=== PATIENT | female | born 1995 | race Caucasian/White ===

== ENCOUNTER → 2016-04-22 | Emergency (ER) | payer OTHER, MEDICAID ==
[~2016-04-22] MED LIST: Acetaminophen TAB* 325 MG PO ONE
[2016-04-22 07:10] LABS: Hematocrit 40 % (35-47); Hemoglobin 13.3 g/dl (12.0-16.0); Mean Corpuscular HGB Conc 34 g/dl (31-36); Mean Corpuscular Hemoglobin 28 pg (27-31); Mean Corpuscular Volume 83 fL (80-97); Mean Platelet Volume 9 um3 (7.4-10.4); Red Blood Count 4.74 10^6/ul (4.0-5.4); Red Cell Distribution Width 14 % (10.5-15); White Blood Count 13.5 10^3/ul (3.5-10.8)
[2016-04-22 07:26] LABS: Albumin 3.7 g/dL (3.2-5.2); BUN/Creatinine Ratio 11.3 (8-20); Calcium 9.1 mg/dL (8.6-10.3); EGFR African American 159.5 (>60); Globulin 3.8 g/dL (2-4); Total Bilirubin 0.2 mg/dL (0.2-1.0); Total Protein 7.5 g/dL (6.4-8.9)
[2016-04-22 08:27] VITALS: BP 126/94
--- NOTE | 2016-05-04 23:41 | ED ---
Ramya Chávez SooYoung, scribed for Mike Whitlock MD on 04/22/16 at 0546 . Complex/Multi-Sys Presentation - HPI Summary HPI Summary: A 20 y/o F presents to ED with c/o L-sided rib pain under L breast onset two days ago. Associated sx: HARDEN, SOB. Denies: cough. Pt is currently at 20 weeks. Additionally, she slipped and fell three days ago onto her L knee. She is sure she didn't fall onto her belly, says the baby is kicking a lot. She notes having previous L rib and knee injuries. Pt is a prev smoker. - History Of Current Complaint Chief Complaint: EDExtremityLower Time Seen by Provider: 04/22/16 05:34 Hx Obtained From: Patient Onset/Duration: Lasting Days, Still Present Location: Pain At: - L rib, below L breast Associated Signs And Symptoms: Positive: SOB - and HARDEN. Negative: Cough - Allergies/Home Medications Allergies/Adverse Reactions: Allergies Allergy/AdvReac Type Severity Reaction Status Date / Time Wheat Bran Allergy Rash Verified 12/21/15 19:51 DAIRY Allergy Severe Diarrhea Uncoded 12/21/15 19:51 alcohol prep Allergy Hives Uncoded 12/21/15 19:51 vieira and pollen Allergy Congestion Uncoded 12/21/15 19:51 PMH/Surg Hx/FS Hx/Imm Hx Previously Healthy: No Endocrine/Hematology History: Denies: Hx Blood Disorders, Hx Diabetes, Hx Sickle Cell Disease Cardiovascular History: Denies: Hx Congestive Heart Failure, Hx Hypercholesterolemia, Hx Hypertension , Hx Pacemaker/ICD, Other Cardiovascular Problems/Disorders Respiratory History: Reports: Hx Asthma GI History: Denies: Other GI Disorders History: Denies: Hx Dialysis, Hx Renal Disease, Other Problems/Disorders Musculoskeletal History: Reports: Hx Back Problems Denies: Hx Arthritis, Hx Rheumatoid Arthritis, Hx Osteoporosis Sensory History: Reports: Hx Contacts or Glasses - GLASSES Opthamlomology History: Reports: Hx Contacts or Glasses - GLASSES Psychiatric History: Reports: Hx Anxiety - ON MEDICATION, Hx Attention Deficit Hyperactivity Disorder - SINCE @ AGE 6, Hx Depression - ON MEDICATION, Hx Suicide Attempt Denies: Hx Panic Disorder - Cancer History Hx Chemotherapy: No - Surgical History Surgery Procedure, Year, and Place: Tonsillectomy, 2013, wisdom teeth, Tongue Laceration Repair, 2000 Hx Anesthesia Reactions: No Infectious Disease History: No Infectious Disease History: Denies: Hx of Known/Suspected MRSA, History Other Infectious Disease, Traveled Outside the [place] in Last 30 Days - Family History Known Family History: Positive: Unknown - pt adopted, Hypertension, Diabetes, Other - hypotension, BLOOD CLOTS - Social History Occupation: Unemployed Lives: With Family Alcohol Use: Occasionally Hx Substance Use: No Substance Use Type: Reports: None Substance Use Comment - Amount & Last Used: 4 mos ago Hx Tobacco Use: Yes Smoking Status (MU): Current Some Day Smoker Type: Cigarettes Amount Used/How Often: 1-3 cig./day Have You Smoked in the Last Year: Yes Review of Systems Negative: Fever, Chills Negative: Erythema Negative: Sore Throat Negative: Chest Pain Negative: Shortness Of Breath, Cough Negative: Abdominal Pain, Vomiting, Nausea Negative: dysuria, hematuria Positive: Other - L rib and knee pain. Negative: Myalgia, Edema Negative: Rash Neurological: Other - neg: dizziness All Other Systems Reviewed And Are Negative: Yes Physical Exam - Summary Physical Exam Summary: Constitutional: Well-developed, Well-nourished, Alert. (-) Distressed Skin: Warm, Dry HENT: Normocephalic; Atraumatic Eyes: Conjunctiva normal Neck: Musculoskeletal ROM normal neck. (-) JVD, (-) Stridor, (-) Tracheal deviation Cardio: Rhythm regular, rate normal, Heart sounds normal; Intact distal pulses; The pedal pulses are 2+ and symmetric. Radial pulses are 2+ and symmetric. (-) Murmur Pulmonary/Chest wall: Effort normal. (-) Respiratory distress, (-) Wheezes, (-) Rales Abd: Soft, (-) Tenderness, (-) Distension, (-) Guarding, (-) Rebound Musculoskeletal: (-) Edema; KNEE NON-TENDER FROM NO EVIDENT SWELLING, SCARS FROM PICKING BEHAVIOR; L LATERAL 10TH RIB IS TENDER TO PALPATION, LUQ MILDLY TENDER TO PALPATION. Lymph: (-) Cervical adenopathy Neuro: Alert, Oriented x3 Psych: Mood and affect Normal Triage Information Reviewed: Yes Vital Signs On Initial Exam: Initial Vitals Temp Pulse Resp BP Pulse Ox 98.0 F 86 17 137/103 100 04/22/16 01:47 04/22/16 01:47 04/22/16 01:47 04/22/16 01:47 04/22/16 01:47 Vital Signs Reviewed: Yes Diagnostics - Vital Signs Vital Signs Temp Pulse Resp BP Pulse Ox 04/22/16 01:47 98.0 F 86 17 137/103 100 - Laboratory Result Diagrams: 04/22/16 07:00 04/22/16 07:00 Lab Statement: Any lab studies that have been ordered have been reviewed, and results considered in the medical decision making process. Complex Multi-Symp Course/Dx Course Of Treatment: DO NOT SUSPECT ANY COMPLICATIONS, IF D-DIMER POSITIVE DISCUSS IMAGING TO RULE OU PE. IF NEGATIVE DISCHARGE FOR MUSCULOSKELETAL CHEST PAIN - Diagnoses Provider Diagnoses: Leg pain Discharge - Discharge Plan Condition: Good Disposition: HOME Patient Education Materials: Chest Wall Pain (ED) Referrals: Suzy Goncalves MD [Medical Doctor] - Donnie Moser DO [Primary Care Provider] - Additional Instructions: Follow up with Dr. Goncalves (SEGMENT ASSEMBLER). The documentation as recorded by the Ramya rizzo SooYoung accurately reflects the service I personally performed and the decisions made by me, Mike Whitlock MD.
== END ==
LOC: ED 01:36
DX: R07.89 Other chest pain (principal); R06.02 Shortness of breath; Z72.0 Tobacco use; M79.606 Pain in leg, unspecified; M25.569 Pain in unspecified knee
CPT/HCPCS: 36415; 80053; 83690; 85027; 85379; 99282; A9270-GY

== ENCOUNTER 2016-05-06 23:28 | Emergency (ER) | payer OTHER, MEDICAID ==
--- NOTE | 2016-05-07 00:07 | ED ---
Abdominal Pain/Female - HPI Summary HPI Summary: 21 week pt here w/ RLQ pain x 2 hours. Feels like a "period cramp". Pain has improved some since arriving. No provoking factors. Reports she did have a similar pain up higher on the Rt side of ab last night after having intercourse - thought this was dyspareunia pain as she gets this with certain positions. Denies vaginal bleeding, vaginal d/c and pain was self-limiting - no vaginal bleeding/discharge today as well. Has some mild nausea - no vomiting, no diarrhea. Reports BM's have been like "khadijah". Lt hip has "issues" and feels like her Lt thigh has been cramping w/ "tank horses" - Lt foot w/ paresthesias. H/o multiple pregnancies lasting only 1 month. This has been confirmed w/ blood test and U/S and she is followed by OBGYN. - History of Current Complaint Chief Complaint: EDAbdPain Stated Complaint: LOWER ABD PAIN/21 WKS PREG Time Seen by Provider: 05/06/16 23:33 Hx Obtained From: Patient Hx Last Menstrual Period: 03/2015 Pain Intensity: 7 Allergies/Adverse Reactions: Allergies Allergy/AdvReac Type Severity Reaction Status Date / Time Wheat Bran Allergy Rash Verified 12/21/15 19:51 DAIRY Allergy Severe Diarrhea Uncoded 12/21/15 19:51 alcohol prep Allergy Hives Uncoded 12/21/15 19:51 vieira and pollen Allergy Congestion Uncoded 12/21/15 19:51 PMH/Surg Hx/FS Hx/Imm Hx Previously Healthy: Yes - 21 weeks Endocrine/Hematology History: Denies: Hx Anticoagulant Therapy, Hx Blood Disorders, Hx Diabetes, Hx Sickle Cell Disease, Hx Unexplained Bleeding Cardiovascular History: Denies: Hx Congestive Heart Failure, Hx Hypercholesterolemia, Hx Hypertension , Hx Pacemaker/ICD, Other Cardiovascular Problems/Disorders Respiratory History: Reports: Hx Asthma GI History: Denies: Hx Cirrhosis, Hx Crohn's Disease, Hx Diverticulosis, Hx Gall Bladder Disease, Hx Gastroesophageal Reflux Disease, Hx Gastrointestinal Bleed, Hx Hiatal Hernia, Hx Irritable Bowel, Other GI Disorders History: Denies: Hx Dialysis, Hx Renal Disease, Other Problems/Disorders Musculoskeletal History: Reports: Hx Back Problems - "floating piece of bone near spine"; Lt hip "issue" Denies: Hx Arthritis, Hx Rheumatoid Arthritis, Hx Osteoporosis Sensory History: Reports: Hx Contacts or Glasses - GLASSES Opthamlomology History: Reports: Hx Contacts or Glasses - GLASSES Psychiatric History: Reports: Hx Anxiety - ON MEDICATION, Hx Attention Deficit Hyperactivity Disorder - SINCE @ AGE 6, Hx Depression - ON MEDICATION, Hx Suicide Attempt Denies: Hx Panic Disorder - Cancer History Hx Chemotherapy: No - Surgical History Surgery Procedure, Year, and Place: Tonsillectomy, 2013, wisdom teeth, Tongue Laceration Repair, 2001 Hx Anesthesia Reactions: No Infectious Disease History: No Infectious Disease History: Denies: Hx of Known/Suspected MRSA, History Other Infectious Disease, Traveled Outside the [place] in Last 30 Days - Family History Known Family History: Positive: Unknown - pt adopted, Hypertension, Diabetes, Other - hypotension, BLOOD CLOTS - Social History Lives: With Family Alcohol Use: Occasionally Hx Substance Use: No Substance Use Type: Reports: None Substance Use Comment - Amount & Last Used: 4 mos ago Hx Tobacco Use: Yes Smoking Status (MU): Current Some Day Smoker Type: Cigarettes Amount Used/How Often: 1-3 cig./day Have You Smoked in the Last Year: Yes Review of Systems Negative: Fever, Chills Cardiovascular: Negative Respiratory: Negative Gastrointestinal: Other - see HPI Negative: burning, dysuria, discharge, frequency, flank pain, hematuria, incontinence Musculoskeletal: Other - see HPI Negative: Rash, Bruising Neurological: Other - see HPI Positive: Anxious All Other Systems Reviewed And Are Negative: Yes Physical Exam Triage Information Reviewed: Yes Vital Signs On Initial Exam: Initial Vitals Temp Pulse Resp BP Pulse Ox 97.3 F 85 15 117/71 98 05/06/16 23:37 05/06/16 23:37 05/06/16 23:37 05/06/16 23:37 05/06/16 23:37 Vital Signs Reviewed: Yes Appearance: Positive: Well-Appearing, No Pain Distress, Well-Nourished Skin: Positive: Warm, Dry - no skin abnormalities overlying affected area on abdomen Head/Face: Positive: Normal Head/Face Inspection Eyes: Positive: Normal, EOMI, Conjunctiva Clear - anicteric sclera ENT: Positive: Hearing grossly normal, Pharynx normal - mucosa moist Neck: Positive: Supple Respiratory/Lung Sounds: Positive: Clear to Auscultation, Breath Sounds Present. Negative: Rales, Rhonchi, Wheezes Cardiovascular: Positive: Normal, RRR, Pulses are Symmetrical in both Upper and Lower Extremities Abdomen Description: Positive: Soft, Other: - diffuse mild TTP over ab - no rebounding Bowel Sounds: Positive: Present Musculoskeletal: Positive: Normal, Strength/ROM Intact - pt transitions from sitting to standing w/o diffculty; ambulating and bearing weight well Neurological: Positive: Normal, Alert, Oriented to Person Place, Time, CN Intact II-III Psychiatric: Positive: Normal - concerned, somewhat anxious Diagnostics - Vital Signs Vital Signs Temp Pulse Resp BP Pulse Ox 05/06/16 23:37 97.3 F 85 15 117/71 98 - Laboratory Result Diagrams: 05/06/16 23:55 05/06/16 23:55 Lab Statement: Any lab studies that have been ordered have been reviewed, and results considered in the medical decision making process. Abdominal Pain Fem Course/Dx - Course Course Of Treatment: Viably 21 weeks - confirmed by FHR 150 heard on U/ S as well as beta HCG serum count. Pt's U/S is normal but cannot r/o appendicitis. Although she has an elevated WBC which is common in , her labs are unremarkable for acute inflammatory response to infection. She also reports improvement of pain since arriving and is asking to eat something. Her lower Rt pelvic pain is anatoically in the region of her round ligament - discussed this could be the cause of her pain as things shift during this point in . Her sx support this as well. Reviewed danger s/sx of appendicitis w/ pt who agrees to return to ED immediately if she develops return /worsening of ab pain, acute or peristent back pain, nasuea, vomiting, diarrhea , fever, chills, vaginal bleeding/discharge. Pt and male partner voice understanding and agree w/ plan. WIll f/u w/ OBGYN as directed. - Diagnoses Provider Diagnoses: Abdominal pain during in second trimester - Provider Notifications Discussed Care Of Patient With: Dr. Felix. Dr. Kennedy - explained round ligament pain is typically triggered around this time of . HR reported at 150bpm and no vaginal bleeding. Okay to w/u for other ab pain issues and f/u w/ OBGYN as routinely recommended unless danger s/sx present. No pelvic exam necessary at this time. Discharge - Discharge Plan Condition: Stable Disposition: HOME Patient Education Materials: Abdominal Pain in (ED) Referrals: Donnie Moser DO [Primary Care Provider] - Additional Instructions: Follow-up with your OBGYN this week You may take tylenol for pain. If you develop worsening of abdominal pain and/or fever, chills, vomiting, vaginal bleeding, back pain, return to ED
[2016-05-07 00:28] LABS: Hematocrit 42 % (35-47); Hemoglobin 13.8 g/dl (12.0-16.0); Mean Corpuscular HGB Conc 33 g/dl (31-36); Mean Corpuscular Hemoglobin 27 pg (27-31); Mean Corpuscular Volume 84 fL (80-97); Mean Platelet Volume 9 um3 (7.4-10.4); Red Blood Count 5.06 10^6/ul (4.0-5.4); Red Cell Distribution Width 14 % (10.5-15); White Blood Count 14.6 10^3/ul (3.5-10.8)
[2016-05-07 00:37] LABS: Urine Bacteria 1+ (Absent); Urine Bilirubin Negative (Negative); Urine Glucose Negative (Negative); Urine Nitrite Negative (Negative)
[2016-05-07 00:39] LABS: Albumin 3.4 g/dL (3.2-5.2); BUN/Creatinine Ratio 6.8 (8-20); C Reactive Protein 29.99 mg/L (< 5.00); EGFR African American 168.9 (>60); EGFR Non-African American 131.3 (>60); Globulin 3.8 g/dL (2-4); Potassium 3.9 mmol/L (3.5-5.0); Total Bilirubin 0.2 mg/dL (0.2-1.0); Total Protein 7.2 g/dL (6.4-8.9)
[2016-05-07] MEDS ORDERED: Acetaminophen TAB* 325 MG PO ONE (01:31)
[2016-05-07 02:02] VITALS: BP 120/70
--- NOTE | 2016-05-07 10:20 | RAD ---
Indication: RIGHT lower quadrant pain. / 21 weeks gestation. Comparison: None. Technique: Ultrasound of the right lower quadrant. Report: Nondiagnostic exam due to nonvisualization of the appendix. No secondary findings such as ascites or conspicuous lymphadenopathy to support acute inflammation in the RIGHT lower quadrant. Large body habitus limits acoustic window.
--- NOTE | 2016-05-07 11:18 | RAD ---
Indication: Abdominal pain and nausea. Comparison: October 10, 2015 RIGHT upper quadrant ultrasound. Technique: Complete abdominal ultrasound. Report: Appropriate direction flow documented in the portal and hepatic veins. 16 cm cephalocaudal liver is normal in echotexture and without evidence for focal lesions or biliary dilatation. 3 mm common bile duct. Normally distended gallbladder with 2.1 mm wall is without pathologic finding. Negative for sonographic Grimm's sign. The pancreas is poorly visualized without gross abnormality of the limited visualized segment of the pancreatic head and body. Unremarkable 11.8 cm spleen. Negative for ascites. 12.6 x 5.7 x 5.6 cm RIGHT kidney and 12.1 x 5.4 x 5.8 cm LEFT kidney. Normal bilateral renal cortical echogenicity. No focal renal lesions, conspicuous stones, or hydronephrosis. IMPRESSION: Negative abdominal ultrasound.
== END 2016-05-07 02:01 | disposition home or self-care (01) ==
LOC: ED 23:28
DX: R10.31 Right lower quadrant pain (principal); Z72.0 Tobacco use; Z3A.21 21 weeks gestation of pregnancy
CPT/HCPCS: 36415; 76700; 76705; 80053; 81003; 81015; 83605; 83690; 84702; 85025; 86140; 87086; 99284; A9270-GY

== ENCOUNTER → 2016-05-17 | Emergency (ER) | payer OTHER, MEDICAID ==
[2016-05-17 12:51] VITALS: BP 144/59
== END | disposition left against medical advice (07) ==
LOC: ED 12:40
DX: R05 Cough (principal); Z53.21 Procedure and treatment not carried out due to patient leaving prior to being seen by health care provider

== ENCOUNTER 2016-08-25 21:34 | Emergency (ER) | payer OTHER, MEDICAID ==
[2016-08-25] MEDS ORDERED: NS 0.9% 1000 ML* 1,000 ML IV SCH (21:45)
[2016-08-25 22:22] LABS: Hematocrit 38 % (35-47); Hemoglobin 12.6 g/dl (12.0-16.0); Mean Corpuscular HGB Conc 33 g/dl (31-36); Mean Corpuscular Hemoglobin 27 pg (27-31); Mean Corpuscular Volume 81 fL (80-97); Mean Platelet Volume 9 um3 (7.4-10.4); Red Blood Count 4.75 10^6/ul (4.0-5.4); Red Cell Distribution Width 14 % (10.5-15); White Blood Count 14.3 10^3/ul (3.5-10.8)
[2016-08-25 22:36] LABS: Albumin 2.9 g/dL (3.2-5.2); BUN/Creatinine Ratio 16.9 (8-20); Calcium 9.1 mg/dL (8.6-10.3); EGFR African American 167.1 (>60); EGFR Non-African American 129.9 (>60); Globulin 3.5 g/dL (2-4); Potassium 4.1 mmol/L (3.5-5.0); Total Bilirubin 0.2 mg/dL (0.2-1.0); Total Protein 6.4 g/dL (6.4-8.9)
--- NOTE | 2016-08-26 01:22 | ED ---
Rajat Chávez Benjamin, scribed for Juanpablo Murcia MD on 08/25/16 at 2207 . Lower Extremity - HPI Summary HPI Summary: 37 weeks 21yo female came in ED by EMS after slipping off the stairs at home. Pt fell forward 4-5 steps. Pt presents with a laceration on her left 4 th toe along with throbbing pain in the area. Pt also reports diffuse abdominal cramping, which started a few minutes after her fall. Pt admits a mild head injury as well but denies any LORENZO or pain. - History of Current Complaint Chief Complaint: EDExtremityLower Stated Complaint: FELL DOWN STAIRS/37WKS PREG AND FOOT LAC Time Seen by Provider: 08/25/16 21:42 Hx Obtained From: Patient, Family/Senior Copywriter - Hx Last Menstrual Period: 03/2015 Mechanism Of Injury: Fall From Height Of: - 4-5 steps above ground Onset of Pain: Post Accident Onset/Duration: Still Present Severity Initially: Mild Severity Currently: None Pain Intensity: 0 Pain Scale Used: 0-10 Numeric Timing: Constant Location: Is Discrete @ - left 4th toe, and abdomen Character Of Pain: Throbbing Associated Signs And Symptoms: Positive: Negative Aggravating Factor(s): Standing, Ambulation, Movement, Weight Bearing Alleviating Factor(s): Rest, Ice Able to Bear Weight: No - Allergies/Home Medications Allergies/Adverse Reactions: Allergies Allergy/AdvReac Type Severity Reaction Status Date / Time Wheat Bran Allergy GI Upset Verified 05/30/16 20:55 DAIRY Allergy Severe Diarrhea Uncoded 05/30/16 20:55 vieira and pollen Allergy Congestion Uncoded 05/30/16 20:55 PMH/Surg Hx/FS Hx/Imm Hx Endocrine/Hematology History: Denies: Hx Anticoagulant Therapy, Hx Blood Disorders, Hx Diabetes, Hx Sickle Cell Disease, Hx Unexplained Bleeding Cardiovascular History: Denies: Hx Congestive Heart Failure, Hx Hypercholesterolemia, Hx Hypertension , Hx Pacemaker/ICD, Other Cardiovascular Problems/Disorders Respiratory History: Reports: Hx Asthma GI History: Denies: Hx Cirrhosis, Hx Crohn's Disease, Hx Diverticulosis, Hx Gall Bladder Disease, Hx Gastroesophageal Reflux Disease, Hx Gastrointestinal Bleed, Hx Hiatal Hernia, Hx Irritable Bowel, Other GI Disorders History: Denies: Hx Dialysis, Hx Renal Disease, Other Problems/Disorders Musculoskeletal History: Reports: Hx Back Problems - "floating piece of bone near spine"; Lt hip "issue" Denies: Hx Arthritis, Hx Rheumatoid Arthritis, Hx Osteoporosis Sensory History: Reports: Hx Contacts or Glasses - GLASSES Opthamlomology History: Reports: Hx Contacts or Glasses - GLASSES Psychiatric History: Reports: Hx Anxiety, Hx Attention Deficit Hyperactivity Disorder - SINCE @ AGE 6, Hx Depression, Hx Suicide Attempt, Other Psychiatric Issues/Disorders - bipolar Denies: Hx Panic Disorder - Cancer History Hx Chemotherapy: No - Surgical History Surgery Procedure, Year, and Place: Tonsillectomy, 2013, wisdom teeth, Tongue Laceration Repair, 2000 Hx Anesthesia Reactions: No Infectious Disease History: No Infectious Disease History: Denies: Hx of Known/Suspected MRSA, History Other Infectious Disease, Traveled Outside the [place] in Last 30 Days - Family History Known Family History: Positive: None, Unknown - pt adopted, Hypertension, Diabetes, Other - hypotension, BLOOD CLOTS - Social History Occupation: Unemployed Lives: With Family Alcohol Use: None Alcohol Amount: pt states none this Hx Substance Use: No Substance Use Type: Reports: None Substance Use Comment - Amount & Last Used: pt states clean since 2014 Hx Tobacco Use: Yes Smoking Status (MU): Former Smoker Type: Cigarettes Amount Used/How Often: 1-3 cig./day Have You Smoked in the Last Year: Yes Review of Systems Constitutional: Negative Eyes: Negative ENT: Negative Cardiovascular: Negative Respiratory: Negative Positive: Abdominal Pain - cramping Genitourinary: Negative Positive: Arthralgia - left 4th toe Positive: Other - lac @ left 4th toe Neurological: Negative Psychological: Normal All Other Systems Reviewed And Are Negative: Yes Physical Exam Triage Information Reviewed: Yes Vital Signs On Initial Exam: Initial Vitals Temp Pulse Resp BP Pulse Ox 98.6 F 104 18 133/72 98 08/25/16 21:43 08/25/16 21:43 08/25/16 21:43 08/25/16 21:43 08/25/16 21:43 Vital Signs Reviewed: Yes Appearance: Positive: Well-Appearing, No Pain Distress, Obese Skin: Positive: Warm, Skin Color Reflects Adequate Perfusion, Dry, Other - laceration between 4th and 5th toe of the left foot Head/Face: Positive: Normal Head/Face Inspection Eyes: Positive: EOMI, CASEY ENT: Positive: Normal ENT inspection Neck: Positive: Supple, Nontender Respiratory/Lung Sounds: Positive: Clear to Auscultation, Breath Sounds Present Cardiovascular: Positive: RRR Abdomen Description: Positive: Nontender, No Organomegaly, Other: - gravid abdomen; mild tenderness at umbilicus Bowel Sounds: Positive: Present Musculoskeletal: Positive: Normal, Pain @ - tenderness at Left ankle and left dorsum of the foot Neurological: Positive: Sensory/Motor Intact, Alert, Oriented to Person Place, Time Psychiatric: Positive: Affect/Mood Appropriate Diagnostics - Vital Signs Vital Signs Temp Pulse Resp BP Pulse Ox 08/25/16 21:45 98.6 F 104 18 133/72 98 08/25/16 21:43 98.6 F 104 18 133/72 98 - Laboratory Lab Results: Lab Results 08/25/16 08/25/16 08/25/16 Range/Units 22:15 22:15 22:15 WBC 14.3 H (3.5-10.8) 10^3/ul RBC 4.75 (4.0-5.4) 10^6/ul Hgb 12.6 (12.0-16.0) g/dl Hct 38 (35-47) % MCV 81 (80-97) fL MCH 27 (27-31) pg MCHC 33 (31-36) g/dl RDW 14 (10.5-15) % Plt Count 253 (150-450) 10^3/ul MPV 9 (7.4-10.4) um3 Neut % (Auto) 68.8 (38-83) % Lymph % (Auto) 17.8 L (25-47) % Hemphill % (Auto) 8.0 (1-9) % Eos % (Auto) 4.9 (0-6) % Baso % (Auto) 0.5 (0-2) % Absolute Neuts (auto) 9.8 H (1.5-7.7) 10^3/ul Absolute Lymphs (auto) 2.5 (1.0-4.8) 10^3/ul Absolute Monos (auto) 1.1 H (0-0.8) 10^3/ul Absolute Eos (auto) 0.7 H (0-0.6) 10^3/ul Absolute Basos (auto) 0.1 (0-0.2) 10^3/ul Absolute Nucleated RBC 0.01 10^3/ul Nucleated RBC % 0.1 INR (Anticoag Therapy) 0.87 L (0.89-1.11) APTT 27.5 (26.0-36.3) seconds Sodium 134 (133-145) mmol/L Potassium 4.1 (3.5-5.0) mmol/L Chloride 107 (101-111) mmol/L Carbon Dioxide 21 L (22-32) mmol/L Anion Gap 6 (2-11) mmol/L BUN 10 (6-24) mg/dL Creatinine 0.59 (0.51-0.95) mg/dL Est GFR ( Amer) 167.1 (>60) Est GFR (Non-Af Amer) 129.9 (>60) BUN/Creatinine Ratio 16.9 (8-20) Glucose 95 (70-100) mg/dL Calcium 9.1 (8.6-10.3) mg/dL Total Bilirubin 0.20 (0.2-1.0) mg/dL AST 11 L (13-39) U/L ALT 10 (7-52) U/L Alkaline Phosphatase 110 H (34-104) U/L Total Protein 6.4 (6.4-8.9) g/dL Albumin 2.9 L (3.2-5.2) g/dL Globulin 3.5 (2-4) g/dL Albumin/Globulin Ratio 0.8 L (1-3) KB Hemoglobin 05/25/17 Range/Units 22:15 WBC (3.5-10.8) 10^3/ul RBC (4.0-5.4) 10^6/ul Hgb (12.0-16.0) g/dl Hct (35-47) % MCV (80-97) fL MCH (27-31) pg MCHC (31-36) g/dl RDW (10.5-15) % Plt Count (150-450) 10^3/ul MPV (7.4-10.4) um3 Neut % (Auto) (38-83) % Lymph % (Auto) (25-47) % Hemphill % (Auto) (1-9) % Eos % (Auto) (0-6) % Baso % (Auto) (0-2) % Absolute Neuts (auto) (1.5-7.7) 10^3/ul Absolute Lymphs (auto) (1.0-4.8) 10^3/ul Absolute Monos (auto) (0-0.8) 10^3/ul Absolute Eos (auto) (0-0.6) 10^3/ul Absolute Basos (auto) (0-0.2) 10^3/ul Absolute Nucleated RBC 10^3/ul Nucleated RBC % INR (Anticoag Therapy) (0.89-1.11) APTT (26.0-36.3) seconds Sodium (133-145) mmol/L Potassium (3.5-5.0) mmol/L Chloride (101-111) mmol/L Carbon Dioxide (22-32) mmol/L Anion Gap (2-11) mmol/L BUN (6-24) mg/dL Creatinine (0.51-0.95) mg/dL Est GFR ( Amer) (>60) Est GFR (Non-Af Amer) (>60) BUN/Creatinine Ratio (8-20) Glucose (70-100) mg/dL Calcium (8.6-10.3) mg/dL Total Bilirubin (0.2-1.0) mg/dL AST (13-39) U/L ALT (7-52) U/L Alkaline Phosphatase (34-104) U/L Total Protein (6.4-8.9) g/dL Albumin (3.2-5.2) g/dL Globulin (2-4) g/dL Albumin/Globulin Ratio (1-3) KB Hemoglobin 0.0 Result Diagrams: 08/25/16 22:15 08/25/16 22:15 Lab Statement: Any lab studies that have been ordered have been reviewed, and results considered in the medical decision making process. - Radiology Ankle XR, left Xray Interpretation: No Acute Changes Radiology Interpretation Completed By: ED Physician Foot XR, left Xray Interpretation: No Acute Changes Radiology Interpretation Completed By: ED Physician - Additional Comments Diagnostic Additional Comments: US: single intrauterine gestation at 37 weeks. Re-Evaluation - Re-Evaluation First Eval Re-Evaluation Time: 00:10 Comment: Discussed lab and imaging results with the pt, as well as pt's disposition. Second Eval Re-Evaluation Time: 01:08 Comment: 8mm partial thinkness laceration on the dorsum of the left foot, betwewen 4th and 5th toes. Lac is not bleeding. Laceration was cleaned with sterile saline solution and dermabond was applied. Lower Extremity Course/Dx - Course Course Of Treatment: NO CRITICAL CARE TIME Assessment/Plan: WELL IN ED. LEFT 4TH TOE LACERATION GLUED. DISCUSSED WITH DR KENNEDY. AT ED DISCHARGE, PATIENT TO GO TO L & D FOR MONITORING. DISCHARGE HOME STABLE. - Diagnoses Provider Diagnoses: Traumatic injury during , Ankle sprain, Foot sprain, Toe laceration - Physician Notifications Discussed Care of Patient With: Dr. Kennedy ([facility] [employer]) @0113. Discharge - Discharge Plan Condition: Stable Disposition: HOME Patient Education Materials: Trauma During (ED), Ankle Sprain (ED), Foot Sprain (ED), Skin Adhesive Care (ED), Laceration (ED) Referrals: [facility] [Provider Group] Donnie Moser DO [Primary Care Provider] - Additional Instructions: FOLLOW UP WITH YOUR DOCTOR. RETURN TO THE EMERGENCY DEPARTMENT FOR ANY WORSENING OF YOUR CONDITION; PAIN, CONTRACTIONS, SIGNS OF INFECTION OR QUESTIONS OR CONCERNS. The documentation as recorded by the Rajat rizzo Benjamin accurately reflects the service I personally performed and the decisions made by me, Juanpablo Murcia MD.
[2016-08-26 01:38] VITALS: BP 104/56
--- NOTE | 2016-08-26 07:27 | RAD ---
INDICATION: Left foot injury COMPARISON: Left ankle same date TECHNIQUE: AP and lateral views were obtained. FINDINGS: The bony structures, joint spaces, and soft tissues are normal for age. IMPRESSION: NEGATIVE EXAMINATION.
--- NOTE | 2016-08-26 07:27 | RAD ---
INDICATION: Left injury COMPARISON: Left foot same date TECHNIQUE: Ap, and oblique views were obtained. FINDINGS: The bony structures, joint spaces, and soft tissues are normal for age. IMPRESSION: AP AND OBLIQUE VIEWS SHOW NO ACUTE FRACTURE.
--- NOTE | 2016-08-26 07:38 | RAD ---
INDICATION: Patient reports trauma. Ankle injury. COMPARISON: None TECHNIQUE: Real-time sector scans were performed for the purposes of evaluation. Examination is limited by late gestational age and body habitus FINDINGS: There is a single intrauterine gestation in cephalic presentation. The placenta is posterior in location. There is no evidence of placenta previa or abruption. cardiac activity is documented at 150 beats per minute. There is movement. The amniotic fluid index is normal. The cervix is closed measuring 5.5 cm. A anatomic survey reveals normal intracranial anatomy. The cervical, thoracic, and lumbosacral spine are normal. There is limited evaluation of the 4 chambered heart. There is no cine loop sequence. The diaphragm, stomach, kidneys, cord insertion, bladder, a 3 vessel cord, and face/nose/lips are visualized and appear normal. The estimated gestational age based on biparietal diameter, head circumference, abdominal circumference, and femur length corresponds to 37 weeks 3 days, 37 weeks 6 days, 37 weeks 0 days, and 36 weeks 6 days. The composite age is 37 weeks 2 days. The weight is 6 lbs. 13 oz. IMPRESSION: LIMITED EXAMINATION. 37 WEEK . NO SONOGRAPHIC ABNORMALITIES ARE DETECTED.
== END 2016-08-26 01:36 | disposition home or self-care (01) ==
LOC: ED 21:34
DX: O9A.213 Injury, poisoning and certain other consequences of external causes complicating pregnancy, third trimester (principal); S93.402A Sprain of unspecified ligament of left ankle, initial encounter; S91.119A Laceration without foreign body of unspecified toe without damage to nail, initial encounter; S93.602A Unspecified sprain of left foot, initial encounter; W10.9XXA Fall (on) (from) unspecified stairs and steps, initial encounter; Y93.9 Activity, unspecified; Y92.9 Unspecified place or not applicable; Y99.9 Unspecified external cause status; Z3A.37 37 weeks gestation of pregnancy
CPT/HCPCS: 36415; 76805; 80053; 83030; 85025; 85610; 85730; 99284

== ENCOUNTER 2016-09-13 16:42 | Inpatient (IN) | payer OTHER, MEDICAID ==
[2016-09-13 17:11] LABS: Hematocrit 40 % (35-47); Hemoglobin 13.1 g/dl (12.0-16.0); Mean Corpuscular HGB Conc 32 g/dl (31-36); Mean Corpuscular Hemoglobin 26 pg (27-31); Mean Corpuscular Volume 81 fL (80-97); Mean Platelet Volume 10 um3 (7.4-10.4); Red Blood Count 4.97 10^6/ul (4.0-5.4); Red Cell Distribution Width 15 % (10.5-15); White Blood Count 17.9 10^3/ul (3.5-10.8)
[2016-09-13] MEDS ORDERED: Sodium Citrate/Citric Acid* 15 ML UDC PO PRN (17:34)
[2016-09-13] MEDS ORDERED: Phenylephrine IV* 40 MCG/ML 10 ML SYRINGE IV PUSH PRN ×2 (17:34)
[2016-09-13] MEDS ORDERED: Famotidine TAB* 20 MG PO PRN (17:34)
[2016-09-13] MEDS ORDERED: OBEPIDURAL* 250 ML EPIDURAL SCH (18:00)
[2016-09-13 18:53] LABS: Benzodiazepine Urine Screen None Detected (None Detect)
[2016-09-13] MEDS ORDERED: Calcium Carbonate CHEW TAB* 500 MG (TUMS) PO PRN (19:48)
[2016-09-13] MEDS ORDERED: Calcium Carbonate CHEW TAB* 500 MG (TUMS) ONE (19:49)
[2016-09-13] MEDS ORDERED: Oxytocin in LR* 20 UNITS/1,000 ML BAG IVPB ONE (23:31)
[2016-09-14] MEDS ORDERED: Glycerin ADULT SUPP PR PRN (00:54)
[2016-09-14] MEDS ORDERED: Acetaminophen TAB* 325 MG PO PRN (00:54)
[2016-09-14] MEDS: Witch Hazel PAD* JAR TOPICAL PRN (02:09)
[2016-09-14] MEDS: Ibuprofen TAB* 600 MG PO PRN ×3 (02:10→20:52)
[2016-09-14] MEDS: Dibucaine 1% 28.35 GM TUBE PR PRN (02:10)
[2016-09-14] MEDS: Docusate CAP* 100 MG PO SCH ×3 (08:27→20:52)
[2016-09-14] MEDS ORDERED: Simethicone CHEW TAB* 80 MG PO SCH (08:30)
[2016-09-15] MEDS: Ibuprofen TAB* 600 MG PO PRN ×3 (04:03→20:38)
[2016-09-15 06:28] LABS: Hematocrit 33 % (35-47); Hemoglobin 10.6 g/dl (12.0-16.0); Mean Corpuscular HGB Conc 32 g/dl (31-36); Mean Corpuscular Hemoglobin 26 pg (27-31); Mean Corpuscular Volume 82 fL (80-97); Mean Platelet Volume 9 um3 (7.4-10.4); Red Blood Count 4.03 10^6/ul (4.0-5.4); Red Cell Distribution Width 15 % (10.5-15); White Blood Count 15.7 10^3/ul (3.5-10.8)
[2016-09-15] MEDS: Docusate CAP* 100 MG PO SCH ×3 (08:26→20:38)
[2016-09-15] MEDS ORDERED: Ferrous Gluconate TAB* 324 MG TAB PO SCH (09:00)
[2016-09-15] MEDS: Dibucaine 1% 28.35 GM TUBE PR PRN (20:38)
[2016-09-15] MEDS: Witch Hazel PAD* JAR TOPICAL PRN (20:38)
[2016-09-16] MEDS: Ibuprofen TAB* 600 MG PO PRN (04:56)
[2016-09-16 08:07] VITALS: BP 122/65
[2016-09-16] MEDS: Docusate CAP* 100 MG PO SCH (10:11)
== END 2016-09-16 12:16 | disposition home or self-care (01) | DRG 775 ==
LOC: MCHOBOUT 16:42 → MCHOB 16:52
PROVIDERS: ADMIT Obstetrics & Gynecology; ATTEND Obstetrics & Gynecology
PROC: 10D07Z6 Extraction of Products of Conception, Vacuum, Via Natural or Artificial Opening (ICD-10-PCS; principal; 2016-09-14)
PROC: 0HQ9XZZ Repair Perineum Skin, External Approach (ICD-10-PCS; 2016-09-14)
DX: O99.344 Other mental disorders complicating childbirth (principal); Z68.42 Body mass index [BMI] 45.0-49.9, adult; F31.89 Other bipolar disorder; O99.214 Obesity complicating childbirth; E66.01 Morbid (severe) obesity due to excess calories; O71.82 Other specified trauma to perineum and vulva; O77.0 Labor and delivery complicated by meconium in amniotic fluid; F19.21 Other psychoactive substance dependence, in remission; Z3A.39 39 weeks gestation of pregnancy; Z37.0 Single live birth
CPT/HCPCS: 36415; 80307; 85025; 86850; 86900; 86901; 99213; A9270-GY; G0463

== ENCOUNTER 2016-10-22 21:16 | Emergency (ER) | payer OTHER, MEDICAID ==
--- NOTE | 2016-10-22 22:47 | RAD ---
INDICATION: Right elbow pain. TECHNIQUE: 4 views of the right elbow were obtained. FINDINGS: The bones are in normal alignment. No joint effusion or fracture is seen. Joint spaces appear maintained. IMPRESSION: NEGATIVE EXAM.
--- NOTE | 2016-10-22 22:48 | RAD ---
INDICATION: Right shoulder pain. TECHNIQUE: 4 views of the right shoulder were obtained. FINDINGS: The bones are in normal alignment. No fracture is seen. Joint spaces appear maintained. IMPRESSION: NEGATIVE EXAM.
[2016-10-22] MEDS ORDERED: Cyclobenzaprine TAB* 10 MG PO ONE (23:23)
--- NOTE | 2016-10-22 23:28 | ED ---
Upper Extremity Pain - HPI Summary HPI Summary: 21F presents with right shoulder pain for a couple days. The pain radiates down to her elbow. She denies any injury. She states the pain is worst when she lifts her arm overhead or behind her. She denies any numbness or tingling. She denies any weakness. She states she feels like it is a tightness of the area and starts at her neck and radiates down arm. She has not been using anything for pain as she states nothing touches her pain as she was an IV drug user in the past. 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 - History of Current Complaint Chief Complaint: Cassy Stated Complaint: RT SHOULDER AND ELBOW PAIN Time Seen by Provider: 10/22/16 22:44 Hx Last Menstrual Period: 03/2015 - Allergies/Home Medications Allergies/Adverse Reactions: Allergies Allergy/AdvReac Type Severity Reaction Status Date / Time Alcohol Allergy Intermediate Hives Verified 09/14/16 01:46 Oxycodone Allergy Mild GI Upset Verified 09/14/16 01:46 Wheat Bran Allergy GI Upset Verified 09/01/16 21:19 DAIRY Allergy Severe Diarrhea Uncoded 09/01/16 21:19 vieira and pollen Allergy Mild Congestion Uncoded 09/14/16 01:47 PMH/Surg Hx/FS Hx/Imm Hx Endocrine/Hematology History: Denies: Hx Anticoagulant Therapy, Hx Blood Disorders, Hx Diabetes, Hx Sickle Cell Disease, Hx Unexplained Bleeding Cardiovascular History: Denies: Hx Congestive Heart Failure, Hx Hypercholesterolemia, Hx Hypertension , Hx Pacemaker/ICD, Other Cardiovascular Problems/Disorders Respiratory History: Reports: Hx Asthma - uses inhaler GI History: Denies: Hx Cirrhosis, Hx Crohn's Disease, Hx Diverticulosis, Hx Gall Bladder Disease, Hx Gastroesophageal Reflux Disease, Hx Gastrointestinal Bleed, Hx Hiatal Hernia, Hx Irritable Bowel, Other GI Disorders History: Denies: Hx Dialysis, Hx Renal Disease, Other Problems/Disorders Musculoskeletal History: Reports: Hx Back Problems - "floating piece of bone near spine"; Lt hip "issue" Denies: Hx Arthritis, Hx Rheumatoid Arthritis, Hx Osteoporosis Sensory History: Reports: Hx Contacts or Glasses - GLASSES Opthamlomology History: Reports: Hx Contacts or Glasses - GLASSES Psychiatric History: Reports: Hx Anxiety, Hx Attention Deficit Hyperactivity Disorder - SINCE @ AGE 6, Hx Depression, Hx Bipolar Disorder - Not taking meds due to and breast feeding f/u w/ MD Olivia, Hx Suicide Attempt, Other Psychiatric Issues/Disorders - bipolar Denies: Hx Panic Disorder - Cancer History Hx Chemotherapy: No - Surgical History Surgery Procedure, Year, and Place: Tonsillectomy, 2013, wisdom teeth, Tongue Laceration Repair, 2001 Hx Anesthesia Reactions: No Infectious Disease History: No Infectious Disease History: Denies: Hx of Known/Suspected MRSA, History Other Infectious Disease, Traveled Outside the [place] in Last 30 Days - Family History Known Family History: Positive: None, Unknown - pt adopted, Hypertension, Diabetes, Other - hypotension, BLOOD CLOTS - Social History Alcohol Use: None Alcohol Amount: pt states none this Hx Substance Use: No Substance Use Type: Reports: None Substance Use Comment - Amount & Last Used: Hx of opiate, etoh, and marijuana use. Has participated with [employer]. Hx Tobacco Use: Yes Smoking Status (MU): Former Smoker Type: Cigarettes Amount Used/How Often: 1-3 cig./day Have You Smoked in the Last Year: Yes Review of Systems Negative: Fever Negative: Chest Pain Negative: Shortness Of Breath Positive: Myalgia - right shoulder pain All Other Systems Reviewed And Are Negative: Yes Physical Exam Triage Information Reviewed: Yes Vital Signs On Initial Exam: Initial Vitals Temp Pulse Resp BP Pulse Ox 97.5 F 82 18 123/67 99 10/22/16 21:20 10/22/16 21:20 10/22/16 21:20 10/22/16 21:20 10/22/16 21:20 Vital Signs Reviewed: Yes Appearance: Positive: Well-Appearing Skin: Positive: Warm, Dry Head/Face: Positive: Normal Head/Face Inspection Eyes: Positive: Normal, Conjunctiva Clear Respiratory/Lung Sounds: Positive: Clear to Auscultation, Breath Sounds Present Cardiovascular: Positive: Normal, RRR Musculoskeletal: Positive: Limited @ - overhead and behind back due to pain, Other - pos lubin test, neg drop arm and yearson, good pulses, capillary refill<2 secs, Diagnostics - Vital Signs Vital Signs Temp Pulse Resp BP Pulse Ox 10/22/16 21:58 97.5 F 82 18 123/67 99 10/22/16 21:20 97.5 F 82 18 123/67 99 - Laboratory Lab Statement: Any lab studies that have been ordered have been reviewed, and results considered in the medical decision making process. - Radiology shoulder, elbow Xray Interpretation: No Acute Changes Radiology Interpretation Completed By: Radiologist Course/Dx - Course Course Of Treatment: 21F presents with right shoulder pain for a couple days. The pain radiates down to her elbow. She denies any injury. She states the pain is worst when she lifts her arm overhead or behind her. She denies any numbness or tingling. She denies any weakness. She states she feels like it is a tightness of the area and starts at her neck and radiates down arm. neurovascular intact, positive lubin, neg yearsons and drop arm. xray normal. discussed options and patient wants to try flexeril and will follow up with primary. - Diagnoses Differential Diagnosis/HQI/PQRI: Positive: Fracture (Closed), Strain, Sprain Provider Diagnoses: Right shoulder pain Discharge - Discharge Plan Condition: Good Disposition: HOME Prescriptions: Cyclobenzaprine TAB* [Flexeril 10 MG TAB*] 10 mg PO TID PRN #9 tab PRN Reason: Pain Patient Education Materials: Shoulder Pain (ED) Referrals: Donnie Moser DO [Primary Care Provider] - [facility] [Outside] Additional Instructions: Take Tylenol and ibuprofen every 6 hours as needed for pain Take muscle relaxer three times a day for 3 days Ice/heat Do range of motion activities for shoulder Follow up with primary care physician if no improvement Return to ED if develop any new or worsening symptoms
[2016-10-22 23:47] VITALS: BP 137/53
== END 2016-10-22 23:59 | disposition home or self-care (01) ==
LOC: ED 21:16
DX: M25.511 Pain in right shoulder (principal); Z87.891 Personal history of nicotine dependence
CPT/HCPCS: 99282; A9270-GY

== ENCOUNTER 2017-03-30 18:33 | Emergency (ER) | payer OTHER, MEDICAID ==
[2017-03-30 18:43] VITALS: BP 135/56
--- OUTSIDE RECORDS SUMMARY | 2017-03-30 19:20 | XMS REPORT ---
:1995 External Reference #:[id number] Author Organization [facility] Address [address] [place] [address] Phone [phone] Care Team Providers Name Role Phone Bishnu Ordoñez M.D. Care Team Information Puncher Unavailable Bishnu Ordoñez M.D. Primary Care Physician Unavailable Payers Type Date Identification Numbers Payment Provider Subscriber Commercial Effective: Policy Number: [facility] [id number] Group Number: [id number] [address] Group Name: [place] [address] PayID: [id number] Medicaid Policy Number: [id number] Medicaid-Adult Ailin Orr PayID: [id number] [address] [place] [address] Problems Date Description Provider Status Onset: 02/01/2017 Allergic rhinitis Ginette Alvarenga M.D. Active Onset: 02/01/2017 Allergic rhinitis due to animals Ginette Alvarenga M.D. Active Onset: 02/01/2017 Ingestion dermatitis due to food Ginette Alvarenga M.D. Active Onset: 02/01/2017 Uncomplicated moderate persistent asthma Ginette Alvarenga M.D. 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 Home Environment Mattress is 1 year old Home Environment Mattress is not encased in an allergy proof case Home Environment No Mattress Cover Home Environment Regular Mattress Home Environment Pillows are not encased in an allergy proof case Home Environment Pillows are polyester Home Environment Does not use a dehumidifier Home Environment Pillows contain feathers Home Environment There are draperies in the home Home Environment The home is not christie Home Environment The floors are tile Home Environment Uses baseboard heating Home Environment Lives in an older 1st floor apartment in the [facility] Home Environment Water Source: [facility] Smoke-Free Home is not smoke-free Pets 1 cat present many years Pets Animals sleep in bedroom Occupation unemployed ETOH Use Occasionally consumed alcohol currently in treatment in the past Smoking Patient is a current smoker, smokes every day Recreational Drug Use Denies Drug Use Smoking Light tobacco smoker (10 or has tried to quit, too much fewer cigarettes/day) stress now Allergies, Adverse Reactions, Alerts Date Description Reaction Status Severity Comments 03/16/2017 Tizanidine Dizzy active Medications Medication Date Status Form Strength Qnty SIG Indications Ordering Provider Epipen 2-Miguel A / Active Solution 0.3mg/0.3M use as Unknown 0000 Auto-Inject L directed Ventolin HFA / Active Aerosol 108(90Base 2 every 4 Unknown 0000 ) mcg/Act hours as needed Albuterol / Active Nebulizer 1.25mg/3ML Inhale The Unknown Sulfate 0000 Contents Of One Vial Via Nebulizer Four Times A Day as Need Advair Diskus / Active Aerosol 250-50mcg/ Inhale One Unknown 0000 Dose puff By Mouth Twice A Day Ibuprofen 200 00/ Active Tablets 600mg Unknown 0000 Nicotine 00/00/ Active Patches 21mg/24HR Unknown Transdermal 0000 24HR System Nicotine / Active Lozenges 4mg Unknown Polacrilex 0000 Vital Signs Date Vital Result Comment 03/16/2017 Height 65.25 inches 5'5.25" Weight 327.00 lb Weight in kg's 148.327 Respiratory Rate 18 /min Heart Rate 104 /min O2 % BldC Oximetry 97 % BP Systolic 103 mmHg BP Diastolic 69 mmHg Asthma Control Test 7 BMI (Body Mass Index) 54.0 kg/m2 02/01/2017 Height 65.25 inches 5'5.25" Weight 320.00 lb Weight in kg's 145.152 Respiratory Rate 20 /min Heart Rate 90 /min O2 % BldC Oximetry 98 % BP Systolic 104 mmHg BP Diastolic 66 mmHg BMI (Body Mass Index) 52.8 kg/m2 Results Test Date Test Result H/L Range Note Rast AAA Foods 12 Panel 03/02/2017 [place] Allergen IgE <0.35 kU/L 1 Egg White Allergen IgE <0.35 kU/L 2 Rast Cow's Milk <0.35 kU/L 3 Peanut, IgE w/ Reflex < 0.10 kU/L 4 Soybean Allergen IgE <0.35 kU/L 5 Rast Wheat <0.35 kU/L 6 Beef Allergen IgE <0.35 kU/L 7 Chicken Meat Allergen IgE <0.35 kU/L 8 Chocolate Allergen IgE <0.35 kU/L 9 Mccone Allergen IgE <0.35 kU/L 10 Rice Allergen IgE <0.35 kU/L 11 Tomato Allergen IgE <0.35 kU/L 12 Rast AAA S&E 12 Panel 03/02/2017 Aspergillus Fumigatus IgE <0.35 kU/ L 13 Alternaria tenuis IgE Allergen <0.35 kU/L 14 Cat Epithelium Allergen IgE <0.35 kU/L 15 Dog Dander Allergen IgE <0.35 kU/L 16 Dermatophagoides pteronyssinus <0.35 kU/L 17 Rast House Dust Gamino <0.35 kU/L 18 [place] Beech Tree IgE <0.35 kU/L 19 Cladosporium herbarum IgE <0.35 kU/L 20 [place] Blue (September) Grass IgE <0.35 kU/L 21 [place] Maple IgE <0.35 kU/L 22 Common Ragweed (Short) Allerge <0.35 kU/L 23 Laboratory test finding 03/02/2017 Dermatophagoides farinae IgE <0.35 kU/ L 24 Immunoglobulin E (Ige) 54.4 kU/L <=214 25 1 Class 0 (Negative <0.35) Test Performed by: [facility] [address] [place] [address] 2 Class 0 (Negative <0.35) Test Performed by: [place] [address] 3 Class 0 (Negative <0.35) Test Performed by: [place] [address] 4 Class 0 (Negative <0.10) Reflex testing to peanut components not performed due to undetectable total peanut IgE. Test Performed by: [place] [address] 5 Class 0 (Negative <0.35) Test Performed by: [place] [address] 6 Class 0 (Negative <0.35) Test Performed by: [place] [address] 7 Class 0 (Negative <0.35) Test Performed by: [place] [address] 8 Class 0 (Negative <0.35) Test Performed by: [place] [address] 9 Class 0 (Negative <0.35) Test Performed by: [place] [address] 10 Class 0 (Negative <0.35) Test Performed by: [place] [address] 11 Class 0 (Negative <0.35) Test Performed by: [place] [address] 12 Class 0 (Negative <0.35) Test Performed by: [place] [address] 13 Class 0 (Negative <0.35) Test Performed by: [place] [address] 14 Class 0 (Negative <0.35) Test Performed by: [place] [address] 15 Class 0 (Negative <0.35) Test Performed by: [place] [address] 16 Class 0 (Negative <0.35) Test Performed by: [place] [address] 17 Class 0 (Negative <0.35) Test Performed by: [place] [address] 18 Class 0 (Negative <0.35) Test Performed by: [place] [address] 19 Class 0 (Negative <0.35) Test Performed by: [place] [address] 20 Class 0 (Negative <0.35) Test Performed by: [place] [address] 21 Class 0 (Negative <0.35) Test Performed by: [place] [address] 22 Class 0 (Negative <0.35) Test Performed by: [place] [address] 23 Class 0 (Negative <0.35) Test Performed by: [place] [address] 24 Class 0 (Negative <0.35) Test Performed by: [place] [address] 25 Test Performed by: [place] [address] Procedures Date CPT Code Description Status 03/16/2017 59546 Ippb Completed 03/16/2017 86656 Pre PFT Completed Encounters Type Date Location Provider CPT E/M Dx Office Visit 02/01/2017 2:00p [place] Ginette Alvarenga M.D. 04253 J45.40 L27.2 J30.81 J30.89 Z23 Plan of Care Future Appointment(s):09/13/2017 2:20 pm - [facility] at [id number] - CARMEN Plunkett-CJ45.40 Moderate persistent asthma, [id number] Dermatitis due to ingested foodJ30.81 Allergic rhinitis due to animal (cat) (dog) hair and wzqpkjQ27.89 Other allergic rhinitisFollow up:1 month with pre PFT pleaseRecommendations:Continue all medications as prescribed.Refrain from wearing perfumes/scented colognes while visitingour office. Your testing shows no allergy to trees, weeds, molds,grasses, dustmites or cat and dog. Start the Symbicort 2 puffs twice a day Stop the Advair Continue the ventolin 2 puffs every 4 hours as needed for cough, shortness of breath, wheezing and chest tightness. Monitor Albuterol use. If using more than 2x/week, please call the office as your asthma medications may need to be adjusted. FULL UP WITH PCP APR 05, 2016
--- OUTSIDE RECORDS SUMMARY | 2017-03-30 19:21 | XMS REPORT ---
:1995 External Reference #:[id number] Author Organization [facility] Address [address] [address] Phone [phone] Care Team Providers Name Role Phone Andreas Maya MD Primary Care Physician Unavailable Payers Type Date Identification Numbers Payment Provider Subscriber Commercial Policy Number: [id number] [employer] Ailin Orr PayID: [id number] [address] [place] [address] [facility] Policy Number: [id number] Medicaid Ailin Orr Group Name: 1 1 [address] PayID: [id number] [place] [address] Advance Directives Type Date Description Status Comment Other Directive 11/25/2016 Health Care Proxy Current and Verified Problems Date Description Provider Status Onset: 12/18/2015 Disturbance in sleep behavior Ambar Mao MD Active Onset: 12/18/2015 Obesity Ambar Mao MD Active Onset: 12/18/2015 Ex-smoker Ambar Mao MD Active Onset: 01/26/2016 Obstructive sleep apnea syndrome Margo Aguilar DNP, RN, Active [employer]NER- Onset: 12/21/2016 Shoulder joint pain Bishnu Ordoñez M.D. Active Onset: 01/19/2017 Sleep apnea Bishnu Ordoñez M.D. Active Onset: 01/19/2017 Hearing loss Bishnu Ordoñez M.D. Active Onset: 01/19/2017 Angioneurotic edema, sequela Bishnu Ordoñez M.D. Active Onset: 02/15/2017 Brachial plexus disorder Michoacano Schreiber M.D. 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 Smoking Previously 3PPD x 4 months Exercise Type/Frequency Does not exercise Allergies, Adverse Reactions, Alerts Date Description Reaction Status Severity Comments 12/18/2015 Alcohol Prep active Rash 01/26/2016 Wheat active 02/10/2017 Keflex active Mild to Moderate vertigo Medications Medication Date Status Form Strength Qnty SIG Indications Ordering Provider Gabapentin 02/15/ Active Capsules 300mg 30cap 1 by mouth G54.0 Michoacano 2016 s every night Abdoul, at bedtime M.DNivia Naproxen 12/21/ Active Tablets 375mg 60tab twice a day M25.511 Bishnu 2016 s with food Arturo Ordoñez Advair Diskus 11/25/ Active Aerosol 250-50mcg 60uni 1 puff by J45.909 Bishnu 2016 /Dose ts mouth twice Pachikara a day , MRobin Epipen 2-Miguel A 01/24/ Active Solution 0.3mg/0.3 use as Unknown 2015 Auto-Injec ML directed t Proair HFA 12/16/ Active Aerosol 108(90Bas 8.500 2 puffs by Bishnu 2015 e) gm mouth every Pachikara mcg/Act 4 hours as , M.D. needed Albuterol 12/16/ Active Nebulizer 1.25mg/3M 75ml four times a Bishnu Sulfate 2015 L day as Smita needed , Harjeet. Ibuprofen / Active Tablets 600mg three times Unknown 0000 a day Keflex 01/19/ Hx Capsules 500mg 30cap 1 by mouth S21.002A Bishnu 2016 - s three times Pachikara 02/10/ a day , M.DNivia 2017 Proair HFA 11/25/ Hx Aerosol 108(90Bas 8.5un 2 puffs ih J45.909 Bishnu 2016 - e) its every 4 Pachikara 11/27/ mcg/Act hours as , M.D. 2017 needed Montelukast 01/24/ Hx Tablets 10mg 30tab 1 by mouth Bishnu Alexander 2016 - s every day Pachikara 02/15/ , M.D. 2017 Ibuprofen 01/24/ Hx Tablets 800mg by mouth Unknown 2016 - three times 11/25/ a day as 2017 needed Famotidine 01/24/ Hx Tablets 40mg 30tab 1 by mouth Bishnu 2016 - s every day Smita 02/15/ Arturo 2017 Vandazole 12/16/ Hx 5mg once a night Unknown 2016 - 2016 Chlorhexidine 12/16/ Hx Solution 0.12% rinse/spit Unknown Gluconate Oral 2015 Rinse 11/25/ milliliters 2017 twice a day Advair Diskus 12/16/ Hx Aerosol 250-50mcg 1 puff by Unknown 2016 - /Dose mouth twice 11/25/ a day 2017 Control / Hx as directed Unknown Pill 0000 - 2016 Immunizations CPT Code Status Date Vaccine Lot # [id number] Given 02/10/2017 Influenza Virus Vaccine, Quadrivalent, Split, [id number] Preservative Free Vital Signs Date Vital Result Comment 03/01/2017 Height 65 inches 5'5" Weight 325.00 lb BP Systolic 124 mmHg BP Diastolic 84 mmHg Respiratory Rate 20 /min Pain Level 7 BMI (Body Mass Index) 54.1 kg/m2 02/15/2017 Weight 327.00 lb Heart Rate 68 /min BP Systolic Sitting 120 mmHg BP Diastolic Sitting 76 mmHg O2 % BldC Oximetry 98 % 02/15/2017 Height 65 inches 5'5" Weight 325.00 lb Heart Rate 59 /min Respiratory Rate 16 /min Body Temperature 97.6 F Pain Level 7 BMI (Body Mass Index) 54.1 kg/m2 02/10/2017 Weight 327.00 lb Heart Rate 80 /min BP Systolic Sitting 128 mmHg BP Diastolic Sitting 80 mmHg Body Temperature 97.6 F O2 % BldC Oximetry 97 % 01/19/2017 Height 65 inches 5'5" Weight 323.50 lb Heart Rate 103 /min BP Systolic 126 mmHg BP Diastolic 66 mmHg Body Temperature 97.9 F O2 % BldC Oximetry 95 % BMI (Body Mass Index) 53.8 kg/m2 12/21/2016 Height 65 inches 5'5" Weight 316.25 lb Heart Rate 97 /min BP Systolic 120 mmHg BP Diastolic 70 mmHg Body Temperature 98.3 F O2 % BldC Oximetry 98 % BMI (Body Mass Index) 52.6 kg/m2 11/25/2016 Height 65 inches 5'5" Weight 314.00 lb Heart Rate 71 /min BP Systolic Sitting 120 mmHg BP Diastolic Sitting 84 mmHg Body Temperature 96.9 F O2 % BldC Oximetry 98 % BMI (Body Mass Index) 52.2 kg/m2 01/26/2016 Height 65 inches 5'5" Weight 278.00 lb per pt Heart Rate 82 /min BP Systolic Sitting 126 mmHg BP Diastolic Sitting 66 mmHg Respiratory Rate 14 /min O2 % BldC Oximetry 96 % BMI (Body Mass Index) 46.3 kg/m2 12/18/2015 Height 65 inches 5'5" Weight 282.00 lb Heart Rate 73 /min BP Systolic Sitting 124 mmHg BP Diastolic Sitting 77 mmHg Respiratory Rate 14 /min O2 % BldC Oximetry 98 % BMI (Body Mass Index) 46.9 kg/m2 Neck Circumference in inches 17.5 Results Test Date Test Result H/L Range Note CBC Auto Diff 11/30/2016 White Blood Count 8.4 10^3/uL 3.5-10.8 Red Blood Count 5.09 10^6/uL 4.0-5.4 Hemoglobin 13.0 g/dL 12.0-16.0 Hematocrit 41 % 35-47 Mean Corpuscular Volume 80 fL 80-97 Mean Corpuscular Hemoglobin 26 pg Low 27-31 Mean Corpuscular HGB Conc 32 g/dL 31-36 Red Cell Distribution Width 17 % High 10.5-15 Platelet Count 271 10^3/uL 150-450 Mean Platelet Volume 9 um3 7.4-10.4 Abs Neutrophils 5.1 10^3/uL 1.5-7.7 Abs Lymphocytes 2.3 10^3/uL 1.0-4.8 Abs Monocytes 0.8 10^3/uL 0-0.8 Abs Eosinophils 0.1 10^3/uL 0-0.6 Abs Basophils 0.1 10^3/uL 0-0.2 Abs Nucleated RBC 0.01 10^3/uL Granulocyte % 60.6 % 38-83 Lymphocyte % 27.9 % 25-47 Monocyte % 9.3 % High 1-9 Eosinophil % 1.6 % 0-6 Basophil % 0.6 % 0-2 Nucleated Red Blood Cells % 0.1 Comp Metabolic Panel 11/30/2016 Sodium 137 mmol/L 133-145 Potassium 4.3 mmol/L 3.5-5.0 Chloride 104 mmol/L 101-111 Co2 Carbon Dioxide 29 mmol/L 22-32 Anion Gap 4 mmol/L 2-11 Glucose 85 mg/dL 70-100 Blood Urea Nitrogen 12 mg/dL 6-24 Creatinine 0.67 mg/dL 0.51-0.95 BUN/Creatinine Ratio 17.9 8-20 Calcium 9.3 mg/dL 8.6-10.3 Total Protein 7.3 g/dL 6.4-8.9 Albumin 3.7 g/dL 3.2-5.2 Globulin 3.6 g/dL 2-4 Albumin/Globulin Ratio 1.0 1-3 Total Bilirubin 0.30 mg/dL 0.2-1.0 Alkaline Phosphatase 97 U/L 34-104 Alt 14 U/L 7-52 Ast 17 U/L 13-39 Egfr Non- 112.2 >60 Egfr 144.3 >60 1 Connective Tissue Panel 11/30/2016 Anti-Nuclear Antibody 0.2 U 2 Cyclic Citrullinated Peptide <15.6 U 3 Interpretation See Comment 4 Laboratory test finding 11/30/2016 Erythrocyte Sed Rate 39 mm/Hr High 0- 14 Lyme Disease Serology Negative Negative 5 1 Because ethnic data is not always readily available, this report includes an eGFR for both -Americans and non- Americans. The National Kidney Disease Education Program (NKDEP) does not endorse the use of the MDRD equation for patients that are not between the ages of 18 and 70, are , have extremes of body size, muscle mass, or nutritional status, or are non- or non-. According to the National Kidney Foundation, irrespective of diagnosis, the stage of the disease is based on the level of kidney function: Stage Description GFR(mL/min/1.73 m(2)) 1 Kidney damage with normal or decreased GFR 90 2 Kidney damage with mild decrease in GFR 60-89 3 Moderate decrease in GFR 30-59 4 Severe decrease in GFR 15-29 5 Kidney failure <15 (or dialysis) 2 REFERENCE VALUE <=1.0 (Negative) 3 REFERENCE VALUE <20.0 (Negative) 4 Tests for antibodies to dsDNA and MATTHEW antigens are not performed automatically unless the SIENNA result is > or= 3.0 U. Studies performed at [facility] indicate that positive SIENNA results <3.0 U are rarely accompanied by positive second order tests. Test Performed by: [address] [address] 5 Serologic response to B. burgdorferi infection is not detected, but cannot rule out early infection during which low or undetectable antibody levels to B. burgdorferi may be present. If clinically indicated, a new serum specimen should be submitted in 7-14 days. Test Performed by: [address] [address] Procedures Date CPT Code Description Status 11/30/2016 22062 Plethysmography Determination Lung Volumes & Per Completed Airway Resist 11/30/2016 63807 Pulmonary Function><Bronchodil Completed 01/06/2016 78877 Polysomnography Sleep Staging 4+ Parameters Completed Encounters Type Date Location Provider CPT E/M Dx Office Visit 02/15/2017 [facility] [place] [address] R73.01 2:40p - Brenda Office Visit 02/10/2017 [facility] Medicine Bishnu Ordoñez [address]6096 R73.09 11:40a - Katarina Frost M.D. Z23 Office Visit 01/19/2017 8:00a [facility] Internal Bishnu Ordoñez 79010 S21.002A Medicine - Tbmorenita Frost M.D. M25.511 G47.30 H91.93 T78.3xxS Office Visit 12/21/2016 3:00p [facility] Internal Bishnu Ordoñez 12443 M25.511 Ayesha Gutierrez M.D. Office Visit 11/25/2016 2:00p [facility] Internal Bishnu Ordoñez, [address]698 J45.909 Ayesha Rogers Tbmorenita Frost M.D. M25.511 E66.9 M25.569 Office Visit 01/26/2016 3:00p [facility] Margo Aguilar, [address] G47.33 [facility] DNP, RN, SHOE PLANNER- G47.14 F17.210 Office Visit 12/18/2015 8:00a [facility] [address] G47.9 [facility] R06.83 G47.8 E66.09 J45.909 F17.210 Plan of Care Future Appointment(s):04/05/2017 1:40 pm - Andreas Maya M.D.,FACP at [facility] - [address]04/27/2017 3:00 pm - Bishnu Ordoñez M.D. at [facility] - [address]03/01/2017 - [place]oacano Schreiber M.D.G54.0 Brachial plexus disordersReferral:Ghassan Campo MD, Interventional Pain MedicFollow up :Follow up: As needed - Referral to [facility]
--- OUTSIDE RECORDS SUMMARY | 2017-03-30 19:21 | XMS REPORT ---
:1995 External Reference #:[id number] Author Organization proposal director [facility] Address [address] [place] [address] Phone [phone] Care Team Providers Name Role Phone Donnie Moser MD Primary Care Physician Unavailable Payers Type Date Identification Numbers Payment Provider Subscriber Commercial Policy Number: [id number] [employer] [facility] [place] PayID: [id number] [address] [place] [address] [employer] Policy Number: [id number] [place] Harsh Orr PayID: [id number] [address] [place] [address] Problems Date Description Provider Status Onset: 05/12/2016 H/O: drug dependency Gema Gilliam NP Active Onset: 05/12/2016 Obesity Gema Gilliam NP Active Onset: 05/12/2016 Primigravida Gema Gilliam NP Resolved Resolved: 12/26/2016 Social History Type Date Description Comments Education Highest Level Completed Is High School Diploma Marital Status Single Lives With Boyfriend Son lives with foster parents Pets 1 cat Occupation Unemployed Work Status Unemployed Cigarette Use Current Cigarette Smoker 1-2 qd ETOH Use Alcohol Use Prior To Occasionally ETOH Use Denies alcohol use Recreational Drug Use 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 Smoking Patient is a current smoker, 1-2 qd smokes every day Recreational Drug Use Formerly used Marijuana regularly Daily Caffeine Consumes on average 1 soda per day Daily Caffeine Consumes on average 1 cup of coffee per day Exercise Type/Frequency Does not exercise Seat Belt/Car Seat Always uses seat belt Currently Active Patient is currently sexually active Contraceptive Methods None STD's Chlamydia Hx in past STD's Gonorrhea hx in past Allergies, Adverse Reactions, Alerts Date Description Reaction Status Severity Comments 05/12/2016 Oxycodone Past Addiction active Medications Medication Date Status Form Strength Qnty SIG Indications Ordering Provider Ibuprofen 01/12/ Active Tablets 600mg 30tabs take one tab Abhishek Irwin 2017 by mouth Gelber, every 6 M.D. hours as needed pain Albuterol / Active Unknown Sulfate 0000 Nuvaring 01/11/ Hx Ring 0.12-0.015 2units insert as N92.1 Abhishek Irwin 2017 - mg/24HR directed Ebony, 03/08/ M.DNivia 2017 Plan B One-Step 11/08/ Hx Tablets 1.5mg 1tabs take one Valencia 2017 - tablet by Linnea 01/11/ mouth within LM 2017 72 hours of unprotected intercourse. Abdominal 07/08/ Hx Misc 2X/3X LG 1units Use as Suzy Support 2X/3X 2016 - directed for Sacha 01/11/ abdominal 2017 support 05/12/ Hx Tablets 28-0.8mg 90tabs 1 by mouth Abhishek Irwin Vitamins 2017 - every day. Gelkirby, 01/11/ please M.D. 2017 substitute any vitamin with 100-300 mcg dha covered by insurance Flexeril 11/20/ Hx Tablets 10mg 15tabs Three Times Unknown 2015 - Daily prn 05/12/ For back 2017 spasms Ultram 11/20/ Hx Tablets 50mg 15tabs Every 6 Unknown 2016 - Hours prn 05/12/ For Back 2017 Pain Zantac 150 11/18/ Hx Tablets 150mg 30tabs Twice Daily Unknown Maximum 2016 - Strength 2016 Percocet 10/18/ Hx Tablets 5-325mg 10tabs Q4H prn For Unknown 2016 - Pain 2016 Ibuprofen 09/19/ Hx Tablets 800mg 60tabs Q8H prn For Unknown 2015 - Pain 2016 Ventolin HFA 11/18/ Hx Aerosol 108(90Base prn For Unknown 2014 - ) mcg/Act Asthma 2016 / Hx Tablets take 1 daily Unknown Vitamin 0000 - by mouth 2016 Levothyroxine / Hx Unknown Sodium 0000 - 2016 Immunizations CPT Code Status Date Vaccine Lot # [id number] Given 06/08/2016 Tetnus, Diptheria Toxoids And Acellular Pertussis, [id number] PT > 7Yrs Old [id number] Given 10/29/2015 Tetnus, Diptheria Toxoids And Acellular Pertussis, PT > 7Yrs Old Vital Signs Date Vital Result Comment 03/08/2017 BP Systolic 122 mmHg BP Diastolic 72 mmHg Height 65 inches 5'5" Weight 323.00 lb BMI (Body Mass Index) 53.7 kg/m2 1 Parity 1 01/30/2017 BP Systolic 124 mmHg BP Diastolic 82 mmHg Height 65 inches 5'5" Weight 316.00 lb BMI (Body Mass Index) 52.6 kg/m2 Last Menstrual Period [id number] 1 Parity 1 01/11/2017 BP Systolic 144 mmHg BP Diastolic 84 mmHg Height 65 inches 5'5" Weight 324.00 lb BMI (Body Mass Index) 53.9 kg/m2 Last Menstrual Period [id number] 1 Parity 1 11/08/2016 BP Systolic 120 mmHg BP Diastolic 70 mmHg Height 65 inches 5'5" Weight 316.00 lb BMI (Body Mass Index) 52.6 kg/m2 Last Menstrual Period [id number] 1 Parity 1 05/12/2016 BP Systolic 130 mmHg BP Diastolic 70 mmHg Height 65 inches 5'5" Weight 281.00 lb BMI (Body Mass Index) 46.8 kg/m2 Last Menstrual Period [id number] 12/09/2015 BP Systolic 130 mmHg BP Diastolic 65 mmHg Body Temperature 97.9 F Heart Rate 92 /min Respiratory Rate 16 /min Height 65 inches Weight 282.00 lb Results Test Date Test Result H/L Range Note Laboratory test 01/30/2017 Surgical Pathology SEE RESULT BELOW 1 finding CBC Auto Diff 01/30/2017 White Blood Count 9.8 10^3/uL 3.5-10.8 Red Blood Count 5.20 10^6/uL 4.0-5.4 Hemoglobin 12.7 g/dL 12.0-16.0 Hematocrit 40 % 35-47 Mean Corpuscular Volume 78 fL Low 80-97 Mean Corpuscular Hemoglobin 24 pg Low 27-31 Mean Corpuscular HGB Conc 31 g/dL 31-36 Red Cell Distribution Width 17 % High 10.5-15 Platelet Count 309 10^3/uL 150-450 Mean Platelet Volume 9 um3 7.4-10.4 Abs Neutrophils 6.5 10^3/uL 1.5-7.7 Abs Lymphocytes 2.4 10^3/uL 1.0-4.8 Abs Monocytes 0.6 10^3/uL 0-0.8 Abs Eosinophils 0.2 10^3/uL 0-0.6 Abs Basophils 0 10^3/uL 0-0.2 Abs Nucleated RBC 0.01 10^3/uL Granulocyte % 66.3 % 38-83 Lymphocyte % 25.0 % 25-47 Monocyte % 5.8 % 1-9 Eosinophil % 2.4 % 0-6 Basophil % 0.5 % 0-2 Nucleated Red Blood Cells % 0.1 Laboratory test finding 01/30/2017 Lutenizing Hormone 9.3 mcIU/mL 2 Prolactin 9.1 ng/mL 1.0-25.0 3 Thyroid Function [place] 01/30/2017 Thyroid Stim Hormone 1.2 mIU/L 0.3- 4.2 4 Laboratory test finding 01/30/2017 Insulin Level 112 mcIU/mL 2.6 - 24.9 5 Glucose 128 mg/dL High 70-100 6 CBC With No Diff 11/08/2016 White Blood Count 8.5 10^3/uL 3.5-10.8 Red Blood Count 4.81 10^6/uL 4.0-5.4 Hemoglobin 12.6 g/dL 12.0-16.0 Hematocrit 39 % 35-47 Mean Corpuscular Volume 82 fL 80-97 Mean Corpuscular Hemoglobin 26 pg Low 27-31 Mean Corpuscular HGB Conc 32 g/dL 31-36 Red Cell Distribution Width 16 % High 10.5-15 Platelet Count 348 10^3/uL 150-450 Mean Platelet Volume 9 um3 7.4-10.4 Laboratory test 11/08/2016 Gardnerella/Yeast: Vaginal SEE RESULT 7 finding Dna BELOW Laboratory test 08/19/2016 Group B Strep Culture SEE RESULT 8, 9 finding Screen BELOW Laboratory test 06/08/2016 Glucose 1 HR Post Prandial 125 mg/dL 70-160 10 finding CBC With No Diff 06/08/2016 White Blood Count 13.1 10^3/uL High 3.5-10. 8 Red Blood Count 4.51 10^6/uL 4.0-5.4 Hemoglobin 12.4 g/dL 12.0-16.0 Hematocrit 39 % 35-47 Mean Corpuscular Volume 86 fL 80-97 Mean Corpuscular Hemoglobin 27 pg 27-31 Mean Corpuscular HGB Conc 32 g/dL 31-36 Red Cell Distribution Width 15 % 10.5-15 Platelet Count 263 10^3/uL 150-450 Mean Platelet Volume 9 um3 7.4-10.4 Laboratory test finding 06/08/2016 Rubella Screen Equivocal IU/mL Immune 11 Urine Drug Comp 20 Test 06/08/2016 Urine Amphetamine Negative ng/mL 12 Urine Barbiturates Negative ng/mL 13 Urine Benzodiazepines Negative ng/mL 14 Urine Cocaine Negative ng/mL 15 Urine Phencyclidine Negative ng/mL Cutoff: 25 Urine Tetrahydrocannabinol Negative ng/mL Cutoff: 50 16 Creatinine 185.0 mg/dL Specific [place] 1.008 pH 7.5 Oxidants Negative 17 Adulterants Comment Normal Codeine, Ur Not Detected ng/mL Cutoff: 25 18 Dgiigii-9-hqjq-glucuronide, Ur Not Detected ng/mL 19 Morphine, Ur Not Detected ng/mL Cutoff: 25 20 Fzqdpjyx-7-xtda-glucuronide, U Not Detected ng/mL 21 6-monoacetylmorphine, Ur Not Detected ng/mL Cutoff: 25 22 Hydrocodone, Ur Not Detected ng/mL Cutoff: 25 23 Norhydrocodone, Ur Not Detected ng/mL Cutoff: 25 24 Dihydrocodeine, Ur Not Detected ng/mL Cutoff: 25 25 Hydromorphone, Ur Not Detected ng/mL Cutoff: 25 26 Xzcrpxfmllonk2fdypelehyfotpqt Not Detected ng/mL 27 Oxycodone, Ur Not Detected ng/mL Cutoff: 25 28 Noroxycodone, Ur Not Detected ng/mL Cutoff: 25 29 Oxymorphone, Ur Not Detected ng/mL Cutoff: 25 30 Lwiddbmloqh-1-vvfe-glucuronide Not Detected ng/mL 31 Noroxymorphone, Ur Not Detected ng/mL Cutoff: 25 32 Fentanyl, Ur Not Detected ng/mL Cutoff: 2 33 Norfentanyl, Ur Not Detected ng/mL Cutoff: 2 34 Meperidine, Ur Not Detected ng/mL Cutoff: 25 35 Normeperidine, Ur Not Detected ng/mL Cutoff: 25 36 Naloxone, Ur Not Detected ng/mL Cutoff: 25 37 Qwrifvto-6-smbn-glucuronide, U Not Detected ng/mL 38 Methadone, Ur Not Detected ng/mL Cutoff: 25 39 Eddp, Ur Not Detected ng/mL Cutoff: 25 40 Propoxyphene, Ur Not Detected ng/mL Cutoff: 25 41 Norpropoxyphene, Ur Not Detected ng/mL Cutoff: 25 42 Tramadol, Ur Not Detected ng/mL Cutoff: 25 43 O-desmethyltramadol, Ur Not Detected ng/mL Cutoff: 25 44 Tapentadol, Ur Not Detected ng/mL Cutoff: 25 45 N-desmethyltapentadol, Ur Not Detected ng/mL Cutoff: 50 46 Bbldtelelf-atdb-hrjpjlwnkir, U Not Detected ng/mL 47 Buprenorphine, Ur Not Detected ng/mL Cutoff: 5 48 Norbuprenorphine, Ur Not Detected ng/mL Cutoff: 5 49 Norbuprenorphine glucuronide Not Detected ng/mL Cutoff: 20 50 Opioid Interpretation See Comment 51 Urine Culture And Sensitivities 05/30/2016 Urine Culture SEE RESULT BELOW 52 Urinalysis Profile 05/30/2016 Urine Color Yellow Urine Appearance Cloudy Urine Specific [place] 1.030 1.010-1.030 Urine pH 6.0 5-9 Urine Urobilinogen Negative Negative Urine Ketones Negative Negative Urine Protein Negative Negative Urine Leukocytes 2+ Negative Urine Blood Negative Negative Urine Nitrite Negative Negative Urine Bilirubin Negative Negative Urine Glucose Negative Negative Urine White Blood Cell 1+(6-10/hpf) Absent Urine Red Blood Cell 2+(6-10/hpf) Absent Urine Bacteria 1+ Absent Urine Squamous Epithelial Cell Present Absent Urine Yeast Present Absent GC/Chlamydia Dna Probe 05/12/2016 Chlamydia trachomatis Rna Negative Negative Neisseria gonorrhoeae (GC) Rna Negative Negative Cfvantage Cystic Fibrosis Expanded SCRN 05/12/2016 Ethnicity C CF Result SEE BELOW 53 Interpretation SEE BELOW 54 Additional Information SEE BELOW 55 Mutations Analyzed SEE BELOW 56 Quad Screen 05/12/2016 GLENIS Interpretation SEE NOTE 57 Risk For Down Based On Age 1:1182 Risk For Down Based On SCR 1:978 <1:270 Trisomy 18 Risk Based On SCR LESS THAN 1:5000 <1:100 58 Afp,Serum 48.1 NG/ML Adjusted Mom 0.95 59 HCG,Serum 19.470 IU/mL Mom 1.50 Estriol,Free 2.10 NG/ML Mom 1.07 Inhibin A 366 pg/mL Mom 2.05 Comment SEE NOTE 60 Date Of 1995 EMMIE 09/15/2016 EMMIE Determined By ULTRASOUND Gestational Age 22.0 WEEKS Weight 281 LBS Race =W Insulin Dependent Diabetic NO Repeat Sample NO Number Of Fetuses 1 History Of NTD NO Date Of Draw 05/12/2016 Airfreight Operations Agent SEE NOTE 61 PNL No Urine 05/12/2016 Rubella Screen Equivocal IU/mL Immune 62 Hemoglobin A1c 5.4 % Less than 6.0 63 Hepatitis B Surface Ag Nonreactive Nonreactive 64 Syphillis Igg W/Reflex RPR Nonreactive Nonreactive 65 CBC With No Diff 05/12/2016 White Blood Count 12.6 10^3/uL High 3.5-10.8 Red Blood Count 4.45 10^6/uL 4.0-5.4 Hemoglobin 12.4 g/dL 12.0-16.0 Hematocrit 38 % 35-47 Mean Corpuscular Volume 85 fL 80-97 Mean Corpuscular Hemoglobin 28 pg 27-31 Mean Corpuscular HGB Conc 33 g/dL 31-36 Red Cell Distribution Width 14 % 10.5-15 Platelet Count 245 10^3/uL 150-450 Mean Platelet Volume 10 um3 7.4-10.4 Type And Screen 05/12/2016 Patient Blood Type O Positive Antibody Screen NEGATIVE HIV 1/2 AB Evaluation 05/12/2016 HIV 1 2 Antibody Nonreactive Nonreactive 66 Lead 05/12/2016 Lead <1.0 g/dL 0.0-4.9 67 Urine Culture And 05/12/2016 Urine Culture SEE RESULT BELOW 68 Sensitivities Laboratory Studies 11/16/2015 25-Hydroxy 23.1 ng/mL Low 30-50 Vitamin D Total Absolute Basophils (auto) 0.1 10^3/ul 0-0.2 Absolute Eosinophils (auto) 0.1 10^3/ul 0-0.6 Absolute Lymphocytes (auto) 1.9 10^3/ul 1.0-4.8 Absolute Monocytes (auto) 0.9 10^3/ul High 0-0.8 Absolute Neutrophils (auto) 9.9 10^3/ul High 1.5-7.7 Alanine Aminotransferase (Alt/SGPT) 18 U/L 7-52 Albumin 4.1 g/dL 3.2-5.2 Albumin/Globulin Ratio 1.4 1-3 Alkaline Phosphatase 106 U/L High 34-104 Anion Gap 9 mmol/L 2-11 Aspartate Amino Transf (Ast/Sgot) 18 U/L 13-39 BUN/Creatinine Ratio 11.4 8-20 Basophils (%) (Auto) 0.5 % 0-2 Blood Urea Nitrogen 9 mg/dL 6-24 C-Reactive Protein 65.18 mg/L High 0-5.00 Calcium Level 9.1 mg/dL 8.6-10.3 Carbon Dioxide Level 24 mmol/L 22-32 Chloride Level 106 mmol/L 101-111 Creatinine 0.79 mg/dL 0.51-0.95 Eosinophils (%) (Auto) 0.6 % 0-6 Erythrocyte Sedimentation Rate 38 mm/Hr High 0-14 Estimated GFR () 120.6 Estimated GFR (Non- 93.8 Globulin 3.0 g/dL 2-4 Glucose Level 93 mg/dL 70-100 Hematocrit 41 % 35-47 Hemoglobin 13.1 g/dL 12.0-16.0 Immunoglobulin A 170 mg/dL Lymphocytes (%) (Auto) 14.6 % Low 25-47 Magnesium Level 2.1 mg/dL 1.9-2.7 Mean Corpuscular Hemoglobin 26 pg Low 27-31 Mean Corpuscular Hemoglobin Concent 32 g/dL 31-36 Mean Corpuscular Volume 82 fL 80-97 Mean Platelet Volume 10 um3 7.4-10.4 Monocytes (%) (Auto) 6.8 % 1-9 Neutrophils (%) (Auto) 77.5 % 38-83 Nucleated RBC Absolute Count (auto) 0 10^3/ul Nucleated Red Blood Cells % 0 Platelet Count 278 10^3/ul 150-450 Potassium Level 4.0 mmol/L 3.5-5.0 Red Blood Count 4.97 10^6/ul 4.0-5.4 Red Cell Distribution Width 15 % 10.5-15 Sodium Level 139 mmol/L 133-145 Thyroid Stimulating Hormone (TSH) 1.49 mcIU/mL 0.34-5.60 Total Bilirubin 0.50 mg/dL 0.2-1.0 Total Protein 7.1 g/dL 6.4-8.9 Vitamin B12 Level 237 pg/mL 180-914 White Blood Count 12.7 10^3/ul High 3.5-10.8 Zinc Level 0.64 g/mL Low 1 SEE RESULT BELOW Name: HARSH ORR : [address]: Abhishek Beck MD Acct: [id number] Unit: [id number] AGE: 21 Location: [facility] Re01/30/17 SEX: F Status: REG REF SPEC: [id number] KISHORE: 01/30/[address] [place] [address]: Abhishek Beck MD REQ: [id number] RECD: 01/30/17 STATUS: SOUT _ ORDERED: LEVEL 4 COMMENTS: [id number] FINAL DIAGNOSIS Uterus, endometrium, biopsy: -- Fragments of a benign endometrial polyp. -- Early secretory endometrium. -- No evidence of hyperplasia or malignancy. PRE-OPERATIVE DIAGNOSIS Dysfunctional uterine bleeding GROSS DESCRIPTION The specimen is received in formalin labeled, Endo Biopsy, and consists of a 2.0 x 1.5 by up to 0.4 cm aggregate of translucent acosta mucus admixed with acosta irregular soft tissue fragments and scant red-brown blood clot. The specimen is filtered and submitted entirely in one cassette. Signed (signature on file) Estrella Millard MD 04/19 1110 END OF REPORT * ML=Testing performed at Main Lab DEPARTMENT OF PATHOLOGY, [address] [place] [address] Tom Hernández M.D. Director [facility] # [id number] 2 Normally menstruating females - Follicular Phase 1 - 18 - Mid-Cycle Peak 24 - 105 - Luteal Phase 0.6 - 20 Postmenopausal females 15 - 62 3 [id number] 4 Test Performed by: [facility] [address] [place] [address] 5 Test Performed by: [facility] [address] [place] [address] 6 [id number] SEE RESULT BELOW Name: HARSH ORR : [address]: Valencia Yarbrough CM Acct: [id number] Unit: [id number] AGE: 21 Location: [facility] Re11/08/16 SEX: F Status: REG REF SPEC: [id number] KISHORE: 11/08/16-[address]: Valencia Yarbrough CM REQ: [id number] RECD: 11/08/160695 STATUS: COMP _ SOURCE: VAGINAL SPDESC: ORDERED: Juanjo,Yeast DNA, Trich DNA COMMENTS: [id number] Procedure Result Reported Site Gardnerella/Yeast: Vaginal DNA Final 11/09/16- 1133 ML Organism 1 Negative Gardnerella Organism 2 Negative Jeannie The presence of G. vaginalis, although suggestive, is not diagnostic for bacterial vaginosis. Results should be interpreted in conjuction with other clinical and laboratory data available. Women with vaginal discharge should be evaluated for risk factors of cervicitis and pelvic inflammatory disease, toxic shock syndrome (S.aureus), and if present, evaluated for organisms not included in this assay such as N. gonorrhoeae, C. trachomatis, Mobiluncus, Mycoplasma and/or Prevotella. Mixed infections may occur. The performance of this test on patient specimens collected during or immediately after antimicrobial therapy is unknown. The presence or absence of Jeannie species, or G. vaginalis cannot be used as a test for therapeutic success or failure. Trichomonas: Vaginal DNA Probe Final 11/09/16- 4 ML Organism 1 Negative Trichomonas CONTINUED ON NEXT PAGE * ML=Testing performed at Main Lab DEPARTMENT OF PATHOLOGY, [address] [place] [address] Tom Hernández M.D. Director [facility] # [id number] Patient: HARSH ORR [id number] (Continued) Specimen: [id number] Collected: 11/08/16 Received: 11/08/16 (Continued) Procedure Result Reported Site Trichomonas: Vaginal DNA Probe Final (continued) 11/09/16 113 The presence or absence of T. vaginalis cannot be used as a test for therapeutic success or failure. * ML - MAIN LAB ([facility]) . END OF REPORT * ML=Testing performed at Main Lab DEPARTMENT OF PATHOLOGY, [address] [place] [address] Tom Hernández M.D. Director [facility] # [id number] 8 [id number] SEE RESULT BELOW Name: MAGDALENEHARSH : [address]: Suzy Goncalves MD Acct: [id number] Unit: [id number] AGE: 21 Location: [facility] Re08/19/16 SEX: F Status: REG REF SPEC: [id number] KISHORE: 08/19/16-[address] [place] [address]: Suzy Goncalves MD REQ: [id number] RECD: 08/22/16-1203 STATUS: COMP _ SOURCE: CER/VAG/RE SPDESC: ORDERED: Grp B Strp Scrn COMMENTS: [id number] QUERIES: Is patient penicillin allergic and/or sensitivities needed? N Provider Requisition # C77#[id number]_ Procedure Result Reported Site Group B Strep Culture Screen Final 08/25/16- 1533 ML Group B Strep Screen Negative * ML - MAIN LAB ([facility]) . END OF REPORT * ML=Testing performed at Main Lab DEPARTMENT OF PATHOLOGY, [address] [place] [address] Tom Hernández M.D. Director [facility] # [id number] REFERENCE VALUE Cutoff: 500 13 REFERENCE VALUE Cutoff: 200 14 REFERENCE VALUE Cutoff: 100 15 REFERENCE VALUE Cutoff: 150 16 ADDITIONAL INFORMATION This report is intended for use in clinical monitoring or management of patients. It is not intended for use in employment-related testing. 17 REFERENCE VALUE Cutoff: 200 mg/L 18 Tylenol 3 19 Metabolite of codeine REFERENCE VALUE Cutoff: 100 20 Navya Sheppard, MS Contin; Also a minor metabolite (10%) of codeine and can be seen in low concentrations (<2,000 ng/mL) with poppy seed ingestion. 21 Metabolite of morphine REFERENCE VALUE Cutoff: 100 22 Metabolite of heroin 23 Lortab, [place], Vicodin; Also a very minor metabolite of codeine and impurity (<1%) of oxycodone. 24 Metabolite of hydrocodone 25 Metabolite of hydrocodone 26 Dilaudid, Exalgo; Also a metabolite of hydrocodone and a minor (<5%) metabolite of morphine. 27 Metabolite of hydromorphone REFERENCE VALUE Cutoff: 100 28 Endocet, Percocet, Oxycontin 29 Metabolite of oxycodone 30 Numorphan, Opana; Also a metabolite of oxycodone. 31 Metabolite of oxymorphone REFERENCE VALUE Cutoff: 100 32 Metabolite of oxymorphone 33 Actiq, Duragesic, [place] 34 Metabolite of fentanyl 35 Demerol 36 Metabolite of meperidine 37 Narcan 38 Metabolite of naloxone REFERENCE VALUE Cutoff: 100 39 Dolophine 40 Metabolite of methadone 41 Darvon, Darvocet 42 Metabolite of propoxyphene 43 Tradol, Ultram, Ultracet 44 Metabolite of tramadol 45 Nucynta 46 Metabolite of tapentadol 47 Metabolite of tapentadol REFERENCE VALUE Cutoff: 100 48 Buprenex, Suboxone 49 Metabolite of buprenorphine 50 Metabolite of buprenorphine 51 No opioids were detected. The absence of expected drug(s) and/or drug metabolite(s) may indicate non-compliance, altered pharmacokinetics, inappropriate timing of specimen collection relative to drug administration, diluted/adulterated urine, or limitations of testing. ADDITIONAL INFORMATION This test was developed and its performance characteristics determined by [facility] in a manner consistent with CLIA requirements. This test has not been cleared or approved by the U.S. Food and Drug Administration. Test Performed by: [facility] [employer] [facility] [address] [place] [id number] 52 SEE RESULT BELOW Name: HARSH ORR : [address]: Dannie Kirkpatrick MD Acct: [id number] Unit: [id number] AGE: 20 Location: [facility] Re05/30/16 SEX: F Status: DEP REF SPEC: [id number] KISHORE: 05/30/[address]: Dannie Kirkpatrick MD REQ: [id number] RECD: 05/30/16 STATUS: KITTY ZAMAN DR: Donnie Moser DO _ SOURCE: URINE SPDESC: ORDERED: Urine Culture Procedure Result Reported Site Urine Culture Final 06/01/16- 902 ML No growth of clinically significant organisms * ML - MAIN LAB ([facility]) . END OF REPORT * ML=Testing performed at Main Lab DEPARTMENT OF PATHOLOGY, [address] [place] [address] Tom Hernández M.D. Director [facility] # [id number] 53 NEGATIVE; NONE OF THE MUTATIONS LISTED BELOW WERE DETECTED 54 This result does not rule out the presence of a mutation or a diagnosis of cystic fibrosis disease (CF). The risk for mutations that cause CF other than the ones tested depends greatly on family history, clinical presentation, and ethnicity. Detection rates and residual risk estimates are based on a subset of 78 mutations from the panel, which includes the 23 ACMG/ACOG-recommended mutations. Exact figures are currently unavailable for all 155 mutations on the [employer]reet[employer]() Cystic Fibrosis Expanded Screen. Detection rates may be slightly higher and residual risk rates may be slightly lower than the figures in this table since the estimates are based on a subset of mutations. Racial/Ethnic Detection Carrier Carrier Group Rate, % Rate Risk Before After Testing Negative Test Result [employer] 95 04/26461 Non- 90 04/27 1241 [place] 88 1376 78 1292 [place] 53 199 Laboratory results and submitted clinical information reviewed by João Morrell, Ph.D, [facility]. 55 This assay detects 155 CF mutations, including the twenty-three core mutations recommended by the [place] [employer] (ACMG) and the [place] [employer]st[employer] and Gynecologists (ACOG) for population-based CF carrier screening. While the additional mutations detected in this assay are rare in the general [place] population, the scientific and medical literature indicates that these mutations are associated with CF (Alesha Alda, 2013, 45:1160-7) and may have increased prevalence in some ethnic groups (Clin Chem, 57:841-8). The status of the intron 8 polyT tract is reported only when the R117H mutation is detected. The mutations are detected by multiplex-polymerase chain reaction (PCR) amplification of specific CF gene regions, followed by nucleotide sequence analysis on a massively parallel sequencing platform. Although rare, false positive or false negative results may occur. All results should be interpreted in the context of clinical findings, relevant history, and other laboratory data. Health care providers, please contact your local [place]' genetic counselor or call [employer]) ([phone]) for assistance with interpretation of these results. 56 M1V (c.1A>G), CFTRdele2,3, Q39X (c.115C>T), 296+2T>A (c.164+2T>A), E60X (c.178G>T), P67L (c.200C>T), R75X (c.223C>T), G85E (c.254G>A), 394delTT (c.262delTT), G91R (c.271G>A), 405+1G>A (c.273+1G>A), 406-1G>A (c.274-1G>A), E92K (c.274G>A), E92X (c.274G>T), Q98X (c.292C>T), 444delA (c.313delA), 457TAT>G (c.325delTATinsG), D110H (c.328G>C), R117C (c.349C>T), R117H (c.350G>A), Y122X (c.366T>A), 574delA (c.442delA), 621+1G>T (c.489+1G>T), 663delT (c.531delT), G178R (c.532G>A), 711+1G>T (c.579+1G>T), 712-1G>T (c.580-1G>T), L206W (c.617T>G), Q220X (c.658C>T), 133mrw63 (c.734vzq31), 935delA (c.803delA), 936delTA (c.805delAT), F920qnc (c.933delCTT), 1078delT (c.948delT), G330X (c.988G>T), R334W (c.1000C>T), I336K (c.1007T>A), T338I (c.1013C>T), S341P (c.1021T>C), 1154insTC (c.1022insTC), 1161delC (c.1029delC), R347P (c.1040G>C), R352Q (c.1055G>A), 1213delT (c.1081delT), S364P (c.1090T>C), 1248+1G>A (c.1116+1G>A), 1259insA (c.1127insA), 1288insTA (c.1153insAT), W401X (c.1202G>A or c.1203G>A), 1341+1G>A (c.1209+1G>A), 6803ddf1 (c.1329insAGAT), A455E (c.1364C>A), 1525-1G>A (c.1393-1G>A), S466X (c.1397C>A or c.1397C>G), L467P (c.1400T>C), 1548delG (c.1418delG), G480C (c.1438G>T), S489X (c.1466C>A), S492F (c.1475C>T), 1609delCA (c.1477delCA), Q493X (c.1477C>T), G059ffa (c.1519delATC), H396bln (c.1521delCTT), 1677delTA (c.1545delTA), V520F (c.1558G>T), C524X (c.1572C>A), Q525X (c.1573C>T), 1717-1G>A (c.1585-1G>A), 1717-8G>A (c.1585-8G>A), G542X (c.1624G>T), S549R (c.1645A>C or c.1647T>G), S549N (c.1646G>A), G551D (c.1652G>A), Q552X (c.1654C>T), R553X (c.1657C>T), A559T (c.1675G>A), R560K (c.1679G>A), R560T (c.1679G>C), 1811+1.6kbA>G (c.1679+1.6kbA>G), 1812-1G>A (c.1680-1G>A), P574H (c.1721C>A), D579G (c.1736A>G), E585X (c.1753G>T), 1898+1G>T (c.1766+1G>T), 1898+1G>A (c.1766+1G>A), 1898+5G>T (c.1766+5G>T), 2043delG (c.1911delG), 6861sgl0>A (c.1487hos3ayoD), 6744xsu81snd8 (c.5422dnf74wvuLRVSV), 2108delA (c.1975delA), 2143delT (c.2011delT), 2183AA>G (c.1delAAinsG), 2184insA (c.2052insA), 2184delA (c.2052delA), R709X (c.2125C>T), K710X (c.2128A>T), 2307insA (c.2175insA), L732X (c.2195T>G), 2347delG (c.2215delG), R764X (c.2290C>T), 2585delT (c.2453delT), E822X (c.2464G>T), 2622+1G>A (c.2490+1G>A), E831X (c.2491G>T), W846X (c.2537G>A), R851X (c.2551C>T), 2711delT (c.2583delT), 2789+5G>A (c.2657+5G>A), Q890X (c.2668C>T), 2869insG (c.2737insG), L927P (c.2780T>C), S945L (c.2834C>T), 3007delG (c.2875delG), G970R (c.2908G>C), 3120+1G>A (c.2988+1G>A), 3121-1G>A (c.2989-1G>A), 3171delC (c.3039delC), 3297bam6 (c.3067delATAGTG), 3272-26A>G (c.3140-26A>G), K7793A (c.3194T>C), Y8242F (c.3196C>T), Y1048M (c.3197G>A), T7442X (c.3230T>C), V6352O (c.3266G>A), I4814X (c.3276C>A or c.3276C>G), W1978N (c.3278T>C), W0376M (c.3302T>A), V3505J (c.3310G>T), V4067R (c.3382A>T), R3094B (c.3435G>A), U7044X (c.3472C>T), H4721W (c.3484C>T), 3659delC (c.3528delC), 7559nch7 (c.3535delACCA), Q7004U (c.3587C>G), M1986X (c.3611G>A or c.3612G>A), 3791delC (c.3659delC), 3821delT (c.3691delT), C2166R (c.3700A>G), L7084K (c.3712C>T), 3849+10kbC>T (c.3717+36797R>T), Z9433Z (c.3731G>A), 3876delA (c.3744delA), R9976M (c.3752G>A), Q7440J (c.3764C>A), 3905insT (c.3773insT), E2133X (c.3846G>A), Y3176Z (c.3848G>T), 4005+1G>A (c.3873+1G>A), 4016insT (c.3884insT), Z5277S (c.3909C>G), V7662H (c.3937C>T), RWTYrlji28,23, 4209TGTT>AA (c.4077delTGTTinsAA), 4382delA (c.4251delA) This test was developed and its analytical performance characteristics have been determined by [facility]. It has not been cleared or approved by FDA. This assay has been validated pursuant to the CLIA regulations and is used for clinical purposes. For additional information, please refer to http://education.Cahootify.Cegal/faq/FZC714 (This link is being provided for information/educational purposes only.) 57 SCREEN NEGATIVE FOR OPEN NTD, DS AND TRISOMY 18. 58 LESS THAN 1:5000 59 ADJUSTED AFP MOM INTERPRETIVE CUTOFFS: <2.50 ADJUSTED MOM <1.90 ADJUSTED MOM FOR INSULIN-DEPENDENT DIABETES <4.00 ADJUSTED MOM FOR TWINS <3.50 ADJUSTED MOM FOR TWINS INSULIN-DEPENDENT DIABETES <4.50 ADJUSTED MOM FOR TRIPLETS <4.00 ADJUSTED MOM FOR TRIPLETS INSULIN-DEPENDENT DIABETES 60 PERFORMANCE OF MATERNAL SERUM AFP, HCG, ESTRIOL, AND DIMERIC INHIBIN A PROVIDES A USEFUL SCREENING TEST FOR DETECTION OF OPEN NEURAL TUBE DEFECTS AND SOME CHROMOSOMAL ABNORMALITIES. IT SHOULD BE NOTED THAT NORMAL RESULTS CAN NEVER GUARANTEE THE OF A NORMAL BABY AND THAT 2 TO 3 PERCENT OF [place] HAVE SOME TYPE OF PHYSICAL OR MENTAL DEFECT, MANY OF WHICH ARE UNDETECTABLE THROUGH ANY KNOWN DIAGNOSTIC TECHNIQUE. THIS IS A SCREENING TEST, NOT A DIAGNOSTIC TEST. THIS RISK ASSESSMENT REPORT IS BASED IN PART ON DEMOGRAPHIC DATA PROVIDED BY THE ORDERING PHYSICIAN. PLEASE NOTIFY THE LAB PROMPTLY IF ANY DATA IS INCORRECT. FOR ASSISTANCE WITH RECALCULATIONS, PLEASE CALL YOUR LOCAL [facility] AT . FOR ASSISTANCE WITH INTERPRETATION OF THESE RESULTS, PLEASE CALL [phone]. 61 REVIEWED BY Yesica COPELAND M.D. 62 [phone] Therapeutic target for the treatment of diabetes Mellitus patients is <7% HBA1C, and in selective patients <6.0%.Please refer to [place] [employer] Diabetic care guidelines for further information. 64 [id number] 65 Warning: A positive result is not useful for establishing a diagnosis of syphilis. In most situations, such a result may reflect a prior treated infection; a negative result can exclude a diagnosis of syphilis except for incubating or early primary disease. 66 It is recognized that currently available assays for the detection of antibodies to HIV-1 and/or HIV-2 may not detect all infected individuals. HIV antibodies may be undetectable in some stages of the infection and in some clinical conditions. The performance of this assay has not been established for populations of infants or children. Assayed by Chemiluminescence Microparticle Immunoassay on the Siemens Advia Centaur CP. Values obtained with different methods or kits cannot be used interchangeably.The diagnostic specificity of the ADVIA Centaur 1/O/2 Enhanced assay in the low risk population was 99.90% (6052/6058) with a 95% confidence interval of 99.78 to 99.96%. 67 ADDITIONAL INFORMATION Testing performed by Inductively Coupled Plasma-Mass Spectrometry (ICP-MS). This test was developed and its performance characteristics determined by [facility] in a manner consistent with CLIA requirements. This test has not been cleared or approved by the U.S. Food and Drug Administration. 68 SEE RESULT BELOW Name: HARSH ORR : [address]: Gema Gilliam NP Acct: [id number] Unit: [id number] AGE: 20 Location: [facility] Re05/12/16 SEX: F Status: REG REF SPEC: [id number] KISHORE: 05/12/[address]: Gema Gilliam NP REQ: [id number] RECD: [id number]/12/16568 STATUS: COMP _ SOURCE: URINE SPDESC: ORDERED: Urine Culture COMMENTS: [id number] Urine Source: Random Procedure Result Reported Site Urine Culture Final 05/13/16- 1315 ML No growth of clinically significant organisms * ML - MAIN LAB (PSC1) . END OF REPORT * ML=Testing performed at Main Lab DEPARTMENT OF PATHOLOGY, [address] [place] [address] Tom Hernández M.D. Director [facility] # [id number] Procedures Date CPT Code Description Status 01/30/2017 00219 Hysteroscopy,D&C Completed 11/08/2016 74541 Echography Transvaginal Completed 09/14/2016 33490 Obstetric Care Routine Completed 09/02/2016 10152 Non-Stress Test Completed 08/26/2016 45533 Non-Stress Test Completed 08/19/2016 66788 Biophysical Profile Without Non Stress Test Completed 08/19/2016 67599 Echography Uterus Follow-Up Or Repeat Completed 05/30/2016 33797 Ultrasound,Transvaginal Completed 05/30/2016 11984 Echography Uterus Limited Completed 05/12/2016 96353 Echography Uterus Complete Completed Encounters Type Date Location Provider CPT E/M Dx Office Visit 01/11/2017 8:40a [facility] Office Abhishek Beck M.D. 57696 N92.1 E66.01 Office Visit 09/02/2016 10:43a [place] [address] O47.1 Office Visit 08/26/2016 6:27a [place] [address] O71.9 Office Visit 05/30/2016 11:06p Delivery Dannie Kirkpatrick M.D. 10644 Z3A.24 O47.02 Plan of Care No Information Available
[2017-03-30 20:48] LABS: ABS Basophils 0.1 10^3/ul (0-0.2); ABS Eosinophils 0.2 10^3/ul (0-0.6); ABS Lymphocytes 3.3 10^3/ul (1.0-4.8); ABS Monocytes 0.8 10^3/ul (0-0.8); ABS Neutrophils 6.8 10^3/ul (1.5-7.7); ABS Nucleated RBC 0 10^3/ul; Eosinophil % 1.7 % (0-6); Hematocrit 40 % (35-47); Lymphocyte % 29.7 % (25-47); Mean Corpuscular HGB Conc 32 g/dl (31-36); Mean Corpuscular Hemoglobin 26 pg (27-31); Mean Corpuscular Volume 79 fL (80-97); Mean Platelet Volume 9 um3 (7.4-10.4); Nucleated Red Blood Cells % 0; Platelet Count 312 10^3/ul (150-450); Red Blood Count 5.07 10^6/ul (4.0-5.4); Red Cell Distribution Width 18 % (10.5-15); White Blood Count 11.1 10^3/ul (3.5-10.8)
[2017-03-30 20:55] LABS: EGFR Non-African American 100.1 (>60)
--- NOTE | 2017-03-30 21:18 | RAD ---
INDICATION: Vaginal bleeding. COMPARISON: Correlation is made with a prior study from October 23, 2015. TECHNIQUE: Multiple real-time transvaginal images of the pelvis were obtained. FINDINGS: The uterus is normal in size, shape and echogenicity. The uterus measured 7.6 x 3.3 x 3.4 cm. The endometrial echo measured 0.7 cm in thickness. The right ovary measured 3.4 x 2.0 x 2.4 cm. The left ovary measured 2.9 x 1.9 x 2.0 cm. There is vascular flow within both ovaries. No free intraperitoneal fluid is seen. IMPRESSION: NEGATIVE EXAM.
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
== END 2017-03-30 22:45 | disposition home or self-care (01) ==
LOC: ED 18:33
DX: N93.9 Abnormal uterine and vaginal bleeding, unspecified (principal); Z32.02 Encounter for pregnancy test, result negative
CPT/HCPCS: 36415; 76830; 80048; 84702; 85025; 99282

== ENCOUNTER 2017-04-14 19:49 | Emergency (ER) | payer OTHER, MEDICAID ==
[2017-04-14 19:56] VITALS: BP 137/92
--- OUTSIDE RECORDS SUMMARY | 2017-04-14 20:17 | XMS REPORT ---
:1995 External Reference #:[id number] Author Organization [facility] Address [address] [address] Phone [phone] Care Team Providers Name Role Phone Andreas Maya MD Primary Care Physician Unavailable Payers Type Date Identification Numbers Payment Provider Subscriber Commercial Policy Number: [id number] [facility] [place] Group Number: [id number] [address] PayID: [id number] [place] [address] [facility] Policy Number: [id number] Medicaid Ailin Orr Group Name: 1 1 [address] PayID: [id number] [place] [address] Advance Directives Type Date Description Status Comment Other Directive 11/25/2016 Health Care Proxy Current and Verified Problems Date Description Provider Status Onset: 12/18/2015 Obesity Ambar Mao MD Active Onset: 12/18/2015 Ex-smoker Ambar Mao MD Active Onset: 01/26/2016 Obstructive sleep apnea Margo Aguilar DNP, RN, Active syndrome 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 Active Onset: 01/19/2017 Sleep apnea Bishnu Ordoñez M.D. Active Onset: 01/19/2017 Hearing loss Bishnu Ordoñez M.D. Active Onset: 02/15/2017 Brachial plexus disorder Michoacano Schreiber M.D. 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 Smoking Previously 3PPD x 4 months Exercise Type/Frequency Does not exercise General Hx Text 1 child, but in foster care Allergies, Adverse Reactions, Alerts Date Description Reaction Status Severity Comments 12/18/2015 Alcohol Prep active Rash 01/26/2016 Wheat active 02/10/2017 Keflex active Mild to Moderate vertigo Medications Medication Date Status Form Strength Qnty SIG Indications Ordering Provider Bactroban 04/05/ Active Cream 2% 15gm topical Andreas 2018 twice a day Pasquale Maya, for 5 days M.D.,FACP Advair Diskus 11/25/ Active Aerosol 250-50mcg 60uni 1 puff by J45.909 Bishnu 2016 /Dose ts mouth twice Pachika a day , MRobin Epipen 2-Miguel A 01/24/ Active Solution 0.3mg/0.3 use as Unknown 2015 Auto-Injec ML directed t Proair HFA 12/16/ Active Aerosol 108(90Bas 8.500 2 puffs by Andreas 2015 e) gm mouth every D. [place], mcg/Act 4 hours as M.D.,FACP needed Albuterol 12/16/ Active Nebulizer 1.25mg/3M 75ml four times a Bishnu Sulfate 2015 L day as Pachika needed , M.D. Gabapentin 02/15/ Hx Capsules 300mg 30cap 1 by mouth G54.0 [place] 2017 - s every night Abdoul, 04/05/ at bedtime M.DNivia 2018 Keflex 01/19/ Hx Capsules 500mg 30cap 1 by mouth S21.002A Bishnu 2017 - s three times Pachikara 02/10/ a day , M.Pasquale 2016 Naproxen 12/21/ Hx Tablets 375mg 60tab twice a day M25.511 Bishnu 2017 - s with food Pachikara 04/05/ Arturo 2018 Proair HFA 11/25/ Hx Aerosol 108(90Bas 8.5un 2 puffs ih J45.909 Bishnu 2016 - e) its every 4 Pachikara 11/27/ mcg/Act hours as , Pedro.Rebeca. 2017 needed Montelukast 01/24/ Hx Tablets 10mg 30tab 1 by mouth Bishnu Sodium 2015 - s every day Pachikara 02/15/ Arturo 2016 Ibuprofen 01/24/ Hx Tablets 800mg by mouth Unknown 2016 - three times 11/25/ a day as 2017 needed Famotidine 01/24/ Hx Tablets 40mg 30tab 1 by mouth Bishnu 2015 - every day Pachikara 02/15/ Arturo 2016 Vandazole 12/16/ Hx 5mg once a night Unknown 2015 - 2016 Chlorhexidine 12/16/ Hx Solution 0.12% rinse/spit Unknown Gluconate Oral 2015 Rinse 11/25/ milliliters 2017 twice a day Advair Diskus 12/16/ Hx Aerosol 250-50mcg 1 puff by Unknown 2015 - /Dose mouth twice 11/25/ a day 2017 Control / Hx as directed Unknown Pill - 2016 Ibuprofen / Hx Tablets 600mg three times Unknown - a day 2017 Immunizations CPT Code Status Date Vaccine Lot # [id number] Given 02/10/2017 Influenza Virus Vaccine, Quadrivalent, Split, [id number] Preservative Free Vital Signs Date Vital Result Comment 04/05/2017 Weight 330.00 lb Heart Rate 103 /min BP Systolic Sitting 138 mmHg BP Diastolic Sitting 76 mmHg Body Temperature 97.3 F O2 % BldC Oximetry 96 % 03/01/2017 Height 65 inches 5'5" Weight 325.00 [...] Test Date Test Result H/L Range Note Basic Metabolic Panel 03/30/2017 Sodium 137 mmol/L 133-145 Potassium 4.4 mmol/L 3.5-5.0 Chloride 102 mmol/L 101-111 Co2 Carbon Dioxide 29 mmol/L 22-32 Anion Gap 6 mmol/L 2-11 Glucose 101 mg/dL High 70-100 Blood Urea Nitrogen 10 mg/dL 6-24 Creatinine 0.74 mg/dL 0.51-0.95 BUN/Creatinine Ratio 13.5 8-20 Calcium 9.5 mg/dL 8.6-10.3 Egfr Non- 100.1 >60 Egfr 128.7 >60 1 Laboratory test finding 03/30/2017 HCG < 0.60 mIU/mL 2 CBC Auto Diff 03/30/2017 White Blood Count 11.1 10^3/uL High 3.5-10.8 Red Blood Count 5.07 10^6/uL 4.0-5.4 Hemoglobin 13.0 g/dL 12.0-16.0 Hematocrit 40 % 35-47 Mean Corpuscular Volume 79 fL Low 80-97 Mean Corpuscular Hemoglobin 26 pg Low 27-31 Mean Corpuscular HGB Conc 32 g/dL 31-36 Red Cell Distribution Width 18 % High 10.5-15 Platelet Count 312 10^3/uL 150-450 Mean Platelet Volume 9 um3 7.4-10.4 Abs Neutrophils 6.8 10^3/uL 1.5-7.7 Abs Lymphocytes 3.3 10^3/uL 1.0-4.8 Abs Monocytes 0.8 10^3/uL 0-0.8 Abs Eosinophils 0.2 10^3/uL 0-0.6 Abs Basophils 0.1 10^3/uL 0-0.2 Abs Nucleated RBC 0 10^3/uL Granulocyte % 60.8 % 38-83 Lymphocyte % 29.7 % 25-47 Monocyte % 7.2 % 1-9 Eosinophil % 1.7 % 0-6 Basophil % 0.6 % 0-2 Nucleated Red Blood Cells % 0 Laboratory test finding 03/02/2017 Hemoglobin A1c (Glyco HGB) 5.9 % High 4.0-5.6 3 Laboratory test finding 11/30/2016 Erythrocyte Sed Rate 39 mm/Hr High 0- 14 Lyme Disease Serology Negative Negative 4 Connective Tissue Panel 11/30/2016 Anti-Nuclear Antibody 0.2 U 5 Cyclic Citrullinated Peptide <15.6 U 6 Interpretation See Comment 7 Comp Metabolic Panel 11/30/2016 Sodium 137 mmol/L [...] Egfr Non- 112.2 >60 Egfr 144.3 >60 8 CBC Auto Diff 11/30/2016 White Blood Count [...] 0-2 Nucleated Red Blood Cells % 0.1 1 Because ethnic data is not always [...] 5 Kidney failure <15 (or dialysis) 2 <5.0 Negative 5.0 - 25.0 Indeterminate (Repeat testing recommended after 72 hours) >25.0 Positive Perimenopausal women can display HCG levels of up to 20 mIU/mL 3 Therapeutic target for the treatment of diabetes mellitus patients is <7% HBA1C, and in selective patients <6.0%. Please refer to [place] [employer] diabetic care guidelines for further information. 4 Serologic response to B. burgdorferi infection is not detected, but cannot rule out early infection during which low or undetectable antibody levels to B. burgdorferi may be present. If clinically indicated, a new serum specimen should be submitted in 7-14 days. Test Performed by: [facility] [place] [id number] 5 REFERENCE VALUE <=1.0 (Negative) 6 REFERENCE VALUE <20.0 (Negative) 7 Tests for antibodies to dsDNA and MATTHEW antigens are not performed automatically unless the SIENNA result is > or= 3.0 U. Studies performed at [facility] indicate that positive SIENNA results <3.0 U are rarely accompanied by positive second order tests. Test Performed by: [place] [id number] 8 Because ethnic data is not always readily [...] 15-29 5 Kidney failure <15 (or dialysis) Procedures Date CPT Code Description Status 11/30/2016 63441 Plethysmography Determination Lung Volumes & Per Completed Airway Resist 11/30/2016 62062 Pulmonary Function><Bronchodil Completed 01/06/2016 71208 Polysomnography Sleep Staging 4+ Parameters Completed Encounters Type Date Location Provider CPT E/M Dx Office Visit 03/01/2017 [facility] [address] G54.0 10:30a C.M.ANivia M25.511 Office Visit 02/15/2017 2:40p [facility] [place] [address] R73.01 [place] Office Visit 02/15/2017 2:00p [facility] [place], [address]2036 G54.0 C.M.A. Arturo Office Visit 02/10/2017 11:40a [facility] Internal Medicine - Bishnu Ordoñez, [address]6789 R73.09 [place] Sant[place] Morris Z23 Office Visit 01/19/2017 8:00a [facility] Internal Bishnu Ordoñez [address] S21.002A Medicine - [place] Sant[place] Morris M25.511 G47.30 H91.93 T78.3xxS Office Visit 12/21/2016 3:00p [facility] Internal Bishnu Ordoñez 30842 M25.511 Ayesha Gutierrez M.D. Office Visit 11/25/2016 2:00p [facility] Internal Bishnu Ordoñez, [address]1168 J45.909 Medicine - [place] Sant[place] Morris M25.511 E66.9 M25.569 Office Visit 01/26/2016 3:00p [facility] Margo Aguilar, 58461 G47.33 [facility] DNP, RN, MAIL CARRIER TECHNICIAN- G47.14 F17.210 Office Visit 12/18/2015 8:00a [facility] [address] G47.9 [facility] R06.83 G47.8 E66.09 J45.909 F17.210 Plan of Care Future Appointment(s):04/19/2017 4:00 pm - Andreas Maya M.D.,FACP at [facility] Internal Medicine - [address]/27/2017 3:00 pm - Bishnu Ordoñez M.D. at [facility] Internal Medicine - [address]04/05/2017 - Andreas Maya M.D.,FACPM48.062 Spinal stenosis, lumbar region with neurogenic claudicationNew Xrays:MRI Lumbar Spine W/OComments:The pain is likely not due to limbus vertebra in T12 or varicose veins. Receive MRI of lumbar spine to isolate cause.L98.498 Non- pressure chronic ulcer of other sites with oth severityComments:For the wounds, I have prescribed a topical antibiotic, Bactroban. Cover the area with a bandaid to avoid picking at it.
--- OUTSIDE RECORDS SUMMARY | 2017-04-14 20:17 | XMS REPORT ---
:1996 External Reference #:[id number] Author Organization [facility] Address [address] [address] Phone [phone] Care Team Providers Name Role Phone Andreas Maya MD Primary Care Physician Unavailable Payers Type Date Identification Numbers Payment Provider Subscriber Commercial Policy Number: [id number] [facility] [place] Group Number: [id number] [address] PayID: [id number] [place] [address] [facility] Policy Number: [id number] Medicaid Ailin Orr Group Name: 1 1 [address] PayID: [id number] [place] [address] Advance Directives Type Date Description Status Comment Other Directive 11/25/2016 Health Care Proxy Current and Verified Problems Date Description Provider Status Onset: 12/18/2015 Obesity Ambar Mao MD Active Onset: 12/18/2015 Ex-smoker Ambar Mao MD Active Onset: 01/26/2016 Obstructive sleep apnea Margo Aguilar DNP, RN, Active syndrome 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 [place], mcg/Act 4 hours as M.D.,FACP needed Albuterol [...] CPT Code Status Date Vaccine Lot # [id number] Given 02/10/2017 Influenza Virus Vaccine, Quadrivalent, Split, [...] in selective patients <6.0%. Please refer to [place] [employer] diabetic care guidelines for further information. 4 Serologic response to B. burgdorferi infection is not detected, but cannot rule out early infection during which low or undetectable antibody levels to B. burgdorferi may be present. If clinically indicated, a new serum specimen should be submitted in 7-14 days. Test Performed by: [facility] [place] [id number] 5 REFERENCE VALUE <=1.0 (Negative) 6 REFERENCE VALUE <20.0 (Negative) 7 Tests for antibodies to dsDNA and MATTHEW antigens are not performed automatically unless the SIENNA result is > or= 3.0 U. Studies performed at [facility] indicate that positive SIENNA results <3.0 U are rarely accompanied by positive second order tests. Test Performed by: [place] [id number] 8 Because ethnic data is not always [...] Procedures Date CPT Code Description Status 11/30/2016 28258 Plethysmography Determination Lung Volumes & Per Completed Airway Resist 11/30/2016 65427 Pulmonary Function><Bronchodil Completed 01/06/2016 71408 Polysomnography Sleep Staging 4+ Parameters Completed Encounters Type Date Location Provider CPT E/M Dx Office Visit 03/01/2017 [facility] [address]32 G54.0 10:30a C.M.ANivia M25.511 Office Visit 02/15/2017 2:40p [facility] [place] [address] R73.01 [place] Office Visit 02/15/2017 2:00p [facility], [address]86 G54.0 C.M.A. Arturo Office Visit 02/10/2017 11:40a [facility] Internal Medicine - Bishnu Ordoñez, [address] R73.09 [place] Santosh Morris Z23 Office Visit 01/19/2017 8:00a [facility] Internal Bishnu Ordoñez [address] S21.002A Medicine - [place] Sant[place] Morris M25.511 G47.30 H91.93 T78.3xxS Office Visit 12/21/2016 3:00p [facility] Internal Bishnu Ordoñez 79005 M25.511 Ayesha Gutierrez M.D. Office Visit 11/25/2016 2:00p [facility] Internal Bishnu Ordoñez, [address]609 J45.909 Medicine - [place] Sant[place] Morris M25.511 E66.9 M25.569 Office Visit 01/26/2016 3:00p [facility] Margo Aguilar, [address] G47.33 [facility] DNP, RN, ASSURANCE OFFICER- G47.14 F17.210 Office Visit 12/18/2015 8:00a [facility] [place] [address] G47.9 [facility] R06.83 G47.8 E66.09 J45.909 F17.210 Plan of Care Future Appointment(s):04/19/2017 4:00 pm - Andreas Maya M.D.,FACP at [facility] Internal [facility] - [address]/05/2017 - Andreas [...]
--- NOTE | 2017-04-14 21:26 | RAD ---
INDICATION: Chest pain COMPARISON: December 21, 2015 TECHNIQUE: PA and lateral dual-energy views were obtained. FINDINGS: Bones/Soft Tissues: There are no acute bony findings. Cardiomediastinal: The cardiomediastinal silhouette is normal. Lungs: There are no infiltrates. Pleura: There are no pleural effusions. Other: None IMPRESSION: NORMAL CHEST.
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
== END 2017-04-14 21:40 | disposition home or self-care (01) ==
LOC: ED 19:49
DX: R07.89 Other chest pain (principal); Z87.891 Personal history of nicotine dependence; Z88.6 Allergy status to analgesic agent
CPT/HCPCS: 71046; 99281

== ENCOUNTER 2017-08-09 00:16 | Emergency (ER) | payer OTHER, MEDICAID ==
[2017-08-09 01:00] LABS: ABS Basophils 0.1 10^3/ul (0-0.2); ABS Eosinophils 0.1 10^3/ul (0-0.6); ABS Lymphocytes 2.8 10^3/ul (1.0-4.8); ABS Monocytes 0.8 10^3/ul (0-0.8); ABS Neutrophils 7.2 10^3/ul (1.5-7.7); ABS Nucleated RBC 0 10^3/ul; Hematocrit 39 % (35-47); Lymphocyte % 25.5 % (25-47); Mean Corpuscular HGB Conc 33 g/dl (31-36); Mean Corpuscular Hemoglobin 26 pg (27-31); Mean Corpuscular Volume 79 fL (80-97); Mean Platelet Volume 8.8 um3 (7.4-10.4); Nucleated Red Blood Cells % 0; Platelet Count 288 10^3/ul (150-450); Red Blood Count 4.94 10^6/ul (4.0-5.4); Red Cell Distribution Width 16 % (10.5-15); White Blood Count 10.9 10^3/ul (3.5-10.8)
[2017-08-09 01:05] LABS: Urine Appearance Cloudy; Urine Blood Negative (Negative); Urine Color Yellow; Urine Ketones Negative (Negative); Urine Protein 1+(30 mg/dL) (Negative); Urine Urobilinogen Negative (Negative)
[2017-08-09 01:19] LABS: EGFR Non-African American 84.1 (>60)
--- NOTE | 2017-08-09 02:38 | ED ---
Richard Chávez Angela, scribed for Jamshid Palacio MD on 08/09/17 at 0055 . Psychiatric Complaint - HPI Summary HPI Summary: This pt is a 21 y/o female presenting to [facility] via EMS for a 9.41. Pt reports she cut her left forearm last night, 08/08/17, at approximately 23:00. She states "I do it to calm down, I don't do it to kill. If I were to do it to kill I would cut my neck." She currently denies SI plan or thoughts, HI. Pt states she has not taken her medications because they are in [place] and she has not had the time to pick them up. She notes she will go in 1 day to brain picker her medications. Her medications include Valium and another one that starts with a "B", pt is unable to recall the name at this time. Pt lives with best friend and fiance. PMHx includes seizures (only when sleeping), bipolar disorder, depression. - History Of Current Complaint Chief Complaint: EDMentalHealth Time Seen by Provider: 08/09/17 00:25 Hx Obtained From: Patient Hx Last Menstrual Period: 03/2015 Onset/Duration: Sudden Onset, Still Present Timing: Hours Severity Currently: Moderate Character: Depressed Aggravating Factor(s): Medication Non-compliance Alleviating Factor(s): Nothing Related History: Positive For: Prior Psychiatric Issues Has Suicidal: Reports: Demonstrates Gesture. Denies: Thoughts, With A Plan Has Homicidal: Denies: Thoughts, With A Plan - Allergies/Home Medications Allergies/Adverse Reactions: Allergies Allergy/AdvReac Type Severity Reaction Status Date / Time MS Acetaminophen Allergy GI Upset Verified 04/14/17 14:34 [From Percocet] MS Oxycodone [From Percocet] Allergy GI Upset Verified 04/14/17 14:34 MS Wheat Bran [Wheat Bran] Allergy GI Upset Verified 04/14/17 14:34 DAIRY Allergy Severe Diarrhea Uncoded 04/14/17 14:34 vieira and pollen Allergy Mild Congestion Uncoded 04/14/17 14:34 ALCOHOL PREP Allergy Rash Uncoded 04/14/17 14:34 PMH/Surg Hx/FS Hx/Imm Hx Endocrine/Hematology History: Reports: Hx Diabetes - RECENTLY DX - HAS BEEN IN PROCESS OF DOING TESTS. Denies: Hx Anticoagulant Therapy, Hx Blood Disorders, Hx Sickle Cell Disease , Hx Unexplained Bleeding Cardiovascular History: Denies: Hx Congestive Heart Failure, Hx Hypercholesterolemia, Hx Hypertension , Hx Pacemaker/ICD, Other Cardiovascular Problems/Disorders Respiratory History: Reports: Hx Asthma - uses inhaler GI History: Denies: Hx Cirrhosis, Hx Crohn's Disease, Hx Diverticulosis, Hx Gall Bladder Disease, Hx Gastroesophageal Reflux Disease, Hx Gastrointestinal Bleed, Hx Hiatal Hernia, Hx Irritable Bowel, Other GI Disorders History: Denies: Hx Dialysis, Hx Renal Disease, Other Problems/Disorders Musculoskeletal History: Reports: Hx Back Problems - "floating piece of bone near spine"; Lt hip "issue" Denies: Hx Arthritis, Hx Rheumatoid Arthritis, Hx Osteoporosis Sensory History: Reports: Hx Contacts or Glasses - GLASSES Denies: Hx Hearing Aid Opthamlomology History: Reports: Hx Contacts or Glasses - GLASSES Psychiatric History: Reports: Hx Anxiety, Hx Attention Deficit Hyperactivity Disorder - SINCE @ AGE 6, Hx Depression, Hx Bipolar Disorder - Not taking meds due to and breast feeding f/u w/ MD Olivia, Hx Suicide Attempt, Other Psychiatric Issues/Disorders - bipolar Denies: Hx Panic Disorder - Cancer History Hx Chemotherapy: No - Surgical History Surgery Procedure, Year, and Place: Tonsillectomy, 2013,. wisdom teeth,. Tongue Laceration Repair, 2000, Hx Anesthesia Reactions: No Infectious Disease History: Yes Infectious Disease History: Denies: Hx of Known/Suspected MRSA, History Other Infectious Disease, Traveled Outside the [place] in Last 30 Days - Family History Known Family History: Positive: Unknown - pt adopted, Hypertension, Diabetes, Other - hypotension, BLOOD CLOTS - Social History Alcohol Use: None Alcohol Amount: pt states none this Hx Substance Use: No Substance Use Type: Reports: None Substance Use Comment - Amount & Last Used: Hx of opiate, etoh, and marijuana use. Has participated with [employer]. Hx Tobacco Use: Yes Smoking Status (MU): Former Smoker Type: Cigarettes Amount Used/How Often: 1-3 cig./day Have You Smoked in the Last Year: Yes Review of Systems Negative: Fever, Chills ENT: Negative Cardiovascular: Negative Respiratory: Negative Gastrointestinal: Negative Skin: Other - self-inflicted lacerations to forearm Positive: Depressed. Negative: Other - SI thoughts, plan, HI All Other Systems Reviewed And Are Negative: Yes Physical Exam - Summary Physical Exam Summary: VITAL SIGNS: Reviewed. GENERAL: Patient is a well-developed and nourished female who is lying comfortable in the stretcher. Patient is not in any acute respiratory distress. HEAD AND FACE: No signs of trauma. No ecchymosis, hematomas or skull depressions. No sinus tenderness. EYES: PERRLA, EOMI x 2, No injected conjunctiva, no nystagmus. EARS: Hearing grossly intact. Ear canals and tympanic membranes are within normal limits. MOUTH: Oropharynx within normal limits. NECK: Supple, trachea is midline, no adenopathy, no JVD, no carotid bruit, no c- spine tenderness, neck with full ROM. CHEST: Symmetric, no tenderness at palpation LUNGS: Clear to auscultation bilaterally. No wheezing or crackles. CVS: Regular rate and rhythm, S1 and S2 present, no murmurs or gallops appreciated. ABDOMEN: Soft, non-tender. No signs of distention. No rebound no guarding, and no masses palpated. Bowel sounds are normal. EXTREMITIES: FROM in all major joints, no edema, no cyanosis or clubbing. NEURO: Alert and oriented x 3. No acute neurological deficits. Speech is normal and follows commands. SKIN: Dry and warm. Superficial self-inflicted laceration in the left forearm, not currently bleeding and with mild dried blood. Triage Information Reviewed: Yes Vital Signs On Initial Exam: Initial Vitals Temp Pulse Resp BP Pulse Ox 98 F 96 18 125/83 97 08/09/17 00:21 08/09/17 00:21 08/09/17 00:21 08/09/17 00:21 08/09/17 00:21 Vital Signs Reviewed: Yes Diagnostics - Vital Signs Vital Signs Temp Pulse Resp BP Pulse Ox 08/09/17 00:21 98 F 96 18 125/83 97 - Laboratory Result Diagrams: 08/09/17 00:51 08/09/17 00:51 Lab Statement: Any lab studies that have been ordered have been reviewed, and results considered in the medical decision making process. Course/Dx - Course Assessment/Plan: Pt is a 21 y/o female who presents for a 9.41. Pt reports she cut her left forearm last night, 08/08/17, at approximately 23:00. She states "I do it to calm down, I don't do it to kill. If I were to do it to kill I would cut my neck." She currently denies SI plan or thoughts, HI. Pt states she has not taken her medications because they are in [place] and she has not had the time to pick them up. She notes she will go in 1 day to brain picker her medications. Pt is medically cleared at 01:10. She is awaiting MHE. Pt was evaulated by the mental health investigative writer and her case was reviewed by Dr. Bustillo. Dr. Bustillo recommends to discharge the pt home with outpatient follow up in [facility]. Pt will be discharged home, in stable condition, with a diagnosis of substance induced disorder and mood disorder. - Differential Dx/Clinical Impression Provider Diagnosis: Substance-induced disorder, Mood disorder Discharge - Sign-Out/Discharge Documenting (check all that apply): Discharge/Admit/Transfer - Discharge - Discharge Plan Condition: Stable Disposition: HOME Referrals: Andreas Maya MD [Primary Care Provider] - The documentation as recorded by the Richard rizzo Angela accurately reflects the service I personally performed and the decisions made by me, Jamshid Palacio MD.
[2017-08-09 02:56] VITALS: BP 140/78
== END 2017-08-09 02:51 | disposition home or self-care (01) ==
LOC: ED 00:16
DX: F19.10 Other psychoactive substance abuse, uncomplicated (principal); F39 Unspecified mood [affective] disorder; Z87.891 Personal history of nicotine dependence; Z88.5 Allergy status to narcotic agent
CPT/HCPCS: 36415; 80053; 80307; 80320; 80329; 81003; 81015; 84443; 84702; 85025; 87086; 99285; G0480

== ENCOUNTER 2017-09-01 10:42 | Emergency (ER) | payer OTHER, MEDICAID ==
[2017-09-01] MEDS ORDERED: Ketorolac INJ* 60 MG/2 ML VIAL IM ONE (11:37)
[2017-09-01 12:01] VITALS: BP 98/60
--- NOTE | 2017-09-01 18:34 | ED ---
Lower Extremity - HPI Summary HPI Summary: Patient is a 22-year-old female who presents emergency department for right hip and leg pain times several days. Patient does not recall any specific injuries or falls. She describes pain as starting to her right buttocks and going down to her leg. Denies numbness, tingling or weakness. Symptoms are mild in severity. Patient states she has taken mtorin with no relief for pain. Patient states having difficulty walking secondary to pain. Walking makes symptoms worse. Rest makes symptoms better. - History of Current Complaint Chief Complaint: EDExtremityLower Stated Complaint: RT HIP PAIN Time Seen by Provider: 09/01/17 11:05 Hx Obtained From: Patient Hx Last Menstrual Period: 03/2015 Pain Intensity: 6 Pain Scale Used: 0-10 Numeric - Allergies/Home Medications Allergies/Adverse Reactions: Allergies Allergy/AdvReac Type Severity Reaction Status Date / Time acetaminophen [From Percocet] Allergy See Comment Verified 09/01/17 10:54 oxycodone [From Percocet] Allergy See Comment Verified 09/01/17 10:54 ALCOHOL PREP Allergy Rash Uncoded 09/01/17 10:54 DAIRY AdvReac Severe Diarrhea Uncoded 09/01/17 10:54 vieira and pollen AdvReac Mild Congestion Uncoded 09/01/17 10:54 wheat bran AdvReac GI Upset Uncoded 09/01/17 10:54 Home Medications: Home Medications NK [No Home Medications Reported] 09/01/17 [History Confirmed 09/01/17] PMH/Surg Hx/FS Hx/Imm Hx Previously Healthy: Yes Endocrine/Hematology History: Reports: Hx Diabetes - RECENTLY DX - HAS BEEN IN PROCESS OF DOING TESTS. Denies: Hx Anticoagulant Therapy, Hx Blood Disorders, Hx Sickle Cell Disease , Hx Unexplained Bleeding Cardiovascular History: Denies: Hx Congestive Heart Failure, Hx Hypercholesterolemia, Hx Hypertension , Hx Pacemaker/ICD, Other Cardiovascular Problems/Disorders Respiratory History: Reports: Hx Asthma - uses inhaler GI History: Denies: Hx Cirrhosis, Hx Crohn's Disease, Hx Diverticulosis, Hx Gall Bladder Disease, Hx Gastroesophageal Reflux Disease, Hx Gastrointestinal Bleed, Hx Hiatal Hernia, Hx Irritable Bowel, Other GI Disorders History: Denies: Hx Dialysis, Hx Renal Disease, Other Problems/Disorders Musculoskeletal History: Reports: Hx Back Problems - "floating piece of bone near spine"; Lt hip "issue" Denies: Hx Arthritis, Hx Rheumatoid Arthritis, Hx Osteoporosis Sensory History: Reports: Hx Contacts or Glasses - GLASSES Denies: Hx Hearing Aid Opthamlomology History: Reports: Hx Contacts or Glasses - GLASSES Psychiatric History: Reports: Hx Anxiety, Hx Attention Deficit Hyperactivity Disorder - SINCE @ AGE 6, Hx Eating Disorder - Binge-Purge NOS, Hx Depression, Hx Bipolar Disorder - Not taking meds due to and breast feeding f/u w / MD Olivia, Hx Suicide Attempt, Other Psychiatric Issues/Disorders - bipolar Denies: Hx Panic Disorder - Cancer History Hx Chemotherapy: No - Surgical History Surgery Procedure, Year, and Place: Tonsillectomy, 2013,. wisdom teeth,. Tongue Laceration Repair, 2000, Hx Anesthesia Reactions: No Infectious Disease History: No Infectious Disease History: Denies: Hx of Known/Suspected MRSA, History Other Infectious Disease, Traveled Outside the in Last 30 Days - Family History Known Family History: Positive: None, Unknown - pt adopted, Hypertension, Diabetes, Other - hypotension, BLOOD CLOTS - Social History Occupation: Unemployed Lives: With Family Alcohol Use: None Alcohol Amount: pt states none this Hx Substance Use: No Substance Use Type: Reports: None Substance Use Comment - Amount & Last Used: Hx of opiate, etoh, and marijuana use. Has participated with [employer]. Hx Tobacco Use: Yes Smoking Status (MU): Former Smoker Type: Cigarettes Amount Used/How Often: 1-3 cig./day Have You Smoked in the Last Year: Yes Review of Systems Positive: Other - Right leg pain Negative: Weakness, Paresthesia, Numbness All Other Systems Reviewed And Are Negative: Yes Physical Exam Triage Information Reviewed: Yes Vital Signs On Initial Exam: Initial Vitals Temp Pulse Resp BP Pulse Ox 96.7 F 96 12 165/127 99 09/01/17 10:49 09/01/17 10:49 09/01/17 10:49 09/01/17 10:49 09/01/17 10:49 Vital Signs Reviewed: Yes Appearance: Positive: Well-Appearing - Patient lying in bed in no acute distress. Morbidly obese. Unkept. Skin: Positive: Warm, Dry Head/Face: Positive: Normal Head/Face Inspection Eyes: Positive: Normal Neck: Positive: Supple Musculoskeletal: Positive: Other - Pain in palpation over the right sciatic notch. 5 out of 5 strength in bilateral lower shrubberies. No neurosensory deficits. No midline lumbar tenderness. Neurological: Positive: Normal, CN Intact II-III Psychiatric: Positive: Affect/Mood Appropriate Diagnostics - Vital Signs Vital Signs Temp Pulse Resp BP Pulse Ox 09/01/17 12:00 98.7 F 76 19 98/60 97 09/01/17 10:49 96.7 F 96 12 165/127 99 - Laboratory Lab Statement: Any lab studies that have been ordered have been reviewed, and results considered in the medical decision making process. Lower Extremity Course/Dx - Course Course Of Treatment: Patient's exam was some sciatica. She was given dose of Toradol here for pain. Recommend anti-inflammatories and warm compresses. Will follow-up with family doctor. Patient understands and agrees plan. - Diagnoses Provider Diagnoses: Sciatica Discharge - Sign-Out/Discharge Documenting (check all that apply): Discharge/Admit/Transfer - Discharge Plan Condition: Good Disposition: HOME Patient Education Materials: Sciatica (ED) Referrals: Andreas Maya MD [Primary Care Provider] - Additional Instructions: Follow up with your PCP Naproxen for pain as directed Apply warm compresses Return to ER if symptoms change or worsen - Billing Disposition and Condition Condition: GOOD Disposition: HOME
== END 2017-09-01 12:00 | disposition home or self-care (01) ==
LOC: ED 10:42
DX: M54.30 Sciatica, unspecified side (principal); Z87.891 Personal history of nicotine dependence; Z88.5 Allergy status to narcotic agent; Z88.6 Allergy status to analgesic agent
CPT/HCPCS: 96372; 99282; J1885

== ENCOUNTER 2017-10-10 14:07 | Emergency (ER) | payer OTHER, MEDICAID ==
--- NOTE | 2017-10-10 14:17 | UC ---
Knee Pain HPI - HPI Summary HPI Summary: 22 yo female presents with chronic LEFT knee pain. She tells me that about 7 years ago she was snowboarding and fell - "nearly fractured" her left knee and was told that if she ever fell on it again that it was break. She saw sports medicine and orthopedics around that time and was in physical therapy with no relief. She got frustrated and never returned for follow up. Her left knee has been painful ever since. Over the last month left knee pain has increased and she feels much more unstable walking on it. Denies numbness or tingling or new injury. - History of Current Complaint Stated Complaint: KNEE PAIN Time Seen by Provider: 10/10/17 14:17 Hx Obtained From: Patient Hx Last Menstrual Period: 03/2015 Severity Initially: Moderate Severity Currently: Moderate Pain Intensity: 6 Pain Scale Used: 0-10 Numeric - Allergies/Home Medications Allergies/Adverse Reactions: Allergies Allergy/AdvReac Type Severity Reaction Status Date / Time acetaminophen [From Percocet] Allergy See Comment Verified 10/10/17 14:28 oxycodone [From Percocet] Allergy See Comment Verified 10/10/17 14:28 ALCOHOL PREP Allergy Rash Uncoded 10/10/17 14:28 DAIRY AdvReac Severe Diarrhea Uncoded 10/10/17 14:28 vieira and pollen AdvReac Mild Congestion Uncoded 10/10/17 14:28 wheat bran AdvReac GI Upset Uncoded 10/10/17 14:28 Home Medications: Home Medications Albuterol inh POWDER (NF) [Proair Respiclick] 2 puff INH Q2HR PRN 10/10/17 [ History Confirmed 10/10/17] buPROPion TAB* [Wellbutrin TAB*] 75 mg PO DAILY 10/10/17 [History Confirmed 01/18] diazePAM [Diazepam] 1 tab PO DAILY 10/10/17 [History Confirmed 10/10/17] PMH/Surg Hx/FS Hx/Imm Hx Previously Healthy: Yes Psychological History: Anxiety, Depression Other History Of: Negative For: Anticoagulant Therapy - Surgical History Surgical History: Yes Surgery Procedure, Year, and Place: Tonsillectomy, 2013,. wisdom teeth,. Tongue Laceration Repair, 2000, - Family History Known Family History: Positive: None, Unknown - pt adopted, Hypertension, Diabetes, Other - hypotension, BLOOD CLOTS - Social History Occupation: Employed Full-time Lives: With Family Alcohol Use: None Substance Use Type: None Substance Use Comment - Amount & Last Used: Hx of opiate, etoh, and marijuana use. Has participated with [employer]. Smoking Status (MU): Former Smoker Type: Cigarettes Amount Used/How Often: 1-3 cig./day Have You Smoked in the Last Year: Yes - Immunization History Most Recent Influenza Vaccination: not flu season Most Recent Pneumonia Vaccination: not indicated Vaccination Up to Date: Yes Review of Systems Constitutional: Negative Skin: Negative Respiratory: Negative Cardiovascular: Negative Neurovascular: Negative Musculoskeletal: Decreased ROM - Left knee, Other: - Pain left knee Neurological: Negative Psychological: Negative All Other Systems Reviewed And Are Negative: Yes Physical Exam - Summary Physical Exam Summary: GENERAL: NAD. Obese SKIN: No rashes, sores, lesions, or open wounds. NECK: Supple. Nontender. No lymphadenopathy. CHEST: No accessory muscle use. Breathing comfortably and in no distress. CV: Pulses intact popliteal, PT, and DP. Brisk cap refill. MSK: LEFT KNEE: TTP all about left anterior and posterior. FROM, but with pain in all directions. Strength 5/5. No edema or obvious bony deformities. Unable to perform specialized tests due to pain. NEURO: Alert. Sensations intact and symmetric B/L LEs PSYCH: Age appropriate behavior. Triage Information Reviewed: Yes Vital Signs: Vital Signs: Temp Pulse Resp BP Pulse Ox 97.6 F 88 18 127/65 98 10/10/17 14:17 10/10/17 14:17 10/10/17 14:17 10/10/17 14:17 10/10/17 14:17 Knee Pain Course/Dx - Course Course Of Treatment: XR: IMPRESSION: NEGATIVE EXAMINATION. Internal derangement of the left knee. She was hesistant to return back to orthopedics or sports medicine, but eventually agreed. Provided with crutches today to use for comfort as weight bearing increased her pain. - Differential Dx/Diagnosis Provider Diagnoses: Left knee pain Discharge - Sign-Out/Discharge Documenting (check all that apply): Patient Departure - Discharge Plan Condition: Stable Disposition: HOME Patient Education Materials: Knee Pain (ED) Referrals: Andreas Maya MD [Primary Care Provider] - [facility] [Provider Group] - As Soon As Possible Additional Instructions: If you develop a fever, shortness of breath, chest pain, new or worsening symptoms - please call your PCP or go to the ED. - Billing Disposition and Condition Condition: STABLE Disposition: Home
[2017-10-10 14:27] VITALS: BP 127/65
--- NOTE | 2017-10-10 15:06 | RAD ---
INDICATION: Left knee pain COMPARISON: November 30, 2016 TECHNIQUE: AP, lateral, tunnel, and sunrise views were obtained. FINDINGS: The bony structures, joint spaces, and soft tissues are normal for age. IMPRESSION: NEGATIVE EXAMINATION.
[2017-10-10] MEDS ORDERED: Ibuprofen TAB* 400 MG PO ONE (15:28)
== END 2017-10-10 15:38 | disposition home or self-care (01) ==
LOC: UCEAST 14:07
DX: M25.562 Pain in left knee (principal); F41.9 Anxiety disorder, unspecified; F32.9 Major depressive disorder, single episode, unspecified; Z88.5 Allergy status to narcotic agent; Z88.6 Allergy status to analgesic agent; Z91.011 Allergy to milk products; Z87.891 Personal history of nicotine dependence
CPT/HCPCS: 99212; A9270-GY; G0463

== ENCOUNTER 2018-01-07 17:28 | Emergency (ER) | payer OTHER, MEDICAID ==
[2018-01-07 17:37] VITALS: BP 138/83
[2018-01-07] MEDS ORDERED: Benzonatate CAP* 100 MG PO ONE (18:09)
[2018-01-07] MEDS ORDERED: Amoxicillin PO (*) 500 MG CAP PO ONE (18:09)
--- NOTE | 2018-01-07 18:11 | UC ---
Respiratory Complaint HPI - HPI Summary HPI Summary: The patient is a 22-year-old female with a three-day history of cough ,runny nose, sneezing, sore throat, and headache. She has felt feverish and had chills. She has coughed to the point of vomiting. She has a history of asthma. She has been using her rescue inhaler. - History of Current Complaint Chief Complaint: UCRespiratory Stated Complaint: URI Time Seen by Provider: 01/07/18 17:53 Hx Obtained From: Patient Hx Last Menstrual Period: 11/18 Onset/Duration: Gradual Onset, Lasting Days Severity Initially: Mild Severity Currently: Moderate Pain Intensity: 4 Pain Scale Used: 0-10 Numeric Character: Cough: Productive Aggravating Factors: Exertion, Deep Breaths, Recumbent Position Alleviating Factors: Bronchodilator Associated Signs And Symptoms: Positive: Fever, Chills, Wheezing, Nasal Congestion, Sinus Discomfort - Allergies/Home Medications Allergies/Adverse Reactions: Allergies Allergy/AdvReac Type Severity Reaction Status Date / Time acetaminophen [From Percocet] Allergy See Comment Verified 01/07/18 17:37 oxycodone [From Percocet] Allergy See Comment Verified 01/07/18 17:37 ALCOHOL PREP Allergy Rash Uncoded 01/07/18 17:37 DAIRY AdvReac Severe Diarrhea Uncoded 01/07/18 17:37 vieira and pollen AdvReac Mild Congestion Uncoded 01/07/18 17:37 wheat bran AdvReac GI Upset Uncoded 01/07/18 17:37 PMH/Surg Hx/FS Hx/Imm Hx Previously Healthy: Yes Respiratory History: Asthma, Bronchitis Psychological History: Depression Other History Of: Negative For: Anticoagulant Therapy - Surgical History Surgical History: Yes Surgery Procedure, Year, and Place: Tonsillectomy, 2013,. wisdom teeth,. Tongue Laceration Repair, 2000, - Family History Known Family History: Positive: None, Unknown - pt adopted, Hypertension, Diabetes, Other - hypotension, BLOOD CLOTS - Social History Alcohol Use: Daily Alcohol Amount: pt states none this Substance Use Type: Marijuana Substance Use Comment - Amount & Last Used: Hx of opiate. Has participated with [employer]. Smoking Status (MU): Light Every Day Tobacco Smoker Type: Cigarettes Amount Used/How Often: 1-3 cig./day Have You Smoked in the Last Year: Yes Household Exposure Type: Cigarettes - Immunization History Most Recent Influenza Vaccination: not flu season Most Recent Pneumonia Vaccination: not indicated Vaccination Up to Date: Yes Review of Systems Constitutional: Fever, Chills, Fatigue Skin: Negative Eyes: Negative ENT: Nasal Discharge, Sinus Congestion Respiratory: Cough Cardiovascular: Negative Gastrointestinal: Negative Genitourinary: Negative Motor: Negative Neurovascular: Negative Musculoskeletal: Negative Neurological: Negative Psychological: Negative All Other Systems Reviewed And Are Negative: Yes Physical Exam Triage Information Reviewed: Yes Appearance: Well-Appearing, No Pain Distress, Well-Nourished, Other: - bmi 53.9 Vital Signs: Initial Vital Signs Temp 97.7 F 01/07/18 17:30 Pulse 102 01/07/18 17:30 Resp 18 01/07/18 17:30 BP 138/83 01/07/18 17:30 Pulse Ox 98 01/07/18 17:30 Eye Exam: Normal Eyes: Positive: Conjunctiva Clear ENT: Positive: Hearing grossly normal, Pharyngeal erythema, Nasal congestion, Nasal drainage, Uvula midline. Negative: Tonsillar swelling, Tonsillar exudate , Trismus, Muffled voice, Hoarse voice, Dental tenderness, Sinus tenderness Neck: Positive: Supple, Nontender, No Lymphadenopathy Respiratory: Positive: Lungs clear, Normal breath sounds. Negative: No respiratory distress, No accessory muscle use Cardiovascular: Positive: RRR, No Murmur Musculoskeletal: Positive: ROM Intact, No Edema Neurological Exam: Normal Neurological: Positive: Alert Psychological Exam: Normal Skin Exam: Normal UC Diagnostic Evaluation - Laboratory O2 Sat by Pulse Oximetry: 98 - normal, not hypoxic Respiratory Course/Dx - Differential Dx/Diagnosis Provider Diagnoses: acute bronchitis Discharge - Sign-Out/Discharge Documenting (check all that apply): Patient Departure All imaging exams completed and their final reports reviewed: No Studies - Discharge Plan Condition: Stable Disposition: HOME Prescriptions: Amoxicillin PO (*) [Amoxicillin 875 MG (*)] 875 mg PO BID #14 tab Benzonatate CAP* [Tessalon CAP*] 100 - 200 mg PO TID PRN #28 cap PRN Reason: Cough Patient Education Materials: Acute Bronchitis (ED) Forms: *Work Release Referrals: Donnie Moser DO [Primary Care Provider] - 3 Days (if not better) - Billing Disposition and Condition Condition: STABLE Disposition: Home
== END 2018-01-07 18:25 | disposition home or self-care (01) ==
LOC: UCEAST 17:28
DX: J20.9 Acute bronchitis, unspecified (principal); J45.909 Unspecified asthma, uncomplicated; F17.210 Nicotine dependence, cigarettes, uncomplicated; Z88.5 Allergy status to narcotic agent; Z91.09 Other allergy status, other than to drugs and biological substances; Z91.018 Allergy to other foods
CPT/HCPCS: 99212; A9270-GY; G0463

== ENCOUNTER → 2018-01-23 12:58 | Emergency (ER) | payer OTHER, MEDICAID ==
--- NOTE | 2018-01-23 13:20 | ED ---
Asthma - HPI Summary HPI Summary: This pt is a 22 y/o female presenting to [facility] via EMS c/o SOB for the past 3 hours. Pt reports she was ambulating a few hours ago when she suddenly felt SOB. She states she has hx of asthma and this happens frequently. Pt is currently on Proair, but she notes it doesn't work for her anymore. Her PCP is aware of this and has placed her on Advair but it made her symptoms worse so she was taken off of it. Pt additionally reports dizzy spells, wheezing, nonproductive cough, and chest pain secondary to cough. She notes she had diarrhea for the past 2 days, now is better. Denies fever, productive cough, abd pain, nausea, vomiting. LMP: last week. Pt is not on control. Per EMS, BG is 129. - History of Current Complaint Chief Complaint: EDDizziness Stated Complaint: WEAKNESS Time Seen by Provider: 01/23/18 13:04 Hx Obtained From: Patient, EMS Hx Last Menstrual Period: 11/18 Onset/Duration: Lasting Hours, Still Present Timing: Hours Current Severity: Moderate Pain Intensity: 7 - chest pain Pain Scale Used: 0-10 Numeric Location/Character: Cough (Nonproductive) - and wheezing Aggravating Symptoms: Nothing Alleviating Symptoms: Nothing Associated Signs and Symptoms: Positive: Shortness of Breath, Other - POS: dizziness, chest pain, nonproductive cough, diarrhea. NEG: fever, abd pain, nausea, vomiting, productive cough. - Allergy/Home Medications Allergies/Adverse Reactions: Allergies Allergy/AdvReac Type Severity Reaction Status Date / Time acetaminophen [From Percocet] Allergy See Comment Verified 01/07/18 17:37 oxycodone [From Percocet] Allergy See Comment Verified 01/07/18 17:37 ALCOHOL PREP Allergy Rash Uncoded 01/07/18 17:37 DAIRY AdvReac Severe Diarrhea Uncoded 01/07/18 17:37 vieira and pollen AdvReac Mild Congestion Uncoded 01/07/18 17:37 wheat bran AdvReac GI Upset Uncoded 01/07/18 17:37 PMH/Surg Hx/FS Hx/Imm Hx Endocrine/Hematology History: Reports: Hx Diabetes - not sure yet,most likely type 2 Denies: Hx Anticoagulant Therapy, Hx Blood Disorders, Hx Sickle Cell Disease , Hx Unexplained Bleeding Cardiovascular History: Denies: Hx Congestive Heart Failure, Hx Hypercholesterolemia, Hx Hypertension , Hx Pacemaker/ICD, Other Cardiovascular Problems/Disorders Respiratory History: Reports: Hx Asthma - uses inhaler GI History: Denies: Hx Cirrhosis, Hx Crohn's Disease, Hx Diverticulosis, Hx Gall Bladder Disease, Hx Gastroesophageal Reflux Disease, Hx Gastrointestinal Bleed, Hx Hiatal Hernia, Hx Irritable Bowel, Other GI Disorders History: Denies: Hx Dialysis, Hx Renal Disease, Other Problems/Disorders Musculoskeletal History: Reports: Hx Back Problems - "floating piece of bone near spine"; Lt hip "issue" Denies: Hx Arthritis, Hx Rheumatoid Arthritis, Hx Osteoporosis Sensory History: Reports: Hx Contacts or Glasses - GLASSES Denies: Hx Hearing Aid Opthamlomology History: Reports: Hx Contacts or Glasses - GLASSES Psychiatric History: Reports: Hx Anxiety, Hx Attention Deficit Hyperactivity Disorder - SINCE @ AGE 6, Hx Eating Disorder - Binge-Purge NOS, Hx Depression, Hx Bipolar Disorder - Not taking meds due to and breast feeding f/u w / MD Olivia, Hx Suicide Attempt, Other Psychiatric Issues/Disorders - bipolar Denies: Hx Panic Disorder - Cancer History Hx Chemotherapy: No - Surgical History Surgery Procedure, Year, and Place: Tonsillectomy, 2013,. wisdom teeth,. Tongue Laceration Repair, 2000, Hx Anesthesia Reactions: No Infectious Disease History: No Infectious Disease History: Denies: Hx of Known/Suspected MRSA, History Other Infectious Disease, Traveled Outside the [place] in Last 30 Days - Family History Known Family History: Positive: Unknown - pt adopted, Hypertension, Diabetes, Other - hypotension, BLOOD CLOTS - Social History Alcohol Use: Daily Alcohol Amount: pt states none this Hx Substance Use: No Substance Use Type: Reports: Marijuana Substance Use Comment - Amount & Last Used: Hx of opiate. Has participated with [employer]. Hx Tobacco Use: Yes Smoking Status (MU): Light Every Day Tobacco Smoker Type: Cigarettes Amount Used/How Often: 1-3 cig./day Have You Smoked in the Last Year: Yes Review of Systems Negative: Fever, Chills Positive: Chest Pain Respiratory: Other - POS: wheezing Positive: Shortness Of Breath, Cough Positive: Diarrhea. Negative: Abdominal Pain, Vomiting, Nausea Neurological: Other - POS: dizziness All Other Systems Reviewed And Are Negative: Yes Physical Exam - Summary Physical Exam Summary: VITAL SIGNS: Reviewed. GENERAL: Patient is a well-developed and obese female who is lying comfortable in the stretcher. Patient is not in any acute respiratory distress. HEAD AND FACE: No signs of trauma. No ecchymosis, hematomas or skull depressions. No sinus tenderness. EYES: PERRLA, EOMI x 2, No injected conjunctiva, no nystagmus. EARS: Hearing grossly intact. Ear canals and tympanic membranes are within normal limits. MOUTH: Oropharynx within normal limits. NECK: Supple, trachea is midline, no adenopathy, no JVD, no carotid bruit, no c- spine tenderness, neck with full ROM. CHEST: Symmetric, no tenderness at palpation LUNGS: Clear to auscultation bilaterally. No wheezing or crackles. CVS: Regular rate and rhythm, S1 and S2 present, no murmurs or gallops appreciated. ABDOMEN: Soft, non-tender. No signs of distention. No rebound, no guarding, and no masses palpated. Bowel sounds are normal. EXTREMITIES: FROM in all major joints, no edema, no cyanosis or clubbing. NEURO: Alert and oriented x 3. No acute neurological deficits. Speech is normal and follows commands. SKIN: Dry and warm Triage Information Reviewed: Yes Vital Signs On Initial Exam: Initial Vitals Temp Pulse Resp BP Pulse Ox 97.5 F 60 18 109/56 98 01/23/18 13:06 01/23/18 13:06 01/23/18 13:06 01/23/18 13:06 01/23/18 13:06 Vital Signs Reviewed: Yes Diagnostics - Vital Signs Vital Signs Temp Pulse Resp BP Pulse Ox 01/23/18 13:06 97.5 F 60 18 109/56 98 - Laboratory Result Diagrams: 01/23/18 13:30 01/23/18 13:30 Lab Statement: Any lab studies that have been ordered have been reviewed, and results considered in the medical decision making process. - Radiology Chest XR Radiology Interpretation Completed By: Radiologist Summary of Radiographic Findings: IMPRESSION: No active cardiopulmonary disease is noted. Dr. Hayes has reviewed this report. - EKG 13:18 Cardiac Rate: NL - at 64 bpm EKG Rhythm: Sinus Rhythm EKG Interpretation: No ST elevations. EKG Comparison: No Significant Change - similar to previous EKG Asthma Course/Dx - Course Assessment/Plan: This pt is a 22 y/o female presenting to [facility] via EMS c/o SOB for the past 3 hours. Pt reports she was ambulating a few hours ago when she suddenly felt SOB. She states she has hx of asthma and this happens frequently. Pt is currently on Proair, but she notes it doesn't work for her anymore. Her PCP is aware of this and has placed her on Advair but it made her symptoms worse so she was taken off of it. Pt additionally reports dizzy spells, wheezing , nonproductive cough, and chest pain secondary to cough. She notes she had diarrhea for the past 2 days, now is better. Denies fever, productive cough, abd pain, nausea, vomiting. LMP: last week. Pt is not on control. Per EMS, BG is 129. Blood work without any significant abnormality except for white blood cell count of 10.9, D-dimer is less than 200, therefore, no suspicion for pulmonary embolism. Glucose is 66 and CRP of 27.2. Urinalysis is negative for UTI. Chest x-ray shows no active cardiopulmonary disease. In the ED course the patient was eating and drinking with no nausea and vomiting. She reports that she is feeling better and she has no other complaints. On reexamination the lungs are clear to auscultation bilaterally. There is no wheezes or crackles. Abdomen is soft nontender with positive bowel sounds. Neuro: patient is alert and oriented 3 with no acute neurological focal deficits. Patient was recommended to return to the emergency department if she develops any fever, chills, weakness, lethargy or any other symptoms. The patient understands and agrees. - Diagnoses Differential Diagnosis/HQI/PQRI: Positive: Acute Asthma, Bronchitis, COPD Excerbation, Pneumonia Provider Diagnoses: Weakness, Asthma Discharge - Sign-Out/Discharge Documenting (check all that apply): Patient Departure - Discharge home - Discharge Plan Condition: Stable Disposition: HOME Patient Education Materials: Asthma (ED) Referrals: Donnie Moser DO [Primary Care Provider] - Additional Instructions: Please follow up with your primary care provider in 2-3 days. RETURN TO THE ED FOR ANY NEW OR WORSENING SYMPTOMS. - Billing Disposition and Condition Condition: STABLE Disposition: Home - Attestation Statements Document Initiated by Scribe: Yes Documenting Scribe: Halle Ramos Provider For Whom Scribe is Documenting (Include Credential): Genaro Hayes MD Scribe Attestation: I, Halle Ramos, scribed for Genaro Hayes MD on 01/24/18 at 1812. Scribe Documentation Reviewed: Yes Provider Attestation: The documentation as recorded by the scribe, Halle Ramos accurately reflects the service I personally performed and the decisions made by me, Genaro Hayes MD
--- OUTSIDE RECORDS SUMMARY | 2018-01-23 13:24 | XMS REPORT | Continuity of Care Document ---
:1995 External Reference #:[id number] Author Name Miriam Stewart MD Address [address] [place] [address] Care Team Providers Name Role Phone Chino Negron CNM Care Team Information Rules Examiner Unavailable Payers Type Date Identification Numbers Payment Provider Subscriber Policy Number: [id number] [facility] [place] PayID: [id number] [address] [place] [address] Policy Number: [id number] Medicaid [place] Harsh Orr PayID: [id number] [address] [place] [address] Advance Directives Description No Information Available Problems Date Description Provider Status Onset: 08/01/2017 Body mass index 40+ - severely obese Chino Negron CNM Active Onset: 05/12/2016 H/O: drug dependency Gema Gilliam NP Active Onset: 08/01/2017 Menorrhagia Chino Negron CNM Active Onset: 05/12/2016 Primigravida Gema Gilliam NP Resolved Resolved: 12/26/2016 Family History Description No Information Available Social History Type Date Description Comments Sex Unknown Education Highest Level Completed Is High School Diploma Marital Status Lives With Alone Occupation Unemployed Cigarette Use Current Cigarette 1/2 PPD Smoker ETOH Use Currently consumes alcohol Recreational Drug Use Formerly addicted to Currently enrolled in [employer] Tobacco Use Start: Unknown Patient is a current 1/2 PPD smoker, smokes every day Recreational Drug Use Formerly used CARS helping pt to Marijuana regularly stay away from THC. Uses regularly to help with chronic pain Smoking Status Reviewed: 01/17/18 Patient is a current 1/2 PPD smoker, smokes every day Exercise Type/Frequency Does not exercise Seat Belt/Car Seat Always uses seat belt Currently Active Patient is currently sexually active Contraceptive Methods None STD's Chlamydia Hx in past STD's Gonorrhea hx in past EMMIE: 09/15/2016 Estimated Date of Based on 1st Delivery Ultrasound Allergies, Adverse Reactions, Alerts Date Description Reaction Status Severity Comments 11/08/2017 Isopropyl Alcohol Active 11/08/2017 NKDA Inactive Medications Medication Date Status Form Strength Qnty SIG Indications Ordering Provider Albuterol / Active Unknown Sulfate 0000 Bupropion HCL / Active Unknown 0000 Diazepam / Active Unknown 0000 Xulane 11/08/ Hx Patches 150-35mcg/ 9unit apply one Phaelon 2018 - Weekly 24HR s patch to guanaco Kennedy MD 01/17/ each week 2017 for three weeks (discard old patch each week). no patch during fourth week, then restart. Ibuprofen 01/12/ Hx Tablets 600mg 30tab take one tab Abhishek Irwin 2017 - s by mouth Ebony 01/17/ every 6 M.D. 2018 hours as needed pain Nuvaring 01/11/ Hx Ring 0.12-0.015 2unit insert as N92.1 Abhishek Irwin 2017 - mg/24HR s directed Ebony 03/08/ M.D. 2017 Plan B One-Step 11/08/ Hx Tablets 1.5mg 1tabs take one Valencia 2017 - tablet by Linnea 01/11/ mouth within LM 2017 72 hours of unprotected intercourse. Abdominal 07/08/ Hx Misc 2X/3X LG 1unit Use as Suzy Support 2X/3X 2017 - s directed for Sacha 01/11/ abdominal 2017 support 05/12/ Hx Tablets 28-0.8mg 90tab 1 by mouth Abhishek Irwin Vitamins 2017 - s every day. Ebony 01/11/ please M.D. 2017 substitute any vitamin with 100-300 mcg dha covered by insurance Flexeril 11/20/ Hx Tablets 10mg 15tab Three Times Unknown 2016 - s Daily prn 05/12/ For back 2017 spasms Ultram 11/20/ Hx Tablets 50mg 15tab Every 6 Unknown 2016 - s Hours prn 05/12/ For Back 2017 Pain Zantac 150 11/18/ Hx Tablets 150mg 30tab Twice Daily Unknown Maximum 2016 - s Strength 2016 Percocet 10/18/ Hx Tablets 5-325mg 10tab Q4H prn For Unknown 2016 - s Pain 2016 Ibuprofen 09/19/ Hx Tablets 800mg 60tab Q8H prn For Unknown 2016 - s Pain 2016 Ventolin HFA 11/18/ Hx Aerosol 108(90Base prn For Unknown 2015 - ) mcg/Act Asthma 2016 / Hx Tablets take 1 daily Unknown Vitamin 0000 - by mouth 2016 Levothyroxine / Hx Unknown Sodium 0000 - 2016 Immunizations CPT Code Status Date Vaccine Lot # [id number] Given 06/08/2016 Tetnus, Diptheria Toxoids And Acellular Pertussis, [id number] PT > 7Yrs Old [id number] Given 10/29/2015 Tetnus, Diptheria Toxoids And Acellular Pertussis, PT > 7Yrs Old Vital Signs Date Vital Result Comment 01/17/2018 2:37pm BP Systolic 126 mmHg BP Diastolic 72 mmHg Height 65 inches 5'5" Weight 338.00 lb BMI (Body Mass Index) 56.2 kg/m2 Last Menstrual Period [id number] 1 Parity 1 11/08/2017 11:26am BP Systolic 118 mmHg BP Diastolic 74 mmHg Height 65 inches 5'5" Weight 321.00 lb BMI (Body Mass Index) 53.4 kg/m2 1 Parity 1 08/01/2017 10:36am BP Systolic 118 mmHg BP Diastolic 80 mmHg Height 65 inches 5'5" Weight 327.00 lb BMI (Body Mass Index) 54.4 kg/m2 Last Menstrual Period [id number] 1 Parity 1 03/08/2017 2:05pm BP Systolic 122 mmHg BP Diastolic 72 mmHg Height 65 inches 5'5" Weight 323.00 lb BMI (Body Mass Index) 53.7 kg/m2 1 Parity 1 01/30/2017 8:45am BP Systolic 124 mmHg BP Diastolic 82 mmHg Height 65 inches 5'5" Weight 316.00 lb BMI (Body Mass Index) 52.6 kg/m2 Last Menstrual Period [id number] 1 Parity 1 01/11/2017 8:05am BP Systolic 144 mmHg BP Diastolic 84 mmHg Height 65 inches 5'5" Weight 324.00 lb BMI (Body Mass Index) 53.9 kg/m2 Last Menstrual Period [id number] 1 Parity 1 11/08/2016 12:56pm BP Systolic 120 mmHg BP Diastolic 70 mmHg Height 65 inches 5'5" Weight 316.00 lb BMI (Body Mass Index) 52.6 kg/m2 Last Menstrual Period [id number] 1 Parity 1 05/12/2016 8:13am BP Systolic 130 mmHg BP Diastolic 70 mmHg Height 65 inches 5'5" Weight 281.00 lb BMI (Body Mass Index) 46.8 kg/m2 Last Menstrual Period [id number] 12/09/2015 12:00am BP Systolic 130 mmHg BP Diastolic 65 mmHg Body Temperature 97.9 F Heart Rate 92 /min Respiratory Rate 16 /min Height 65 inches Weight 282.00 lb Results Test Date Facility Test Result H/L Range Note Laboratory test [facility] HCG < 0.60 mIU/ mL 1 finding 8 [place] [address] [phone] GC/Chlamydia Dna [facility] Chlamydia Negative Negative Probe 8 [place] [address] trachomatis Rna [phone] Neisseria gonorrhoeae (GC) Rna Negative Negative Laboratory 08/01/2017 [facility] Hepatitis B Nonreactive Nonreactive 2 [place] [address] Surface Ag [phone] Hepatitis C Antibody Nonreactive Nonreactive 3 Syphillis Igg W/Reflex RPR Nonreactive Nonreactive 4 HCG < 0.60 mIU/mL 5 HIV 1/2 AB 08/01/2017 [facility] HIV 1 2 Nonreactive Nonreactive 6 [place] [address] Antibody [phone] Laboratory 01/30/2017 [facility] Surgical SEE RESULT 7 [place] [address] Pathology BELOW [phone] CBC Auto Diff 01/30/2017 [facility] White Blood 9.8 10^3/uL 3.5-10.8 [place] [address] Count [phone] Red Blood Count 5.20 10^6/uL 4.0-5.4 Hemoglobin [...] Red Blood Cells % 0.1 Laboratory test 01/30/2017 [facility] Lutenizing 9.3 mcIU/mL 8 [place] [address] Hormone [phone] Prolactin 9.1 ng/mL 1.0-25.0 9 Thyroid Function 01/30/2017 [facility] Thyroid Stim 1.2 mIU/L 0.3-4.2 [address] [place] [address] Hormone [phone] Laboratory test 01/30/2017 [facility] Insulin 112 2.6 - 24.9 11 [place] [address] Level mcIU/mL [phone] Glucose 128 mg/dL High 70-100 12 CBC With No 11/08/2016 [facility] White Blood 8.5 10^3/uL 3.5 -10.8 [place] [address] Count [phone] Red Blood Count 4.81 10^6/uL 4.0-5.4 Hemoglobin 12.6 g/dL 12.0-16.0 Hematocrit 39 % 35-47 Mean Corpuscular Volume 82 fL 80-97 Mean Corpuscular Hemoglobin 26 pg Low 27-31 Mean Corpuscular HGB Conc 32 g/dL 31-36 Red Cell Distribution Width 16 % High 10.5-15 Platelet Count 348 10^3/uL 150-450 Mean Platelet Volume 9 um3 7.4-10.4 Laboratory 11/08/2016 [facility] Gardnerella/Yeast: SEE 13 [place] [address] Vaginal Dna RESULT [phone] BELOW Laboratory 08/19/2016 [facility] Group B Strep Culture SEE 14, [place] [address] Screen RESULT 15 [phone] BELOW Laboratory 06/08/2016 [facility] Glucose 1 HR Post 125 mg/dL 70- 16 [place] [address] Prandial 160 [phone] CBC With No 06/08/2016 [facility] White Blood Count 13.1 High 3.5 [place] [address] 10^3/uL -10 [phone] Red Blood Count 4.51 10^6/uL 4.0-5.4 Hemoglobin 12.4 g/dL 12.0-16.0 Hematocrit 39 % 35-47 Mean Corpuscular Volume 86 fL 80-97 Mean Corpuscular Hemoglobin 27 pg 27-31 Mean Corpuscular HGB Conc 32 g/dL 31-36 Red Cell Distribution Width 15 % 10.5-15 Platelet Count 263 10^3/uL 150-450 Mean Platelet Volume 9 um3 7.4-10.4 Laboratory test 06/08/2016 [facility] Rubella Screen Equivocal Immune 17 [place] [address] IU/mL [phone] Urine Drug Comp 06/08/2016 [facility] Urine Negative 18 20 [place] [address] Amphetamine ng/mL [phone] Urine Barbiturates Negative ng/mL 19 Urine Benzodiazepines Negative ng/mL 20 Urine Cocaine Negative ng/mL 21 Urine Phencyclidine Negative ng/mL Cutoff: 25 Urine Tetrahydrocannabinol Negative ng/mL Cutoff: 50 22 Creatinine 185.0 mg/dL Specific Tolstoy 1.008 pH 7.5 Oxidants Negative 23 Adulterants Comment Normal Codeine, Ur Not Detected ng/mL Cutoff: 25 24 Fiisvmd-8-hwli-glucuronide, Ur Not Detected ng/mL 25 Morphine, Ur Not Detected ng/mL Cutoff: 25 26 Kpkoysyr-5-unlg-glucuronide, U Not Detected ng/mL 27 6-monoacetylmorphine, Ur Not Detected ng/mL Cutoff: 25 28 Hydrocodone, Ur Not Detected ng/mL Cutoff: 25 29 Norhydrocodone, Ur Not Detected ng/mL Cutoff: 25 30 Dihydrocodeine, Ur Not Detected ng/mL Cutoff: 25 31 Hydromorphone, Ur Not Detected ng/mL Cutoff: 25 32 Nvgwnnffurgas4jaurqrsszecfxpw Not Detected ng/mL 33 Oxycodone, Ur Not Detected ng/mL Cutoff: 25 34 Noroxycodone, Ur Not Detected ng/mL Cutoff: 25 35 Oxymorphone, Ur Not Detected ng/mL Cutoff: 25 36 Kzpzwpdeglm-9-zipy-glucuronide Not Detected ng/mL 37 Noroxymorphone, Ur Not Detected ng/mL Cutoff: 25 38 Fentanyl, Ur Not Detected ng/mL Cutoff: 2 39 Norfentanyl, Ur Not Detected ng/mL Cutoff: 2 40 Meperidine, Ur Not Detected ng/mL Cutoff: 25 41 Normeperidine, Ur Not Detected ng/mL Cutoff: 25 42 Naloxone, Ur Not Detected ng/mL Cutoff: 25 43 Ecwdqjws-7-wqcu-glucuronide, U Not Detected ng/mL 44 Methadone, Ur Not Detected ng/mL Cutoff: 25 45 Eddp, Ur Not Detected ng/mL Cutoff: 25 46 Propoxyphene, Ur Not Detected ng/mL Cutoff: 25 47 Norpropoxyphene, Ur Not Detected ng/mL Cutoff: 25 48 Tramadol, Ur Not Detected ng/mL Cutoff: 25 49 O-desmethyltramadol, Ur Not Detected ng/mL Cutoff: 25 50 Tapentadol, Ur Not Detected ng/mL Cutoff: 25 51 N-desmethyltapentadol, Ur Not Detected ng/mL Cutoff: 50 52 Qkyylrawzx-rjri-dsalgpcwtab, U Not Detected ng/mL 53 Buprenorphine, Ur Not Detected ng/mL Cutoff: 5 54 Norbuprenorphine, Ur Not Detected ng/mL Cutoff: 5 55 Norbuprenorphine glucuronide Not Detected ng/mL Cutoff: 20 56 Opioid Interpretation See Comment 57 Urine Culture And 05/30/2016 [facility] Urine Culture SEE RESULT 58 [place] [address] BELOW [phone] Urinalysis Profile 05/30/2016 [facility] Urine Color Yellow [place], [place] [address]17 [phone] Urine Appearance Cloudy Urine Specific Tolstoy 1.030 1.010-1.030 Urine pH 6.0 5-9 Urine [...] Cell Present Absent Urine Yeast Present Absent [employer] Cystic Fibrosis Expanded SCRN 05/12/2016 [facility] CF Result SEE BELOW 59 Interpretation SEE BELOW 60 Additional Information SEE BELOW 61 Mutations Analyzed SEE BELOW 62 Quad Screen 05/12/2016 [facility] GLENIS Interpretation SEE NOTE 63 Risk For Down Based On Age 1:1182 Risk For Down Based On SCR 1:978 <1:270 Trisomy 18 Risk Based On SCR LESS THAN 1:5000 <1:100 64 Afp,Serum 48.1 NG/ML Adjusted Mom 0.95 65 HCG,Serum 19.470 IU/mL Mom 1.50 Estriol,Free 2.10 NG/ML Mom 1.07 Inhibin A 366 pg/mL Mom 2.05 Comment SEE NOTE 66 Date Of 1995 EMMIE 09/15/2016 EMMIE Determined By ULTRASOUND Gestational Age 22.0 WEEKS Weight 281 LBS Race =W Insulin Dependent Diabetic NO Repeat Sample NO Number Of Fetuses 1 History Of NTD NO Date Of Draw 05/12/2016 Legal Director SEE NOTE 67 PNL 05/12/2016 [facility] Rubella Equivocal IU/mL Immune 68 [place] [address] Screen [phone] Hemoglobin A1c 5.4 % Less than 6.0 69 Hepatitis B Surface Ag Nonreactive Nonreactive 70 Syphillis Igg W/Reflex RPR Nonreactive Nonreactive 71 CBC With No 05/12/2016 [facility] White Blood 12.6 10^3/uL High 3.5-10.8 [place] [address] Count [phone] Red Blood Count 4.45 10^6/uL 4.0-5.4 Hemoglobin 12.4 g/dL 12.0-16.0 Hematocrit 38 % 35-47 Mean Corpuscular Volume 85 fL 80-97 Mean Corpuscular Hemoglobin 28 pg 27-31 Mean Corpuscular HGB Conc 33 g/dL 31-36 Red Cell Distribution Width 14 % 10.5-15 Platelet Count 245 10^3/uL 150-450 Mean Platelet Volume 10 um3 7.4-10.4 Type And Screen 05/12/2016 [facility] Patient [place] [address] [phone] Antibody Screen NEGATIVE HIV 1/2 AB 05/12/2016 [facility] HIV 1 2 Nonreactive Nonreactive 72 [place] [address] Antibody [phone] Lead 05/12/2016 [facility] Lead <1.0 g/dL 0.0-4.9 73 [place] [address] [phone] Urine Culture 05/12/2016 [facility] Urine Culture SEE RESULT 74 [place] [address] BELOW Sensitivities [phone] GC/Chlamydia 05/12/2016 [facility] Chlamydia Negative [place] [address] trachomatis [phone] Rna Neisseria gonorrhoeae (GC) Rna Negative Negative Laboratory Studies 11/16/2015 N2N/CCD Import 25-Hydroxy Vitamin 23.1 ng/mL Low 30-50 D Total Absolute Basophils (auto) 0.1 10^3/ul [...] 3.5-10.8 Zinc Level 0.64 g/mL Low 1 <5.0 Negative 5.0 - 25.0 Indeterminate (Repeat testing recommended after 72 hours) >25.0 Positive Perimenopausal women can display HCG levels of up to 20 mIU/mL 2 [id number] 3 [id number] 4 Warning: A positive result is not useful for establishing a diagnosis of syphilis. In most situations, such a result may reflect a prior treated infection; a negative result can exclude a diagnosis of syphilis except for incubating or early primary disease. 5 <5.0 Negative 5.0 - 25.0 Indeterminate (Repeat testing recommended after 72 hours) >25.0 Positive Perimenopausal women can display HCG levels of up to 20 mIU/mL 6 It is recognized that currently available assays [...] 95% confidence interval of 99.78 to 99.96%. 7 SEE RESULT BELOW Name: HASRH ORR : [address]: Abhishek Beck MD Acct: [id number] Unit: [id number] AGE: 21 Location: [facility] Re01/30/17 SEX: F Status: REG REF SPEC: [id number] KISHORE: 01/30/[address]: Abhishek Beck MD REQ: [id number] RECD: 01/30/17 STATUS: SOUT _ ORDERED: LEVEL 4 COMMENTS: [id number] FINAL DIAGNOSIS Uterus, endometrium, biopsy: -- Fragments [...] performed at Main Lab DEPARTMENT OF PATHOLOGY, [address] [place] [address] Tom Hernández M.D. Director [facility] # [id number] 8 Normally menstruating females - Follicular Phase 1 - 18 - Mid-Cycle Peak 24 - 105 - Luteal Phase 0.6 - 20 Postmenopausal females 15 - 62 9 [id number] 10 Test Performed by: [facility] [address] [place] [address] 11 Test Performed by: [facility] [address] [place] [address] 12 [id number] 13 SEE RESULT BELOW Name: HARSH ORR DOB: [address]: Valencia Yarbrough CM Acct: [id number] Unit: [id number] AGE: 21 Location: [facility] Re11/08/16 SEX: F Status: REG REF SPEC: [id number] KISHORE: 11/08/16-1332 [facility] DR: Valencia Yarbrough CM REQ: [id number] RECD: 11/08/16 STATUS: COMP _ SOURCE: VAGINAL SPDESC: ORDERED: Juanjo,Yeast DNA, Trich DNA COMMENTS: [id number] Procedure Result Reported Site Gardnerella/Yeast: Vaginal DNA Final 11/09/16- 1134 ML Organism 1 Negative Gardnerella Organism 2 [...] failure. Trichomonas: Vaginal DNA Probe Final 11/09/16- 1134 ML Organism 1 Negative Trichomonas CONTINUED ON NEXT PAGE * ML=Testing performed at [facility] DEPARTMENT OF PATHOLOGY, [address] [place] [address] Tom Hernández M.D. Director [facility] # [id number] Patient: MAGDALENEHARSH CASAREZ [id number] (Continued) Specimen: [id number] Collected: 11/08/16-1333 Received: 11/08/16-163 (Continued) Procedure Result Reported Site Trichomonas: Vaginal DNA Probe Final (continued) 11/09/16- 1134 The presence or absence of T. vaginalis cannot be used as a test for therapeutic success or failure. * ML - MAIN LAB ([facility]) . END OF REPORT * ML=Testing performed at Main Lab DEPARTMENT OF PATHOLOGY, [address] [place] [address] Tom Hernández M.D. Director [facility] # [id number] 14 [id number] 15 SEE RESULT BELOW Name: HARSH ORR : [address]: Suzy Goncalves MD Acct: [id number] Unit: [id number] AGE: 21 Location: [facility] Re08/19/16 SEX: F Status: REG REF SPEC: [id number] KISHORE: 08/19/16-1449 [facility] DR: Suzy Goncalves MD REQ: [id number] RECD: 08/22/161203 STATUS: COMP _ SOURCE: CER/VAG/RE SPDESC: ORDERED: Grp B Strp Scrn COMMENTS: [id number] QUERIES: Is patient penicillin allergic and/or sensitivities needed? N Provider Requisition # C77#[id number]_ Procedure Result Reported Site Group B Strep Culture Screen Final 08/25/16- 1533 ML Group B Strep Screen Negative * ML - MAIN LAB ([facility]) . END OF REPORT * ML=Testing performed at Main Lab DEPARTMENT OF PATHOLOGY, [address] [place] [address] Tom Hernández M.D. Director [facility] # [id number] 16 [id number] 17 [id number] 18 REFERENCE VALUE Cutoff: 500 19 REFERENCE VALUE Cutoff: 200 20 REFERENCE VALUE Cutoff: 100 21 REFERENCE VALUE Cutoff: 150 22 ADDITIONAL INFORMATION This report is intended for use in clinical monitoring or management of patients. It is not intended for use in employment-related testing. 23 REFERENCE VALUE Cutoff: 200 mg/L 24 Tylenol 3 25 Metabolite of codeine REFERENCE VALUE Cutoff: 100 26 Navya Sheppard, Contin; Also a minor metabolite (10%) of codeine and can be seen in low concentrations (<2,000 ng/mL) with poppy seed ingestion. 27 Metabolite of morphine REFERENCE VALUE Cutoff: 100 28 Metabolite of heroin 29 Lortab, [place], Vicodin; Also a very minor metabolite of codeine and impurity (<1%) of oxycodone. 30 Metabolite of hydrocodone 31 Metabolite of hydrocodone 32 Dilaudid, Exalgo; Also a metabolite of hydrocodone and a minor (<5%) metabolite of morphine. 33 Metabolite of hydromorphone REFERENCE VALUE Cutoff: 100 34 Endocet, Percocet, Oxycontin 35 Metabolite of oxycodone 36 Numorphan, Opana; Also a metabolite of oxycodone. 37 Metabolite of oxymorphone REFERENCE VALUE Cutoff: 100 38 Metabolite of oxymorphone 39 Actiq, Duragesic, Fentora 40 Metabolite of fentanyl 41 Demerol 42 Metabolite of meperidine 43 Narcan 44 Metabolite of naloxone REFERENCE VALUE Cutoff: 100 45 Dolophine 46 Metabolite of methadone 47 Darvon, Darvocet 48 Metabolite of propoxyphene 49 Tradol, Ultram, Ultracet 50 Metabolite of tramadol 51 Nucynta 52 Metabolite of tapentadol 53 Metabolite of tapentadol REFERENCE VALUE Cutoff: 100 54 Buprenex, Suboxone 55 Metabolite of buprenorphine 56 Metabolite of buprenorphine 57 No opioids were detected. The absence of expected drug(s) and/or drug metabolite(s) may indicate non-compliance, altered pharmacokinetics, inappropriate timing of specimen collection relative to drug administration, diluted/adulterated urine, or limitations of testing. ADDITIONAL INFORMATION This test was developed and its performance characteristics determined by [facility] in a manner consistent with CLIA requirements. This test has not been cleared or approved by the U.S. Food and Drug Administration. Test Performed by: [facility] - [address] [address] 58 SEE RESULT BELOW Name: HARSH ORR : [address]: Dannie Kirkpatrick MD Acct: [id number] Unit: [id number] AGE: 20 Location: [facility] Re05/30/16 SEX: F Status: DEP REF SPEC: [id number] KISHORE: 05/30/16 [facility] [address]: Dannie Kirkpatrick MD REQ: [id number] RECD: 05/30/16 STATUS: KITTY ZAMAN DR: Donnie Moser DO _ SOURCE: URINE SPDESC: ORDERED: Urine Culture Procedure Result Reported Site Urine Culture Final 06/01/16- 902 ML No growth of clinically significant organisms * ML - MAIN LAB ([facility]) . END OF REPORT * ML=Testing performed at Main Lab DEPARTMENT OF PATHOLOGY, [address] [place] [address] Tom Hernández M.D. Director [facility] # [id number] 59 NEGATIVE; NONE OF THE MUTATIONS LISTED BELOW WERE DETECTED 60 This result does not rule out the [...] unavailable for all 155 mutations on the [employer] Cystic Fibrosis Expanded Screen. Detection rates may be slightly higher and residual risk rates may be slightly lower than the figures in this table since the estimates are based on a subset of mutations. Racial/Ethnic Detection Carrier Carrier Group Rate, % Rate Risk Before After Testing Negative Test Result Ashkenazi [employer]ism 95 04/26461 Non- 90 04/27241 Panamanian 88 376 78 165 1292 Panamanian 53 199 Laboratory results and submitted clinical information reviewed by João Morrell, Ph.D, [facility]. 61 This assay detects 155 CF mutations, including the twenty-three core mutations recommended by the [place] [employer] (ACMG) and the [place] [employer] Obstetricians and Gynecologists (ACOG) for [...] Health care providers, please contact your local [employer]' genetic counselor or call [employer] ([phone]) for assistance with interpretation of these results. 62 M1V (c.1A>G), CFTRdele2,3, Q39X (c.115C>T), 296+2T>A (c.164+2T>A), E60X (c.178G>T), P67L (c.200C>T), R75X (c.223C>T), G85E (c.254G>A), 394delTT (c.262delTT), G91R (c.271G>A), 405+1G>A (c.273+1G>A), 406-1G>A (c.274-1G>A), E92K (c.274G>A), E92X (c.274G>T), Q98X (c.292C>T), 444delA (c.313delA), 457TAT>G (c.325delTATinsG), D110H (c.328G>C), R117C (c.349C>T), R117H (c.350G>A), Y122X (c.366T>A), 574delA (c.442delA), 621+1G>T (c.489+1G>T), 663delT (c.531delT), G178R (c.532G>A), 711+1G>T (c.579+1G>T), 712-1G>T (c.580-1G>T), L206W (c.617T>G), Q220X (c.658C>T), 711rcx70 (c.075ggx99), 935delA (c.803delA), 936delTA (c.805delAT), Y294ojt (c.933delCTT), 1078delT (c.948delT), G330X (c.988G>T), R334W (c.1000C>T), I336K (c.1007T>A), T338I (c.1013C>T), S341P (c.1021T>C), 1154insTC (c.1022insTC), 1161delC (c.1029delC), R347P (c.1040G>C), R352Q (c.1055G>A), 1213delT (c.1081delT), S364P (c.1090T>C), 1248+1G>A (c.1116+1G>A), 1259insA (c.1127insA), 1288insTA (c.1153insAT), W401X (c.1202G>A or c.1203G>A), 1341+1G>A (c.1209+1G>A), 2496zfa6 (c.1329insAGAT), A455E (c.1364C>A), 1525-1G>A (c.1393-1G>A), S466X (c.1397C>A or c.1397C>G), L467P (c.1400T>C), 1548delG (c.1418delG), G480C (c.1438G>T), S489X (c.1466C>A), S492F (c.1475C>T), 1609delCA (c.1477delCA), Q493X (c.1477C>T), M889xvd (c.1519delATC), U685him (c.1521delCTT), 1677delTA (c.1545delTA), V520F (c.1558G>T), C524X (c.1572C>A), Q525X (c.1573C>T), 1717-1G>A (c.1585-1G>A), 1717-8G>A (c.1585-8G>A), G542X (c.1624G>T), S549R (c.1645A>C or c.1647T>G), S549N (c.1646G>A), G551D (c.1652G>A), Q552X (c.1654C>T), R553X (c.1657C>T), A559T (c.1675G>A), R560K (c.1679G>A), R560T (c.1679G>C), 1811+1.6kbA>G (c.1679+1.6kbA>G), 1812-1G>A (c.1680-1G>A), P574H (c.1721C>A), D579G (c.1736A>G), E585X (c.1753G>T), 1898+1G>T (c.1766+1G>T), 1898+1G>A (c.1766+1G>A), 1898+5G>T (c.1766+5G>T), 2043delG (c.1911delG), 7680iry6>A (c.4058bus0qdbR), 9783sbn23swi8 (c.7151pdc72dgfPTAVB), 2108delA (c.1975delA), 2143delT (c.2011delT), 2183AA>G (c.elAAinsG), 2184insA (c.2051insA), 2184delA (c.2delA), R709X (c.2125C>T), K710X (c.2128A>T), 2307insA (c.2175insA), L732X (c.2195T>G), 2347delG (c.2215delG), R764X (c.2290C>T), 2585delT (c.2453delT), E822X (c.2464G>T), 2622+1G>A (c.2490+1G>A), E831X (c.2491G>T), W846X (c.2537G>A), R851X (c.2551C>T), 2711delT (c.2583delT), 2789+5G>A (c.2657+5G>A), Q890X (c.2668C>T), 2869insG (c.2737insG), L927P (c.2780T>C), S945L (c.2834C>T), 3007delG (c.2875delG), G970R (c.2908G>C), 3120+1G>A (c.2988+1G>A), 3121-1G>A (c.2989-1G>A), 3171delC (c.3039delC), 3337dgy4 (c.3067delATAGTG), 3272-26A>G (c.3140-26A>G), Z5218H (c.3194T>C), D0787E (c.3196C>T), Y8631W (c.3197G>A), F7415P (c.3230T>C), H8086O (c.3266G>A), G9106T (c.3276C>A or c.3276C>G), C0773H (c.3278T>C), A4849O (c.3302T>A), C0000Z (c.3310G>T), T5161C (c.3382A>T), A1198G (c.3435G>A), H2634P (c.3472C>T), M2250M (c.3484C>T), 3659delC (c.3528delC), 0112phh6 (c.3535delACCA), I0268Z (c.3587C>G), Z1649T (c.3611G>A or c.3612G>A), 3791delC (c.3659delC), 3821delT (c.3691delT), T2447E (c.3700A>G), E9469D (c.3712C>T), 3849+10kbC>T (c.3717+38024R>T), L2589H (c.3731G>A), 3876delA (c.3744delA), Z0470X (c.3752G>A), U0054P (c.3764C>A), 3905insT (c.3773insT), Z7708M (c.3846G>A), U6197L (c.3848G>T), 4005+1G>A (c.3873+1G>A), 4016insT (c.3884insT), S0499S (c.3909C>G), X3753N (c.3937C>T), WRUKjeiv84,23, 4209TGTT>AA (c.4077delTGTTinsAA), 4382delA (c.4251delA) This test was developed and its analytical performance characteristics have been determined by [facility]. It has not been cleared or approved by FDA. This assay has been validated pursuant to the CLIA regulations and is used for clinical purposes. For additional information, please refer to http://education.[employer].Triond/faq/TTP118 (This link is being provided for information/educational purposes only.) 63 SCREEN NEGATIVE FOR OPEN NTD, DS AND TRISOMY 18. 64 LESS THAN 1:5000 65 ADJUSTED AFP MOM INTERPRETIVE CUTOFFS: <2.50 ADJUSTED MOM <1.90 ADJUSTED MOM FOR INSULIN-DEPENDENT DIABETES <4.00 ADJUSTED MOM FOR TWINS <3.50 ADJUSTED MOM FOR TWINS INSULIN-DEPENDENT DIABETES <4.50 ADJUSTED MOM FOR TRIPLETS <4.00 ADJUSTED MOM FOR TRIPLETS INSULIN-DEPENDENT DIABETES 66 PERFORMANCE OF MATERNAL SERUM AFP, HCG, ESTRIOL, [...] ASSISTANCE WITH RECALCULATIONS, PLEASE CALL YOUR LOCAL [facility] AT . FOR ASSISTANCE WITH INTERPRETATION OF THESE RESULTS, PLEASE CALL [phone]. 67 REVIEWED BY Yesica COPELAND M.D. 68 [id number] 69 Therapeutic target for the treatment of diabetes Mellitus patients is <7% HBA1C, and in selective patients <6.0%.Please refer to [place] [employer] Diabetic care guidelines for further information. 70 [id number] 71 Warning: A positive result is not useful for establishing a diagnosis of syphilis. In most situations, such a result may reflect a prior treated infection; a negative result can exclude a diagnosis of syphilis except for incubating or early primary disease. 72 It is recognized that currently available assays [...] 95% confidence interval of 99.78 to 99.96%. 73 ADDITIONAL INFORMATION Testing performed by Inductively Coupled Plasma-Mass Spectrometry (ICP-MS). This test was developed and its performance characteristics determined by [facility] in a manner consistent with CLIA requirements. This test has not been cleared or approved by the U.S. Food and Drug Administration. 74 SEE RESULT BELOW Name: HARSH ORR : [address]: Gema Gilliam NP Acct: [id number] Unit: [id number] AGE: 20 Location: [facility] Re05/12/16 SEX: F Status: REG REF SPEC: [id number] KISHORE: 05/12/16 [facility] DR: Gema Gilliam NP REQ: [id number] RECD: 05/12/16 STATUS: COMP _ SOURCE: URINE SPDESC: ORDERED: Urine Culture COMMENTS: [id number] Urine Source: Random Procedure Result Reported Site Urine Culture Final 05/13/16- 1315 ML No growth of clinically significant organisms * ML - MAIN LAB (PSC1) . END OF REPORT * ML=Testing performed at Main Lab DEPARTMENT OF PATHOLOGY, [address] [place] [address] Tom Hernández M.D. Director [facility] # [id number] Procedures Date Code Description Status 11/03/2017 40567 Echography Pelvic Limited Or Follow-Up Completed 11/03/2017 74094 Echography Transvaginal Completed 01/30/2017 33865 Hysteroscopy,D&C Completed 11/08/2016 58534 Echography Transvaginal Completed 09/14/2016 16838 Obstetric Care Routine Completed 09/02/2016 30220 Non-Stress Test Completed 08/26/2016 57926 Non-Stress Test Completed 08/19/2016 44267 Biophysical Profile Without Non Stress Test Completed 08/19/2016 82907 Echography Uterus Follow-Up Or Repeat Completed 05/30/2016 79775 Ultrasound,Transvaginal Completed 05/30/2016 85133 Echography Uterus Limited Completed 05/12/2016 70806 Echography Uterus Complete Completed Encounters Type Date Location Provider Dx Diagnosis Office Visit 01/17/2018 [facility] Miriam Stewart, R10.2 Pelvic and perineal 2:45p pain Office Visit 11/08/2017 [facility] Alvarez Kennedy MD R10.31 Right lower quadrant 11:30a pain Office Visit 08/01/2017 [facility] Chino NegronRENE N92.1 Excessive and 11:00a frequent menstruation with irregular cycle Z01.411 Encntr for butter liquefier exam (general) (routine) w abnormal findings E66.01 Morbid (severe) obesity due to excess calories Z11.3 Encntr screen for infections w sexl mode of transmiss Z13.0 Encntr screen for dis of the bld/bld-form org/immun [facility] Office Visit 03/08/2017 2:20p [facility] Abhishek Irwin Z30.8 Encounter for other Arturo Beck contraceptive management N94.10 Unspecified dyspareunia Office Visit 01/11/2017 8:40a [facility] Abhishek Irwin N92.1 Excessive and GelArturo orr frequent menstruation with irregular cycle E66.01 Morbid (severe) obesity due to excess calories Office Visit 09/02/2016 10:43a [facility] Miriam Stewart, O47.1 False labor at or MD after 37 completed weeks of gestation Office Visit 08/26/2016 6:27a [facility] Alvarez Kennedy MD O71.9 Obstetric trauma, unspecified Office Visit 05/30/2016 11:06p Delivery Dannie Kirkpatrick Z3A.24 24 weeks gestation M.D. of O47.02 False labor before 37 completed weeks of gest, second tri Plan of Treatment 01/17/2018 - Miriam Stewart, MDR10.2 Pelvic and perineal painComments:Will rule out infection or STI. Uncertain of other cause. Should wait and see if it resolves with her period or if it returns next month.
[2018-01-23 13:41] LABS: ABS Basophils 0 10^3/ul (0-0.2); ABS Eosinophils 0.2 10^3/ul (0-0.6); ABS Lymphocytes 2.4 10^3/ul (1.0-4.8); ABS Monocytes 0.7 10^3/ul (0-0.8); ABS Neutrophils 7.5 10^3/ul (1.5-7.7); ABS Nucleated RBC 0 10^3/ul; Eosinophil % 1.7 % (0-6); Hematocrit 39 % (35-47); Hemoglobin 13.3 g/dl (12.0-16.0); Lymphocyte % 22.1 % (25-47); Mean Corpuscular HGB Conc 34 g/dl (31-36); Mean Corpuscular Hemoglobin 28 pg (27-31); Mean Corpuscular Volume 81 fL (80-97); Mean Platelet Volume 8.7 um3 (7.4-10.4); Nucleated Red Blood Cells % 0.1; Platelet Count 261 10^3/ul (150-450); Red Blood Count 4.82 10^6/ul (4.00-5.40); Red Cell Distribution Width 15 % (10.5-15); White Blood Count 10.9 10^3/ul (3.5-10.8)
[2018-01-23 14:03] LABS: EGFR Non-African American 86.8 (>60)
--- NOTE | 2018-01-23 15:43 | RAD ---
Indication: Shortness of breath. 2 views of the chest including dual energy PA views demonstrate no mediastinal shift. Heart is of normal size and configuration. Lung navarro are clear. When compared to previous exam of April 14, 2017 no significant change is noted. IMPRESSION: No active cardiopulmonary disease is noted.
[2018-01-23 16:45] LABS: Urine Appearance Cloudy; Urine Blood Negative (Negative); Urine Color Yellow; Urine Ketones Negative (Negative); Urine Protein Negative (Negative); Urine Red Blood Cell Trace(0-2/hpf) (Absent); Urine Specific Gravity 1.021 (1.010-1.030); Urine Urobilinogen Negative (Negative); Urine White Blood Cell 1+(6-10/hpf) (Absent)
[2018-01-23 18:03] VITALS: BP 136/115
== END | disposition home or self-care (01) ==
LOC: ED 12:58
DX: R53.1 Weakness (principal); J45.909 Unspecified asthma, uncomplicated; E11.9 Type 2 diabetes mellitus without complications; F90.9 Attention-deficit hyperactivity disorder, unspecified type; F17.210 Nicotine dependence, cigarettes, uncomplicated
CPT/HCPCS: 36415; 71046; 80053; 81003; 81015; 83605; 83880; 84484; 84702; 85025; 85379; 86140; 87040; 87086; 93005; 99283

== ENCOUNTER 2018-03-09 16:41 | Emergency (ER) | payer OTHER, MEDICAID ==
--- NOTE | 2018-03-09 17:43 | ED ---
Influenza-Like Illness - HPI Summary HPI Summary: This patient is a 22 year old F presenting to [facility] with a chief complaint of flu-like symptoms since 2 days ago. The patient rates the pain 6/10 in severity. Patient reports dizziness, yellowish and bloody mucus, hematemesis, coughing (for 1 month), and vomiting. - History of Current Complaint Chief Complaint: EDFluSymptoms Time Seen by Provider: 03/09/18 17:27 Hx Obtained From: Patient Onset/Duration: Lasting Days - Since 2 days ago Severity: Moderate Associated Signs & Symptoms: Cough - for 1 month, Nasal Congestion - yellowish and bloody mucus, Vomiting - Vomiting and hematemesis - Allergy/Home Medications Allergies/Adverse Reactions: Allergies Allergy/AdvReac Type Severity Reaction Status Date / Time acetaminophen [From Percocet] Allergy See Comment Verified 03/09/18 16:48 oxycodone [From Percocet] Allergy See Comment Verified 03/09/18 16:48 ALCOHOL PREP Allergy Rash Uncoded 01/07/18 17:37 DAIRY AdvReac Severe Diarrhea Uncoded 01/07/18 17:37 vieira and pollen AdvReac Mild Congestion Uncoded 01/07/18 17:37 wheat bran AdvReac GI Upset Uncoded 01/07/18 17:37 PMH/Surg Hx/FS Hx/Imm Hx Endocrine/Hematology History: Reports: Hx Diabetes - not sure yet,most likely type 2 Denies: Hx Anticoagulant Therapy, Hx Blood Disorders, Hx Sickle Cell Disease , Hx Unexplained Bleeding Cardiovascular History: Denies: Hx Congestive Heart Failure, Hx Hypercholesterolemia, Hx Hypertension , Hx Pacemaker/ICD, Other Cardiovascular Problems/Disorders Respiratory History: Reports: Hx Asthma - uses inhaler GI History: Denies: Hx Cirrhosis, Hx Crohn's Disease, Hx Diverticulosis, Hx Gall Bladder Disease, Hx Gastroesophageal Reflux Disease, Hx Gastrointestinal Bleed, Hx Hiatal Hernia, Hx Irritable Bowel, Other GI Disorders History: Denies: Hx Dialysis, Hx Renal Disease, Other Problems/Disorders Musculoskeletal History: Reports: Hx Back Problems - "floating piece of bone near spine"; Lt hip "issue" Denies: Hx Arthritis, Hx Rheumatoid Arthritis, Hx Osteoporosis Sensory History: Reports: Hx Contacts or Glasses - GLASSES Denies: Hx Hearing Aid Opthamlomology History: Reports: Hx Contacts or Glasses - GLASSES Psychiatric History: Reports: Hx Anxiety, Hx Attention Deficit Hyperactivity Disorder - SINCE @ AGE 6, Hx Eating Disorder - Binge-Purge NOS, Hx Depression, Hx Bipolar Disorder - Not taking meds due to and breast feeding f/u w / MD Olivia, Hx Suicide Attempt, Other Psychiatric Issues/Disorders - bipolar Denies: Hx Panic Disorder - Cancer History Hx Chemotherapy: No - Surgical History Surgery Procedure, Year, and Place: Tonsillectomy, 2013,. wisdom teeth,. Tongue Laceration Repair, 2000, Hx Anesthesia Reactions: No - Immunization History Date of Influenza Vaccine: 2017 Infectious Disease History: No Infectious Disease History: Denies: Hx of Known/Suspected MRSA, History Other Infectious Disease, Traveled Outside the [place] in Last 30 Days - Family History Known Family History: Positive: Hypertension, Diabetes, Other - hypotension, BLOOD CLOTS - Social History Alcohol Use: Weekly Alcohol Amount: pt states none this Hx Substance Use: No Substance Use Type: Reports: Marijuana Substance Use Comment - Amount & Last Used: Hx of opiate. Has participated with [employer]. Hx Tobacco Use: Yes Smoking Status (MU): Light Every Day Tobacco Smoker Type: Cigarettes Amount Used/How Often: 1-3 cig./day Have You Smoked in the Last Year: Yes Review of Systems Positive: Nasal Discharge - Yellowish and bloody mucus Positive: Cough - for 1 month Positive: Vomiting - hematemesis Neurological: Other - Dizziness All Other Systems Reviewed And Are Negative: Yes Physical Exam - Summary Physical Exam Summary: VITAL SIGNS: Reviewed. GENERAL: Patient is an obese FEMALE who is lying comfortable in the stretcher. Patient is not in any acute respiratory distress. HEAD AND FACE: No signs of trauma. No ecchymosis, hematomas or skull depressions. No sinus tenderness. EYES: PERRLA, EOMI x 2, No injected conjunctiva, no nystagmus. EARS: Hearing grossly intact. Ear canals and tympanic membranes are within normal limits. MOUTH: Pharyngeal erythema. NECK: Supple, trachea is midline, no adenopathy, no JVD, no carotid bruit, no c- spine tenderness, neck with full ROM. CHEST: Symmetric, no tenderness at palpation LUNGS: Coarse breath sounds bilaterally. CVS: Regular rate and rhythm, S1 and S2 present, no murmurs or gallops appreciated. ABDOMEN: Soft, non-tender. No signs of distention. No rebound no guarding, and no masses palpated. Bowel sounds are normal. EXTREMITIES: FROM in all major joints, no edema, no cyanosis or clubbing. NEURO: Alert and oriented x 3. No acute neurological deficits. Speech is normal and follows commands. SKIN: Dry and warm Triage Information Reviewed: Yes Vital Signs On Initial Exam: Initial Vitals Temp Pulse Resp BP Pulse Ox 98.3 F 102 20 137/57 99 03/09/18 16:44 03/09/18 16:44 03/09/18 16:44 03/09/18 16:44 03/09/18 16:44 Vital Signs Reviewed: Yes Diagnostics - Vital Signs Vital Signs Temp Pulse Resp BP Pulse Ox 03/09/18 17:25 100 100 03/09/18 16:44 98.3 F 102 20 137/57 99 - Laboratory Lab Results: Lab Results 03/09/18 Range/Units 17:28 Group A Strep Rapid Negative (Negative) Result Diagrams: 03/09/18 18:37 03/09/18 18:37 Lab Statement: Any lab studies that have been ordered have been reviewed, and results considered in the medical decision making process. - Radiology Chest X-Ray Radiology Interpretation Completed By: ED Physician Summary of Radiographic Findings: 18:39. Negative for acute pathology. Pending official report. Flu Symptom Course/Dx - Course Assessment/Plan: This patient is a 22 year old F presenting to [facility] with a chief complaint of flu-like symptoms since 2 days ago. The patient rates the pain 6/10 in severity. Patient reports dizziness, yellowish and bloody mucus, hematemesis, coughing (for 1 month), and vomiting. Blood work without any significant abnormality except for WBCs of 11.6, CRP of 74.4. Urinalysis has some ketones but he seems to be contaminated. Influenza A and B is negative. In the ED course the patient has continued to drink fluids with no nausea or vomiting. I think that the patient is living with an acute sinusitis. The patient was given Augmentin, sulfa for nausea vomiting and the patient is feeling better. Therefore the patient was discharged home with follow-up with PCP. Patient is hemodynamically stable alert and oriented 3. She ambulated out of the emergency department. - Diagnoses Provider Diagnoses: Sinusitis Discharge - Sign-Out/Discharge Documenting (check all that apply): Patient Departure - D/C - Discharge Plan Condition: Stable Disposition: HOME Prescriptions: Amoxicillin PO (*) [Amoxicillin 875 MG (*)] 875 mg PO BID #20 tab Ondansetron TAB* [Zofran 4 MG Tab*] 4 mg PO Q6H PRN #10 tab PRN Reason: Nausea Patient Education Materials: Sinusitis (ED) Forms: *Work Release Referrals: Donnie Moser DO [Primary Care Provider] - 3 Days Additional Instructions: RETURN THE ED FOR ANY WORSENING OR NEW SYMPTOMS. FOLLOW UP WITH YOUR PRIMARY CARE PROVIDER WITHIN 3 DAYS. - Billing Disposition and Condition Condition: STABLE Disposition: Home - Attestation Statements Document Initiated by Renibe: Yes Documenting Scribe: Michael Garcia Provider For Whom rTe is Documenting (Include Credential): Genaro Hayes MD Scribe Attestation: Michael Chávez, scribed for Genaro Hayes MD on 03/09/18 at 2121. Scribe Documentation Reviewed: Yes Provider Attestation: The documentation as recorded by the Michael rizzo accurately reflects the service I personally performed and the decisions made by Genaro cheema MD Status of Scribe Document: Viewed
[2018-03-09] MEDS ORDERED: guaiFENesin/CODIEN 100MG-10MG* 5 ML UDC PO ONE (17:57)
[2018-03-09] MEDS ORDERED: Ondansetron TAB* 4 MG PO ONE (18:18)
[2018-03-09 18:47] LABS: ABS Basophils 0 10^3/ul (0-0.2); ABS Eosinophils 0.3 10^3/ul (0-0.6); ABS Lymphocytes 2.4 10^3/ul (1.0-4.8); ABS Monocytes 0.9 10^3/ul (0-0.8); ABS Nucleated RBC 0 10^3/ul; Eosinophil % 2.5 %; Hematocrit 38 % (35-47); Hemoglobin 12.5 g/dl (12.0-16.0); Lymphocyte % 20.5 %; Mean Corpuscular HGB Conc 33 g/dl (31-36); Mean Corpuscular Hemoglobin 27 pg (27-31); Mean Corpuscular Volume 81 fL (80-97); Mean Platelet Volume 8.5 fL (7.4-10.4); Nucleated Red Blood Cells % 0; Platelet Count 258 10^3/ul (150-450); Red Blood Count 4.72 10^6/ul (4.00-5.40); Red Cell Distribution Width 15 % (10.5-15); White Blood Count 11.6 10^3/ul (3.5-10.8)
[2018-03-09 19:00] LABS: EGFR Non-African American 84.4 (>60)
[2018-03-09] MEDS ORDERED: Azithromycin TAB* 250 MG PO ONE (19:36)
[2018-03-09] MEDS ORDERED: Amoxicillin/Clavulanate TAB* 875 MG PO ONE (19:50)
[2018-03-09 20:13] LABS: Urine Appearance Cloudy; Urine Blood Negative (Negative); Urine Color Yellow; Urine Ketones Trace (Negative); Urine Protein 1+(30 mg/dL) (Negative); Urine Red Blood Cell 1+(3-5/hpf) (Absent); Urine Specific Gravity 1.032 (1.010-1.030); Urine Urobilinogen Negative (Negative); Urine White Blood Cell Absent (Absent)
[2018-03-09 20:29] VITALS: BP 116/62
== END 2018-03-09 20:28 | disposition home or self-care (01) ==
LOC: ED 16:41
DX: J32.9 Chronic sinusitis, unspecified (principal); R05 Cough; R09.81 Nasal congestion; E11.9 Type 2 diabetes mellitus without complications; F17.210 Nicotine dependence, cigarettes, uncomplicated; R42 Dizziness and giddiness
CPT/HCPCS: 36415; 71046; 80053; 81003; 81015; 83605; 84702; 85025; 86140; 87651; 99284; A9270-GY

== ENCOUNTER 2018-03-31 18:24 | Emergency (ER) | payer OTHER, MEDICAID ==
--- NOTE | 2018-03-31 19:05 | ED ---
Back Pain - HPI Summary HPI Summary: 22-year-old female presents with back pain for the past couple months. She has a history of chronic back pain. She did not seem to radiate to her whole spine. She's tried some ibuprofen with no relief. She sometimes she has numbness and tingling to her legs. She denies any saddle anesthesias. no loss of bowel or bladder. No fevers. No urinary symptoms. States that her period was 3 months late and she has had period last week which is not normal for her. She states she may be . States she is here because no pain medication works. No new injury. She has history of herniated disc. - History of Current Complaint Chief Complaint: EDBackInjuryPain Stated Complaint: BACK PAIN Time Seen by Provider: 03/31/18 18:39 Hx Last Menstrual Period: 11/18 Pain Intensity: 7 - Allergies/Home Medications Allergies/Adverse Reactions: Allergies Allergy/AdvReac Type Severity Reaction Status Date / Time ALCOHOL PREP Allergy Rash Uncoded 03/31/18 18:28 DAIRY AdvReac Severe Diarrhea Uncoded 03/31/18 18:28 vieira and pollen AdvReac Mild Congestion Uncoded 03/31/18 18:28 wheat bran AdvReac GI Upset Uncoded 03/31/18 18:28 Home Medications: Home Medications Albuterol inh POWDER (NF) [Proair Respiclick] 1 puff INH Q4H PRN 03/31/18 [ History Confirmed 03/31/18] PMH/Surg Hx/FS Hx/Imm Hx Endocrine/Hematology History: Reports: Hx Diabetes - not sure yet,most likely type 2 Denies: Hx Anticoagulant Therapy, Hx Blood Disorders, Hx Sickle Cell Disease , Hx Unexplained Bleeding Cardiovascular History: Denies: Hx Congestive Heart Failure, Hx Hypercholesterolemia, Hx Hypertension , Hx Pacemaker/ICD, Other Cardiovascular Problems/Disorders Respiratory History: Reports: Hx Asthma - uses inhaler GI History: Denies: Hx Cirrhosis, Hx Crohn's Disease, Hx Diverticulosis, Hx Gall Bladder Disease, Hx Gastroesophageal Reflux Disease, Hx Gastrointestinal Bleed, Hx Hiatal Hernia, Hx Irritable Bowel, Other GI Disorders History: Denies: Hx Dialysis, Hx Renal Disease, Other Problems/Disorders Musculoskeletal History: Reports: Hx Back Problems - "floating piece of bone near spine"; Lt hip "issue" Denies: Hx Arthritis, Hx Rheumatoid Arthritis, Hx Osteoporosis Sensory History: Reports: Hx Contacts or Glasses - GLASSES Denies: Hx Hearing Aid Opthamlomology History: Reports: Hx Contacts or Glasses - GLASSES Psychiatric History: Reports: Hx Anxiety, Hx Attention Deficit Hyperactivity Disorder - SINCE @ AGE 6, Hx Eating Disorder - Binge-Purge NOS, Hx Depression, Hx Bipolar Disorder - Not taking meds due to and breast feeding f/u w / MD Olivia, Hx Suicide Attempt, Other Psychiatric Issues/Disorders - bipolar Denies: Hx Panic Disorder - Cancer History Hx Chemotherapy: No - Surgical History Surgery Procedure, Year, and Place: Tonsillectomy, 2012,. wisdom teeth,. Tongue Laceration Repair, 2000, Hx Anesthesia Reactions: No - Immunization History Date of Influenza Vaccine: 2017 Infectious Disease History: No Infectious Disease History: Denies: Hx of Known/Suspected MRSA, History Other Infectious Disease, Traveled Outside the in Last 30 Days - Family History Known Family History: Positive: Hypertension, Diabetes, Other - hypotension, BLOOD CLOTS - Social History Alcohol Use: Daily Alcohol Amount: pt states none this Hx Substance Use: No Substance Use Type: Reports: Marijuana Substance Use Comment - Amount & Last Used: Hx of opiate Hx Tobacco Use: Yes Smoking Status (MU): Light Every Day Tobacco Smoker Type: Cigarettes Amount Used/How Often: 1-3 cig./day Have You Smoked in the Last Year: Yes Review of Systems Negative: Fever Negative: Chest Pain Negative: Shortness Of Breath Positive: Myalgia - back pain All Other Systems Reviewed And Are Negative: Yes Physical Exam Triage Information Reviewed: Yes Vital Signs On Initial Exam: Initial Vitals Temp Pulse Resp BP Pulse Ox 97.5 F 83 16 127/96 100 03/31/18 18:29 03/31/18 18:29 03/31/18 18:29 03/31/18 18:29 03/31/18 18:29 Vital Signs Reviewed: Yes Appearance: Positive: Well-Appearing Skin: Positive: Warm, Dry Head/Face: Positive: Normal Head/Face Inspection Eyes: Positive: Normal, Conjunctiva Clear ENT: Positive: Pharynx normal Respiratory/Lung Sounds: Positive: Clear to Auscultation, Breath Sounds Present Cardiovascular: Positive: Normal, RRR Musculoskeletal: Positive: Limited @ - back, Other - tenderness lower back Neurological: Positive: Sensory/Motor Intact, Normal Gait Psychiatric: Positive: Normal AVPU Assessment: Alert Diagnostics - Vital Signs Vital Signs Temp Pulse Resp BP Pulse Ox 03/31/18 18:29 97.5 F 83 16 127/96 100 - Laboratory Lab Statement: Any lab studies that have been ordered have been reviewed, and results considered in the medical decision making process. - Radiology back Radiology Interpretation Completed By: ED Physician Summary of Radiographic Findings: no fracture, similiar to previous Re-Evaluation - Re-Evaluation First Eval Re-Evaluation Time: 19:59 Change: Improved Comment: lidocaine patch helped. patient states wants imaging of back. discussed pain options and patient is adamant that ibuprofen and tyenlol do not work Back Pain Course/Dx - Course Course Of Treatment: 22-year-old female presents with back pain for the past couple months. She has a history of chronic back pain. She did not seem to radiate to her whole spine. She's tried some ibuprofen with no relief. She sometimes she has numbness and tingling to her legs. She denies any saddle anesthesias. no loss of bowel or bladder. No fevers. No urinary symptoms. States that her period was 3 months late and she has had period last week which is not normal for her. She states she may be . States she is here because no pain medication works. No new injury. She has history of herniated disc. on exam tenderness lower back, was able to jump onto the bed. no pain distress. neurovascular intact. normal gait. hcg normal. xray shows no fracture. similiar to previous. reviewed MRI from this year. length discussion about pain medication. discussed has history of OD and is chronic back so can not write for strong pain medication. discussed that ibuprofen and tyenlol are good medication they just need to be taken more frequently. will give script for ibuprofen 800mg but caution should only use like once or twice a day. offered to write for lidocaine patch but patient declined. patient throughout visit mentioned pain throughout body but then goes back to playing on phone and moving extremities without pain while on phone. told to follow up with primary. patient understand and agrees with plan. - Diagnoses Differential Diagnosis/HQI/PQRI: Positive: Herniated Disc, Strain, Sprain Provider Diagnoses: Back pain Discharge - Sign-Out/Discharge Documenting (check all that apply): Patient Departure - Discharge Plan Condition: Good Disposition: HOME Prescriptions: Ibuprofen TAB* [Motrin TAB* 800 MG] 800 mg PO Q8H #20 tab Patient Education Materials: Back Pain (ED) Referrals: Donnie Moser DO [Primary Care Provider] - Additional Instructions: follow up with primary ice/heat, move as tolerated Take tyenlol or ibuprofen every 6 hours for pain Return to ED if develop any new or worsening symptoms - Billing Disposition and Condition Condition: GOOD Disposition: Home
[2018-03-31] MEDS ORDERED: Lidocaine PATCH 5%* 1 PATCH ONE (19:23)
[2018-03-31] MEDS ORDERED: Ketorolac INJ* 30 MG/ML 1 ML VIAL IM ONE (19:55)
[2018-03-31] MEDS ORDERED: Lidocaine PATCH 5%* 1 PATCH TRANSDERM SCH (20:00)
[2018-03-31 20:32] VITALS: BP 133/73
== END 2018-03-31 20:31 | disposition home or self-care (01) ==
LOC: ED 18:24
DX: M54.9 Dorsalgia, unspecified (principal); J45.909 Unspecified asthma, uncomplicated; F17.210 Nicotine dependence, cigarettes, uncomplicated
CPT/HCPCS: 36415; 72110; 84702; 96372; 99282; A9270-GY; J1885

== ENCOUNTER → 2018-05-03 16:38 | Emergency (ER) | payer OTHER, MEDICAID ==
[2018-05-03 16:47] VITALS: BP 95/80
--- NOTE | 2018-05-03 18:06 | ED ---
Head Injury - HPI Summary HPI Summary: 22-year-old female presents with head injury today. States she slipped backwards and twisted her left ankle and knee. She states her hips also hurt. She is able to ambulate without difficulty. She states she has thoracic back pain which she has a history of. she denies any urinary symptoms. no numbness or tingling. no loss of bowel or bladder or saddle anaesthesia. She states she lost consciousness but does not know for how long. She states she has been vomiting today. States she has an issue with memory that has been having for the past year. She has not followed up with anyone about this. She denies any neck pain. No other injury. she admits to difficulties concentrating. She denies any change in vision. - History Of Current Complaint Chief Complaint: EDExtremityLower Stated Complaint: FALL, BILATERAL ANKLE/KNEE/HIP PAIN Time Seen by Provider: 05/03/18 17:30 Hx Last Menstrual Period: 11/18 Pain Intensity: 7 - Allergies/Home Medications Allergies/Adverse Reactions: Allergies Allergy/AdvReac Type Severity Reaction Status Date / Time ALCOHOL PREP Allergy Rash Uncoded 03/31/18 18:28 DAIRY AdvReac Severe Diarrhea Uncoded 03/31/18 18:28 vieira and pollen AdvReac Mild Congestion Uncoded 03/31/18 18:28 wheat bran AdvReac GI Upset Uncoded 03/31/18 18:28 PMH/Surg Hx/FS Hx/Imm Hx Endocrine/Hematology History: Reports: Hx Diabetes - not sure yet,most likely type 2 Denies: Hx Anticoagulant Therapy, Hx Blood Disorders, Hx Sickle Cell Disease , Hx Unexplained Bleeding Cardiovascular History: Denies: Hx Congestive Heart Failure, Hx Hypercholesterolemia, Hx Hypertension , Hx Pacemaker/ICD, Other Cardiovascular Problems/Disorders Respiratory History: Reports: Hx Asthma - uses inhaler GI History: Denies: Hx Cirrhosis, Hx Crohn's Disease, Hx Diverticulosis, Hx Gall Bladder Disease, Hx Gastroesophageal Reflux Disease, Hx Gastrointestinal Bleed, Hx Hiatal Hernia, Hx Irritable Bowel, Other GI Disorders History: Denies: Hx Dialysis, Hx Renal Disease, Other Problems/Disorders Musculoskeletal History: Reports: Hx Back Problems - "floating piece of bone near spine"; Lt hip "issue" Denies: Hx Arthritis, Hx Rheumatoid Arthritis, Hx Osteoporosis Sensory History: Reports: Hx Contacts or Glasses - GLASSES Denies: Hx Hearing Aid Opthamlomology History: Reports: Hx Contacts or Glasses - GLASSES Psychiatric History: Reports: Hx Anxiety, Hx Attention Deficit Hyperactivity Disorder - SINCE @ AGE 6, Hx Eating Disorder - Binge-Purge NOS, Hx Depression, Hx Bipolar Disorder - Not taking meds due to and breast feeding f/u w / MD Olivia, Hx Suicide Attempt, Other Psychiatric Issues/Disorders - bipolar Denies: Hx Panic Disorder - Cancer History Hx Chemotherapy: No - Surgical History Surgery Procedure, Year, and Place: Tonsillectomy, 2012,. wisdom teeth,. Tongue Laceration Repair, 2000, Hx Anesthesia Reactions: No - Immunization History Date of Influenza Vaccine: 2017 Infectious Disease History: No Infectious Disease History: Denies: Hx of Known/Suspected MRSA, History Other Infectious Disease, Traveled Outside the [place] in Last 30 Days - Family History Known Family History: Positive: Hypertension, Diabetes, Other - hypotension, BLOOD CLOTS - Social History Alcohol Use: Daily Alcohol Amount: pt states none this Hx Substance Use: No Substance Use Type: Reports: None Substance Use Comment - Amount & Last Used: Hx of opiate Hx Tobacco Use: Yes Smoking Status (MU): Light Every Day Tobacco Smoker Type: Cigarettes Amount Used/How Often: 1-3 cig./day Have You Smoked in the Last Year: Yes Review of Systems Negative: Fever Negative: Chest Pain Negative: Shortness Of Breath Positive: Vomiting Positive: Myalgia - left knee, ankle, and back pain Positive: Headache All Other Systems Reviewed And Are Negative: Yes Physical Exam Triage Information Reviewed: Yes Vital Signs On Initial Exam: Initial Vitals Temp Pulse Resp BP Pulse Ox 97.8 F 87 18 95/80 98 05/03/18 16:41 05/03/18 16:41 05/03/18 16:41 05/03/18 16:41 05/03/18 16:41 Vital Signs Reviewed: Yes Appearance: Positive: Well-Appearing Skin: Positive: Warm, Dry Head/Face: Positive: Normal Head/Face Inspection Eyes: Positive: Normal, EOMI, CASEY, Conjunctiva Clear ENT: Positive: Normal ENT inspection, Pharynx normal, TMs normal Neck: Positive: Other: - full ROM neck, no midline tenderness neck Respiratory/Lung Sounds: Positive: Clear to Auscultation, Breath Sounds Present. Negative: Tracheal Deviation Cardiovascular: Positive: Normal, RRR Abdomen Description: Positive: Nontender, Soft Bowel Sounds: Positive: Present Musculoskeletal: Positive: Strength/ROM Intact - left ankle, knee and hip, back , Other - tenderness thoracic back, neg SLR, tenderness left patella, tenderness left lateral malleolus of ankle, good pulses, sensation grossly intact Neurological: Positive: Sensory/Motor Intact, Alert, Oriented to Person Place, Time, CN Intact II-III Psychiatric: Positive: Normal - Luis Eduardo Coma Scale Best Eye Response: 4 - Spontaneous Best Motor Response: 6 - Obeys Commands Best Verbal Response: 5 - Oriented Coma Scale Total: 15 Diagnostics - Vital Signs Vital Signs Temp Pulse Resp BP Pulse Ox 05/03/18 16:41 97.8 F 87 18 95/80 98 - Laboratory Lab Statement: Any lab studies that have been ordered have been reviewed, and results considered in the medical decision making process. - Radiology thoracic Radiology Interpretation Completed By: Radiologist Summary of Radiographic Findings: IMPRESSION: MILD DEGENERATIVE DISC DISEASE. ankle Radiology Interpretation Completed By: ED Physician Summary of Radiographic Findings: no acute findings knee Radiology Interpretation Completed By: ED Physician Summary of Radiographic Findings: no acute findings - CT brain CT Interpretation Completed By: Radiologist Summary of CT Findings: IMPRESSION: No acute abnormality Head Injury Course/Dx Course Of Treatment: 22-year-old female presents with head injury today. States she slipped backwards and twisted her left ankle and knee. She states her hips also hurt. She is able to ambulate without difficulty. She states she has thoracic back pain which she has a history of. she denies any urinary symptoms. no numbness or tingling. no loss of bowel or bladder or saddle anaesthesia. She states she lost consciousness but does not know for how long. She states she has been vomiting today. States she has an issue with memory that has been having for the past year. She has not followed up with anyone about this. She denies any neck pain. No other injury. she admits to difficulties concentrating. She denies any change in vision. on exam has normal neuro exam. has tenderness lateral malleolus of left ankle. tenderness over left patella that states is chronic. tenderness thoracic back. with LOC and vomiting got CT which shows no acute findings. xray of left knee and ankle no fracture as read by me. discussed treating extremity injuries with ice and elevation. gave concussion precautions. told to follow up with primary about head injury. patient understand and agrees with plan. - Diagnoses Differential Diagnosis/HQI/PQRI: Concussion Without LOC, Contusion, Intracranial Bleed Provider Diagnoses: Head injury, Back pain, Left knee pain, Left ankle pain Discharge - Sign-Out/Discharge Documenting (check all that apply): Patient Departure Patient Received Moderate/Deep Sedation with Procedure: No - Discharge Plan Condition: Good Disposition: HOME Patient Education Materials: Head Injury (ED), R.I.C.E. Treatment (ED) Forms: *Work Release Referrals: Donnie Moser DO [Primary Care Provider] - Additional Instructions: Place ice on area as needed Take Tylenol for ibuprofen for pain every 6 hours as needed Modify activities as tolerated Follow up with primary within 5 days Return to ED if develop any new or worsening symptoms - Billing Disposition and Condition Condition: GOOD Disposition: Home
== END | disposition home or self-care (01) ==
LOC: ED 16:38
DX: S09.90XA Unspecified injury of head, initial encounter (principal); R11.10 Vomiting, unspecified; F17.210 Nicotine dependence, cigarettes, uncomplicated; M54.9 Dorsalgia, unspecified; R51 Headache; W01.0XXA Fall on same level from slipping, tripping and stumbling without subsequent striking against object, initial encounter; Y92.9 Unspecified place or not applicable; M25.562 Pain in left knee; M25.572 Pain in left ankle and joints of left foot
CPT/HCPCS: 70450; 72070; 99282

== ENCOUNTER 2018-05-17 19:05 | Emergency (ER) | payer OTHER, MEDICAID ==
[2018-05-17] MEDS ORDERED: Naproxen TAB* 250 MG PO ONE (20:55)
[2018-05-17] MEDS ORDERED: Lidocaine Patch REMOVE* 1 NOTE MISC SCH (21:00)
--- NOTE | 2018-05-17 21:03 | ED ---
Upper Extremity Pain - HPI Summary HPI Summary: 22 year old F [facility] complains of right shoulder pain since three days ago. The patient rates the pain 7/10 in severity. Symptoms aggravated by nothing. Symptoms alleviated by nothing. Patient reports that her right shoulder is popping and cracking. She has not seen any specialists besides her PCP. 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 She is a smoker. She is not sure when her LNMP. - History of Current Complaint Chief Complaint: EDGeneral Stated Complaint: NAUSEA, BREAST COMPLANT , SHOULDER INJURY Time Seen by Provider: 05/17/18 20:41 Hx Obtained From: Patient Onset/Duration: Started Days Ago - 3, Still Present Timing: Constant Severity Currently: Moderate Pain Location: Shoulder - right Aggravating Factor(s): Nothing Alleviating Factor(s): Nothing Associated Signs & Symptoms: Positive: Other - shoulder popping, shoulder cracking - Allergies/Home Medications Allergies/Adverse Reactions: Allergies Allergy/AdvReac Type Severity Reaction Status Date / Time ALCOHOL PREP Allergy Rash Uncoded 05/17/18 19:16 DAIRY AdvReac Severe Diarrhea Uncoded 05/17/18 19:16 vieira and pollen AdvReac Mild Congestion Uncoded 05/17/18 19:16 wheat bran AdvReac GI Upset Uncoded 05/17/18 19:16 Home Medications: Home Medications ARIPiprazole [Abilify] 5 mg PO DAILY 05/17/18 [History Confirmed 05/17/18] PMH/Surg Hx/FS Hx/Imm Hx Previously Healthy: No Endocrine/Hematology History: Reports: Hx Diabetes - not sure yet,most likely type 2 Denies: Hx Anticoagulant Therapy, Hx Blood Disorders, Hx Sickle Cell Disease , Hx Unexplained Bleeding Cardiovascular History: Denies: Hx Congestive Heart Failure, Hx Hypercholesterolemia, Hx Hypertension , Hx Pacemaker/ICD, Other Cardiovascular Problems/Disorders Respiratory History: Reports: Hx Asthma - uses inhaler GI History: Denies: Hx Cirrhosis, Hx Crohn's Disease, Hx Diverticulosis, Hx Gall Bladder Disease, Hx Gastroesophageal Reflux Disease, Hx Gastrointestinal Bleed, Hx Hiatal Hernia, Hx Irritable Bowel, Other GI Disorders History: Denies: Hx Dialysis, Hx Renal Disease, Other Problems/Disorders Musculoskeletal History: Reports: Hx Back Problems - "floating piece of bone near spine"; Lt hip "issue" Denies: Hx Arthritis, Hx Rheumatoid Arthritis, Hx Osteoporosis Sensory History: Reports: Hx Contacts or Glasses - GLASSES Denies: Hx Hearing Aid Opthamlomology History: Reports: Hx Contacts or Glasses - GLASSES Psychiatric History: Reports: Hx Anxiety, Hx Attention Deficit Hyperactivity Disorder - SINCE @ AGE 6, Hx Eating Disorder - Binge-Purge NOS, Hx Depression, Hx Bipolar Disorder - Not taking meds due to and breast feeding f/u w / MD Olivia, Hx Suicide Attempt, Other Psychiatric Issues/Disorders - bipolar Denies: Hx Panic Disorder - Cancer History Hx Chemotherapy: No - Surgical History Surgery Procedure, Year, and Place: Tonsillectomy, 2013,. wisdom teeth,. Tongue Laceration Repair, 2000, Hx Anesthesia Reactions: No - Immunization History Date of Influenza Vaccine: 2017 Infectious Disease History: No Infectious Disease History: Denies: Hx of Known/Suspected MRSA, History Other Infectious Disease, Traveled Outside the [place] in Last 30 Days - Family History Known Family History: Positive: Hypertension, Diabetes, Other - hypotension, BLOOD CLOTS - Social History Alcohol Use: Daily Alcohol Amount: pt states none this Hx Substance Use: Yes Substance Use Comment - Amount & Last Used: Hx of opiate Hx Tobacco Use: Yes Smoking Status (MU): Light Every Day Tobacco Smoker Type: Cigarettes Amount Used/How Often: 1-3 cig./day Have You Smoked in the Last Year: Yes Review of Systems Negative: Fever Positive: Other - right shoulder pain, right shoulder popping, right shoulder cracking All Other Systems Reviewed And Are Negative: Yes Physical Exam - Summary Physical Exam Summary: Appearance: Patient is morbidly obese and unkept Skin: warm, dry, reflects adequate perfusion Head/face: normal Eyes: EOMI, CASEY ENT: mucous membranes moist Neck: supple, non-tender Respiratory: CTA, breath sounds present Cardiovascular: RRR, pulses symmetrical Abdomen: non-tender, soft Bowel Sounds: present Musculoskeletal: She has tenderness to anterior right shoulder without warmth or swelling and FROM of shoulder Neuro: normal, sensory motor intact, A&Ox3 Triage Information Reviewed: Yes Vital Signs On Initial Exam: Initial Vitals Temp Pulse Resp BP Pulse Ox 97.9 F 100 16 119/85 100 05/17/18 19:12 05/17/18 19:12 05/17/18 19:12 05/17/18 19:12 05/17/18 19:12 Vital Signs Reviewed: Yes Diagnostics - Vital Signs Vital Signs Temp Pulse Resp BP Pulse Ox 05/17/18 19:12 97.9 F 100 16 119/85 100 - Laboratory Lab Statement: Any lab studies that have been ordered have been reviewed, and results considered in the medical decision making process. - Radiology Right shoulder Radiology Interpretation Completed By: ED Physician Summary of Radiographic Findings: This shoulder x-ray is negative for acute findings. Pending official report. Course/Dx - Course Course Of Treatment: Nurse's note reviewed. Patient with frequent presentations presents today with chronic shoulder pain. She states that is been hurting since she delivered her son. X-rays today are negative. She has some ability to pop and crack this actively but has no crepitance on normal range of motion both actively and passively. The extremity is neurovascularly intact. She was treated with Lidoderm and NSAID with improvement. She will follow-up with primary care physician and was referred to orthopedist. She recalls no distinct injury. - Diagnoses Differential Diagnosis/HQI/PQRI: Positive: Arthritis, Bursitis, Strain, Sprain Provider Diagnoses: Chronic shoulder pain Discharge - Sign-Out/Discharge Documenting (check all that apply): Patient Departure - Discharge Patient Received Moderate/Deep Sedation with Procedure: No - Discharge Plan Condition: Improved Disposition: HOME Prescriptions: Cyclobenzaprine (NF) [Cyclobenzaprine 5 MG (NF)] 5 mg PO TID PRN #10 tab PRN Reason: muscle pain Patient Education Materials: Shoulder Pain (ED) Referrals: Donnie Moser DO [Primary Care Provider] - Elias Miller MD [Medical Doctor] - Additional Instructions: Continue ibuprofen, Tylenol as needed for discomfort. Muscle relaxer was provided. Range of motion exercises. Call for an appointment with the orthopedic surgeon tomorrow. Aqmi-qmi-qyllkyn lidocaine patches like the one applied here today can be obtained for discomfort. They are applied for 12 hours on and then 12 hours off as needed for discomfort. They're sold over-the- counter under the name letty pas. Call the morning to follow-up with her primary care physician as well. - Billing Disposition and Condition Condition: IMPROVED Disposition: Home - Attestation Statements Document Initiated by Scribe: Yes Documenting Scribe: Rosalina Howard Provider For Whom Scribe is Documenting (Include Credential): Alonzo Peng MD Scribe Attestation: I, Rosalina Howard, scribed for Alonzo Peng MD on 05/17/18 at 2142. Scribe Documentation Reviewed: Yes Provider Attestation: The documentation as recorded by the scribe, Rosalina Howard accurately reflects the service I personally performed and the decisions made by me, Alonzo Peng MD Status of Scribe Document: Viewed
[2018-05-17] MEDS ORDERED: Lidocaine PATCH 5%* 1 PATCH TRANSDERM ONE (22:00)
[2018-05-17 22:29] VITALS: BP 128/74
[2018-05-18] MEDS ORDERED: Lidocaine Patch REMOVE* 1 NOTE MISC PATCH OFF ONE (10:00)
== END 2018-05-17 22:05 | disposition home or self-care (01) ==
LOC: ED 19:05
DX: M25.511 Pain in right shoulder (principal); J45.909 Unspecified asthma, uncomplicated; F17.210 Nicotine dependence, cigarettes, uncomplicated
CPT/HCPCS: 99282; A9270-GY

== ENCOUNTER 2019-01-12 14:56 | Inpatient (IN) | payer OTHER, MEDICAID ==
--- NOTE | 2019-01-12 15:18 | ED ---
Psychiatric Complaint - HPI Summary HPI Summary: 23 year old F presenting to [facility] complains of worsening depression and suicidal ideation with suicidal plan since today. Patient is concerned that she knows too many ways to commit suicide so she came to ED today to be evaluated by [facility]. Patient reports insomnia. Symptoms aggravated by nothing. Symptoms alleviated by nothing. Hx depression, suicidal ideation, and self-cutting. Patient states she has a counselor but hasn't been seen by counselor recently. - History Of Current Complaint Chief Complaint: EDMentalHealth Time Seen by Provider: 01/12/19 15:10 Hx Obtained From: Patient Onset/Duration: Lasting Days, Still Present Timing: Constant Aggravating Factor(s): Nothing Alleviating Factor(s): Nothing Related History: Positive For: Prior Psychiatric Issues Has Suicidal: Reports: Thoughts, With A Plan - Allergies/Home Medications Allergies/Adverse Reactions: Allergies Allergy/AdvReac Type Severity Reaction Status Date / Time ALCOHOL PREP Allergy Rash Uncoded 05/17/18 19:16 DAIRY AdvReac Severe Diarrhea Uncoded 05/17/18 19:16 vieira and pollen AdvReac Mild Congestion Uncoded 05/17/18 19:16 wheat bran AdvReac GI Upset Uncoded 05/17/18 19:16 PMH/Surg Hx/FS Hx/Imm Hx Endocrine/Hematology History: Reports: Hx Diabetes - not sure yet,most likely type 2 Denies: Hx Anticoagulant Therapy, Hx Blood Disorders, Hx Sickle Cell Disease , Hx Unexplained Bleeding Cardiovascular History: Denies: Hx Congestive Heart Failure, Hx Hypercholesterolemia, Hx Hypertension , Hx Pacemaker/ICD, Other Cardiovascular Problems/Disorders Respiratory History: Reports: Hx Asthma - uses inhaler GI History: Denies: Hx Cirrhosis, Hx Crohn's Disease, Hx Diverticulosis, Hx Gall Bladder Disease, Hx Gastroesophageal Reflux Disease, Hx Gastrointestinal Bleed, Hx Hiatal Hernia, Hx Irritable Bowel, Other GI Disorders History: Denies: Hx Dialysis, Hx Renal Disease, Other Problems/Disorders Musculoskeletal History: Reports: Hx Back Problems - "floating piece of bone near spine"; Lt hip "issue" Denies: Hx Arthritis, Hx Rheumatoid Arthritis, Hx Osteoporosis Sensory History: Reports: Hx Contacts or Glasses - GLASSES Denies: Hx Hearing Aid Opthamlomology History: Reports: Hx Contacts or Glasses - GLASSES Psychiatric History: Reports: Hx Anxiety, Hx Attention Deficit Hyperactivity Disorder - SINCE @ AGE 6, Hx Eating Disorder - Binge-Purge NOS, Hx Depression, Hx Bipolar Disorder - Not taking meds due to and breast feeding f/u w / MD Olivia, Hx Suicide Attempt, Other Psychiatric Issues/Disorders - bipolar Denies: Hx Panic Disorder - Cancer History Hx Chemotherapy: No - Surgical History Surgery Procedure, Year, and Place: Tonsillectomy, 2013,. wisdom teeth,. Tongue Laceration Repair, 2000, Hx Anesthesia Reactions: No - Immunization History Date of Influenza Vaccine: 2017 Infectious Disease History: No Infectious Disease History: Denies: Hx of Known/Suspected MRSA, History Other Infectious Disease, Traveled Outside the [place] in Last 30 Days - Family History Known Family History: Positive: Hypertension, Diabetes, Other - hypotension, BLOOD CLOTS - Social History Alcohol Use: Daily Alcohol Amount: pt states none this Hx Substance Use: Yes Substance Use Comment - Amount & Last Used: Hx of opiate Hx Tobacco Use: Yes Smoking Status (MU): Light Every Day Tobacco Smoker Type: Cigarettes Amount Used/How Often: 1-3 cig./day Have You Smoked in the Last Year: Yes Review of Systems Negative: Fever Positive: Depressed - suicidal ideation, suicidal plan, insomnia, Other - suicidal ideation All Other Systems Reviewed And Are Negative: Yes Physical Exam - Summary Physical Exam Summary: Appearance: The patient is morbidly obese in no acute distress and in no acute pain. Skin: The skin is warm and dry, and skin color reflects adequate perfusion. HEENT: The head is normocephalic and atraumatic. The pupils are equal and reactive. The conjunctivae are clear and without drainage. Nares are patent and without drainage. Mouth reveals moist mucous membranes, and the throat is without erythema and exudate. The external ears are intact. The ear canals are patent and without drainage. The tympanic membranes are intact. Neck: The neck is supple with full range of motion and non-tender. There are no carotid bruits. There is no neck vein distension. Respiratory: Chest is non-tender. Lungs are clear to auscultation and breath sounds are symmetrical and equal. Cardiovascular: Heart is regular rate and rhythm. There is no murmur or rub auscultated. There is no peripheral edema and pulses are symmetrical and equal. Abdomen: The abdomen is soft and non-tender. There are normal bowel sounds heard in all four quadrants and there is no organomegaly palpated. Musculoskeletal: There is no back tenderness noted. Extremities are non-tender with full range of motion. There is good capillary refill. There is no peripheral edema or calf tenderness elicited. Neurological: Patient is alert and oriented to person, place and time. The patient has symmetrical motor strength in all four extremities. Cranial nerves are grossly intact. Deep tendon reflexes are symmetrical and equal in all four extremities. Psychiatric: The patient has an appropriate affect and does not exhibit any anxiety or depression. Triage Information Reviewed: Yes Vital Signs On Initial Exam: Initial Vitals Temp Pulse Resp BP Pulse Ox 97.8 F 85 16 130/86 98 01/12/19 14:57 01/12/19 14:57 01/12/19 14:57 01/12/19 14:57 01/12/19 14:57 Vital Signs Reviewed: Yes Procedures - Sedation Patient Received Moderate/Deep Sedation with Procedure: No Diagnostics - Vital Signs Vital Signs Temp Pulse Resp BP Pulse Ox 01/12/19 14:57 97.8 F 85 16 130/86 98 - Laboratory Result Diagrams: 01/12/19 15:27 01/12/19 15:27 Lab Statement: Any lab studies that have been ordered have been reviewed, and results considered in the medical decision making process. Re-Evaluation - Re-Evaluation First Eval Re-Evaluation Time: 17:10 Change: Unchanged Comment: patient is medically cleared for [facility] Course/Dx - Course Course Of Treatment: Ms. Orr has been medically cleared in the department and is awaiting a [facility]. - Differential Dx/Clinical Impression Provider Diagnosis: Depression Discharge ED - Sign-Out/Discharge Documenting (check all that apply): Sign-Out Patient Signing out patient TO: Kayleigh Servin - awaiting [facility] and pending disposition Receiving patient FROM: Michael Mendez - Discharge Plan Referrals: Donnie Moser DO [Doctor of Osteopathy] - - Attestation Statements Document Initiated by Scribe: Yes Documenting Scribe: Rosalina Howard Provider For Whom Tre is Documenting (Include Credential): Michael Mendez MD Scribe Attestation: Rosalina Chávez, scribed for Michael Mendez MD on 01/12/19 at 1835. Scribe Documentation Reviewed: Yes Provider Attestation: The documentation as recorded by the Rosalina rizzo accurately reflects the service I personally performed and the decisions made by me, Michael Mendez MD Status of Scribe Document: Viewed
[2019-01-12 15:47] LABS: ABS Eosinophils 0.1 10^3/ul (0-0.6); ABS Lymphocytes 1.9 10^3/ul (1.0-4.8); ABS Monocytes 0.6 10^3/ul (0-0.8); ABS Neutrophils 5.7 10^3/ul (1.5-7.7); Eosinophil % 1.3 %; Hematocrit 39 % (35-47); Mean Corpuscular HGB Conc 33 g/dL (31-36); Mean Corpuscular Hemoglobin 28 pg (27-31); Mean Corpuscular Volume 85 fL (80-97); Mean Platelet Volume 8.8 fL (7.4-10.4); Platelet Count 251 10^3/uL (150-450); Red Blood Count 4.66 10^6 /uL (3.70-4.87); Red Cell Distribution Width 14 % (10-15); White Blood Count 8.4 10^3/uL (3.5-10.8)
[2019-01-12 15:48] LABS: Urine Appearance Clear; Urine Bilirubin Negative (Negative); Urine Blood Negative (Negative); Urine Color Yellow; Urine Glucose Negative (Negative); Urine Ketones Negative (Negative); Urine Nitrite Negative (Negative); Urine Protein Negative (Negative); Urine Urobilinogen Negative (Negative)
[2019-01-12 15:59] LABS: ALT 29 U/L (7-52); AST 21 U/L (13-39); Albumin 3.8 g/dL (3.2-5.2); Albumin/Globulin Ratio 1.2 (1-3); Alkaline Phosphatase 94 U/L (34-104); Anion Gap 5 mmol/L (2-11); BUN/Creatinine Ratio 15.6 (8-20); Blood Urea Nitrogen 12 mg/dL (6-24); CO2 Carbon Dioxide 27 mmol/L (22-32); Calcium 8.7 mg/dL (8.6-10.3); Chloride 105 mmol/L (101-111); EGFR African American 113.4 (>60); EGFR Non-African American 93.7 (>60); Globulin 3.2 g/dL (2-4); Glucose 100 mg/dL (70-100); Potassium 3.8 mmol/L (3.5-5.0); Sodium 137 mmol/L (135-145)
[2019-01-12 16:05] LABS: HCG Pregnancy < 0.60 mIU/mL
[2019-01-12 16:05] LABS: Urine Benzodiazepine Screen None Detected (None Detect); Urine Opiates Screen None Detected (None Detect)
[2019-01-12 16:22] LABS: Acetaminophen < 15 mcg/mL; Alcohol < 10 mg/dL (<10); Salicylate < 2.50 mg/dL (<30)
[2019-01-12 16:37] LABS: TSH (Thyroid Stimulating Horm) 1.91 mcIU/mL (0.34-5.60)
[2019-01-12] MEDS ORDERED: Acetaminophen TAB* 325 MG PO ONE (18:37)
--- NOTE | 2019-01-12 19:11 | ED ---
Progress - Progress Note Progress Note: Pt is a sign-out from Dr. Mendez at the 01/12/2019 1900 shift change pending MHE and disposition. MHE has been completed. Dr. Taylor will admit the pt to [facility]. Re-Evaluation - Re-Evaluation First Eval Re-Evaluation Time: 17:10 Change: Unchanged Comment: patient is medically cleared for MHE Course/Dx - Course Course Of Treatment: Ms. Orr has been medically cleared in the department and is awaiting a MHE. Pt is a sign-out from Dr. Mendez at the 01/12/20190 shift change pending MHE and disposition. MHE has been completed. Dr. Taylor will admit the pt to [facility]. - Diagnoses Provider Diagnoses: Depression - Provider Notifications Discussed Care Of Patient With: Junior Taylor - Dr. Taylor will admit the pt to [facility]. Time Discussed With Above Provider: 20:37 Instructed by Provider To: Admit As Inpatient Discharge ED - Sign-Out/Discharge Documenting (check all that apply): Patient Departure - admit, Receiving Sign- Out Receiving patient FROM: Kayleigh Servin - Discharge Plan Condition: Stable Disposition: ADMITTED TO [facility] Referrals: Donnie Moser DO [Doctor of Osteopathy] - - Billing Disposition and Condition Condition: STABLE Disposition: Admitted to [facility] - Attestation Statements Document Initiated by Tre: Yes Documenting Scribe: Ervin Castro Provider For Whom Scribe is Documenting (Include Credential): Kayleigh Servin MD Scribe Attestation: IErvin, scribed for Kayleigh Servin MD on 01/12/19 at 2133. Scribe Documentation Reviewed: Yes Provider Attestation: The documentation as recorded by the Ervin rizzo accurately reflects the service I personally performed and the decisions made by me, Kayleigh Servin MD Status of Scribe Document: Viewed
[2019-01-12] MEDS ORDERED: Al Hydrox/Mg Hydrox/Simet LIQ* 30 ML UDC PO PRN (22:52)
[2019-01-12] MEDS ORDERED: Albuterol HFA INHALER* 8 gm MDI INH PRN (22:58)
[2019-01-13] MEDS: Acetaminophen TAB* 325 MG PO PRN ×2 (07:36→21:25)
[2019-01-13] MEDS ORDERED: EPINEPHrine PEN ADULT(NF) 0.3 MG SYRINGE IM PRN (07:39)
[2019-01-13] MEDS: Montelukast Sodium TAB* 10 MG PO SCH (08:40)
[2019-01-13] MEDS: Famotidine TAB* 20 MG PO SCH ×2 (08:40→21:25)
[2019-01-13] MEDS: Vitamin THERAPEUTIC TAB PO SCH (08:40)
[2019-01-13] MEDS: Nicotine* 2MG (FRUIT FLAVOR) GUM PO PRN ×2 (15:42→17:49)
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
[2019-01-14] MEDS: Acetaminophen TAB* 325 MG PO PRN ×3 (08:12→20:31)
[2019-01-14] MEDS: Famotidine TAB* 20 MG PO SCH ×2 (08:13→20:32)
[2019-01-14] MEDS: Montelukast Sodium TAB* 10 MG PO SCH (08:13)
[2019-01-14] MEDS: Vitamin THERAPEUTIC TAB PO SCH (08:14)
[2019-01-14] MEDS: Nicotine* 2MG (FRUIT FLAVOR) GUM PO PRN ×5 (09:01→20:56)
--- NOTE | 2019-01-14 10:11 | PN ---
Subjective - Subjective Date of Service: 01/14/19 Service Type: 59267 Hosp care 35 min high complexity Subjective: Nursing Report: Patient was visible on unit, no behavioral incidents. CC: "I am depressed Patient was seen and evaluated today in the common room. The patient reported she has been lonely because she is living alone. She fell in her room earlier without hitting her head. She reported falling 3 times a week because she has arthritis. She reported turning to drugs when she feels depressed. She reported having an adequate appetite and decreased sleep. Patient reported that she was on lithium in the past and that it was not continued because she is not on control. Objective - General Observations Appearance: Disheveled Appears Stated Age: No - older than stated age Stature: Overweight Posture: Slumped Eye Contact: Avoidant Behavior/Activity: WNL - Interaction Observations Attitude Towards Examiner: Cooperative Stated Mood: Dysphoric Affect: Blunted Speech Pattern/Tone: Clear Thought Process: Coherent Perception: Depersonalization Thought Content: Depressive Thought Process: Lethality: Passive Wish Hallucination Type: None Delusion Type: Somatic - Cognitive Function Orientation: A&O x 4 Level of Consciousness: Awake - Medication Compliance Cooperative with Inpatient Medication Regimen: Yes - Group Participation Participates in Group Activities: No Assessment - Assessment Merits Inpatient Hospitalization: For Immediate Safety Plan - Plan Treatment Plan: Name: HARSH DEL CASTILLO Birthdate: 1995 [id number] #Q15 minute observation. # The patient requires psychiatric inpatient admission at this time to assure safety, receive treatment and work toward stabilization. # Labs ordered: Hep C, HIV, RPR. # B-HCG was ordered and results are negative. # Obtain collateral information once release is signed. # Collaboration with Social Work # Start lexapro 10mg daily for depression #C-pap for sleep apnea # Last alcohol intake on Monday and no signs of DTs. # PT consult for gait and ambulation needs patient may require wheelchair/ walker to ambulate Substance Abuse resources offered. Tobacco use disorder: nicotine supplement offered and put in place. #Goals before discharge include: To eliminate/ reduce suicidal ideation Tentative Discharge: Pending psychiatric stabilization The risks, benefits, and alternative treatment options were discussed as well as the risks of refusing treatment. After this discussion and an acknowledgement of this understanding was made. A risk/ benefit assessment of treatment was considered and discussed with the patient. When comparing the risks of treatment with the dangers of not receiving treatment, the benefits of treatment outweigh the treatment risks at this time. Risks of allergy, suicidal ideation, behavioral changes, dystonia, rashes, electrolyte imbalances, movement disorders, cardiac conduction changes, serotonin syndrome, metabolic risks were among some of the risks discussed. Continued Medication Management: Continue Outpt Medication Medications: Current Medications Acetaminophen (Tylenol Tab*) 650 mg PO Q4H PRN PRN Reason: PAIN or TEMP > 101 F Last Admin: 01/14/19 08:12 Dose: 650 mg Al Hydrox/Mg Hydrox/Simethicone (Maalox Plus*) 30 ml PO Q4H PRN PRN Reason: INDIGESTION Albuterol (Ventolin Hfa Inhaler*) 1 puff INH Q4H PRN PRN Reason: SOB/WHEEZING Epinephrine HCl (Epipen Adult(Nf)) 0.3 mg IM ONCE PRN PRN Reason: ANAPHYLAXIS Famotidine (Pepcid Tab*) 40 mg PO BID REPLACED BY [facility] Last Admin: 01/14/19 08:13 Dose: 40 mg Montelukast Sodium (Singulair Tab*) 10 mg PO DAILY REPLACED BY [facility] Last Admin: 01/14/19 08:13 Dose: 10 mg Multivitamins (Theragran Tab*) 1 tab PO DAILY REPLACED BY [facility] Last Admin: 01/14/19 08:14 Dose: 1 tab Nicotine Polacrilex (Nicotine Gum*) 2 mg PO Q2H PRN PRN Reason: CRAVINGS Last Admin: 01/14/19 09:01 Dose: 2 mg - Discharge Plan Discharge Plan: Inpatient Hospitalization Outpatient Program: [facility]
[2019-01-14] MEDS: Escitalopram * 10 MG TAB PO SCH (12:03)
[2019-01-14] MEDS ORDERED: EPINEPHRINE 1 MG/ML 1 ML VIAL IM PRN (12:05)
[2019-01-14 12:27] LABS: Hepatitis C Antibody Negative (Negative)
[2019-01-15] MEDS: Famotidine TAB* 20 MG PO SCH ×2 (08:22→21:43)
[2019-01-15] MEDS: Acetaminophen TAB* 325 MG PO PRN ×3 (08:22→23:49)
[2019-01-15] MEDS: Montelukast Sodium TAB* 10 MG PO SCH (08:22)
[2019-01-15] MEDS: Escitalopram * 10 MG TAB PO SCH (08:22)
[2019-01-15] MEDS: Vitamin THERAPEUTIC TAB PO SCH (08:22)
[2019-01-15] MEDS: Nicotine* 2MG (FRUIT FLAVOR) GUM PO PRN ×4 (08:43→17:32)
--- NOTE | 2019-01-15 10:57 | PN ---
Subjective - Subjective Date of Service: 01/15/19 Service Type: 02570 Hosp care 35 min high complexity Subjective: Nursing Report: Patient was visible on unit, no behavioral incidents. Slept overnight. CC: "okay Patient was seen and evaluated today in the common room. The patient reported her visit with her father went good and doesn't understand why her mother did not come visit her. She mentioned getting a dog because she thinks that will help her feel less lonely. PT evaluated the patient yesterday. She reported having an adequate appetite and sleep. Per nursing no behavioral issues or overnight events reported. Patient reported that she is tolerating medications without side effects. Objective - General Observations Appearance: Disheveled Appears Stated Age: Yes Stature: Overweight Posture: Slumped Eye Contact: Average Behavior/Activity: Accelerated - Interaction Observations Attitude Towards Examiner: Cooperative Stated Mood: Dysphoric Affect: Blunted Speech Pattern/Tone: Appropriate Thought Process: Coherent Perception: WNL Thought Content: Self-Deprecatory Thought Process: Lethality: Passive Wish Hallucination Type: None Delusion Type: None - Cognitive Function Orientation: A&O x 4 Level of Consciousness: Awake - Medication Compliance Cooperative with Inpatient Medication Regimen: Yes - Group Participation Participates in Group Activities: No Assessment - Assessment Merits Inpatient Hospitalization: For Immediate Safety Clinical Impression: 23 year old Female with history of depression and poly-substance abuse came to the hospital and was admitted to the [facility] at [facility] following suicidal ideation Plan - Plan Treatment Plan: Name: HARSH DEL CASTILLO Birthdate: 1995 [id number] #Q30 minute observation with staff pass # The patient requires psychiatric inpatient admission at this time to assure safety, receive treatment and work toward stabilization. # Labs ordered: Hep C, HIV, RPR. # B-HCG was ordered and results are negative. # Obtain collateral information once release is signed. # Collaboration with Social Work # Continue lexapro 10mg daily for depression #C-pap for sleep apnea # Last alcohol intake on Monday and no signs of DTs. # PT recommended cane for ambulation assistance # Obtain records from [facility] Substance Abuse resources offered. Tobacco use disorder: nicotine supplement offered and put in place. #Goals before discharge include: To eliminate/ reduce suicidal ideation Tentative Discharge: Pending psychiatric stabilization The risks, benefits, and alternative treatment options were discussed as well as the risks of refusing treatment. After this discussion and an acknowledgement of this understanding was made. A risk/ benefit assessment of treatment was considered and discussed with the patient. When comparing the risks of treatment with the dangers of not receiving treatment, the benefits of treatment outweigh the treatment risks at this time. Risks of allergy, suicidal ideation, behavioral changes, dystonia, rashes, electrolyte imbalances, movement disorders, cardiac conduction changes, serotonin syndrome, metabolic risks were among some of the risks discussed. Sodium 137 mmol/L (135-145) 01/12/19 15:27 Potassium 3.8 mmol/L (3.5-5.0) 01/12/19 15:27 BUN 12 mg/dL (6-24) 01/12/19 15:27 Creatinine 0.77 mg/dL (0.51-0.95) 01/12/19 15:27 Calcium 8.7 mg/dL (8.6-10.3) 01/12/19 15:27 AST 21 U/L (13-39) 01/12/19 15:27 ALT 29 U/L (7-52) 01/12/19 15:27 Continued Medication Management: Continue Outpt Medication Medications: Current Medications Acetaminophen (Tylenol Tab*) 650 mg PO Q4H PRN PRN Reason: PAIN or TEMP > 101 F Last Admin: 01/15/19 08:22 Dose: 650 mg Al Hydrox/Mg Hydrox/Simethicone (Maalox Plus*) 30 ml PO Q4H PRN PRN Reason: INDIGESTION Albuterol (Ventolin Hfa Inhaler*) 1 puff INH Q4H PRN PRN Reason: SOB/WHEEZING Epinephrine HCl (Adrenalin 1 Mg/Ml) 0.3 mg IM ONCE PRN PRN Reason: ANAPHYLAXIS Escitalopram Oxalate (Lexapro *) 10 mg PO DAILY [facility] Last Admin: 01/15/19 08:22 Dose: 10 mg Famotidine (Pepcid Tab*) 40 mg PO BID [facility] Last Admin: 01/15/19 08:22 Dose: 40 mg Montelukast Sodium (Singulair Tab*) 10 mg PO DAILY [facility] Last Admin: 01/15/19 08:22 Dose: 10 mg Multivitamins (Theragran Tab*) 1 tab PO DAILY [facility] Last Admin: 01/15/19 08:22 Dose: 1 tab Nicotine Polacrilex (Nicotine Gum*) 2 mg PO Q2H PRN PRN Reason: CRAVINGS Last Admin: 01/15/19 10:43 Dose: 2 mg - Discharge Plan Discharge Plan: Inpatient Hospitalization Outpatient Program: [facility]
[2019-01-16] MEDS: Nicotine* 2MG (FRUIT FLAVOR) GUM PO PRN (00:04)
[2019-01-16 06:54] LABS: HDL Cholesterol 49.6 mg/dL
[2019-01-16] MEDS: Acetaminophen TAB* 325 MG PO PRN (07:08)
[2019-01-16 07:33] LABS: HIV 4th Generation Nonreactive (Nonreactive)
[2019-01-16] MEDS: Montelukast Sodium TAB* 10 MG PO SCH (08:49)
[2019-01-16] MEDS: Famotidine TAB* 20 MG PO SCH ×2 (08:49→20:40)
[2019-01-16] MEDS: Escitalopram * 10 MG TAB PO SCH (08:50)
[2019-01-16] MEDS: Vitamin THERAPEUTIC TAB PO SCH (08:50)
[2019-01-16] MEDS: Nicotine* 4MG (FRUIT FLAVOR) GUM PO PRN ×4 (08:59→21:14)
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
[2019-01-16] MEDS: Lithium Carbonate TAB* 300 MG PO SCH (21:16)
[2019-01-17] MEDS: Vitamin THERAPEUTIC TAB PO SCH (08:15)
[2019-01-17] MEDS: Montelukast Sodium TAB* 10 MG PO SCH (08:15)
[2019-01-17] MEDS: Escitalopram * 10 MG TAB PO SCH (08:15)
[2019-01-17] MEDS: Famotidine TAB* 20 MG PO SCH ×2 (08:15→21:41)
[2019-01-17] MEDS: Lithium Carbonate TAB* 300 MG PO SCH ×2 (08:16→21:41)
--- NOTE | 2019-01-17 11:34 | PN ---
Subjective - Subjective Date of Service: 01/17/19 Service Type: 72957 Hosp care 35 min high complexity Subjective: Nursing Report: Patient was visible on unit, no behavioral incidents. Slept overnight. CC: "Okay Patient was seen and evaluated today. The patient reported having alcohol cravings. She reported 8/10 motivation to go to a drug and alcohol rehabilitation facility. She reported being fearful of crowds but will try to go to more groups. Patient feels tired and has been sleeping during the day. She reported having adequate appetite and sleep. Per nursing no behavioral issues or overnight events reported. Patient reported that she is tolerating medications without side effects. Objective - General Observations Appearance: Disheveled Appears Stated Age: Yes Stature: Overweight Posture: Slumped Eye Contact: Average Behavior/Activity: Slowed - Interaction Observations Attitude Towards Examiner: Cooperative Stated Mood: Dysphoric Affect: Blunted Speech Pattern/Tone: Clear Thought Process: Coherent Perception: WNL Thought Content: Self-Deprecatory Hallucination Type: None Delusion Type: None - Cognitive Function Orientation: A&O x 4 Level of Consciousness: Awake - Medication Compliance Cooperative with Inpatient Medication Regimen: Yes - Group Participation Participates in Group Activities: No Assessment - Assessment Merits Inpatient Hospitalization: For Immediate Safety Clinical Impression: 23 year old Female with history of depression and poly-substance abuse came to the hospital and was admitted to the BSU at [facility] following suicidal ideation Plan - Plan Treatment Plan: Name: HARSH DEL CASTILLO Birthdate: 1995 [id number] #Q30 minute observation with staff pass # The patient requires psychiatric inpatient admission at this time to assure safety, receive treatment and work toward stabilization. # B-HCG was ordered and results are negative. # Obtain collateral information once release is signed. # Collaboration with Social Work # Continue lexapro 10mg daily for depression # [place] level Monday #C-pap for sleep apnea # PT recommended cane for ambulation assistance # Naltrexone injection 380mh daily for alcohol cravings, patient not on opiates. # Continue lithium 150mg BID for mood stabilization and suicidal risk reduction. Risks outweigh the benefits at this given time. # Recommend DBT for Borderline personality disorder Substance Abuse resources offered. In process of securing drug and alcohol rehabilitation program. Tobacco use disorder: nicotine supplement offered and put in place. #Goals before discharge include: To eliminate/ reduce suicidal ideation Tentative Discharge: Pending psychiatric stabilization Sodium 137 mmol/L (135-145) 01/12/19 15:27 Potassium 3.8 mmol/L (3.5-5.0) 01/12/19 15:27 BUN 12 mg/dL (6-24) 01/12/19 15:27 Creatinine 0.77 mg/dL (0.51-0.95) 01/12/19 15:27 Hemoglobin A1c 5.6 % (4.0-5.6) 01/16/19 06:18 Calcium 8.7 mg/dL (8.6-10.3) 01/12/19 15:27 AST 21 U/L (13-39) 01/12/19 15:27 ALT 29 U/L (7-52) 01/12/19 15:27 Triglycerides 72 mg/dL 01/16/19 06:18 Cholesterol 153 mg/dL 01/16/19 06:18 LDL Cholesterol 89 mg/dL 01/16/19 06:18 Continued Medication Management: Continue Outpt Medication Medications: Current Medications Acetaminophen (Tylenol Tab*) 650 mg PO Q4H PRN PRN Reason: PAIN or TEMP > 101 F Last Admin: 01/16/19 07:08 Dose: 650 mg Al Hydrox/Mg Hydrox/Simethicone (Maalox Plus*) 30 ml PO Q4H PRN PRN Reason: INDIGESTION Albuterol (Ventolin Hfa Inhaler*) 1 puff INH Q4H PRN PRN Reason: SOB/WHEEZING Epinephrine HCl (Adrenalin 1 Mg/Ml) 0.3 mg IM ONCE PRN PRN Reason: ANAPHYLAXIS Escitalopram Oxalate (Lexapro *) 10 mg PO DAILY [facility] Last Admin: 01/17/19 08:15 Dose: 10 mg Famotidine (Pepcid Tab*) 40 mg PO BID [facility] Last Admin: 01/17/19 08:15 Dose: 40 mg [place] Carbonate ([place] Carbonate Tab*) 150 mg PO BID [facility] Last Admin: 01/17/19 08:16 Dose: 150 mg Montelukast Sodium (Singulair Tab*) 10 mg PO DAILY [facility] Last Admin: 01/17/19 08:15 Dose: 10 mg Multivitamins (Theragran Tab*) 1 tab PO DAILY [facility] Last Admin: 01/17/19 08:15 Dose: 1 tab Nicotine Polacrilex (Nicotine Gum*) 4 mg PO Q2H PRN PRN Reason: CRAVINGS Last Admin: 01/16/19 21:14 Dose: 4 mg - Discharge Plan Discharge Plan: Inpatient Hospitalization Outpatient Program: [facility]
[2019-01-17] MEDS ORDERED: Naltrexone INJ 380 MG IM ONE (12:13)
[2019-01-17] MEDS: Nicotine* 4MG (FRUIT FLAVOR) GUM PO PRN ×3 (12:43→21:42)
[2019-01-17] MEDS: Acetaminophen TAB* 325 MG PO PRN (22:53)
[2019-01-18] MEDS: Vitamin THERAPEUTIC TAB PO SCH (08:37)
[2019-01-18] MEDS: Lithium Carbonate TAB* 300 MG PO SCH ×2 (08:37→20:38)
[2019-01-18] MEDS: Famotidine TAB* 20 MG PO SCH ×2 (08:39→20:38)
[2019-01-18] MEDS: Escitalopram * 10 MG TAB PO SCH (08:40)
[2019-01-18] MEDS: Montelukast Sodium TAB* 10 MG PO SCH (08:40)
[2019-01-18] MEDS: Nicotine* 4MG (FRUIT FLAVOR) GUM PO PRN ×2 (08:41→13:33)
--- NOTE | 2019-01-18 12:39 | PN ---
Subjective - Subjective Date of Service: 01/18/19 Service Type: 78706 Hosp care 35 min high complexity Subjective: Nursing Report: Patient was visible on unit, no behavioral incidents. Slept overnight. CC: "Fine Patient was seen and evaluated today. The patient reported receiving the Naltrexone injection yesterday and noted that it was painful. She reported being motivated to go to a drug and alcohol rehabilitation facility. She attended groups today. She reported having adequate appetite and sleep. Per nursing no behavioral issues or overnight events reported. Patient reported that she is tolerating medications without side effects. Objective - General Observations Appearance: Disheveled Appears Stated Age: Yes Stature: Overweight Posture: WNL, Slumped Eye Contact: Average Behavior/Activity: WNL - Interaction Observations Attitude Towards Examiner: Cooperative Stated Mood: Dysphoric Affect: Blunted Speech Pattern/Tone: Clear Thought Process: Coherent Perception: WNL Thought Content: Self-Deprecatory Hallucination Type: None Delusion Type: None - Cognitive Function Orientation: A&O x 4 Level of Consciousness: Awake - Medication Compliance Cooperative with Inpatient Medication Regimen: Yes - Group Participation Participates in Group Activities: Yes Assessment - Assessment Merits Inpatient Hospitalization: For Immediate Safety Clinical Impression: 23 year old Female with history of depression and poly-substance abuse came to the hospital and was admitted to the BSU at [facility] following suicidal ideation Plan - Plan Treatment Plan: Name: HARSH DEL CASTILLO Birthdate: 1995 [id number] #Q30 minute observation with staff pass with computer # The patient requires psychiatric inpatient admission at this time to assure safety, receive treatment and work toward stabilization. # B-HCG was ordered and results are negative. # Obtain collateral information once release is signed. Mothers # [phone] Father [phone] # Collaboration with Social Work # Continue lexapro 10mg daily for depression # [place] level , CMP Monday #C-pap for sleep apnea # PT recommended cane for ambulation assistance #Mother noted improvement from baseline, confirmed no access to firearms and remark change of taking responsibility # Received Naltrexone injection 380mh daily for alcohol cravings, patient not on opiates. # [place] 300mg BID for mood stabilization and suicidal risk reduction. Risks outweigh the benefits at this given time. # Recommend DBT for Borderline personality disorder Substance Abuse resources offered. In process of securing drug and alcohol rehabilitation program. Tobacco use disorder: nicotine supplement offered and put in place. #Goals before discharge include: To eliminate/ reduce suicidal ideation Tentative Discharge: Pending psychiatric stabilization Sodium 137 mmol/L (135-145) 01/12/19 15:27 Potassium 3.8 mmol/L (3.5-5.0) 01/12/19 15:27 BUN 12 mg/dL (6-24) 01/12/19 15:27 Creatinine 0.77 mg/dL (0.51-0.95) 01/12/19 15:27 Hemoglobin A1c 5.6 % (4.0-5.6) 01/16/19 06:18 Calcium 8.7 mg/dL (8.6-10.3) 01/12/19 15:27 AST 21 U/L (13-39) 01/12/19 15:27 ALT 29 U/L (7-52) 01/12/19 15:27 Triglycerides 72 mg/dL 01/16/19 06:18 Cholesterol 153 mg/dL 01/16/19 06:18 LDL Cholesterol 89 mg/dL 01/16/19 06:18 Continued Medication Management: Continue Outpt Medication Medications: Current Medications Acetaminophen (Tylenol Tab*) 650 mg PO Q4H PRN PRN Reason: PAIN or TEMP > 101 F Last Admin: 01/17/19 22:53 Dose: 650 mg Al Hydrox/Mg Hydrox/Simethicone (Maalox Plus*) 30 ml PO Q4H PRN PRN Reason: INDIGESTION Albuterol (Ventolin Hfa Inhaler*) 1 puff INH Q4H PRN PRN Reason: SOB/WHEEZING Epinephrine HCl (Adrenalin 1 Mg/Ml) 0.3 mg IM ONCE PRN PRN Reason: ANAPHYLAXIS Escitalopram Oxalate (Lexapro *) 20 mg PO DAILY [facility] Famotidine (Pepcid Tab*) 40 mg PO BID [facility] Last Admin: 01/18/19 08:39 Dose: 40 mg [place] Carbonate ([place] Carbonate Tab*) 300 mg PO BID [facility] Montelukast Sodium (Singulair Tab*) 10 mg PO DAILY [facility] Last Admin: 01/18/19 08:40 Dose: 10 mg Multivitamins (Theragran Tab*) 1 tab PO DAILY [facility] Last Admin: 01/18/19 08:37 Dose: 1 tab Nicotine Polacrilex (Nicotine Gum*) 4 mg PO Q2H PRN PRN Reason: CRAVINGS Last Admin: 01/18/19 08:41 Dose: 4 mg - Discharge Plan Discharge Plan: Drug/Alcohol Rehab
[2019-01-19] MEDS: Vitamin THERAPEUTIC TAB PO SCH (08:23)
[2019-01-19] MEDS: Famotidine TAB* 20 MG PO SCH ×2 (08:23→22:58)
[2019-01-19] MEDS: Escitalopram * 10 MG TAB PO SCH (08:23)
[2019-01-19] MEDS: Montelukast Sodium TAB* 10 MG PO SCH (08:23)
[2019-01-19] MEDS: Lithium Carbonate TAB* 300 MG PO SCH ×2 (08:24→22:58)
[2019-01-20] MEDS: Escitalopram * 10 MG TAB PO SCH (11:00)
[2019-01-20] MEDS: Lithium Carbonate TAB* 300 MG PO SCH ×2 (11:00→20:50)
[2019-01-20] MEDS: Vitamin THERAPEUTIC TAB PO SCH (11:00)
[2019-01-20] MEDS: Montelukast Sodium TAB* 10 MG PO SCH (11:00)
[2019-01-20] MEDS: Famotidine TAB* 20 MG PO SCH ×2 (11:00→20:50)
--- NOTE | 2019-01-20 12:45 | PN ---
Subjective - Subjective Date of Service: 01/20/19 Service Type: 68395 Hosp care 25 min moderate complexity Subjective: Harsh says she continues to be 5/10 depressed but not suicidal as much ( Just thoughts ). Looking forwards to go to an inpatient rehab whenever available. Objective - General Observations Appearance: Disheveled Stature: Overweight Posture: WNL Eye Contact: Average Behavior/Activity: WNL - Interaction Observations Attitude Towards Examiner: Cooperative Stated Mood: Euthymic Affect: Full Speech Pattern/Tone: Clear, Appropriate, Normal Volume Thought Process: Coherent, Goal Directed Perception: WNL Thought Content: WNL Thought Process: Lethality: Passive Wish Hallucination Type: None Delusion Type: None - Cognitive Function Orientation: A&O x 4 Level of Consciousness: Awake, Alert, Appropriate Cognition: WNL Estimated Intelligence: Normal Insight: WNL Judgment Within Normal Limits: Yes - Medication Compliance Cooperative with Inpatient Medication Regimen: Yes - Group Participation Participates in Group Activities: Yes Assessment - Assessment Merits Inpatient Hospitalization: For Immediate Safety, For Stabilization, Pending Safe DC Plan Clinical Impression: 23 year old Female with history of depression and poly-substance abuse came to the hospital and was admitted to the BSU at [facility] following suicidal ideation Plan - Plan Treatment Plan: Name: HARSH DEL CASTILLO Birthdate: 1995 [id number] #Q30 minute observation with staff pass with computer # The patient requires psychiatric inpatient admission at this time to assure safety, receive treatment and work toward stabilization. # B-HCG was ordered and results are negative. # Obtain collateral information once release is signed. Mothers # [phone] Father [phone] # Collaboration with Social Work # Continue lexapro 10mg daily for depression # [place] level , CMP Monday #C-pap for sleep apnea # PT recommended cane for ambulation assistance #Mother noted improvement from baseline, confirmed no access to firearms and remark change of taking responsibility # Received Naltrexone injection 380mh daily for alcohol cravings, patient not on opiates. # [place] 300mg BID for mood stabilization and suicidal risk reduction. Risks outweigh the benefits at this given time. # Recommend DBT for Borderline personality disorder Substance Abuse resources offered. In process of securing drug and alcohol rehabilitation program. Tobacco use disorder: nicotine supplement offered and put in place. #Goals before discharge include: To eliminate/ reduce suicidal ideation Tentative Discharge: Pending psychiatric stabilization Sodium 137 mmol/L (135-145) 01/12/19 15:27 Potassium 3.8 mmol/L (3.5-5.0) 01/12/19 15:27 BUN 12 mg/dL (6-24) 01/12/19 15:27 Creatinine 0.77 mg/dL (0.51-0.95) 01/12/19 15:27 Hemoglobin A1c 5.6 % (4.0-5.6) 01/16/19 06:18 Calcium 8.7 mg/dL (8.6-10.3) 01/12/19 15:27 AST 21 U/L (13-39) 01/12/19 15:27 ALT 29 U/L (7-52) 01/12/19 15:27 Triglycerides 72 mg/dL 01/16/19 06:18 Cholesterol 153 mg/dL 01/16/19 06:18 LDL Cholesterol 89 mg/dL 01/16/19 06:18 Continued Medication Management: Continue Outpt Medication Medications: Current Medications Acetaminophen (Tylenol Tab*) 650 mg PO Q4H PRN PRN Reason: PAIN or TEMP > 101 F Last Admin: 01/17/19 22:53 Dose: 650 mg Al Hydrox/Mg Hydrox/Simethicone (Maalox Plus*) 30 ml PO Q4H PRN PRN Reason: INDIGESTION Albuterol (Ventolin Hfa Inhaler*) 1 puff INH Q4H PRN PRN Reason: SOB/WHEEZING Epinephrine HCl (Adrenalin 1 Mg/Ml) 0.3 mg IM ONCE PRN PRN Reason: ANAPHYLAXIS Escitalopram Oxalate (Lexapro *) 20 mg PO DAILY [facility] Last Admin: 01/20/19 11:00 Dose: 20 mg Famotidine (Pepcid Tab*) 40 mg PO BID [facility] Last Admin: 01/20/19 11:00 Dose: 40 mg [place] Carbonate ([place] Carbonate Tab*) 300 mg PO BID [facility] Last Admin: 01/20/19 11:00 Dose: 300 mg Montelukast Sodium (Singulair Tab*) 10 mg PO DAILY [facility] Last Admin: 01/20/19 11:00 Dose: 10 mg Multivitamins (Theragran Tab*) 1 tab PO DAILY [facility] Last Admin: 01/20/19 11:00 Dose: 1 tab Nicotine Polacrilex (Nicotine Gum*) 4 mg PO Q2H PRN PRN Reason: CRAVINGS Last Admin: 01/18/19 13:33 Dose: 4 mg - Discharge Plan Discharge Plan: Drug/Alcohol Rehab
[2019-01-21 08:42] LABS: Albumin/Globulin Ratio 1.1 (1-3); BUN/Creatinine Ratio 13.2 (8-20); Calcium 9.8 mg/dL (8.6-10.3); EGFR African American 93.5 (>60); EGFR Non-African American 77.3 (>60); Globulin 3.5 g/dL (2-4); Potassium 4.2 mmol/L (3.5-5.0); Total Bilirubin 0.5 mg/dL (0.2-1.0); Total Protein 7.5 g/dL (6.4-8.9)
[2019-01-21 08:44] LABS: Lithium 0.3 mmol/L (0.6-1.2)
[2019-01-21] MEDS: Montelukast Sodium TAB* 10 MG PO SCH (09:20)
[2019-01-21] MEDS: Vitamin THERAPEUTIC TAB PO SCH (09:20)
[2019-01-21] MEDS: Famotidine TAB* 20 MG PO SCH ×2 (09:20→20:39)
[2019-01-21] MEDS: Lithium Carbonate TAB* 300 MG PO SCH ×2 (09:20→20:40)
[2019-01-21] MEDS: Escitalopram * 10 MG TAB PO SCH (09:20)
[2019-01-21] MEDS ORDERED: Nicotine PATCH 21 MG/24 HR* PATCH ONE (14:07)
[2019-01-22] MEDS: Nicotine Patch Removal NOTE FOLLOW UP SCH (07:59)
[2019-01-22] MEDS: Nicotine PATCH 21 MG/24 HR* PATCH TRANSDERM SCH (07:59)
[2019-01-22] MEDS: Escitalopram * 10 MG TAB PO SCH (09:19)
[2019-01-22] MEDS: Famotidine TAB* 20 MG PO SCH ×2 (09:20→21:00)
[2019-01-22] MEDS: Vitamin THERAPEUTIC TAB PO SCH (09:21)
[2019-01-22] MEDS: Montelukast Sodium TAB* 10 MG PO SCH (09:21)
[2019-01-22] MEDS: Lithium Carbonate TAB* 300 MG PO SCH ×2 (09:21→21:00)
--- NOTE | 2019-01-22 14:01 | PN ---
Subjective - Subjective Service Type: 92149 Hosp care 35 min high complexity Subjective: Nursing Report: Patient was visible on unit, no behavioral incidents. CC: "I plan to go to [place]" Patient was seen and evaluated in the common room. The patient reported she feels safe on the unit and is interacting with peers. She plans to have her mother drive her to [place] to go to the drug and alcohol program. She reported having adequate appetite. Patient reported that she is tolerating medications without side effects. Objective - General Observations Appearance: Disheveled Appears Stated Age: Yes Stature: Overweight Posture: Slumped Eye Contact: Average Behavior/Activity: WNL - Interaction Observations Attitude Towards Examiner: Cooperative Stated Mood: Dysphoric Affect: Blunted Speech Pattern/Tone: Clear Thought Process: Coherent Perception: WNL Thought Content: WNL Hallucination Type: None Delusion Type: None - Cognitive Function Orientation: A&O x 4 Level of Consciousness: Awake - Medication Compliance Cooperative with Inpatient Medication Regimen: Yes - Group Participation Participates in Group Activities: Partial Assessment - Assessment Merits Inpatient Hospitalization: For Immediate Safety Clinical Impression: 23 year old Female with history of depression and poly-substance abuse came to the hospital and was admitted to the BSU at [facility] following suicidal ideation Plan - Plan Treatment Plan: Name: HARSH DEL CASTILLO Birthdate: 1995 [id number] #Q30 minute observation with staff pass with computer # The patient requires psychiatric inpatient admission at this time to assure safety, receive treatment and work toward stabilization. # B-HCG was ordered and results are negative. # Obtain collateral information once release is signed. Mothers # [phone] Father [phone] # Collaboration with Social Work # Lexapro 20mg daily for depression # [place] level 0.30 #C-pap for sleep apnea # PT recommended cane for ambulation assistance #Mother noted improvement from baseline, confirmed no access to firearms and remark change of taking responsibility # Received Naltrexone injection 380mh daily for alcohol cravings, patient not on opiates. # [place] 300mg BID for mood stabilization and suicidal risk reduction. Risks outweigh the benefits at this given time. # Recommend DBT for Borderline personality disorder Substance Abuse resources offered.Patient plans to go to [place] once discharged due to facility protocol for drug and alcohol rehabilitation program. Tobacco use disorder: nicotine supplement offered and put in place. #Goals before discharge include: To eliminate/ reduce suicidal ideation Tentative Discharge: Tomorrow Sodium 137 mmol/L (135-145) 01/12/19 15:27 Potassium 3.8 mmol/L (3.5-5.0) 01/12/19 15:27 BUN 12 mg/dL (6-24) 01/12/19 15:27 Creatinine 0.77 mg/dL (0.51-0.95) 01/12/19 15:27 Hemoglobin A1c 5.6 % (4.0-5.6) 01/16/19 06:18 Calcium 8.7 mg/dL (8.6-10.3) 01/12/19 15:27 AST 21 U/L (13-39) 01/12/19 15:27 ALT 29 U/L (7-52) 01/12/19 15:27 Triglycerides 72 mg/dL 01/16/19 06:18 Cholesterol 153 mg/dL 01/16/19 06:18 LDL Cholesterol 89 mg/dL 01/16/19 06:18 Continued Medication Management: Continue Outpt Medication Medications: Current Medications Acetaminophen (Tylenol Tab*) 650 mg PO Q4H PRN PRN Reason: PAIN or TEMP > 101 F Last Admin: 01/17/19 22:53 Dose: 650 mg Al Hydrox/Mg Hydrox/Simethicone (Maalox Plus*) 30 ml PO Q4H PRN PRN Reason: INDIGESTION Albuterol (Ventolin Hfa Inhaler*) 1 puff INH Q4H PRN PRN Reason: SOB/WHEEZING Epinephrine HCl (Adrenalin 1 Mg/Ml) 0.3 mg IM ONCE PRN PRN Reason: ANAPHYLAXIS Escitalopram Oxalate (Lexapro *) 20 mg PO DAILY [facility] Last Admin: 01/22/19 09:19 Dose: 20 mg Famotidine (Pepcid Tab*) 40 mg PO BID [facility] Last Admin: 01/22/19 09:20 Dose: 40 mg [place] Carbonate ([place] Carbonate Tab*) 300 mg PO BID [facility] Last Admin: 01/22/19 09:21 Dose: 300 mg Montelukast Sodium (Singulair Tab*) 10 mg PO DAILY [facility] Last Admin: 01/22/19 09:21 Dose: 10 mg Multivitamins (Theragran Tab*) 1 tab PO DAILY [facility] Last Admin: 01/22/19 09:21 Dose: 1 tab Nicotine (Nicotine Patch 21 Mg/24 Hr*) 1 patch TRANSDERM DAILY@0800 [facility] Last Admin: 01/22/19 07:59 Dose: Not Given Pharmacy Profile Note (Nicotine Patch Removal Note*) 1 note FOLLOW UP 0600 [facility] Last Admin: 01/22/19 07:59 Dose: Not Given - Discharge Plan Discharge Plan: Inpatient Hospitalization Outpatient Program: [facility]
[2019-01-22] MEDS ORDERED: diPHENhydraMINE PO* 50 MG PO SCH (21:00)
[2019-01-23] MEDS: Nicotine PATCH 21 MG/24 HR* PATCH TRANSDERM SCH (08:45)
[2019-01-23] MEDS: Famotidine TAB* 20 MG PO SCH (08:46)
[2019-01-23] MEDS: Escitalopram * 10 MG TAB PO SCH (08:46)
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
[2019-01-23] MEDS: Montelukast Sodium TAB* 10 MG PO SCH (08:47)
[2019-01-23] MEDS: Vitamin THERAPEUTIC TAB PO SCH (08:47)
[2019-01-23] MEDS: Lithium Carbonate TAB* 300 MG PO SCH (08:47)
[2019-01-23 09:02] VITALS: BP 116/71
[2019-01-23] MEDS: Nicotine Patch Removal NOTE FOLLOW UP SCH (10:18)
== END 2019-01-23 12:33 | disposition home or self-care (01) | DRG 885 ==
LOC: ED 14:56 → BSU 22:32
PROVIDERS: ADMIT Psychiatry & Neurology Psychiatry; ATTEND Psychiatry & Neurology Psychiatry
DX: F31.81 Bipolar II disorder (principal); F14.20 Cocaine dependence, uncomplicated; R45.851 Suicidal ideations; Z68.43 Body mass index [BMI] 50.0-59.9, adult; J45.909 Unspecified asthma, uncomplicated; F41.9 Anxiety disorder, unspecified; F90.9 Attention-deficit hyperactivity disorder, unspecified type; G47.30 Sleep apnea, unspecified; F12.20 Cannabis dependence, uncomplicated; F10.20 Alcohol dependence, uncomplicated; Y90.9 Presence of alcohol in blood, level not specified; F50.81 Binge eating disorder; F17.210 Nicotine dependence, cigarettes, uncomplicated; E66.01 Morbid (severe) obesity due to excess calories; Z62.810 Personal history of physical and sexual abuse in childhood; K25.9 Gastric ulcer, unspecified as acute or chronic, without hemorrhage or perforation; F43.10 Post-traumatic stress disorder, unspecified; F60.3 Borderline personality disorder; Z82.49 Family history of ischemic heart disease and other diseases of the circulatory system; Z91.011 Allergy to milk products; Z88.8 Allergy status to other drugs, medicaments and biological substances; Z91.018 Allergy to other foods; Z83.3 Family history of diabetes mellitus; Z91.5 Personal history of self-harm
CPT/HCPCS: 36415; 80053; 80061; 80178; 80307; 80320; 80329; 81003; 83036; 84443; 84702; 85025; 86780; 86803; 87389; 94660; 99222; 99232; 99233; 99238; 99284; A9270-GY; G0480

== ENCOUNTER 2019-02-15 19:34 | Emergency (ER) | payer OTHER, MEDICAID ==
--- NOTE | 2019-02-15 20:00 | ED ---
HPI Chest Pain - HPI Summary HPI Summary: 23 year old F presenting to [facility] complains of an episode of non-radiating constant left sided chest pain described as squeezing which lasted for 20 minutes at 16:00 today. No neck pain, left arm pain, palpitations. Has been having daily episodes of chest pain that usually last several minutes for the last 4 years. Patient has cardiac hx with unspecified dx. Was supposed to have cardiac testing done a couple months ago but never made her appointment. Wore a 24 hours Holter monitor once, and was told her heart skips and stops. Reports bilateral hand numbness and bilateral feet numbness x1 week. Reports being nauseous for couple days. Hasn't been eating much for 3 days because she doesn' t have money for food. Thought that she was having numbness because she hasn't been eating, and has vitamin deficiency, but she ate half a pizza today and still had numbness. The patient rates the pain 7/10 in severity. Symptoms aggravated by nothing. Symptoms alleviated by nothing. Patient denies fever, chills, erythema of eyes, sore throat, shortness of breath, cough, abdominal pain, vomiting, dysuria, hematuria, myalgia, edema, rash, or dizziness. States she is a recovering alcoholic. Admits to using marijuana. Has not been taking her medications for 2 days because she forgets. Has been taking vitamin gummies. - History of Current Complaint Chief Complaint: EDChestWallPain Time Seen by Provider: 02/15/19 19:53 Hx Obtained From: Patient Onset/Duration: Started Hours Ago, Resolved Timing: Constant, Lasting Minutes - 20 Current Severity: Moderate Pain Intensity: 7 Pain Scale Used: 0-10 Numeric Chest Pain Radiates: No Character: Pressure/Squeezing Aggravating Factor(s): Nothing Alleviating Factor(s): Nothing Associated Signs and Symptoms: Positive: Negative - neck pain, left arm pain, palpitations, fever, chills, erythema of eyes, sore throat, shortness of breath , cough, abdominal pain, vomiting, dysuria, hematuria, myalgia, edema, rash, or dizziness, Nausea - several days, Other: - bilateral hand numbness and bilateral feet numbness x1 week - Additional Pertinent History Primary Care Physician: [id number] - Allergy/Home Medications Allergies/Adverse Reactions: Allergies Allergy/AdvReac Type Severity Reaction Status Date / Time lactase Allergy Diarrhea Verified 02/15/19 20:05 milk Allergy Diarrhea Verified 02/15/19 20:05 wheat Allergy GI Upset Verified 02/15/19 20:05 ALCOHOL PREP Allergy Rash Uncoded 02/15/19 20:05 vieira and pollen AdvReac Mild Congestion Uncoded 05/17/18 19:16 Home Medications: Home Medications Multivit-Minerals/Folic Acid [Multivitamin Gummies Wome] 1 chw PO DAILY [History Confirmed 02/15/19] Trazodone HCl 100 mg PO BEDTIME 02/15/19 [History Confirmed 02/15/19] PMH/Surg Hx/FS Hx/Imm Hx Endocrine/Hematology History: Reports: Hx Diabetes - pt reports she is a "borderline diabetic" Denies: Hx Anticoagulant Therapy, Hx Blood Disorders, Hx Sickle Cell Disease , Hx Unexplained Bleeding Cardiovascular History: Reports: Other Cardiovascular Problems/Disorders - pt reports "something is wrong with my heart, it skips and stops" Denies: Hx Congestive Heart Failure, Hx Hypercholesterolemia, Hx Hypertension , Hx Pacemaker/ICD Respiratory History: Reports: Hx Asthma - uses inhaler GI History: Reports: Hx Ulcer - pt reports 4 ulcers Denies: Hx Cirrhosis, Hx Crohn's Disease, Hx Diverticulosis, Hx Gall Bladder Disease, Hx Gastroesophageal Reflux Disease, Hx Gastrointestinal Bleed, Hx Hiatal Hernia, Hx Irritable Bowel, Other GI Disorders History: Denies: Hx Dialysis, Hx Renal Disease, Other Problems/Disorders Musculoskeletal History: Reports: Hx Arthritis - left knee, Hx Back Problems - "floating piece of bone near spine"; L hip "issue;" degenerative disc dis., Hx Orthopedic Injury - "broken back", Other Musculoskeletal History - bilateral ankle injuries Denies: Hx Rheumatoid Arthritis, Hx Osteoporosis Sensory History: Reports: Hx Contacts or Glasses - GLASSES Denies: Hx Hearing Aid Opthamlomology History: Reports: Hx Contacts or Glasses - GLASSES Neurological History: Reports: Hx Headaches, Hx Migraine, 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 wisdom teeth,. Tongue Laceration Repair, 2000, Hx Anesthesia Reactions: No - Immunization History Date of Influenza Vaccine: 2018 Infectious Disease History: No Infectious Disease History: Denies: Hx of Known/Suspected MRSA, History Other Infectious Disease, Traveled Outside the [place] in Last 30 Days - Family History Known Family History: Positive: Diabetes, Other - cancer Family History: patient is adopted - Social History Alcohol Use: None Alcohol Amount: recovering alcoholic Hx Substance Use: Yes Substance Use Type: Reports: Cocaine, Heroin, Marijuana, Synthetic Drugs, Prescribed, Sedatives, Tranquilizers Substance Use Comment - Amount & Last Used: Hx of opiate Hx Tobacco Use: Yes Smoking Status (MU): Light Every Day Tobacco Smoker Type: Cigarettes Amount Used/How Often: 1-3 cig./day Have You Smoked in the Last Year: Yes Review of Systems Negative: Fever, Chills Negative: Erythema Negative: Sore Throat Positive: Chest Pain. Negative: Palpitations Negative: Shortness Of Breath, Cough Positive: Nausea. Negative: Abdominal Pain, Vomiting Negative: dysuria, hematuria Musculoskeletal: Negative - neck pain, left arm pain Negative: Myalgia, Edema Negative: Rash Neurological: Negative - Dizziness, Other - bilateral hand numbness and bilateral feet numbness All Other Systems Reviewed And Are Negative: Yes Physical Exam - Summary Physical Exam Summary: Constitutional: Well-developed, Well-nourished, Alert. (-) Distressed Skin: Warm, Dry HENT: Normocephalic; Atraumatic Eyes: Conjunctiva normal Neck: Musculoskeletal ROM normal neck. (-) JVD, (-) Stridor, (-) Tracheal deviation Cardio: Rhythm regular, rate normal, Heart sounds normal; Intact distal pulses; The pedal pulses are 2+ and symmetric. Radial pulses are 2+ and symmetric. (-) Murmur Pulmonary/Chest wall: Effort normal. (-) Respiratory distress, (-) Wheezes, (-) Rales Abd: Soft, (-) tenderness, (-) Distension, (-) Guarding, (-) Rebound Musculoskeletal: (-) Edema Lymph: (-) Cervical adenopathy Neuro: Alert, Oriented x3 Psych: Mood and affect Normal Triage Information Reviewed: Yes Vital Signs On Initial Exam: Initial Vitals Temp Pulse Resp BP Pulse Ox 97.1 F 81 16 140/92 98 02/15/19 19:41 02/15/19 19:41 02/15/19 19:41 02/15/19 19:41 02/15/19 19:41 Vital Signs Reviewed: Yes Procedures - Sedation Patient Received Moderate/Deep Sedation with Procedure: No Diagnostics - Vital Signs Vital Signs Temp Pulse Resp BP Pulse Ox 02/15/19 19:41 97.1 F 81 16 140/92 98 - Laboratory Result Diagrams: 02/15/19 20:12 02/15/19 20:12 Lab Statement: Any lab studies that have been ordered have been reviewed, and results considered in the medical decision making process. - EKG 1939 Cardiac Rate: NL - 79 BPM EKG Rhythm: Sinus Rhythm Re-Evaluation - Re-Evaluation First Eval Re-Evaluation Time: 21:41 Comment: informed of results. agrees to d/c Chest Pain Course/Dx - Course Course Of Treatment: 23 year old F complains of an episode of non-radiating constant left sided chest pain described as squeezing which lasted for 20 minutes at 16:00 today. Has been having daily episodes of chest pain that usually last several minutes for the last 4 years. Patient has cardiac hx with unspecified dx. Additionally c/o bilateral hand numbness and bilateral feet numbness x1 week. Has not been taking her medications for 2 days because she forgets. Has been taking vitamin gummies. Bloodwork results with no significant abnormalities except for RBC 4.92, glucose 101, lithium <10. An EKG shows NSR 79 BPM. In the ED course, the patient was given vitamin B1. no evidence of lithium toxicity. sx likely related to anxiety. she has multiple unrelated sx in multiple organ systems. Patient will be discharged home with follow up from her primary care provider in 2-3 days. Patient was instructed to return to Emergency Department for new or worsening symptoms. Patient understands and is agreeable to this plan. - Diagnoses Provider Diagnoses: Non compliance w medication regimen, Paresthesia Discharge ED - Sign-Out/Discharge Documenting (check all that apply): Patient Departure - Discharge Plan Condition: Stable Disposition: HOME Patient Education Materials: Paresthesia (ED) Referrals: Elias Medina MD [Primary Care Provider] - 2 Days Additional Instructions: Follow up with your primary care provider in 2-3 days. Return to the Emergency Department with new or worsening symptoms. - Attestation Statements Document Initiated by Scribe: Yes Documenting Scribe: Rosalina Howard Provider For Whom Scribe is Documenting (Include Credential): Mike Whitlock MD Scribe Attestation: Rosalina Chávez, scribed for Mike Whitlock MD on 02/15/19 at 2134. Status of Scribe Document: Ready
[2019-02-15 20:21] LABS: ABS Basophils 0.1 10^3/ul (0-0.2); ABS Eosinophils 0.1 10^3/ul (0-0.6); ABS Lymphocytes 2.5 10^3/ul (1.0-4.8); ABS Monocytes 0.5 10^3/ul (0-0.8); ABS Neutrophils 5.3 10^3/ul (1.5-7.7); Eosinophil % 1.7 %; Hematocrit 41 % (35-47); Lymphocyte % 28.8 %; Mean Corpuscular HGB Conc 34 g/dL (31-36); Mean Corpuscular Hemoglobin 28 pg (27-31); Mean Corpuscular Volume 84 fL (80-97); Mean Platelet Volume 8.4 fL (7.4-10.4); Platelet Count 277 10^3/uL (150-450); Red Blood Count 4.92 10^6 /uL (3.70-4.87); Red Cell Distribution Width 15 % (10-15); White Blood Count 8.5 10^3/uL (3.5-10.8)
[2019-02-15] MEDS ORDERED: Thiamine TAB* 100 MG TAB PO ONE (20:23)
[2019-02-15 20:38] LABS: ALT 30 U/L (7-52); AST 24 U/L (13-39); Albumin 3.8 g/dL (3.2-5.2); Albumin/Globulin Ratio 1.1 (1-3); Alkaline Phosphatase 95 U/L (34-104); Anion Gap 6 mmol/L (2-11); BUN/Creatinine Ratio 9.4 (8-20); Blood Urea Nitrogen 8 mg/dL (6-24); CO2 Carbon Dioxide 28 mmol/L (22-32); Calcium 8.9 mg/dL (8.6-10.3); Chloride 106 mmol/L (101-111); EGFR African American 101.2 (>60); EGFR Non-African American 83.6 (>60); Globulin 3.4 g/dL (2-4); Glucose 101 mg/dL (70-100); Potassium 3.9 mmol/L (3.5-5.0); Sodium 140 mmol/L (135-145); Total Protein 7.2 g/dL (6.4-8.9); Troponin I 0.01 ng/mL (<0.04)
[2019-02-15 21:39] LABS: Lithium < 0.10 mmol/L (0.6-1.2)
[2019-02-15 22:02] VITALS: BP 101/71
== END 2019-02-15 22:01 | disposition home or self-care (01) ==
LOC: ED 19:34
DX: R20.2 Paresthesia of skin (principal); Z91.14 Patient's other noncompliance with medication regimen; J45.909 Unspecified asthma, uncomplicated; F41.9 Anxiety disorder, unspecified; F90.9 Attention-deficit hyperactivity disorder, unspecified type; F17.210 Nicotine dependence, cigarettes, uncomplicated; Z79.899 Other long term (current) drug therapy
CPT/HCPCS: 36415; 80053; 80178; 83605; 84484; 85025; 93005; 99282; A9270-GY

== ENCOUNTER 2019-02-25 01:36 | Emergency (ER) | payer OTHER, MEDICAID ==
[2019-02-25] MEDS ORDERED: Meclizine TAB* 12.5 MG PO ONE (01:51)
--- NOTE | 2019-02-25 01:52 | ED ---
Dizziness - HPI Summary HPI Summary: The patient is a 23 y/o F arriving by ambulance to [facility] with a chief complaint of dizziness onset after eating dinner last night. She reports that she had been at a friends house eating dinner late last night, and then left because she felt dizzy. She was walking around town but then felt unbalanced and had mild chest pain. The dizziness is described as a head-spinning sensation rated 7/10 in severity. The sensation is aggravated with standing and alleviated by rest. She was in the ED on 02/15/19 for similar chest pains. PMHx : DM, cardiac hx without unspecified dx, asthma, anxiety, ADHD, depression, panic disorder, bipolar disorder. Light every day smoker, no EtOH, polysubstance use. Medications reviewed. Allergies noted. - History Of Current Complaint Chief Complaint: EDChestPainROMI Stated Complaint: CHEST PAIN;DIZZINESS PER EMS Time Seen by Provider: 02/25/19 01:44 Hx Obtained From: Patient Onset/Duration: Still Present Timing: Minutes Severity Initially: Moderate Severity Currently: Moderate Character: Head Spinning, Dizzy Aggravating Factor(s): Other - standing Alleviating Factor(s): Rest Associated Signs And Symptoms: Positive: Chest Pain - mild, Unsteady Gait, Other : - unbalanced sensation - Allergies/Home Medications Allergies/Adverse Reactions: Allergies Allergy/AdvReac Type Severity Reaction Status Date / Time lactase Allergy Diarrhea Verified 02/15/19 20:05 milk Allergy Diarrhea Verified 02/15/19 20:05 wheat Allergy GI Upset Verified 02/15/19 20:05 ALCOHOL PREP Allergy Rash Uncoded 02/15/19 20:05 vieira and pollen AdvReac Mild Congestion Uncoded 05/17/18 19:16 PMH/Surg Hx/FS Hx/Imm Hx Endocrine/Hematology History: Reports: Hx Diabetes - pt reports she is a "borderline diabetic" Denies: Hx Anticoagulant Therapy, Hx Blood Disorders, Hx Sickle Cell Disease , Hx Unexplained Bleeding Cardiovascular History: Reports: Other Cardiovascular Problems/Disorders - pt reports "something is wrong with my heart, it skips and stops" Denies: Hx Congestive Heart Failure, Hx Hypercholesterolemia, Hx Hypertension , Hx Pacemaker/ICD Respiratory History: Reports: Hx Asthma - uses inhaler GI History: Reports: Hx Ulcer - pt reports 4 ulcers Denies: Hx Cirrhosis, Hx Crohn's Disease, Hx Diverticulosis, Hx Gall Bladder Disease, Hx Gastroesophageal Reflux Disease, Hx Gastrointestinal Bleed, Hx Hiatal Hernia, Hx Irritable Bowel, Other GI Disorders History: Denies: Hx Dialysis, Hx Renal Disease, Other Problems/Disorders Musculoskeletal History: Reports: Hx Arthritis - left knee, Hx Back Problems - "floating piece of bone near spine"; L hip "issue;" degenerative disc dis., Hx Orthopedic Injury - "broken back", Other Musculoskeletal History - bilateral ankle injuries Denies: Hx Rheumatoid Arthritis, Hx Osteoporosis Sensory History: Reports: Hx Contacts or Glasses - GLASSES Denies: Hx Hearing Aid Opthamlomology History: Reports: Hx Contacts or Glasses - GLASSES Neurological History: Reports: Hx Headaches, Hx Migraine, 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 wisdom teeth,. Tongue Laceration Repair, 2000, Hx Anesthesia Reactions: No - Immunization History Date of Influenza Vaccine: 2017 Infectious Disease History: No Infectious Disease History: Denies: Hx of Known/Suspected MRSA, History Other Infectious Disease, Traveled Outside the [place] in Last 30 Days - Family History Known Family History: Positive: Hypertension, Diabetes, Other - cancer Family History: patient is adopted - Social History Alcohol Use: None Alcohol Amount: recovering alcoholic Hx Substance Use: Yes Substance Use Type: Reports: Cocaine, Heroin, Marijuana, Synthetic Drugs, Prescribed, Sedatives, Tranquilizers Substance Use Comment - Amount & Last Used: Hx of opiate Hx Tobacco Use: Yes Smoking Status (MU): Light Every Day Tobacco Smoker Type: Cigarettes Amount Used/How Often: 1-3 cig./day Have You Smoked in the Last Year: Yes Review of Systems Positive: Chest Pain - mild Neurological: Other - dizziness, unbalanced All Other Systems Reviewed And Are Negative: Yes Physical Exam - Summary Physical Exam Summary: Appearance: Well-appearing, Well-nourished, lying in bed comfortably Skin: Warm, dry, no obvious rash Eyes: sclera anicteric, no conjunctival pallor ENT: mucous membranes moist, pharynx appears normal Neck: Supple, nontender Respiratory: Clear to auscultation, no signs of respiratory distress Cardiovascular: Normal S1, S2. No murmurs. Normal distal pulses in tibial and radial bilaterally. Abdomen: Soft, nontender, normal active bowel sounds present Musculoskeletal: Normal, Strength/ROM Intact Neurological: A&Ox3, awake and alert, mentation is normal, speech is fluent and appropriate, no nystagmus, when she tried to stand her symptoms are reproduced and she felt very off balanced Psychiatric: affect is normal, does not appear anxious or depressed Triage Information Reviewed: Yes Vital Signs On Initial Exam: Initial Vitals Temp Pulse Resp BP Pulse Ox 97.9 F 88 18 105/79 97 02/25/19 01:39 02/25/19 01:39 02/25/19 01:39 02/25/19 01:39 02/25/19 01:39 Vital Signs Reviewed: Yes Procedures - Sedation Patient Received Moderate/Deep Sedation with Procedure: No Diagnostics - Vital Signs Vital Signs Temp Pulse Resp BP Pulse Ox 02/25/19 01:39 97.9 F 88 18 105/79 97 - Laboratory Lab Statement: Any lab studies that have been ordered have been reviewed, and results considered in the medical decision making process. - EKG 0139 Cardiac Rate: NL - 97 BPM EKG Rhythm: Sinus Rhythm Summary of EKG Findings: NSR at 97 BPM, P waves, QRS complex, and T waves are within normal limits, T waves and intervals are normal, no ischemic changes. This is a normal EKG. ED physician has reviewed and interpreted this EKG. Dizzy Course/Dx - Course Course Of Treatment: Patient is a 23 y/o F with chief complaint of "head- spinning" dizziness and mild CP with sensation of being off balance which is aggravated by standing up onset late last night. Physical exam reveals that the patient has reproducible symptoms with standing as she feels off-balanced, no nystagmus. In the ED course, the patient is administered Meclizine. EKG is NSR at 98 BPM without any ischemic changes. We discussed findings and plan for discharge with rx for Meclizine. She understands and agrees with this plan. Dx of peripheral vertigo. - Diagnoses Provider Diagnoses: Peripheral vertigo Discharge ED - Sign-Out/Discharge Documenting (check all that apply): Patient Departure - Patient will be discharged home. - Discharge Plan Condition: Stable Disposition: HOME Prescriptions: Meclizine TAB* [Antivert 12.5 TAB*] 25 mg PO TID PRN #25 tab PRN Reason: Dizziness Patient Education Materials: Benign Paroxysmal Positional Vertigo (ED) Referrals: Elias Medina MD [Primary Care Provider] - 1 Week (if symptoms have not resolved) - Billing Disposition and Condition Condition: STABLE Disposition: Home - Attestation Statements Document Initiated by Tre: Yes Documenting Scribe: Sarah Ge Provider For Whom Tre is Documenting (Include Credential): Dr. Michael Hanks MD Scribe Attestation: Sarah Chávez scribed for Dr. Michael Hanks MD on 02/25/19 at 0554. Scribe Documentation Reviewed: Yes Provider Attestation: The documentation as recorded by the Sarah rizzo accurately reflects the service I personally performed and the decisions made by me, Dr. Michael Hanks MD Status of Scribe Document: Viewed
--- OUTSIDE RECORDS SUMMARY | 2019-02-25 02:05 | XMS REPORT ---
:1995 Author Organization [facility] Care Team Providers Name Role Phone April Bose Primary Care Physician Unavailable Allergies, Adverse Reactions, Alerts Allergy Code CodeSystem Reaction Severity Criticality Status Start Substance Date Moderate Medications Medication Medication Medication Start Stop Route Dose Status Fill Code CodeSystem Date Date Instructions ARIPIPRAZOLE 5 RxNorm 2018-04 active for 30 MG TABS -07 day(s) Seroquel 333105 RxNorm oral 25 mg 1 active Take 1 tablet 9-07 tablet at bedtime at for 30 day(s) bedtime DIAZEPAM 5 MG RxNorm 2018-04 active for 30 TABS -16 day(s) Problems Problem Name Code CodeSystem Alternate Alternate Start End Status Narrative Code CodeSystem Date Date 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 Bipolar 27735135 SNOMED-CT Active affective 3-22 disorder, unspecified Relevant diagnostic tests/laboratory data Narrative No Information Procedures Procedure Code CodeSystem Target Date of Status Service Device Device Device Name Site Procedure Delivery Code Name UID Location Psychotherap [id number] SNOMED-CT () 2018-10-19 complete Mental y, 46 04 d Health- minutes with [facility] patient [address], [id number] Psychotherap [id number] SNOMED-CT () 2018-09-28 complete Mental y, 45 04 d Health- minutes with [facility] patient [address], [id number] [employer] [id number] SNOMED-CT () 2018-10-30 complete Mental l 7 d Health- intervention [facility] for medical [facility] [address] [facility] on [facility], psychiatric [place], [facility], [facility] [place], behalf with [phone] agencies, [phone] employers, or institutions Office or [id number] SNOMED-CT () 2018-10-30 complete Mental other 7 d Health- outpatient [facility] visit for [address], established [id number] patient, [phone] which requires at least 2 of these 3 mir components: An expanded problem focused history; An expanded problem focused examination; Medical decision making of [facility] Office or [id number] SNOMED-CT () 2018-10-25 complete Mental other 7 d Health- outpatient [facility] visit for [address], established [id number] patient, [phone] which requires at least 2 of these 3 mir components: An expanded problem focused history; An expanded problem focused examination; Medical decision making of [facility] Office or [id number] SNOMED-CT () 2018-10-23 complete Mental other 6 d Health- outpatient [facility] visit for [address], established [phone] patient, [phone] which requires at least 2 of these 3 mir components: A problem focused history; A problem focused examination; [place] medical decision making. Counselin Office or [id number] SNOMED-CT () 2019-01-24 complete Mental other 6 d Health- outpatient [facility] visit for [address], established [phone] patient, [phone] which requires at least 2 of these 3 mir components: A problem focused history; A problem focused examination; [place] medical decision making. Counselin Office or [id number] SNOMED-CT () 2019-02-07 complete Mental other 6 d Health- outpatient [facility] visit for [address], established [id number] patient, [phone] which requires at least 2 of these 3 mir components: A problem focused history; A problem focused examination; [place] medical decision making. Counselin Office or [id number] SNOMED-CT () 2018-11-27 complete Mental other 6 d Health- outpatient [facility] visit for [address], established [phone] patient, [phone] which requires at least 2 of these 3 mir components: A problem focused history; A problem focused examination; [place] medical decision making. Counselin Office or [id number] SNOMED-CT () 2018-11-08 complete Mental other 6 d Health- outpatient [facility] visit for [address], of an [facility] established [phone] patient, [phone] which requires at least 2 of these 3 mir components: A problem focused history; A problem focused examination; [place] medical decision making. Counselin SNOMED-CT () 2019-02-05 complete Mental d [address], [id number] SNOMED-CT () 2018-11-09 complete Mental d [address], [id number] SNOMED-CT () 2018-11-15 complete Mental d [address], [id number] SNOMED-CT () 2018-10-03 complete Mental d [address], [id number] SNOMED-CT () 2018-10-12 complete Mental d [address], [id number] SNOMED-CT () 2018-10-26 complete Mental d [address], [id number] SNOMED-CT () 2018-12-31 [facility] Mental d [address], [id number] [id number] Encounters/Encounter Diagnoses Encounter Name Encounter Diagnosis Diagnosis Diagnosis Date of Service Code Code Name CodeSystem Diagnosis Delivery Location [facility] [id number] Emotionally SNOMED-CT 2019-02-07 Behavioral Established unstable Health patient [facility] [address] disorder [place], [place], [phone] Vital Signs No Information Social History Element Description Description Start End Code CodeSystem AdditionalInfo Date Date SexAssignedAtBirth Female 1995-0 F AdministrativeGender 5-23 Hospital Discharge Instructions Reason For Referral Medical Equipment FDA Assessments
[2019-02-25 02:20] VITALS: BP 106/63
== END 2019-02-25 02:20 | disposition home or self-care (01) ==
LOC: ED 01:36
DX: H81.399 Other peripheral vertigo, unspecified ear (principal); F17.210 Nicotine dependence, cigarettes, uncomplicated
CPT/HCPCS: 93005; 99284; A9270-GY

== ENCOUNTER 2019-05-06 01:32 | Emergency (ER) | payer OTHER, MEDICAID ==
--- NOTE | 2019-05-06 05:58 | ED ---
Complex/Multi-Sys Presentation - HPI Summary HPI Summary: 23-year-old female presents to the emergency department today via EMS with a chief complaint of a rash and itching which is last for approximately 4 hours. Patient states she has a rash to her arms and back. Patient also has multiple generalized and vague complaints such as chronic lower externally pain and bruising throughout her body. Patient states she has many chronic medical problems. There are multiple bruises noted throughout the patient's body such as on the upper extremities and lower extremity. Many of these bruises the patient states are due to injecting Suboxone because "I'm immune to it". Patient states she has also been injecting water into her arms because"I'm dehydrated". Family history and surgical history noncontributory. Patient denies fever, chest pain, abdominal pain, pain with urination, shortness of breath. - History Of Current Complaint Chief Complaint: EDGeneral Time Seen by Provider: 05/06/19 05:34 Hx Obtained From: Patient Onset/Duration: Gradual Onset Timing: Constant Severity Currently: Mild Severity Initially: Mild - Allergies/Home Medications Allergies/Adverse Reactions: Allergies Allergy/AdvReac Type Severity Reaction Status Date / Time gabapentin Allergy Anaphylatic Verified 05/06/19 04:15 Shock lactase Allergy Diarrhea Verified 05/06/19 01:38 milk Allergy Diarrhea Verified 05/06/19 01:38 wheat Allergy GI Upset Verified 05/06/19 01:38 ALCOHOL PREP Allergy Rash Uncoded 05/06/19 01:38 vieira and pollen AdvReac Mild Congestion Uncoded 05/06/19 01:38 Home Medications: Home Medications Buprenorphine HCl/Naloxone HCl [Suboxone 12 mg-3 mg Sl Film] 1 film SL FILM DAILY 05/06/19 [History Confirmed 05/06/19] Doxycycline Hyclate 1 tab PO BID 05/06/19 [History Confirmed 05/06/19] Escitalopram * [Lexapro 10 mg (NF)] 20 mg PO BID 05/06/19 [History Confirmed 06/20] [place] Carbonate TAB* 600 mg PO BID 05/06/19 [History Confirmed 05/06/19] Meloxicam [Mobic] 15 mg PO DAILY 05/06/19 [History Confirmed 05/06/19] PMH/Surg Hx/FS Hx/Imm Hx Endocrine/Hematology History: Reports: Hx Diabetes - pt reports she is a "borderline diabetic" Denies: Hx Anticoagulant Therapy, Hx Blood Disorders, Hx Sickle Cell Disease , Hx Unexplained Bleeding Cardiovascular History: Reports: Other Cardiovascular Problems/Disorders - pt reports "something is wrong with my heart, it skips and stops" Denies: Hx Congestive Heart Failure, Hx Hypercholesterolemia, Hx Hypertension , Hx Pacemaker/ICD Respiratory History: Reports: Hx Asthma - uses inhaler GI History: Reports: Hx Ulcer - pt reports 4 ulcers Denies: Hx Cirrhosis, Hx Crohn's Disease, Hx Diverticulosis, Hx Gall Bladder Disease, Hx Gastroesophageal Reflux Disease, Hx Gastrointestinal Bleed, Hx Hiatal Hernia, Hx Irritable Bowel, Other GI Disorders History: Denies: Hx Dialysis, Hx Renal Disease, Other Problems/Disorders Musculoskeletal History: Reports: Hx Arthritis - left knee, Hx Back Problems - "floating piece of bone near spine"; L hip "issue;" degenerative disc dis., Hx Orthopedic Injury - "broken back", Other Musculoskeletal History - bilateral ankle injuries Denies: Hx Rheumatoid Arthritis, Hx Osteoporosis Sensory History: Reports: Hx Contacts or Glasses - GLASSES Denies: Hx Hearing Aid Opthamlomology History: Reports: Hx Contacts or Glasses - GLASSES Neurological History: Reports: Hx Headaches, Hx Migraine, 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 wisdom teeth,. Tongue Laceration Repair, 2001, Hx Anesthesia Reactions: No - Immunization History Date of Influenza Vaccine: 2018 Infectious Disease History: No Infectious Disease History: Denies: Hx of Known/Suspected MRSA, History Other Infectious Disease, Traveled Outside the [place] in Last 30 Days - Family History Known Family History: Positive: Hypertension, Diabetes, Other - cancer Family History: patient is adopted - Social History Alcohol Use: None Alcohol Amount: recovering alcoholic Hx Substance Use: Yes Substance Use Type: Reports: Marijuana, Synthetic Drugs, Prescribed, Sedatives, Tranquilizers Substance Use Comment - Amount & Last Used: Hx of opiate Hx Tobacco Use: Yes Smoking Status (MU): Heavy Every Day Tobacco Smoker Type: Cigarettes Amount Used/How Often: 1-3 cig./day Have You Smoked in the Last Year: Yes Review of Systems Constitutional: Negative Eyes: Negative ENT: Negative Cardiovascular: Negative Respiratory: Negative Gastrointestinal: Negative Genitourinary: Negative Positive: Arthralgia, Myalgia Positive: Rash, Bruising Neurological: Negative Psychological: Normal All Other Systems Reviewed And Are Negative: Yes Physical Exam - Summary Physical Exam Summary: Obese female in no acute distress resting comfortable on the stretcher. Many parts of the exam appear exaggerated. There is no evidence of rash on the patient's back or upper extremities. There are small areas of dry skin. There are multiple bruises noted throughout the patient's upper extremities consistent with patient's history of injection. Triage Information Reviewed: Yes Vital Signs On Initial Exam: Initial Vitals Temp Pulse Resp BP Pulse Ox 98.0 F 68 16 103/73 97 05/06/19 01:36 05/06/19 01:36 05/06/19 01:36 05/06/19 01:36 05/06/19 01:36 Vital Signs Reviewed: Yes Appearance: Positive: Well-Appearing, No Pain Distress, Well-Nourished Eyes: Positive: EOMI, CASEY ENT: Positive: Hearing grossly normal Respiratory/Lung Sounds: Positive: Clear to Auscultation, Breath Sounds Present , Decreased Breath Sounds Cardiovascular: Positive: RRR, S1, S2 Abdomen Description: Positive: Nontender, No Organomegaly, Soft Musculoskeletal: Positive: Strength/ROM Intact Neurological: Positive: Sensory/Motor Intact, Alert, Oriented to Person Place, Time, Normal Gait, Facial Symmetry, Speech Normal Psychiatric: Positive: Normal, Affect/Mood Appropriate, Anxious AVPU Assessment: Alert Procedures - Sedation Patient Received Moderate/Deep Sedation with Procedure: No Diagnostics - Vital Signs Vital Signs Temp Pulse Resp BP Pulse Ox 05/06/19 05:31 57 96 05/06/19 05:29 58 105/62 96 05/06/19 01:36 98.0 F 68 16 103/73 97 - Laboratory Result Diagrams: 05/06/19 06:13 05/06/19 06:13 Lab Statement: Any lab studies that have been ordered have been reviewed, and results considered in the medical decision making process. Complex Multi-Symp Course/Dx Course Of Treatment: Patient was evaluated in the emergency department today for itchiness. Patient was seen and examined her vitals were stable. Laboratory studies returned showing no abnormalities with no evidence of pruritus due to hepatic disease. Patient's symptoms likely due to dry skin. Patient discharged with outpatient follow-up. - Diagnoses Differential Diagnoses/HQI/PQRI: Metabolic Abnormality, Urinary Tract Infection Provider Diagnoses: Pruritus Discharge ED - Sign-Out/Discharge Documenting (check all that apply): Patient Departure - Discharge Plan Condition: Stable Disposition: HOME Patient Education Materials: Dermatitis (ED) Referrals: Elias Medina MD [Primary Care Provider] - 3 Days Additional Instructions: You were seen in the emergency department today and blood work was done which showed no evidence of acute medical problems requiring intervention at this time. Please follow-up with your primary care provider for further evaluation and management. Please return to the emergency department immediately if you develop any new or worsening symptoms. - Billing Disposition and Condition Condition: STABLE Disposition: Home
[2019-05-06 06:20] LABS: ABS Basophils 0.1 10^3/ul (0-0.2); ABS Eosinophils 0.2 10^3/ul (0-0.6); ABS Lymphocytes 2.2 10^3/ul (1.0-4.8); ABS Monocytes 0.6 10^3/ul (0-0.8); ABS Neutrophils 2.2 10^3/ul (1.5-7.7); Eosinophil % 3.2 %; Hematocrit 38 % (35-47); Hemoglobin 12.6 g/dL (12.0-16.0); Lymphocyte % 42.4 %; Mean Corpuscular HGB Conc 33 g/dL (31-36); Mean Corpuscular Hemoglobin 27 pg (27-31); Mean Corpuscular Volume 83 fL (80-97); Mean Platelet Volume 8.9 fL (7.4-10.4); Nucleated Red Blood Cells % 0.1; Platelet Count 208 10^3/uL (150-450); Red Blood Count 4.62 10^6 /uL (3.70-4.87); Red Cell Distribution Width 15 % (10-15); White Blood Count 5.3 10^3/uL (3.5-10.8)
[2019-05-06 06:37] LABS: Albumin 3.5 g/dL (3.2-5.2); Albumin/Globulin Ratio 1.2 (1-3); BUN/Creatinine Ratio 13.8 (8-20); Calcium 8.7 mg/dL (8.6-10.3); EGFR African American 98.5 (>60); EGFR Non-African American 81.4 (>60); Magnesium 1.7 mg/dL (1.9-2.7); Total Bilirubin 0.3 mg/dL (0.2-1.0); Total Protein 6.5 g/dL (6.4-8.9)
[2019-05-06 07:03] VITALS: BP 118/74
== END 2019-05-06 07:21 | disposition home or self-care (01) ==
LOC: ED 01:32
DX: L29.9 Pruritus, unspecified (principal); E11.9 Type 2 diabetes mellitus without complications; J45.909 Unspecified asthma, uncomplicated; F41.9 Anxiety disorder, unspecified; F90.9 Attention-deficit hyperactivity disorder, unspecified type; F31.9 Bipolar disorder, unspecified; F43.10 Post-traumatic stress disorder, unspecified; F17.210 Nicotine dependence, cigarettes, uncomplicated; Z79.899 Other long term (current) drug therapy; Z88.8 Allergy status to other drugs, medicaments and biological substances
CPT/HCPCS: 36415; 80053; 83735; 85025; 99283

== ENCOUNTER 2019-05-06 22:23 | Emergency (ER) | payer OTHER, MEDICAID ==
[2019-05-06 23:43] LABS: Urine Benzodiazepine Screen None Detected (None Detect); Urine Opiates Screen None Detected (None Detect)
--- NOTE | 2019-05-06 23:56 | ED ---
Psychiatric Complaint - HPI Summary HPI Summary: This pt is a 23 Y/O F presenting to [facility] as a 9.41 by police due to suicidal ideations and gestures. Per EMS the pt caught her significant other lying to her and proceeded to go to her friends house and began arguing with her significant other. She states that they were not listening to her and so she [I ] put a knife to my throat. She states that she was no trying to kill herself and was just trying to scare them. She states that she also has nerve damage and arthritis in her L knee. She states that her heart skips beats. She states that she may be but is unsure. She also reports that she has spine pain and R shoulder pain and is reporting about bruising due to police involvement. She denies any homicidal ideations, fevers, CP, and headaches. She has no alleviating factors. She has a PMHx of arthritis in her L knee, bipolar disorder, and suicidal attempts. - History Of Current Complaint Chief Complaint: EDMentalHealth Time Seen by Provider: 05/06/19 22:31 Hx Obtained From: Patient ?: No - states that she could be but is unsure Onset/Duration: Sudden Onset, Resolved Timing: Constant Severity Initially: Moderate Severity Currently: Moderate Character: Depressed, Frustrated Aggravating Factor(s): Recent Stress - states she was in an argument with her friend and her significant other Alleviating Factor(s): Nothing Associated Signs And Symptoms: Positive: Hostile Related History: Positive For: Prior Psychiatric Issues Has Suicidal: Reports: Thoughts, With A Plan, Demonstrates Gesture, Has Prior Attempt(s) Has Homicidal: Denies: Thoughts, With A Plan Recent Stressor(s): argument with her significant other and friend - Allergies/Home Medications Allergies/Adverse Reactions: Allergies Allergy/AdvReac Type Severity Reaction Status Date / Time gabapentin Allergy Anaphylatic Verified 05/06/19 04:15 Shock lactase Allergy Diarrhea Verified 05/06/19 01:38 milk Allergy Diarrhea Verified 05/06/19 01:38 wheat Allergy GI Upset Verified 05/06/19 01:38 ALCOHOL PREP Allergy Rash Uncoded 05/06/19 01:38 vieira and pollen AdvReac Mild Congestion Uncoded 05/06/19 01:38 PMH/Surg Hx/FS Hx/Imm Hx Previously Healthy: Yes Endocrine/Hematology History: Reports: Hx Diabetes - pt reports she is a "borderline diabetic" Denies: Hx Anticoagulant Therapy, Hx Blood Disorders, Hx Sickle Cell Disease , Hx Unexplained Bleeding Cardiovascular History: Reports: Other Cardiovascular Problems/Disorders - pt reports "something is wrong with my heart, it skips and stops" Denies: Hx Congestive Heart Failure, Hx Hypercholesterolemia, Hx Hypertension , Hx Pacemaker/ICD Respiratory History: Reports: Hx Asthma - uses inhaler GI History: Reports: Hx Ulcer - pt reports 4 ulcers Denies: Hx Cirrhosis, Hx Crohn's Disease, Hx Diverticulosis, Hx Gall Bladder Disease, Hx Gastroesophageal Reflux Disease, Hx Gastrointestinal Bleed, Hx Hiatal Hernia, Hx Irritable Bowel, Other GI Disorders History: Denies: Hx Dialysis, Hx Renal Disease, Other Problems/Disorders Musculoskeletal History: Reports: Hx Arthritis - left knee, Hx Back Problems - "floating piece of bone near spine"; L hip "issue;" degenerative disc dis., Hx Orthopedic Injury - "broken back", Other Musculoskeletal History - bilateral ankle injuries Denies: Hx Rheumatoid Arthritis, Hx Osteoporosis Sensory History: Reports: Hx Contacts or Glasses - GLASSES Denies: Hx Hearing Aid Opthamlomology History: Reports: Hx Contacts or Glasses - GLASSES Neurological History: Reports: Hx Headaches, Hx Migraine, 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 wisdom teeth,. Tongue Laceration Repair, 2001, Hx Anesthesia Reactions: No - Immunization History Date of Influenza Vaccine: 2018 Infectious Disease History: No Infectious Disease History: Denies: Hx of Known/Suspected MRSA, History Other Infectious Disease, Traveled Outside the [place] in Last 30 Days - Family History Known Family History: Positive: Hypertension, Diabetes, Other - cancer Family History: patient is adopted - Social History Alcohol Use: None Alcohol Amount: recovering alcoholic Hx Substance Use: Yes Substance Use Type: Reports: Marijuana, Synthetic Drugs, Prescribed, Sedatives, Tranquilizers Substance Use Comment - Amount & Last Used: Hx of opiate Hx Tobacco Use: Yes Smoking Status (MU): Heavy Every Day Tobacco Smoker Type: Cigarettes Amount Used/How Often: 1-3 cig./day Have You Smoked in the Last Year: Yes Review of Systems Negative: Fever Negative: Chest Pain Positive: Decreased ROM - L knee, Hx of arthritis , Other - back pain, shoulder pain Positive: Bruising - states due to police envolvement Negative: Headache Psychological: Other - NEGATIVE: Homicidal ideation, POSITIVE: suicidal ideation with gestures and prior attempts All Other Systems Reviewed And Are Negative: Yes Physical Exam - Summary Physical Exam Summary: Appearance: Well-appearing, Well-nourished, lying in bed comfortable Skin: Warm, dry, no obvious rash Eyes: sclera anicteric, no conjunctival pallor ENT: mucous membranes moist Neck: deferred, superficial abrasion consistent with holding a knife to her neck Respiratory: No signs of respiratory distress Cardiovascular: Appears well perfused, pulses are nml Abdomen: deferred Musculoskeletal: Moving all 4 extremities without obvious discomfort Neurological: Awake and alert, mentation is normal, speech is fluent and appropriate Psychiatric: affect is normal, does not appear anxious or depressed Triage Information Reviewed: Yes Vital Signs On Initial Exam: Initial Vitals Temp Pulse Resp BP Pulse Ox 98.3 F 79 16 139/86 97 05/06/19 22:32 05/06/19 22:32 05/06/19 22:32 05/06/19 22:32 05/06/19 22:32 Vital Signs Reviewed: Yes Procedures - Sedation Patient Received Moderate/Deep Sedation with Procedure: No Diagnostics - Vital Signs Vital Signs Temp Pulse Resp BP Pulse Ox 05/06/19 22:32 98.3 F 79 16 139/86 97 - Laboratory Lab Results: Lab Results 05/06/19 Range/Units 23:12 Urine Opiates Screen None detected (None Detect) Ur Barbiturates Screen None detected (None Detect) Ur Phencyclidine Scrn None detected (None Detect) Ur Amphetamines Screen None detected (None Detect) U Benzodiazepines Scrn None detected (None Detect) Urine Cocaine Screen None detected (None Detect) U Cannabinoids Screen None detected (None Detect) Result Diagrams: 05/07/19 00:08 05/07/19 00:08 Lab Statement: Any lab studies that have been ordered have been reviewed, and results considered in the medical decision making process. - Radiology Shoulder X-Ray Radiology Interpretation Completed By: ED Physician Summary of Radiographic Findings: Negative for any acute break or fracture. Pending offical review. Thoracic X-Ray Radiology Interpretation Completed By: ED Physician Summary of Radiographic Findings: Negative for any acute break or fracture. Pending offical review. Lumbar X-Ray Radiology Interpretation Completed By: ED Physician Summary of Radiographic Findings: Negative for any acute break or fracture. Pending offical review. Course/Dx - Course Course Of Treatment: This pt is a 23 Y/O F presenting to [facility] as a 9.41 by police due to suicidal ideations. Per EMS the pt caught her significant other lying to her and proceeded to go to her friends house and began arguing with her significant other. She states that they were not listening to her and so she [I] put a knife to my throat. She states that she was no trying to kill herself and was just trying to scare them. She states that she also has nerve damage and arthritis in her L knee. Her PE found that she has a very superficial abrasion consistent with holding a knife to her throat. She has no abnormal labratory values. Her Lumbar, Shoulder, and Thoracic spine films are negative for any acute break or fracture. She will be signed out to Dr. Colin MD by Dr. Demario MD at shift change 0700 05/07/2019 pending a MH transfer with a Dx of mood disorder NOS per Dr. Garcia, psychiatrist, who consulted at 2019 0340. - Differential Dx/Clinical Impression Provider Diagnosis: Mood disorder - Physician Notifications Discussed Care Of Patient With: Tariq Garcia Time Discussed With Above Provider: 03:41 Instructed by Provider To: Transfer Patient Is Medically Stable For: Psych Evaluation - 0000, Transfer Admit/Transition Orders Completed By ED Provider: Yes Discharge ED - Sign-Out/Discharge Documenting (check all that apply): Sign-Out Patient Signing out patient TO: Stephane Shaw - Discharge Plan Condition: Stable Disposition: HOME Patient Education Materials: Mood Disorders (ED) Referrals: Elias Medina MD [Primary Care Provider] - Additional Instructions: Pt comes into ED BIB police after police were called to an apartment where pt was causing an altercation. Pt was screaming, throwing things, and refusing to leave the apartment. Pt took a kitchen knife and held it to her wrist and threatened suicide. She then took the knife and held it to her throat and stated she was going to kill herself. An acquaintance in the apartment wrestled the knife from her possession. Pt physically fought with police officers when they tried to remove her from the apartment. During evaluation process patient presented as depressed, flat, not goal directed, dismissive and irritable. She was agitated during evaluation process. Admits to several suicide attempts in the past starting at age 12. History of drug and alcohol abuse, but reports being sober for 1 year. Pt was reevaluated in the morning. She denies SI and HI, and states she wants to go home. Pt is not seen as a safety risk to herself or others at this time. Pt to be discharged with a diagnosis of Mood Disorder NOS, and follow up with [facility]. IMPORTANT PHONE NUMBERS: [facility] Behavioral Services Unit: [facility] Emergency Room Behavioral Pod: Suicide Prevention and Crisis Services: The Chat: Text (free and confidential online crisis service sponsored by [facility] Suicide Prevention, available Monday-Monday 6pm 9pm) National Suicide Prevention Lifeline: (063) 910-ICTI (1848) National Crisis Text Line: Text SAMLO to 188577 [facility] Mental Health Clinic: [facility] Outreach for Older Adults: [facility] Mental Health Association: [facility] [place]: [facility] Police: [facility] Sheriff: [place] Police Department: Alcoholics Anonymous: Narcotics Anonymous: Alcohol and Drug [place] [facility]: [facility] ([facility]) Outpatient Services: [place] Community Recovery: (715) 571-3288274-6288 Alcohol & Drug Crisis: Kevin Martinez: Department of Veterinary Radiologist: [place] [facility] [place]: [facility] Community Action: [place] Housing Authority: [facility]: [facility] Housing Services: [facility] Independent Center: [facility] ACT Team: [employer] Charities: Food Bank [facility]: Loaves and Fishes (free daily meals): [facility] Action Food Pantry: Advocacy Center: or Youth Advocacy Center (YAP): [facility] Activities Center (GIAC): Open Doors: [place] Youth Wood: - Billing Disposition and Condition Condition: STABLE Disposition: Home - Attestation Statements Document Initiated by Tre: Yes Documenting Scribe: Lang Farrell Provider For Whom Tre is Documenting (Include Credential): Michael Hanks MD Scribe Attestation: Lang Chávez, scribed for Michael Hanks MD on 05/08/19 at 0509. Scribe Documentation Reviewed: Yes Provider Attestation: The documentation as recorded by the Lang rizzo accurately reflects the service I personally performed and the decisions made by me, Michael Hanks MD Status of Scribe Document: Viewed
[2019-05-07 00:18] LABS: ABS Basophils 0.1 10^3/ul (0-0.2); ABS Eosinophils 0.1 10^3/ul (0-0.6); ABS Lymphocytes 1.8 10^3/ul (1.0-4.8); ABS Monocytes 0.5 10^3/ul (0-0.8); ABS Neutrophils 5.1 10^3/ul (1.5-7.7); Eosinophil % 0.8 %; Hematocrit 40 % (35-47); Hemoglobin 13.1 g/dL (12.0-16.0); Lymphocyte % 23.5 %; Mean Corpuscular HGB Conc 33 g/dL (31-36); Mean Corpuscular Hemoglobin 28 pg (27-31); Mean Corpuscular Volume 83 fL (80-97); Mean Platelet Volume 9.1 fL (7.4-10.4); Platelet Count 238 10^3/uL (150-450); Red Blood Count 4.77 10^6 /uL (3.70-4.87); Red Cell Distribution Width 15 % (10-15); White Blood Count 7.5 10^3/uL (3.5-10.8)
[2019-05-07 00:33] LABS: ALT 39 U/L (7-52); Albumin 3.8 g/dL (3.2-5.2); Albumin/Globulin Ratio 1.2 (1-3); Alkaline Phosphatase 63 U/L (34-104); BUN/Creatinine Ratio 10.7 (8-20); Blood Urea Nitrogen 9 mg/dL (6-24); CO2 Carbon Dioxide 28 mmol/L (22-32); Chloride 104 mmol/L (101-111); EGFR African American 102.6 (>60); EGFR Non-African American 84.8 (>60); Globulin 3.3 g/dL (2-4); Glucose 89 mg/dL (70-100); Sodium 135 mmol/L (135-145); Total Protein 7.1 g/dL (6.4-8.9)
[2019-05-07 00:39] LABS: HCG Pregnancy < 0.60 mIU/mL
[2019-05-07 00:39] LABS: Urine Appearance Clear; Urine Bilirubin Negative (Negative); Urine Blood Negative (Negative); Urine Color Yellow; Urine Glucose Negative (Negative); Urine Ketones Negative (Negative); Urine Nitrite Negative (Negative); Urine Protein 2+(100 mg/dL) (Negative); Urine Specific Gravity 1.016 (1.010-1.030); Urine Urobilinogen Negative (Negative)
[2019-05-07 00:42] LABS: Urine Bacteria 1+ (Absent); Urine Granular Casts Present (Absent); Urine Red Blood Cell Trace(0-2/hpf) (Absent); Urine Squamous Epithelial Cell Present (Absent); Urine White Blood Cell Trace(0-5/hpf) (Absent)
[2019-05-07 01:03] LABS: Anion Gap 3 mmol/L (2-11)
[2019-05-07 01:23] LABS: Acetaminophen < 15 mcg/mL; Alcohol < 10 mg/dL (<10); Salicylate < 2.50 mg/dL (<30)
[2019-05-07 01:38] LABS: TSH (Thyroid Stimulating Horm) 2.33 mcIU/mL (0.34-5.60)
[2019-05-07] MEDS ORDERED: Acetaminophen TAB* 325 MG PO ONE (01:47)
--- OUTSIDE RECORDS SUMMARY | 2019-05-07 03:20 | XMS REPORT ---
:1995 Author Organization [facility] Care Team Providers Name Role Phone FABIAN ASTORGA Primary Care Physician Unavailable Allergies, Adverse Reactions, Alerts Allergy Code CodeSystem Reaction Severity Criticality Status Start Substance Date Moderate Medications Medication Medication Medication Start Stop Route Dose Status Fill Code CodeSystem Date Date Instructions ARIPIPRAZOLE 5 RxNorm 2018-04 active for 30 MG TABS -07 day(s) Seroquel 904383 RxNorm oral 25 mg 1 active Take 1 tablet 9-07 tablet at bedtime at for 30 day(s) bedtime DIAZEPAM 5 MG RxNorm 2018-04 active for 30 TABS -16 day(s) Problems Problem Name Code CodeSystem Alternate Alternate Start End Status Narrative Code CodeSystem Date Date Bipolar 94908328 SNOMED-CT Active affective 3-22 disorder, unspecified 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 Relevant diagnostic tests/laboratory data Narrative No Information Procedures Procedure Code CodeSystem Target Date of Status Service Device Device Device Name Site Procedure Delivery Code Name UID Location Psychotherap 312604 SNOMED-CT () 2018-10-19 complete Mental y, 45 04 d Health- minutes with [address], [id number] Psychotherap [id number] SNOMED-CT () 2019-04-12 complete Mental y, 45 04 d Health- minutes with [address], [id number] Psychotherap [id number] SNOMED-CT () 2018-09-28 complete Mental y, 45 04 d Health- minutes with [address], [id number] [employer] [id number] SNOMED-CT () 2018-10-30 complete Mental l 7 d Health- intervention [facility] [place], behalf with [id number] agencies, [phone] employers, or institutions Office or [id number] SNOMED-CT () 2018-10-30 complete Mental other 7 d Health- outpatient [place] visit for [address] Jeremy formerly [facility], established [id number] patient, [phone] which requires at least 2 of these 3 mir components: An expanded problem focused history; An expanded problem focused examination; Medical decision making of [facility] Office or [id number] SNOMED-CT () 2018-10-25 complete Mental other 7 d Health- outpatient [place] visit for [address], established [id number] patient, [id number] which requires at least 2 of these 3 mir components: An expanded problem focused history; An expanded problem focused examination; Medical decision making of [facility] Office or [id number] SNOMED-CT () 2018-10-23 complete Mental other 6 d Health- outpatient [place] visit for [address], established [id number] patient, [id number] which requires at least 2 of these 3 mir components: A problem focused history; A problem focused examination; [place] medical decision making. Counselin Office or [id number] SNOMED-CT () 2019-01-24 complete Mental other 6 d Health- outpatient [place] visit for [address], established [id number] patient, [phone] which requires at least 2 of these 3 mir components: A problem focused history; A problem focused examination; [place] medical decision making. Counselin Office or [id number] SNOMED-CT () 2019-02-07 complete Mental other 6 d Health- outpatient [place] visit for [address], established [id number] patient, [id number] which requires at least 2 of these 3 mir components: A problem focused history; A problem focused examination; [place] medical decision making. Counselin Office or [id number] SNOMED-CT () 2018-11-27 complete Mental other 6 d Health- outpatient [place] visit for [address], [facility], established [id number] patient, [id number] which requires at least 2 of these 3 mir components: A problem focused history; A problem focused examination; [place] medical decision making. Jonathan Office or [id number] SNOMED-CT () 2018-11-08 complete Mental other 6 d Health- outpatient [place] visit for [address], established [id number] patient, [phone] which requires at least 2 of these 3 mir components: A problem focused history; A problem focused examination; [place] medical decision making. Jonathan SNOMED-CT () 2019-02-05 complete Mental d Health[address], [id number] SNOMED-CT () 2018-11-09 complete Mental d [address], [id number] SNOMED-CT () 2018-11-15 complete Mental d Health[address], [id number] SNOMED-CT () 2018-10-03 complete Mental d Health[address], [id number] SNOMED-CT () 2018-10-12 complete Mental d [address], [id number] SNOMED-CT () 2018-10-26 complete Mental d Health[address], [id number] SNOMED-CT () 2018-12-31 complete Mental d Health[address], [id number] Encounters/Encounter Diagnoses Encounter Encounter Diagnosis Diagnosis Name Diagnosis Date of Service Name Code Code CodeSystem Diagnosis Delivery Location Non-Billable [id number] Emotionally SNOMED-CT 2019-04-19 [facility] , , disorder , Vital Signs No Information Social History Element Description Description Start End Code CodeSystem AdditionalInfo Date Date SexAssignedAtBirth Female F AdministrativeGender 08-23 Hospital Discharge Instructions Reason For Referral Medical Equipment FDA Assessments
--- NOTE | 2019-05-07 07:16 | ED ---
Progress - Progress Note Progress Note: The patient is a sign-out from Dr. Michael Hanks MD, to Dr. Cyril Shaw DO, at change of shift at 0700 on 05/07/19, pending transfer to facility of care for mental health treatment. Dr. Rahman and mental health staff have evaluated the patient and determined that she is safe for discharge rather than transfer. Course/Dx - Course Course Of Treatment: The patient is a sign-out from Dr. Michael Hanks MD, to Dr. Cyril Shaw DO, at change of shift at 0700 on 05/07/19, pending transfer to facility of care for mental health treatment. Dr. Rahman and mental health staff have evaluated the patient and determined that she is safe for discharge rather than transfer. Patient agreeable with plan. - Diagnoses Provider Diagnoses: Mood disorder - Provider Notifications Discussed Care Of Patient With: Brayan Rahman - pyschiatry Time Discussed With Above Provider: 10:15 Instructed by Provider To: Other - Dr. Rahman and mental health staff have evaluated the patient and determined that she is safe for discharge. Discharge ED - Sign-Out/Discharge Documenting (check all that apply): Patient Departure - Patient will be discharged home., Receiving Sign-Out Receiving patient FROM: Michael Hanks - Patient is a sign-out from Dr. Michael Hanks MD, at change of shift at 0700 on 05/07/19, pending MH transfer. - Discharge Plan Condition: Stable Disposition: HOME Patient Education Materials: Mood Disorders (ED) Referrals: Elias Medina MD [Primary Care Provider] - Additional Instructions: Pt comes into ED BIB police 9.41 after police were called to an apartment where pt was causing an altercation. Pt was screaming, throwing things, and refusing to leave the apartment. Pt took a kitchen knife and held it to her wrist and threatened suicide. She then took the knife and held it to her throat and stated she was going to kill herself. An acquaintance in the apartment wrestled the knife from her possession. Pt physically fought with police officers when they tried to remove her from the apartment. During evaluation process patient presented as depressed, flat, not goal directed, dismissive and irritable. She was agitated during evaluation process. Admits to several suicide attempts in the past starting at age 12. History of drug and alcohol abuse, but reports being sober for 1 year. Pt was reevaluated in the morning. She denies SI and HI, and states she wants to go home. Pt is not seen as a safety risk to herself or others at this time. Pt to be discharged with a diagnosis of Mood Disorder NOS, and follow up with [facility]. IMPORTANT PHONE NUMBERS: [facility] Behavioral Services Unit: [facility] Emergency Room Behavioral Pod: Suicide Prevention and Crisis Services: The Chat: Text (free and confidential online crisis service sponsored by [facility] Suicide Prevention, available Monday-Monday 6pm 9pm) National Suicide Prevention Lifeline: (023) 064-SGCD (2671) National Crisis Text Line: Text SAMLO to 046871 [facility] Mental Health Clinic: [facility] Outreach for Older Adults: [facility] Mental Health Association: [facility]: [facility] Police: [facility] Sheriff: [place] Police Department: Alcoholics Anonymous: Narcotics Anonymous: Alcohol and Drug [place] [facility]: [place] [facility] ([facility]) Outpatient Services: [place] [facility]: [phone] Alcohol & Drug Crisis: [facility] Vivek Martinez: [employer] Administrative Assistant: [place] Rescue [place]: [facility] Action: [place] Housing Authority: [facility] Services: [facility] Housing Services: [facility] Center: [facility] ACT Team: Worship Charities: Food Bank [facility]: Loaves [employer] Fishes (free daily meals): [place] Community Action Food Pantry: Advocacy Center: or Youth Advocacy Center (YAP): [facility] Activities Center (GIAC): Open Doors: [facility] [place]: - Billing Disposition and Condition Condition: STABLE Disposition: Home - Attestation Statements Document Initiated by Zhenge: Yes Documenting Scribe: Sarah Ge Provider For Whom Zhenge is Documenting (Include Credential): Dr. Cyril Shaw DO Scribe Attestation: ISarah scribed for Dr. Cyril Shaw DO on 05/07/19 at 1244. Scribe Documentation Reviewed: Yes Provider Attestation: The documentation as recorded by the Sarah rizzo accurately reflects the service I personally performed and the decisions made by me, Dr. Cyril Shaw DO Status of Scribe Document: Viewed Procedures - Sedation Patient Received Moderate/Deep Sedation with Procedure: No
[2019-05-07 10:48] VITALS: BP 104/60
== END 2019-05-07 11:10 | disposition home or self-care (01) ==
LOC: ED 22:23
DX: F39 Unspecified mood [affective] disorder (principal); R45.851 Suicidal ideations; S10.91XA Abrasion of unspecified part of neck, initial encounter; X58.XXXA Exposure to other specified factors, initial encounter; Y92.039 Unspecified place in apartment as the place of occurrence of the external cause; M54.6 Pain in thoracic spine; M25.511 Pain in right shoulder; M54.5 Low back pain; M40.56 Lordosis, unspecified, lumbar region; R73.03 Prediabetes; J45.909 Unspecified asthma, uncomplicated; M17.12 Unilateral primary osteoarthritis, left knee; F41.9 Anxiety disorder, unspecified; F31.9 Bipolar disorder, unspecified; Z91.040 Latex allergy status; Z88.8 Allergy status to other drugs, medicaments and biological substances; Z91.09 Other allergy status, other than to drugs and biological substances; F17.210 Nicotine dependence, cigarettes, uncomplicated
CPT/HCPCS: 36415; 72070; 72100; 80053; 80307; 80320; 80329; 81003; 81015; 84443; 84702; 85025; 87086; 99285; A9270-GY; G0480

== ENCOUNTER 2019-05-12 21:56 | Inpatient (IN) | payer OTHER, MEDICAID ==
--- NOTE | 2019-05-12 22:19 | ED ---
Medical Screening - HPI Summary HPI Summary: Patient with history of bipolar disorder presents complaining of SI and wanting to be admitted to the [facility]. Patient states plan to overdose on trazodone, and states she has been taking gabapentin to overdose slowly. History of allergy to gabapentin. Patient states she has also been cutting left medial forearm. Denies any other symptoms, pain or injury. Denies EtOH or recreational drug use today. - History of Current Complaint Chief Complaint: EDSuicidal Stated Complaint: MHE PER PT Time Seen by Provider: 05/12/19 22:16 Onset/Duration: Started Hours Ago Severity: moderate PMH/Surg Hx/FS Hx/Imm Hx Endocrine/Hematology History: Reports: Hx Diabetes - pt reports she is a "borderline diabetic" Denies: Hx Anticoagulant Therapy, Hx Blood Disorders, Hx Sickle Cell Disease , Hx Unexplained Bleeding Cardiovascular History: Reports: Other Cardiovascular Problems/Disorders - pt reports "something is wrong with my heart, it skips and stops" Denies: Hx Congestive Heart Failure, Hx Hypercholesterolemia, Hx Hypertension , Hx Pacemaker/ICD Respiratory History: Reports: Hx Asthma - uses inhaler GI History: Reports: Hx Ulcer - pt reports 4 ulcers Denies: Hx Cirrhosis, Hx Crohn's Disease, Hx Diverticulosis, Hx Gall Bladder Disease, Hx Gastroesophageal Reflux Disease, Hx Gastrointestinal Bleed, Hx Hiatal Hernia, Hx Irritable Bowel, Other GI Disorders History: Denies: Hx Dialysis, Hx Renal Disease, Other Problems/Disorders Musculoskeletal History: Reports: Hx Arthritis - left knee, Hx Back Problems - "floating piece of bone near spine"; L hip "issue;" degenerative disc dis., Hx Orthopedic Injury - "broken back", Other Musculoskeletal History - bilateral ankle injuries Denies: Hx Rheumatoid Arthritis, Hx Osteoporosis Sensory History: Reports: Hx Contacts or Glasses - GLASSES Denies: Hx Hearing Aid Opthamlomology History: Reports: Hx Contacts or Glasses - GLASSES Neurological History: Reports: Hx Headaches, Hx Migraine, 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 wisdom teeth,. Tongue Laceration Repair, 2000, Hx Anesthesia Reactions: No - Immunization History Date of Influenza Vaccine: 2017 Infectious Disease History: No Infectious Disease History: Denies: Hx of Known/Suspected MRSA, History Other Infectious Disease, Traveled Outside the [place] in Last 30 Days - Family History Known Family History: Positive: Hypertension, Diabetes, Other - cancer Family History: patient is adopted - Social History Alcohol Use: None Alcohol Amount: recovering alcoholic Hx Substance Use: Yes Substance Use Type: Reports: Marijuana, Synthetic Drugs, Prescribed, Sedatives, Tranquilizers Substance Use Comment - Amount & Last Used: Hx of opiate Hx Tobacco Use: Yes Smoking Status (MU): Heavy Every Day Tobacco Smoker Type: Cigarettes Amount Used/How Often: 1-3 cig./day Have You Smoked in the Last Year: Yes Review of Systems Constitutional: Negative Eyes: Negative ENT: Negative Cardiovascular: Negative Respiratory: Negative Gastrointestinal: Negative Genitourinary: Negative Musculoskeletal: Negative Skin: Other Neurological/Mental Status: Negative Psychological: Normal All Other Systems Reviewed And Are Negative: Yes Physical Exam - Summary Physical Exam Summary: Very superficial healing lacerations to left medial forearm. No indication for suturing or approximation. Physical exam otherwise unremarkable. Patient alert and oriented, calm and cooperative. Somewhat dramatic about her symptoms when asked specific questions. Triage Information Reviewed: Yes Vital Signs On Initial Exam: Initial Vitals Temp Pulse Resp BP Pulse Ox 97.7 F 88 15 124/81 96 05/12/19 22:01 05/12/19 22:01 05/12/19 22:01 05/12/19 22:01 05/12/19 22:01 Vital Signs Reviewed: Yes Appearance: Positive: Well-Appearing Skin: Positive: Warm Head/Face: Positive: Normal Head/Face Inspection Eyes: Positive: Normal ENT: Positive: Normal ENT inspection Neck: Positive: Supple Respiratory/Lung Sounds: Positive: Clear to Auscultation Cardiovascular: Positive: Normal Abdomen Description: Positive: Nontender Musculoskeletal: Positive: Normal Neurological: Positive: Normal Psychiatric: Positive: Normal AVPU Assessment: Alert - Jamul Coma Scale Best Eye Response: 4 - Spontaneous Best Motor Response: 6 - Obeys Commands Best Verbal Response: 5 - Oriented Coma Scale Total: 15 Procedures - Sedation Patient Received Moderate/Deep Sedation with Procedure: No Diagnostics - Vital Signs Vital Signs Temp Pulse Resp BP Pulse Ox 05/12/19 22:01 97.7 F 88 15 124/81 96 - Laboratory Result Diagrams: 05/12/19 23:16 05/12/19 23:16 Lab Statement: Any lab studies that have been ordered have been reviewed, and results considered in the medical decision making process. Course/Dx - Course Course Of Treatment: Patient with history of bipolar disorder presents complaining of a side and wanting to be admitted to the [facility]. Patient states plan to overdose on trazodone, and states she has been taking gabapentin to overdose slowly. History of allergy to gabapentin. Patient states she has also been cutting left medial forearm. Denies any other symptoms, pain or injury. Denies EtOH or recreational drug use today. Vital signs within normal limits. Labs unremarkable. Mental health evaluation per Dr. Galloway recommends discharge, or hold patient until patient can be evaluated in the morning by Dr. Rahman. Patient was admitted last week for holding knife to her throat, claiming SI. Patient began to be infuriated when she was advised she might be discharged to. This provider is concerned, should patient be discharged, that patient will likely engage in more dramatic attention seeking behavior in order to be admitted. Patient will be held in the ED pending evaluation in the a.m. - Diagnoses Provider Diagnoses: Depression Discharge ED - Sign-Out/Discharge Documenting (check all that apply): Sign-Out Patient Signing out patient TO: Michael Hanks - Discharge Plan Condition: Stable [facility] [place] Billing Disposition and Condition Condition: STABLE Disposition: Psychiatric Facility [facility] [place]
[2019-05-12] MEDS ORDERED: Azithromycin TAB* 250 MG PO ONE (22:43)
[2019-05-12] MEDS ORDERED: Lidocaine 1% MPF ** 5 ML VIAL IM ONE (22:43)
[2019-05-12] MEDS ORDERED: cefTRIAXone VIAL(*) 250 MG VIAL IM ONE (22:43)
[2019-05-12 23:22] LABS: ABS Basophils 0.1 10^3/ul (0-0.2); ABS Eosinophils 0.1 10^3/ul (0-0.6); ABS Lymphocytes 2.3 10^3/ul (1.0-4.8); ABS Monocytes 0.5 10^3/ul (0-0.8); Eosinophil % 2.3 %; Hematocrit 39 % (35-47); Hemoglobin 13.2 g/dL (12.0-16.0); Lymphocyte % 38.7 %; Mean Corpuscular HGB Conc 34 g/dL (31-36); Mean Corpuscular Hemoglobin 28 pg (27-31); Mean Corpuscular Volume 81 fL (80-97); Mean Platelet Volume 8.9 fL (7.4-10.4); Nucleated Red Blood Cells % 0.1; Platelet Count 219 10^3/uL (150-450); Red Blood Count 4.76 10^6 /uL (3.70-4.87); Red Cell Distribution Width 15 % (10-15)
[2019-05-12 23:37] LABS: Urine Appearance Cloudy; Urine Bilirubin Negative (Negative); Urine Blood Negative (Negative); Urine Color Yellow; Urine Glucose Negative (Negative); Urine Ketones Negative (Negative); Urine Nitrite Negative (Negative); Urine Protein Negative (Negative); Urine Specific Gravity 1.013 (1.010-1.030); Urine Urobilinogen Positive (Negative)
[2019-05-12 23:39] LABS: ALT 64 U/L (7-52); AST 66 U/L (13-39); Albumin 4.1 g/dL (3.2-5.2); Albumin/Globulin Ratio 1.2 (1-3); Alkaline Phosphatase 64 U/L (34-104); Anion Gap 5 mmol/L (2-11); BUN/Creatinine Ratio 9.4 (8-20); Blood Urea Nitrogen 8 mg/dL (6-24); CO2 Carbon Dioxide 26 mmol/L (22-32); Calcium 8.8 mg/dL (8.6-10.3); Chloride 105 mmol/L (101-111); EGFR African American 101.2 (>60); EGFR Non-African American 83.6 (>60); Globulin 3.3 g/dL (2-4); Glucose 93 mg/dL (70-100); Potassium 3.9 mmol/L (3.5-5.0); Sodium 136 mmol/L (135-145); Total Protein 7.4 g/dL (6.4-8.9)
[2019-05-12 23:48] LABS: Urine Bacteria Absent (Absent); Urine Red Blood Cell Trace(0-2/hpf) (Absent); Urine Squamous Epithelial Cell Present (Absent); Urine White Blood Cell 1+(6-10/hpf) (Absent)
[2019-05-13 00:05] LABS: Acetaminophen < 15 mcg/mL; Alcohol < 10 mg/dL (<10); Salicylate < 2.50 mg/dL (<30)
[2019-05-13 00:07] LABS: Urine Benzodiazepine Screen None Detected (None Detect); Urine Opiates Screen None Detected (None Detect)
[2019-05-13 00:20] LABS: TSH (Thyroid Stimulating Horm) 1.62 mcIU/mL (0.34-5.60)
[2019-05-13] MEDS ORDERED: OLANzapine TAB*ODT* 5 MG PO ONE (01:24)
--- NOTE | 2019-05-13 02:59 | ED ---
Progress - Progress Note Progress Note: Patient [place] 02305/13/19 shift end from PAIGE Caban pending evaluation of this mental health hold by psychiatrist in the morning. No changes in the status of this patient throughout ED shift. Patient is signed- out to Dr. Whitlock at 0700 05/13/19 shift change pending psychiatrist evaluation. Course/Dx - Course Course Of Treatment: Patient is received [place] a sign out at 02305/13/19 shift end from PAIGE Caban pending evaluation of this mental health hold by psychiatrist in the morning. No changes in the status of this patient throughout ED shift. Patient is signed-out to Dr. Whitlock at 0700 05/13/19 shift change pending psychiatrist evaluation. No changes in the status of this patient throughout ED shift. Patient is signed-out to Dr. Whitlock at 07 shift change, patient is currently slated to be transferred to another psychiatric facility. - Diagnoses Provider Diagnoses: Depression Discharge ED - Sign-Out/Discharge Documenting (check all that apply): Sign-Out Patient, Receiving Sign-Out Signing out patient TO: Mike Whitlock Receiving patient FROM: Baljinder Caban - Discharge Plan Condition: Stable Disposition: [facility] [place] - Billing Disposition and Condition Condition: STABLE Disposition: Psychiatric Facility [facility] [place] - Attestation Statements Document Initiated by Tre: Yes Documenting Scribe: OSMAR ANDRADE Provider For Whom Tre is Documenting (Include Credential): MALCOM MCCABE MD Scribe Attestation: OSMAR Chávez, scribed for MALCOM MCCABE MD on 05/17/19 at 0221. Scribe Documentation Reviewed: Yes Provider Attestation: The documentation as recorded by the OSMAR rizzo accurately reflects the service I personally performed and the decisions made by me, MALCOM MCCABE MD Status of Scribe Document: Viewed
--- NOTE | 2019-05-13 07:26 | ED ---
Progress - Progress Note Progress Note: Patient is a sign-out at 07:00 on 05/13/[address] Michael Hanks MD to Dr. Mike Whitlock MD at shift change, pending mental health hold and disposition. At 13:20, Dr. Brayan Rahman reviewed the patients case and will admit the patient to [facility] [place] [facility]. Patient will be admitted to [facility] with a diagnosis of depression. Course/Dx - Course Course Of Treatment: Patient is a sign-out at 07:00 on 05/13/[address] Michael Hanks MD to Dr. Mike Whitlock MD at shift change, pending mental health hold and disposition. At 13:20, Dr. Brayan Rahman reviewed the patient s case and will admit the patient to [facility] [facility]. Patient will be admitted to [facility] with a diagnosis of depression. - Diagnoses Provider Diagnoses: Depression Discharge ED - Sign-Out/Discharge Documenting (check all that apply): Patient Departure - Admit, Receiving Sign- Out Receiving patient FROM: Michael Hanks - Patient is a sign-out at 07:00 on 05/[address] Michael Hanks MD to Dr. Mike Whitlock MD at shift change, pending mental health hold and disposition. - Discharge Plan Condition: Stable Disposition: [facility] [place] Referrals: Elias Medina MD [Primary Care Provider] - - Attestation Statements Document Initiated by Scribe: Yes Documenting Scribe: Ami Amanda Provider For Whom Scribe is Documenting (Include Credential): Mike Whitlock MD Scribe Attestation: Ami Chávez, scribed for Mike Whitlock MD on 05/13/19 at 9313. Status of Scribe Document: Ready
[2019-05-13] MEDS ORDERED: Al Hydrox/Mg Hydrox/Simet LIQ* 30 ML UDC PO PRN (21:40)
[2019-05-14] MEDS: Acetaminophen TAB* 325 MG PO PRN (07:39)
[2019-05-14 07:40] LABS: Cholesterol 151 mg/dL; HDL Cholesterol 46.5 mg/dL; LDL Cholesterol 80 mg/dL; Triglycerides 121 mg/dL
[2019-05-14] MEDS: Vitamin THERAPEUTIC TAB PO SCH (08:41)
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
[2019-05-14] MEDS ORDERED: Albuterol HFA INHALER* 8 gm MDI INH PRN (10:06)
[2019-05-14] MEDS: Montelukast Sodium TAB* 10 MG PO SCH (10:42)
[2019-05-14] MEDS: Escitalopram * 20 MG TABLET PO SCH (10:42)
[2019-05-14] MEDS: Famotidine TAB* 20 MG PO SCH ×2 (10:43→21:04)
[2019-05-14] MEDS: Lithium Carbonate TAB* 300 MG PO SCH ×2 (10:43→21:05)
[2019-05-14 10:44] LABS: HCG Pregnancy < 0.60 mIU/mL
[2019-05-14] MEDS: Nicotine PATCH 21 MG/24 HR* PATCH TRANSDERM SCH (10:44)
[2019-05-14 10:49] LABS: Lithium < 0.10 mmol/L (0.6-1.2)
[2019-05-14] MEDS: Buprenorp/Nalox 4-1 MG FILM SL FILM SCH ×2 (15:29→22:00)
[2019-05-14] MEDS ORDERED: Nicotine Patch Removal NOTE PATCH OFF SCH (21:00)
[2019-05-14] MEDS: diPHENhydraMINE PO* 50 MG PO SCH (21:04)
[2019-05-14] MEDS: Nicotine* 2MG (FRUIT FLAVOR) GUM PO PRN (21:07)
[2019-05-15] MEDS: Acetaminophen TAB* 325 MG PO PRN ×2 (07:46→21:07)
[2019-05-15] MEDS: Famotidine TAB* 20 MG PO SCH ×2 (07:46→21:04)
[2019-05-15] MEDS: Nicotine PATCH 21 MG/24 HR* PATCH TRANSDERM SCH (08:39)
[2019-05-15] MEDS: Vitamin THERAPEUTIC TAB PO SCH (08:40)
[2019-05-15] MEDS: Montelukast Sodium TAB* 10 MG PO SCH (08:41)
[2019-05-15] MEDS: Lithium Carbonate TAB* 300 MG PO SCH ×2 (08:41→21:04)
[2019-05-15] MEDS: Escitalopram * 20 MG TABLET PO SCH (08:41)
[2019-05-15] MEDS: Buprenorp/Nalox 4-1 MG FILM SL FILM SCH ×3 (08:42→22:11)
[2019-05-15] MEDS: Nicotine* 2MG (FRUIT FLAVOR) GUM PO PRN (08:43)
--- NOTE | 2019-05-15 10:08 | PN ---
Subjective - Subjective Date of Service: 05/15/19 Service Type: 73263 Hosp care 35 min high complexity Subjective: Nursing Report: Patient was visible on unit, no behavioral incidents. Attending group activities. CC: " Okay Patient was seen and evaluated today. The patient reported she does better when she is around people. She reported losing weight so now she thinks she would be a candidate for a IUD. She reported having adequate appetite. The patient reports attending day groups. Per nursing no behavioral issues or overnight events reported. Patient reported that she is tolerating medications without side effects. Objective - General Observations Appearance: Neat Appears Stated Age: Yes Stature: Overweight Posture: Slumped Eye Contact: Average Behavior/Activity: Impulsive - Interaction Observations Attitude Towards Examiner: Cooperative Stated Mood: Dysphoric Affect: Restricted Speech Pattern/Tone: Normal Volume Thought Process: Coherent Perception: WNL Thought Content: Self-Deprecatory Thought Process: Lethality: Passive Wish Hallucination Type: Denies Delusion Type: Denies - Cognitive Function Orientation: A&O x 4 Level of Consciousness: Awake Cognition: WNL - Medication Compliance Cooperative with Inpatient Medication Regimen: Yes - Group Participation Participates in Group Activities: Yes Assessment - Assessment Merits Inpatient Hospitalization: For Immediate Safety Clinical Impression: 23 year old Female with a history of Borderline Personality Disorder, PTSD, opiate use disorder in full remission, alcohol use disorder in full remission. came to the hospital and was admitted to the BSU at [facility]. Plan - Plan Treatment Plan: Name: HARSH DEL CASTILLO Birthdate: 1995 [id number] #Q30 minute observation with staff pass # The patient requires psychiatric inpatient admission at this time to assure safety, receive treatment and work toward stabilization. # B-HCG was ordered and results are negative. # Obtain collateral information once release is signed. # Collaboration with Visual Lead Camilla Freeman # [place] level < 0.10 # HIV test ordered # Blood sugar monitoring BID # Cane to assist with ambulating. # DBT for BPD # PT consult # HEAD OF MARKETING follow up appointment made with Dr. Fernandez 05/30/19 at 1245pm for IUD placement at [facility] [place] # Suboxone 12mg / 3mg daily Tobacco use disorder: nicotine supplement offered and put in place. #Goals before discharge include: To eliminate/ reduce suicidal ideation Tentative Discharge: Pending psychiatric stabilization Sodium 136 mmol/L (135-145) 05/12/19 23:16 Potassium 3.9 mmol/L (3.5-5.0) 05/12/19 23:16 BUN 8 mg/dL (6-24) 05/12/19 23:16 Creatinine 0.85 mg/dL (0.51-0.95) 05/12/19 23:16 Hemoglobin A1c 5.6 % (4.0-5.6) 05/14/19 07:06 Calcium 8.8 mg/dL (8.6-10.3) 05/12/19 23:16 AST 66 U/L (13-39) H 05/12/19 23:16 ALT 64 U/L (7-52) H 05/12/19 23:16 Triglycerides 121 mg/dL 05/14/19 07:06 Cholesterol 151 mg/dL 05/14/19 07:06 LDL Cholesterol 80 mg/dL 05/14/19 07:06 Continued Medication Management: Continue Outpt Medication Medications: Current Medications Acetaminophen (Tylenol Tab*) 650 mg PO Q4H PRN PRN Reason: PAIN or TEMP > 101 F Last Admin: 05/15/19 07:46 Dose: 650 mg Al Hydrox/Mg Hydrox/Simethicone (Maalox Plus*) 30 ml PO Q4H PRN PRN Reason: INDIGESTION Albuterol (Ventolin Hfa Inhaler*) 1 puff INH Q4H PRN PRN Reason: SOB/WHEEZING Last Admin: 05/15/19 09:05 Dose: 1 puff Buprenorphine/Naloxone (Suboxone 4 Mg-1 Mg Sl Film) 1 each SL FILM TID [facility] Last Admin: 05/15/19 08:42 Dose: 1 each Diphenhydramine HCl (Benadryl Po*) 50 mg PO BEDTIME [facility] Last Admin: 05/14/19 21:04 Dose: 50 mg Escitalopram Oxalate (Lexapro *) 20 mg PO DAILY [facility] Last Admin: 05/15/19 08:41 Dose: 20 mg Famotidine (Pepcid Tab*) 20 mg PO BID [facility] Last Admin: 05/15/19 07:46 Dose: 20 mg [place] Carbonate ([place] Carbonate Tab*) 300 mg PO BID [facility] Last Admin: 05/15/19 08:41 Dose: 300 mg Montelukast Sodium (Singulair Tab*) 10 mg PO DAILY [facility] Last Admin: 05/15/19 08:41 Dose: 10 mg Multivitamins (Theragran Tab*) 1 tab PO DAILY [facility] Last Admin: 05/15/19 08:40 Dose: 1 tab Nicotine (Nicotine Patch 21 Mg/24 Hr*) 1 patch TRANSDERM DAILY@0800 [facility] Last Admin: 05/15/19 08:39 Dose: Not Given Nicotine Polacrilex (Nicotine Gum*) 2 mg PO Q2H PRN PRN Reason: CRAVINGS Last Admin: 05/15/19 08:43 Dose: 2 mg Pharmacy Profile Note (Nicotine Patch Removal Note*) 1 note PATCH OFF 2100 [facility] Last Admin: 05/14/19 21:05 Dose: 1 note - Discharge Plan Discharge Plan: Inpatient Hospitalization Outpatient Program: [facility]
[2019-05-15] MEDS: Nicotine Lozenge* mini 2 MG LOZNG.MINI MT PRN (11:06)
--- NOTE | 2019-05-15 16:06 | PN ---
BSU: Group Therapy Note - Service Type Service Type: 20333 Group Psychotherapy - Ailin participated well and was pleasant with all attendees. She stayed after group for further activities. - Group Participation Patient Participating in Group: Yes Level of Group Participation: Attentive, Spontaneously Participate Relatedness to Group: Well Related
[2019-05-15] MEDS: diPHENhydraMINE PO* 50 MG PO SCH (21:03)
[2019-05-16] MEDS ORDERED: Benzocaine/Menthol LOZ* 1 LOZENGE MT PRN (08:16)
--- NOTE | 2019-05-16 08:25 | PN ---
Subjective - Subjective Date of Service: 05/16/19 Service Type: 11346 Hosp care 35 min high complexity Subjective: Nursing Report: Patient was visible on unit, no behavioral incidents. Slept overnight. Attending group activities. CC: "I will be ready to go tomorrow Patient was seen and evaluated today. The patient reported she feels safe on the unit and is interacting with peers. She was seen eating breakfast with peers this morning. She reported having adequate appetite and sleep. The patient reports attending day groups. Per nursing no behavioral issues or overnight events reported. Patient reported that she is tolerating medications without side effects. Patient reported that her father got her a medication dispenser and plans to dispense her medication. Objective - General Observations Appearance: Neat Appears Stated Age: Yes Stature: Overweight Posture: Slumped Eye Contact: Average Behavior/Activity: WNL - Interaction Observations Attitude Towards Examiner: Cooperative Stated Mood: Euthymic Affect: Restricted Speech Pattern/Tone: Clear Thought Process: Coherent Perception: WNL Thought Content: Self-Deprecatory Hallucination Type: None Delusion Type: None - Cognitive Function Orientation: A&O x 4 Level of Consciousness: Awake Cognition: WNL - Medication Compliance Cooperative with Inpatient Medication Regimen: Yes - Group Participation Participates in Group Activities: Yes Assessment - Assessment Merits Inpatient Hospitalization: For Immediate Safety Clinical Impression: 23 year old Female with a history of Borderline Personality Disorder, PTSD, opiate use disorder in full remission, alcohol use disorder in full remission. came to the hospital and was admitted to the BSU at [facility]. Plan - Plan Treatment Plan: Name: HARSH DEL CASTILLO Birthdate: 1995 [id number] #Q30 minute observation with staff pass # The patient requires psychiatric inpatient admission at this time to assure safety, receive treatment and work toward stabilization. # B-HCG was ordered and results are negative. # Obtain collateral information once release is signed. # Collaboration with Returns Supervisor Camilla Freeman # [place] level < 0.10 # HIV test ordered # Blood sugar monitoring BID # Cane to assist with ambulating. 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 Fernandez 05/30/19 at 1245pm for IUD placement at [facility] [place] # Suboxone 12mg / 3mg daily Tobacco use disorder: nicotine supplement offered and put in place. #Goals before discharge include: To eliminate/ reduce suicidal ideation Tentative Discharge: 05/17/19 Sodium 136 mmol/L (135-145) 05/12/19 23:16 Potassium 3.9 mmol/L (3.5-5.0) 05/12/19 23:16 BUN 8 mg/dL (6-24) 05/12/19 23:16 Creatinine 0.85 mg/dL (0.51-0.95) 05/12/19 23:16 Hemoglobin A1c 5.6 % (4.0-5.6) 05/14/19 07:06 Calcium 8.8 mg/dL (8.6-10.3) 05/12/19 23:16 AST 66 U/L (13-39) H 05/12/19 23:16 ALT 64 U/L (7-52) H 05/12/19 23:16 Triglycerides 121 mg/dL 05/14/19 07:06 Cholesterol 151 mg/dL 05/14/19 07:06 LDL Cholesterol 80 mg/dL 05/14/19 07:06 Continued Medication Management: Continue Outpt Medication Medications: Current Medications Acetaminophen (Tylenol Tab*) 650 mg PO Q4H PRN PRN Reason: PAIN or TEMP > 101 F Last Admin: 05/15/19 21:07 Dose: 650 mg Al Hydrox/Mg Hydrox/Simethicone (Maalox Plus*) 30 ml PO Q4H PRN PRN Reason: INDIGESTION Albuterol (Ventolin Hfa Inhaler*) 1 puff INH Q4H PRN PRN Reason: SOB/WHEEZING Last Admin: 05/15/19 09:05 Dose: 1 puff Buprenorphine/Naloxone (Suboxone 4 Mg-1 Mg Sl Film) 1 each SL FILM TID [facility] Last Admin: 05/15/19 22:11 Dose: 1 each Diphenhydramine HCl (Benadryl Po*) 50 mg PO BEDTIME [facility] Last Admin: 05/15/19 21:03 Dose: 50 mg Escitalopram Oxalate (Lexapro *) 20 mg PO DAILY [facility] Last Admin: 05/15/19 08:41 Dose: 20 mg Famotidine (Pepcid Tab*) 20 mg PO BID [facility] Last Admin: 05/15/19 21:04 Dose: 20 mg [place] Carbonate ([place] Carbonate Tab*) 300 mg PO BID [facility] Last Admin: 05/15/19 21:04 Dose: 300 mg Montelukast Sodium (Singulair Tab*) 10 mg PO DAILY [facility] Last Admin: 05/15/19 08:41 Dose: 10 mg Multivitamins (Theragran Tab*) 1 tab PO DAILY [facility] Last Admin: 05/15/19 08:40 Dose: 1 tab Nicotine Polacrilex (Nicotine Gum*) 2 mg PO Q2H PRN PRN Reason: CRAVINGS Last Admin: 05/15/19 08:43 Dose: 2 mg Nicotine Polacrilex (Nicotine Lozenge Mini) 2 mg MT Q2H PRN PRN Reason: CRAVING Last Admin: 05/15/19 11:06 Dose: 2 mg Throat Lozenges (Chloraseptic Parviz*) 1 parviz MT Q6H PRN PRN Reason: SORE THROAT - Discharge Plan Discharge Plan: Inpatient Hospitalization
[2019-05-16] MEDS: Vitamin THERAPEUTIC TAB PO SCH (08:33)
[2019-05-16] MEDS: Montelukast Sodium TAB* 10 MG PO SCH (08:33)
[2019-05-16] MEDS: Escitalopram * 20 MG TABLET PO SCH (08:33)
[2019-05-16] MEDS: Famotidine TAB* 20 MG PO SCH ×2 (08:33→20:55)
[2019-05-16] MEDS: Lithium Carbonate TAB* 300 MG PO SCH ×2 (08:33→20:54)
[2019-05-16] MEDS: Buprenorp/Nalox 4-1 MG FILM SL FILM SCH ×3 (09:03→23:00)
[2019-05-16] MEDS: Acetaminophen TAB* 325 MG PO PRN ×2 (09:47→18:37)
[2019-05-16 09:56] LABS: HIV 4th Generation Nonreactive (Nonreactive)
--- NOTE | 2019-05-16 11:37 | PN ---
BSU: Group Therapy Note - Service Type Service Type: [id number] Group Psychotherapy - Cognitive Behavioral Group Note: Ailin was attentive and participatory in programming this morning, looking forward to discharge tomorrow. She was more relevant in clinical discussion this morning, and presented with improved affect. She described looking forward to seeing her father after being discharged.
[2019-05-16] MEDS: Ondansetron ODT TAB* 4 MG SL PRN ×2 (12:24→18:37)
[2019-05-16] MEDS: Nicotine Lozenge* mini 2 MG LOZNG.MINI MT PRN (17:38)
[2019-05-16] MEDS: diPHENhydraMINE PO* 50 MG PO SCH (20:55)
[2019-05-17] MEDS: Ondansetron ODT TAB* 4 MG SL PRN (07:54)
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
[2019-05-17 09:00] VITALS: BP 136/66
[2019-05-17] MEDS: Escitalopram * 20 MG TABLET PO SCH (10:35)
[2019-05-17] MEDS: Montelukast Sodium TAB* 10 MG PO SCH (10:35)
[2019-05-17] MEDS: Buprenorp/Nalox 4-1 MG FILM SL FILM SCH (10:35)
[2019-05-17] MEDS: Lithium Carbonate TAB* 300 MG PO SCH (10:35)
[2019-05-17] MEDS: Vitamin THERAPEUTIC TAB PO SCH (10:35)
[2019-05-17] MEDS: Famotidine TAB* 20 MG PO SCH (10:35)
== END 2019-05-17 12:52 | disposition home or self-care (01) | DRG 881 ==
LOC: ED 21:56 → BSU 05-13 19:00 → ED 05-13 20:31
PROVIDERS: ADMIT Psychiatry & Neurology Psychiatry; ATTEND Psychiatry & Neurology Psychiatry
PROC: GZHZZZZ Group Psychotherapy (ICD-10-PCS; principal; 2019-05-16)
DX: F32.9 Major depressive disorder, single episode, unspecified (principal); R45.851 Suicidal ideations; Z68.43 Body mass index [BMI] 50.0-59.9, adult; G40.89 Other seizures; F43.10 Post-traumatic stress disorder, unspecified; F60.3 Borderline personality disorder; Z91.5 Personal history of self-harm; F17.210 Nicotine dependence, cigarettes, uncomplicated; Z62.810 Personal history of physical and sexual abuse in childhood; M17.12 Unilateral primary osteoarthritis, left knee; E66.01 Morbid (severe) obesity due to excess calories; J45.909 Unspecified asthma, uncomplicated; G43.909 Migraine, unspecified, not intractable, without status migrainosus; F41.0 Panic disorder [episodic paroxysmal anxiety]; Z88.8 Allergy status to other drugs, medicaments and biological substances; Z91.011 Allergy to milk products; Z79.899 Other long term (current) drug therapy
CPT/HCPCS: 36415; 80053; 80061; 80178; 80307; 80320; 80329; 81003; 81015; 83036; 84443; 84702; 85025; 87086; 87389; 90853; 93005; 96372; 99222; 99233; 99238; 99284; A9270-GY; G0480; J0696

== ENCOUNTER 2019-06-13 17:15 | Emergency (ER) | payer OTHER, MEDICAID ==
[2019-06-13 17:27] VITALS: BP 113/85
--- OUTSIDE RECORDS SUMMARY | 2019-06-13 17:38 | XMS REPORT | Continuity of Care Document ---
:1995 External Reference #:[id number] Author Name Travon Matos Care Team Providers Name Role Phone Michoacano Schreiber MD - Orthopaedic Care Team Information Tank Builder Supervisor Surgery Dre Rashid MD - Allergy & Care Team Information Tank Builder Supervisor [phone] Immunology Kevin Lanier MD - Care Team Information Tank Builder Supervisor [phone] Otolaryngology Elias Medina MD - Family Medicine Care Team Information Tank Builder Supervisor Problems Active Problems Provider Date Obesity Ambar Mao MD Onset: 12/18/2015 Ex-smoker Ambar Mao MD Onset: 12/18/2015 Obstructive sleep apnea syndrome Margo Aguilar DNP, RN, [facility]- Onset: Shoulder joint pain Bishnu Ordoñez M.D. Onset: 12/21/2016 Sleep apnea Bishnu Ordoñez M.D. Onset: 01/19/2017 Hearing loss Bishnu Ordoñez M.D. Onset: 01/19/2017 Brachial plexus disorder Michoacano Schreiber M.D. 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 Opioid abuse Andreas Maya M.D.,FACP Onset: 04/19/2017 Social History Type Date Description Comments Sex Unknown Tobacco Use Start: Unknown current cigarette smoker ETOH Use 04/05/2017 Occasionally consumes alcohol Tobacco Use Start: Unknown Patient is a current smoker, 4-5 cigs/day smokes every day Recreational Drug Use 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 Tobacco Use Start: Unknown Previously 3PPD x 4 months Smoking Status Reviewed: 10/25/18 Previously 3PPD x 4 months Exercise Type/Frequency Does not exercise Allergies, Adverse Reactions, Alerts Active Allergies Reaction Severity Comments Date Alcohol Prep Rash 12/18/2015 Wheat 01/26/2016 Keflex Moderate vertigo 02/10/2017 Medications Active Medications SIG Qnty Indications Ordering Date Provider Epipen 2-Miguel A use as directed Unknown 01/25/2016 0.3mg/0.3ML Solution Auto-Inject Proair HFA 2 puffs by mouth every 8.5units Andreas Giordano 12/17/2015 4 hours as needed Job Maya(90Base) M.Pasquale,FACP mcg/Act Aerosol Montelukast Sodium 1 tablet po daily Unknown 10mg Tablets Symbicort Inhale 2 Puffs Two Unknown Times A Day, Gargle 80-4.5mcg/Act After Use Aerosol Famotidine Take 1 Tablet By Mouth Unknown 40mg 2 Times Per Day For Tablets Gastroesophageal Reflux Disease Immunizations CPT Code Status Date Vaccine Lot # [id number] Given 02/10/2017 Influenza Virus Vaccine, Quadrivalent, Split, [id number] Preservative Free Vital Signs Date Vital Result Comment 10/25/2018 10:29am Height 65 inches 5'5" Weight 310.00 lb with out shoes Heart Rate 90 /min reg with ectopy BP Systolic 92 mmHg Rue lg cuff BP Diastolic 70 mmHg Rue lg cuff BP Systolic Sitting 96 mmHg Lue lg cuff BP Diastolic Sitting 70 mmHg Lue lg cuff BP Systolic Standing 86 mmHg Lue lg cuff BP Diastolic Standing 66 mmHg Lue lg cuff Respiratory Rate 16 /min BMI (Body Mass Index) 51.6 kg/m2 04/19/2017 4:11pm Weight 333.00 lb Heart Rate 89 /min BP Systolic Sitting 122 mmHg BP Diastolic Sitting 71 mmHg Body Temperature 97.9 F O2 % BldC Oximetry 98 % Results Description No Information Available Procedures Description No Information Available Medical Devices Description No Information Available Encounters Description No Information Available Assessments Description No Information Available Plan of Treatment 10/25/2018 - Yannick Busby M.D.R55 Syncope and collapseFollow up:ov ANIMAL TRAINER to discuss all tests in Dec 2018F44.5 Conversion disorder with seizures or rteihpdtivrT55.0 XbwnkcedvqgpS11.210 Nicotine dependence, cigarettes, xnihdgyxprbyhL63.21 Other psychoactive substance dependence, in wzmbmdetlY99.01 Morbid (severe) obesity due to excess caloriesNew Orders:Echocardiogram, Scheduled: 11/28/18G47.33 Obstructive sleep apnea (adult) (pediatric)R94.31 Abnormal electrocardiogram [ECG] [EKG] Functional Status Description No Information Available Mental Status Description No Information Available Referrals Description No Information Available
--- OUTSIDE RECORDS SUMMARY | 2019-06-13 17:38 | XMS REPORT ---
:1995 Author Organization [facility] Care Team Providers Name Role Phone FABIAN ASTORGA Primary Care Physician Unavailable Allergies, Adverse Reactions, Alerts Allergy Code CodeSystem Reaction Severity Criticality Status Start Substance Date Moderate Medications Medication Medication Medication Start Stop Route Dose Status Fill Code CodeSystem Date Date Instructions Seroquel 923187 RxNorm oral 25 mg 1 active Take 1 tablet 9-07 tablet at bedtime at for 30 day(s) bedtime DIAZEPAM 5 MG RxNorm 2018-04 active for 30 TABS -16 day(s) ARIPIPRAZOLE 5 RxNorm 2018-04 active for 30 MG TABS -07 day(s) Problems Problem Name Code CodeSystem Alternate Alternate Start End Status Narrative Code CodeSystem Date Date Alcohol 9317757 SNOMED-CT Active abuse, in 3-27 remission Bipolar 34359167 SNOMED-CT Active affective 3-22 disorder, unspecified Opioid 14387730 SNOMED-CT Active dependence, 2-26 in remission Cocaine 11039228 SNOMED-CT Active dependence, 3-27 in remission 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 Relevant diagnostic tests/laboratory data Narrative No Information Procedures Procedure Code CodeSystem Target Date of Status Service Device Device Device Name Site Procedure Delivery Code Name UID Location Psychotherap [id number] SNOMED-CT () 2018-09-28 complete Mental y, 45 04 d Health- minutes with [address], [id number] SNOMED-CT () 2018-10-03 complete Mental d Health- [address], [id number] SNOMED-CT () 2018-10-12 complete Mental d Health- [address], [id number] [phone] Psychotherap [id number] SNOMED-CT () 2018-10-19 complete Mental y, 45 04 d Health- minutes with [place] patient [address], [phone] Office or [id number] SNOMED-CT () 2018-10-23 complete Mental other 6 d Health- outpatient [place] visit for [address], established [id number] patient, [phone] which requires at least 2 of these 3 mir components: A problem focused history; A problem focused examination; [place] medical decision making. Counselin SNOMED-CT () 2018-10-26 complete Mental d Health- [place] [address], [phone] Office or [id number] SNOMED-CT () 2018-10-25 complete Mental other 7 d Health- outpatient [place] visit for [address], established [id number] patient, [phone] which requires at least 2 of these 3 mir components: An expanded problem focused history; An expanded problem focused examination; Medical decision making of [facility] Environment[employer] 259484 SNOMED-CT () 2018-10-30 complete Mental l 7 d Health- intervention [place] for medical [address], patient's [place], behalf with [phone] agencies, [phone] employers, or institutions Office or [id number] SNOMED-CT () 2018-10-30 complete Mental other 7 d Health- outpatient [place] visit for [address], established [phone] patient, [phone] which requires at least 2 of these 3 mir components: An expanded problem focused history; An expanded problem focused examination; Medical decision making of low SNOMED-CT () 2018-11-09 complete Mental d Health- [place] [address], [phone] [phone] Office or [id number] SNOMED-CT () 2018-11-08 complete Mental other 6 d Health- outpatient [place] visit for [address], established [phone] patient, [phone] which requires at least 2 of these 3 mir components: A problem focused history; A problem focused examination; [place] medical decision making. Divyain SNOMED-CT () 2018-11-15 complete Mental d Health- [place], [phone] Office or [id number] SNOMED-CT () 2018-11-27 complete Mental other 6 d Health- outpatient [place] visit for [address], established [phone] patient, [phone] which requires at least 2 of these 3 mir components: A problem focused history; A problem focused examination; [place] medical decision making. Divyain SNOMED-CT () 2018-12-31 complete Mental d Health- [place], [phone] [phone] Office or [id number] SNOMED-CT () 2019-01-24 complete Mental other 6 d Health- outpatient [place] visit for [address], [facility] [phone] patient, [phone] which requires at least 2 of these 3 mir components: A problem focused history; A problem focused examination; [place] medical decision making. Counselin Office or [id number] SNOMED-CT () 2019-02-07 complete Mental other 6 d Health- outpatient [place] visit for [address], established [phone] patient, [phone] which requires at least 2 of these 3 mir components: A problem focused history; A problem focused examination; [place] medical decision making. Counselin SNOMED-CT () 2019-02-05 complete Mental d Health- [place], [phone] Psychotherap [id number] SNOMED-CT () 2019-04-12 complete Mental y, 45 04 d Health- minutes with [place] patient [address], [phone] Psychotherap [id number] SNOMED-CT () 2019-05-24 complete Mental y, 45 04 d Health- minutes with [place] patient [address], [phone] Encounters/Encounter Diagnoses Encounter Encounter Diagnosis Diagnosis Name Diagnosis Date of Service Name Code Code CodeSystem Diagnosis Delivery Location Non-Billable 45374 [id number] Emotionally SNOMED-CT 2019-06-04 Behavioral unstable [facility] personality [facility] , , disorder , Vital Signs No Information Social History Element Description Description Start End Code CodeSystem AdditionalInfo Date Date SexAssignedAtBirth Female F AdministrativeGender 08-23 Hospital Discharge Instructions Reason For Referral Medical Equipment FDA Assessments
--- OUTSIDE RECORDS SUMMARY | 2019-06-13 17:38 | XMS REPORT | Continuity of Care Document ---
:1995 External Reference #:[id number] Author Name Mignon Hayes N.P. (transmitted by agent of provider Iris Lancaster) Address [address] [place] [id number] Care Team Providers Name Role Phone Michoacano Schreiber MD - Orthopaedic Care Team Information Direct Care Provider Surgery Dre Rashid MD - Allergy & Care Team Information Direct Care Provider [phone] Immunology Kevin Lanier MD - Care Team Information Direct Care Provider [phone] Otolaryngology Elias Medina MD - Family Medicine Care Team Information Direct Care Provider [phone] Problems Active Problems Provider Date Obesity Ambar Mao MD Onset: 12/18/2015 Ex-smoker Ambar Mao MD Onset: 12/18/2015 Obstructive sleep apnea syndrome Margo Aguilar DNP, RN, [employer]- Onset: Shoulder joint pain Bishnu Ordoñez M.D. Onset: 12/21/2016 Sleep apnea Bishnu Ordoñez M.D. Onset: 01/19/2017 Hearing loss Bishnu Ordoñez M.D. Onset: 01/19/2017 Brachial plexus disorder Michoacano Schreiber M.D. 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 Tobacco Use Start: Unknown Previously 3PPD x 4 months Smoking Status Reviewed: 05/30/19 Previously 3PPD x 4 months Exercise Type/Frequency Does not exercise Allergies, Adverse Reactions, Alerts Active Allergies Reaction Severity Comments Date Alcohol Prep Rash 12/18/2015 Wheat 01/26/2016 Keflex Moderate vertigo 02/10/2017 Gabapentin Tongue swelling 05/30/2019 Medications Active Medications SIG Qnty Indications Ordering Date Provider Epipen 2-Miguel A use as directed Unknown 01/25/2016 0.3mg/0.3ML Solution Auto-Inject Proair HFA 2 puffs by mouth 8.5units Andreas Giordano 12/17/2015 every 4 hours as Arturo Maya,FACP 108(90Base) mcg/Act needed Aerosol Montelukast Sodium 1 tablet po daily Unknown 10mg Tablets Symbicort Inhale 2 Puffs Unknown Two Times A Day, 80-4.5mcg/Act Gargle After Use Aerosol Famotidine 1 by mouth once a Unknown 20mg day Tablets [place] Carbonate 1 by mouth twice Unknown a day 600mg Capsules Lexapro 1 by mouth twice Unknown 20mg Tablets a day Immunizations CPT Code Status Date Vaccine Lot # [id number] Given 02/10/2017 Influenza Virus Vaccine, Quadrivalent, Split, [id number] Preservative Free Vital Signs Date Vital Result Comment 05/30/2019 3:24pm Height 65 inches 5'5" Heart Rate 72 /min Radial,regular BP Systolic Sitting 110 mmHg Rfa, reg cuff BP Diastolic Sitting 72 mmHg Rfa, reg cuff Ejection Fraction NA No Echo 10/25/2018 10:29am Height 65 inches 5'5" Weight [...] /min BMI (Body Mass Index) 51.6 kg/m2 Results Description No Information Available Procedures Description No Information Available Medical Devices Description No Information Available Encounters Type Date Location Provider Dx Diagnosis Office Visit 05/30/2019 [facility] Mignon Hayes, R55 Syncope and 3:30p N.P. collapse G47.33 Obstructive sleep apnea (adult) (pediatric) E66.01 Morbid (severe) obesity due to excess calories R94.31 Abnormal electrocardiogram [ECG] [EKG] F17.210 Nicotine dependence, cigarettes, uncomplicated Assessments Date Code Description Provider 05/30/2019 R55 Syncope and collapse Mignon Hayes, N.P. 05/30/2019 G47.33 Obstructive sleep apnea (adult) (pediatric) Mignon Hayes , N.P. 05/30/2019 E66.01 Morbid (severe) obesity due to excess Mignon S. Freddy, N.P. calories 05/30/2019 R94.31 Abnormal electrocardiogram [ECG] [EKG] Mignon Hayes, N.P. 05/30/2019 F17.210 Nicotine dependence, cigarettes, Mignon S. Freddy, N.P. uncomplicated Plan of Treatment Future Appointment(s):08/02/2019 2:30 pm - Mignon Hayes, N.P. at [facility]06/24/2019 3:00 pm - [place] [facility] Schedule at [facility]2019 - Mignon Hayes, N.P.R55 Syncope and collapseNew Orders:Echocardiogram, Scheduled: 06/24/19[facility] Telemetry, Ordered: Follow up:OV Mignon after testing 2m OV QSM 4-6monthsRecommendations:Suggest increasing salt intake. Also use counter pressure techniques as we dtyicpwffR99.33 Obstructive sleep apnea (adult) (pediatric)E66.01 Morbid (severe ) obesity due to excess hdznghoeW61.31 Abnormal electrocardiogram [ECG] [EKG] F17.210 Nicotine dependence, cigarettes, uncomplicated Functional Status Description No Information Available Mental Status Description No Information Available Referrals Description No Information Available
--- OUTSIDE RECORDS SUMMARY | 2019-06-13 17:38 | XMS REPORT | Continuity of Care Document ---
:1995 External Reference #:[id number] Author Name Travon Matos Care Team Providers Name Role Phone Michoacano Schreiber MD - Orthopaedic Care Team Information Agriculture Science Teacher [phone] Surgery Dre Rashid MD - Allergy & Care Team Information Agriculture Science Teacher [phone] Immunology Kevin Lanier MD - Care Team Information Agriculture Science Teacher [phone] Otolaryngology Elias Medina MD - Family Medicine Care Team Information Agriculture Science Teacher [phone] Problems Active Problems Provider Date Obesity Ambar Mao MD Onset: 12/18/2015 Ex-smoker Ambar Mao MD Onset: 12/18/2015 Obstructive sleep apnea syndrome Margo Aguilar DNP, RN, [facility]- Onset: Shoulder joint pain Bishnu Ordoñez M.D. [...] CPT Code Status Date Vaccine Lot # [id number] Given 02/10/2017 Influenza Virus Vaccine, Quadrivalent, Split, [...] Yannick Busby M.D.R55 Syncope and collapseFollow up:ov [employer]NAGER to discuss all tests in Dec 2018F44.5 Conversion disorder with seizures or heeecpmhygwH37.0 BdjaopdrjdgxD76.210 Nicotine dependence, cigarettes, csoxfzuwjgopgA95.21 Other psychoactive substance dependence, in smdqykcbtR16.01 Morbid (severe) obesity due to excess caloriesNew Orders:Echocardiogram, Scheduled: 11/28/18G47.33 Obstructive sleep apnea (adult) (pediatric)R94.31 Abnormal electrocardiogram [ECG] [EKG] Functional Status Description No Information Available Mental Status Description No Information Available Referrals Description No Information Available
--- OUTSIDE RECORDS SUMMARY | 2019-06-13 17:38 | XMS REPORT | Continuity of Care Document ---
:1995 External Reference #:[id number] Author Name Mignon Hayes N.P. (transmitted by agent of provider Estrella Aldrich) Address [address] [place] [phone] Care Team Providers Name Role Phone Michoacano Schreiber MD - Orthopaedic Care Team Information Measurer Machine [phone] Surgery Der Rashid MD - Allergy & Care Team Information Measurer Machine [phone] Immunology Kevin Lanier MD - Care Team Information Measurer Machine [phone] Otolaryngology Elias Medina MD - Family Medicine Care Team Information Measurer Machine Problems Active Problems Provider Date Obesity Ambar Mao MD Onset: 12/18/2015 Ex-smoker Ambar Mao MD Onset: 12/18/2015 Obstructive sleep apnea syndrome Margo Aguilar DNP, RN, [facility]- Onset: Shoulder joint pain Bishnu Ordoñez [...] mouth once a Unknown 20mg day Tablets [place] Carbonate 1 by mouth twice Unknown a day 600mg Capsules Lexapro 1 by mouth twice Unknown 20mg Tablets a day Immunizations CPT Code Status Date Vaccine Lot # [id number] Given 02/10/2017 Influenza Virus Vaccine, Quadrivalent, Split, [...] Location Provider Dx Diagnosis Office Visit 05/30/2019 [facility] Mignon Hayes, R55 Syncope and 3:30p N.P. collapse G47.33 Obstructive sleep apnea (adult) (pediatric) E66.01 Morbid (severe) obesity due to excess calories R94.31 Abnormal electrocardiogram [ECG] [EKG] F17.210 Nicotine dependence, cigarettes, uncomplicated Assessments Date Code Description Provider 05/30/2019 R55 Syncope and collapse Mignon Bustamante. Freddy, N.P. 05/30/2019 G47.33 Obstructive sleep apnea (adult) (pediatric) Mignon S. Freddy , N.P. 05/30/2019 E66.01 Morbid (severe) obesity due to excess Mignon S. Freddy, N.P. calories 05/30/2019 R94.31 Abnormal electrocardiogram [ECG] [EKG] Mignon S. Freddy, N.P. 05/30/2019 F17.210 Nicotine dependence, cigarettes, Mignon S. Freddy, N.P. uncomplicated Plan of Treatment Future Appointment(s):08/02/2019 2:30 pm - Mignon Hayes, N.P. at [facility]06/24/2019 3:00 pm - [place] ECHO Schedule at [facility]2019 - Mignon Hayes, N.P.R55 Syncope and collapseNew Orders:Echocardiogram, Scheduled: 06/24/19[facility]patient Telemetry, Ordered: Follow up:OV Mignon after testing 2m OV QSM 4-6monthsRecommendations:Suggest increasing salt intake. Also use counter pressure techniques as we fntcmknqyQ56.33 Obstructive sleep apnea (adult) (pediatric)E66.01 Morbid (severe ) obesity due to excess ahwqqaumX18.31 Abnormal electrocardiogram [ECG] [EKG] F17.210 Nicotine dependence, cigarettes, uncomplicated Functional Status Description No Information Available Mental Status Description No Information Available Referrals Description No Information Available
[2019-06-13] MEDS ORDERED: Ketorolac INJ* 30 MG/ML 1 ML VIAL IM ONE (18:23)
[2019-06-13] MEDS ORDERED: Lidocaine PATCH 5%* 1 PATCH TRANSDERM ONE (18:23)
--- NOTE | 2019-06-13 18:47 | ED ---
Back Pain - HPI Summary HPI Summary: 23 year old presents with acute on chronic back pain for the past 2 days. States she did injury her back 2 years ago and has issue with her T12 where is floating part to it. She denies any new injury. She denies urinary symptoms. No loss of bowel or bladder. No saddle anaesthesia. No new numbness or tingling. 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 States that she is not currently following up with anyone for this. Took some Aleve a couple days ago. No fevers. - History of Current Complaint Chief Complaint: EDBackInjuryPain Stated Complaint: SPINAL INJURY PER PT Time Seen by Provider: 06/13/19 17:52 Pain Intensity: 9 - Allergies/Home Medications Allergies/Adverse Reactions: Allergies Allergy/AdvReac Type Severity Reaction Status Date / Time gabapentin Allergy Anaphylatic Verified 06/13/19 17:24 Shock lactase Allergy Diarrhea Verified 06/13/19 17:24 milk Allergy Diarrhea Verified 06/13/19 17:24 wheat Allergy GI Upset Verified 06/13/19 17:24 ALCOHOL PREP Allergy Rash Uncoded 06/13/19 17:24 vieira and pollen AdvReac Mild Congestion Uncoded 06/13/19 17:24 Home Medications: Home Medications Escitalopram * [Lexapro 10 mg (NF)] 20 mg PO DAILY 05/06/19 [History Confirmed 05/12/19] [place] Carbonate TAB* 600 mg PO BID 05/06/19 [History Confirmed 05/12/19] Buprenorphine HCl/Naloxone HCl [Suboxone 12 mg-3 mg Sl Film] 1 film SL FILM DAILY 05/12/19 [History Confirmed 05/12/19] Famotidine 40 mg PO BID 05/12/19 [History Confirmed 05/12/19] Meclizine TAB* [Antivert 12.5 TAB*] 25 mg PO TID PRN 05/12/19 [History Confirmed 05/12/19] Montelukast Sodium TAB* [Singulair TAB*] 10 mg PO DAILY 05/12/19 [History Confirmed 05/12/19] traZODone TAB* [Desyrel TAB*] 100 mg PO BEDTIME 05/12/19 [History Confirmed 12/21] Albuterol HFA INHALER* [Ventolin HFA Inhaler*] 1 puff INH Q4H PRN #1 mdi [Rx] Blood Sugar Diagnostic [Glucose Test Strip] 1 each MC BID #60 strip 05/16/19 [Rx ] Buprenorp/Nalox 4-1 MG FILM [Suboxone 4 mg-1 mg Sl Film] 1 each SL FILM TID film 05/16/19 [Rx] Escitalopram * [Lexapro *] 20 mg PO DAILY #14 tablet 05/16/19 [Rx] Famotidine TAB* [Pepcid 20 MG TAB*] 20 mg PO BID #30 tab 05/16/19 [Rx] [place] Carbonate TAB* 300 mg PO BID #28 tab 05/16/19 [Rx] Montelukast Sodium TAB* [Singulair 10 MG TAB*] 10 mg PO DAILY #30 tab 05/16/19 [ Rx] diPHENhydraMINE PO* [Benadryl PO 50 MG CAP*] 50 mg PO BEDTIME #14 cap 05/16/19 [ Rx] Cyclobenzaprine TAB* [Flexeril 10 MG TAB*] 10 mg PO TID PRN #15 tab 06/13/19 [Rx ] Lidocaine PATCH 5%* [Lidoderm 5% Patch*] 1 patch TRANSDERM DAILY #6 patch [Rx] PMH/Surg Hx/FS Hx/Imm Hx Endocrine/Hematology History: Reports: Hx Diabetes - pt reports she is a "borderline diabetic" Denies: Hx Anticoagulant Therapy, Hx Blood Disorders, Hx Sickle Cell Disease , Hx Unexplained Bleeding Cardiovascular History: Reports: Other Cardiovascular Problems/Disorders - pt reports "something is wrong with my heart, it skips and stops" Denies: Hx Congestive Heart Failure, Hx Hypercholesterolemia, Hx Hypertension , Hx Pacemaker/ICD Respiratory History: Reports: Hx Asthma - uses inhaler GI History: Reports: Hx Ulcer - pt reports 4 ulcers Denies: Hx Cirrhosis, Hx Crohn's Disease, Hx Diverticulosis, Hx Gall Bladder Disease, Hx Gastroesophageal Reflux Disease, Hx Gastrointestinal Bleed, Hx Hiatal Hernia, Hx Irritable Bowel, Other GI Disorders History: Denies: Hx Dialysis, Hx Renal Disease, Other Problems/Disorders Musculoskeletal History: Reports: Hx Arthritis - left knee, Hx Back Problems - "floating piece of bone near spine"; L hip "issue;" degenerative disc dis., Hx Orthopedic Injury - "broken back", Other Musculoskeletal History - bilateral ankle injuries Denies: Hx Rheumatoid Arthritis, Hx Osteoporosis Sensory History: Reports: Hx Contacts or Glasses - GLASSES Denies: Hx Hearing Aid Opthamlomology History: Reports: Hx Contacts or Glasses - GLASSES Neurological History: Reports: Hx Headaches, Hx Migraine, 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 wisdom teeth,. Tongue Laceration Repair, 2000, Hx Anesthesia Reactions: No - Immunization History Date of Influenza Vaccine: 2017 Infectious Disease History: No Infectious Disease History: Denies: Hx of Known/Suspected MRSA, History Other Infectious Disease, Traveled Outside the [place] in Last 30 Days - Family History Known Family History: Positive: Hypertension, Diabetes, Other - cancer Family History: patient is adopted - Social History Alcohol Use: None Alcohol Amount: recovering alcoholic Hx Substance Use: Yes Substance Use Type: Reports: Marijuana, Synthetic Drugs, Prescribed, Sedatives, Tranquilizers Substance Use Comment - Amount & Last Used: Hx of opiate Hx Tobacco Use: Yes Smoking Status (MU): Heavy Every Day Tobacco Smoker Type: Cigarettes Amount Used/How Often: 1-3 cig./day Have You Smoked in the Last Year: Yes Review of Systems Negative: Fever Negative: Chest Pain Negative: Shortness Of Breath Positive: Myalgia - back pain All Other Systems Reviewed And Are Negative: Yes Physical Exam Triage Information Reviewed: Yes Vital Signs On Initial Exam: Initial Vitals Temp Pulse Resp BP Pulse Ox 98.3 F 82 16 113/85 97 06/13/19 17:24 06/13/19 17:24 06/13/19 17:24 06/13/19 17:24 06/13/19 17:24 Vital Signs Reviewed: Yes Appearance: Positive: Well-Appearing Skin: Positive: Warm, Dry Head/Face: Positive: Normal Head/Face Inspection Eyes: Positive: Normal, Conjunctiva Clear ENT: Positive: Pharynx normal Respiratory/Lung Sounds: Positive: Clear to Auscultation, Breath Sounds Present Cardiovascular: Positive: Normal, RRR Musculoskeletal: Positive: Limited @ - back with pain, Other - tenderness in lower back, neg SLR, good pulses, sensation grossly intact Neurological: Positive: Babinski Bilateral - normal Psychiatric: Positive: Normal Procedures - Sedation Patient Received Moderate/Deep Sedation with Procedure: No Diagnostics - Vital Signs Vital Signs Temp Pulse Resp BP Pulse Ox 06/13/19 17:24 98.3 F 82 16 113/85 97 - Laboratory Lab Statement: Any lab studies that have been ordered have been reviewed, and results considered in the medical decision making process. - Radiology back Radiology Interpretation Completed By: ED Physician Summary of Radiographic Findings: no fracture Re-Evaluation - Re-Evaluation First Eval Re-Evaluation Time: 19:42 Change: Improved Comment: feeling better Back Pain Course/Dx - Course Course Of Treatment: 23 year old presents with acute on chronic back pain for the past 2 days. States she did injury her back 2 years ago and has issue with her T12. She denies any new injury. She denies urinary symptoms. No loss of bowel or bladder. No saddle anaesthesia. No new numbness or tingling. 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 States that she is not currently following up with anyone for this. Took some Aleve a couple days ago. No fevers. On exam tenderness of lower back. Neurovascularly intact. X-ray shows no fracture. will place on short course of muscle relaxers. told follow up with primary. patient understand and agrees with plan. - Diagnoses Differential Diagnosis/HQI/PQRI: Positive: Herniated Disc, Strain, Sprain Provider Diagnoses: Back pain Discharge ED - Sign-Out/Discharge Documenting (check all that apply): Patient Departure - Discharge Plan Condition: Good Disposition: HOME Prescriptions: Cyclobenzaprine TAB* [Flexeril 10 MG TAB*] 10 mg PO TID PRN #15 tab PRN Reason: Pain - Severe Lidocaine PATCH 5%* [Lidoderm 5% Patch*] 1 patch TRANSDERM DAILY #6 patch Patient Education Materials: Back Pain (ED) Referrals: Elias Medina MD [Primary Care Provider] - Additional Instructions: Take muscle relaxers three times a day Apply lidocaine patches to area for up to 12 hours in one 24 hour period Use ibuprofen or Tylenol for pain every 6 hours ice/heat area, move as much as possible Follow up with primary within 5 days Return to ED if develop any new or worsening symptoms - Billing Disposition and Condition Condition: GOOD Disposition: Home
[2019-06-13] MEDS ORDERED: Lidocaine Patch REMOVE* 1 NOTE MISC SCH (21:00)
== END 2019-06-13 20:00 | disposition home or self-care (01) ==
LOC: ED 17:15
DX: M54.9 Dorsalgia, unspecified (principal); G89.29 Other chronic pain; R73.03 Prediabetes; R51 Headache; F41.9 Anxiety disorder, unspecified; Z86.79 Personal history of other diseases of the circulatory system; F90.9 Attention-deficit hyperactivity disorder, unspecified type; Z79.899 Other long term (current) drug therapy; F17.210 Nicotine dependence, cigarettes, uncomplicated
CPT/HCPCS: 72110; 96372; 99283; A9270-GY; J1885

== ENCOUNTER 2020-06-24 03:20 | Inpatient (IN) ==
[2020-06-24] MEDS ORDERED: Buffered Lidocaine 1% SYRIN 1 ml INTRADERM ONE (03:36)
[2020-06-24] MEDS ORDERED: Lactated Ringers 1000 ml BAG 1,000 ML IV ONE (03:36)
[2020-06-24] MEDS ORDERED: Lactated Ringers 1000 ml BAG 1,000 ML IV SCH ×2 (04:00→06:00)
[2020-06-24] MEDS ORDERED: Oxytocin in LR 20 UNITS/1,000 ML BAG IVPB ONE (04:55)
[2020-06-24 05:01] LABS: ABS Lymphocytes 2.5 10^3/ul (1.0-4.8); ABS Monocytes 0.9 10^3/ul (0-0.8); ABS Neutrophils 9.6 10^3/ul (1.5-7.7); Eosinophil % 0.3 %; Hematocrit 40 % (35-47); Hemoglobin 13.1 g/dL (12.0-16.0); Lymphocyte % 18.9 %; Mean Corpuscular HGB Conc 33 g/dL (31-36); Mean Corpuscular Hemoglobin 26 pg (27-31); Mean Corpuscular Volume 81 fL (80-97); Mean Platelet Volume 9.9 fL (7.4-10.4); Nucleated Red Blood Cells % 0.1; Platelet Count 217 10^3/uL (150-450); Red Blood Count 4.98 10^6 /uL (3.70-4.87); Red Cell Distribution Width 15 % (10-15)
[2020-06-24] MEDS ORDERED: Glycerin ADULT 2.4 gm SUPP PR PRN (05:14)
[2020-06-24] MEDS ORDERED: Witch Hazel PAD JAR TOPICAL PRN (05:14)
[2020-06-24] MEDS ORDERED: Dibucaine 1% OINT 28.35 GM TUBE PR PRN (05:14)
[2020-06-24 05:25] LABS: Albumin 3.3 g/dL (3.2-5.2); Calcium 8.8 mg/dL (8.6-10.3); EGFR African American 144.3 (>60); EGFR Non-African American 119.3 (>60); Globulin 3.4 g/dL (2-4); Total Bilirubin 0.3 mg/dL (0.2-1.0); Total Protein 6.7 g/dL (6.4-8.9)
[2020-06-24] MEDS ORDERED: Oxytocin in LR 20 UNITS/1,000 ML BAG IVPB SCH (06:00)
[2020-06-24 07:30] LABS: Fibrinogen 556.1 mg/dL (110.8-404.3); INR 0.97 (0.82-1.09)
[2020-06-24 07:57] LABS: Urine Benzodiazepine Screen None Detected (None Detect); Urine Cannabinoids Screen None Detected (None Detect); Urine Opiates Screen None Detected (None Detect)
[2020-06-24 14:15] LABS: Chlamydia trachomatis NAA Positive (Negative); Neisseria gonorrhoeae (GC) NAA Negative (Negative)
[2020-06-25 06:37] LABS: ABS Basophils 0.1 10^3/ul (0-0.2); ABS Eosinophils 0.1 10^3/ul (0-0.6); ABS Lymphocytes 3.6 10^3/ul (1.0-4.8); ABS Neutrophils 7.2 10^3/ul (1.5-7.7); Eosinophil % 1.2 %; Hematocrit 33 % (35-47); Hemoglobin 10.8 g/dL (12.0-16.0); Lymphocyte % 30.2 %; Mean Corpuscular HGB Conc 33 g/dL (31-36); Mean Corpuscular Hemoglobin 26 pg (27-31); Mean Corpuscular Volume 80 fL (80-97); Platelet Count 257 10^3/uL (150-450); Red Blood Count 4.11 10^6 /uL (3.70-4.87); Red Cell Distribution Width 15 % (10-15); White Blood Count 12.1 10^3/uL (3.5-10.8)
[2020-06-25 13:15] LABS: HIV 4th Generation Nonreactive (Nonreactive)
[2020-06-25] MEDS: Nicotine PATCH 7 MG/24 HR PATCH TRANSDERM SCH (16:09)
[2020-06-26 15:07] VITALS: BP 133/78
[2020-06-26] MEDS: Nicotine PATCH 7 MG/24 HR PATCH TRANSDERM SCH (17:10)
== END 2020-06-26 19:00 | disposition home or self-care (01) | DRG 806 ==
LOC: MCHOBOUT 03:20 → MCHOB 03:30
PROVIDERS: ADMIT Obstetrics & Gynecology; ATTEND Obstetrics & Gynecology